=== PATIENT | female | born 1940 | race Hispanic/Latino ===

== ENCOUNTER 2018-09-11 09:14 | Emergency (ER) | payer OTHER ==
--- OUTSIDE RECORDS SUMMARY | 2018-09-11 09:23 | XMS REPORT ---
:1940 Author Organization eClinicalWorks Care Team Providers Name Role Phone Han Guerra Provider Role Unavailable Allergies, Adverse Reactions, Alerts Substance Reaction Event Type N.K.D.A. Info Not Available Non Drug Allergy Problems Problem Type Condition Code Onset Dates Condition Status Problem Other ovarian cyst, left side N83.292 Active Problem Atherosclerosis of coronary artery I25.10 Active of [place] heart Problem Benign essential HTN I10 Active Problem Gastritis K29.70 Active Problem Rheumatoid arthritis M06.9 Active Problem Anemia in chronic illness D63.8 Active Problem Hyperlipidemia, mixed E78.2 Active Problem Depression F32.9 Active Problem Gastro-esophageal reflux disease K21.9 Active without esophagitis Assessment Depression F32.9 Active Assessment Atherosclerosis of coronary artery I25.10 Active of [place] heart Assessment Gastro-esophageal reflux disease K21.9 Active without esophagitis Assessment Hyperlipidemia, mixed E78.2 Active Assessment Anemia in chronic illness D63.8 Active Assessment Rheumatoid arthritis M06.9 Active Assessment Gastritis K29.70 Active Assessment Benign essential HTN I10 Active Medications Medication Code Code Instructions Start End Status Dosage System Date Date Ferrous Sulfate [facility] 49177212771 325 (65 Fe) MG Active 1 tablet Orally Once a day Pantoprazole [facility] 84139025284 40 MG Orally Active 1 tablet Sodium Once a day Lisinopril [facility] 72991954262 20 MG Orally Active 1 tablet Twice a day Metoprolol [facility] 19857162815 25 MG Active 1 TAB(S) Tartrate ORALLY 2 TIMES A DAY FOR 30 DAYS Ultram ND 37288776847 50 MG Orally Active 1 tablet every 12 hrs PRN as needed Pain Metoprolol ND 36677707743 25 MG Orally Active 1 tablet Tartrate Twice a day with food Lasix ND 39700826781 40 MG Orally Nov 07, Active 1 tablet Once a day 2017 Lipitor ND 16525663293 10 MG Orally Active 1 tablet Once a day Lisinopril [facility] 48606353246 20 Active TAKE ONE TABLET TWICE A DAY Results No Known Results Summary Purpose eClinicalWorks Submission
--- OUTSIDE RECORDS SUMMARY | 2018-09-11 09:23 | XMS REPORT ---
:1940 Author Organization eClinicalWorks Care Team Providers Name Role Phone Han Guerra Provider Role Unavailable Allergies No Known Allergies Problems Problem Type Condition Code Onset Dates Condition Status Problem Other ovarian cyst, left side N83.292 Active Problem Atherosclerosis of coronary artery I25.10 Active of [place] heart Assessment Hyperlipidemia, mixed E78.2 Active Problem Benign essential HTN I10 Active Problem Gastritis K29.70 Active Problem Rheumatoid arthritis M06.9 Active Problem Anemia in chronic illness D63.8 Active Problem Hyperlipidemia, mixed E78.2 Active Problem Depression F32.9 Active Problem Gastro-esophageal reflux disease K21.9 Active without esophagitis Medications Medication Code System Code Instructions Start Date End Date Status Dosage Lipitor [facility] 03623744174 10 MG Orally Once Active 1 tablet a day Results No Known Results Summary Purpose eClinicalWorks Submission
[2018-09-11 10:01] LABS: Absolute Lymphocytes (CBC) 0.8 K/uL (0.7-4.9); Basophils % 0.7 % (0-1.3); Eosinophils % 1.6 % (0-4.4); Hematocrit 34.2 % (36.0-45.0); Lymphocytes % 11.4 % (15.3-44.8); MPV 9.3 fL (7.6-11.3); Monocytes % 10.3 % (3.3-12.3); RBC Red Blood Cell Count 3.61 M/uL (3.86-4.86)
[2018-09-11] MEDS ORDERED: MECLIZINE HCL 12.5 MG TAB ONE (10:09)
[2018-09-11 10:17] LABS: ALT/SGPT 22 U/L (12-78); AST/SGOT 19 U/L (15-37); Albumin 3.1 g/dL (3.4-5.0); Alkaline Phosphatase 149 U/L (45-117); BUN Blood Urea Nitrogen 26 mg/dL (7-18); Bicarbonate 27 mmol/L (21-32); Bilirubin Direct 0.1 mg/dL (0-0.2); Bilirubin Total 0.3 mg/dL (0.2-1.0); Glucose Level 108 mg/dL (74-106); Magnesium 2.6 mg/dL (1.8-2.4); NT PRO-BNP 539 pg/mL (<450); Potassium 5.2 mmol/L (3.5-5.1); Sodium Level 141 mmol/L (136-145); Troponin (Emerg Dept Use Only) < 0.02 ng/mL (0.0-0.045)
--- NOTE | 2018-09-11 10:18 | RAD REPORT ---
EXAM DESCRIPTION: CT - Head Brain Wo Cont - 09/11/2018 10:07 am CLINICAL HISTORY: DIZZINESS Headache, drowsiness COMPARISON: 3D DIAG UNI F/U dated 09/10/2018Head Brain Wo Cont dated 03/20/2017; Head Brain Wo Cont d ated 10/20/2015 TECHNIQUE: All CT scans are performed using dose optimization technique as appropriate and may inclu de automated exposure control or mA/KV adjustment according to patient size. FINDINGS: No intracranial hemorrhage, hydrocephalus or extra-axial fluid collection.Mild generalized brain atrophy is present with mild periventricular and deep white matter chronic microvascular ische rene changes.No areas of brain edema or evidence of midline shift. Chronic right maxillary sinusitis. The paranasal sinuses and mastoids are otherwise clear. The calvar ium is intact. IMPRESSION: No acute intracranial abnormality.
--- NOTE | 2018-09-11 10:39 | RAD REPORT ---
EXAM DESCRIPTION: RAD - Chest Single View - 09/11/2018 10:32 am CLINICAL HISTORY: CHEST PAIN Chest pain. COMPARISON: Chest Single View dated 03/22/2017; Chest Single View dated 03/20/2017; Chest Single Vie w dated 10/20/2015; CHEST SINGLE VIEW dated 03/16/2015 FINDINGS: Portable technique limits examination quality. Mild interstitial pulmonary edema is seen. The heart is moderately enlarged in size. No displaced fra ctures. IMPRESSION: Mild CHF.
--- NOTE | 2018-09-11 10:42 | EKG ---
Test Date: 2018-09-11 Test Time: 09:27:41 [employer]: BEN MEASUREMENT RESULTS: Intervals: Rate: 68 GA: 140 QRSD: 82 QT: 384 QTc: 408 [place]: P: 12 GA: 140 QRS: 12 T: 32 INTERPRETIVE STATEMENTS: Normal sinus rhythm Normal ECG Compared to ECG 03/22/2017 05:31:55 Ventricular premature complex(es) no longer present Electronically Signed On 09-11-18 10:41:23 CDT by Josesito Pulido
--- NOTE | 2018-09-11 12:13 | ER ---
Nurse's Notes [facility] Name: Mahnaz Osborne Age: 78 yrs Sex: Female : 1940 Arrival Date: 09/11/2018 Time: 09:16 Bed 7 Private MD: Diagnosis: Dizziness and giddiness;Abdominal and pelvic pain Presentation: 09/11 09:33 Presenting complaint: Patient states: EPIGASTRIC PAIN, HEADACHE AND DIZZINESS SINCE bp YESTERDAY. Transition of care: patient was not received from another setting of care. Onset of symptoms was September 10, 2018. Risk Assessment: Do you want to hurt yourself or someone else? Patient reports no desire to harm self or others. Initial Sepsis Screen: Does the patient meet any 2 criteria? No. Patient's initial sepsis screen is negative. Does the patient have a suspected source of infection? No. Patient's initial sepsis screen is negative. Care prior to arrival: None. Mechanism of Injury: No Mechanism of Injury. 09:33 Method Of Arrival: Ambulatory bp 09:33 Acuity: REENA 2 bp Triage Assessment: 09:33 General: Appears in no apparent distress. comfortable, Behavior is cooperative, bp appropriate for age, anxious. Pain: Complains of pain in head and epigastric area. Cardiovascular: Rhythm is sinus rhythm. 09:33 EENT: No signs and/or symptoms were reported regarding the EENT system. Neuro: No bp deficits noted. Respiratory: Airway is patent Respiratory effort is even, unlabored, Respiratory pattern is regular, symmetrical. GI: No signs and/or symptoms were reported involving the gastrointestinal system. : No signs and/or symptoms were reported regarding the genitourinary system. Derm: No deficits noted. Musculoskeletal: No signs and/or symptoms reported regarding the musculoskeletal system. Historical: - Allergies: 09:39 No Known Allergies; bp - Home Meds: 09:39 pantoprazole 40 mg Oral TbEC 1 tab once daily [Active]; metoprolol tartrate 25 mg Oral bp tab 1 tab 2 times per day [Active]; lisinopril 20 mg Oral tab 1 tab once daily [Active]; aspirin 81 mg Oral chew 1 tab once daily [Active]; amlodipine 5 mg tab 1 tab once daily [Active]; - PMHx: 09:39 Hypertension; High Cholesterol; bp - Immunization history:: Adult Immunizations up to date. - Social history:: Smoking status: Patient/guardian denies using tobacco. - Ebola Screening: : No symptoms or risks identified at this time. Screenin:48 Abuse screen: Denies threats or abuse. Denies injuries from another. Nutritional bp screening: No deficits noted. Tuberculosis screening: No symptoms or risk factors identified. Fall Risk None identified. Assessment: 09:35 General: SEE TRIAGE NOTE. bp 09:35 Pain: Pain does not radiate. Pain began 1 day ago. bp 11:32 Reassessment: ALL CURRENT ORDERS COMPLETED, NO ACUTE S/S AT THIS TIME. bp 12:22 Reassessment: PT D/C HOME AMBULATORY WITH FAMILY, DX WITH DIZZINESS. bp Vital Signs: 09:46 BP 147 / 60; Pulse 68; Resp 16; Temp 98.3; Pulse Ox 100% ; Weight 73.03 kg; bp 11:31 BP 117 / 53; Pulse 54; Resp 16; Pulse Ox 100% ; bp ED Course: 09:16 Patient arrived in ED. as 09:16 Giovanni Nicole MD is Attending Physician. kdr 09:33 Harvinder Treviño, LAN is Primary Nurse. bp 09:37 Triage completed. bp 09:46 Arm band placed on. bp 09:47 EKG done, by cath lab technologist. reviewed by Giovanni Nicole MD. sm3 09:48 Patient has correct armband on for positive identification. Bed in low position. Call bp light in reach. Side rails up X2. Adult w/ patient. manager monitoring on. Pulse ox on. NIBP on. 09:56 Initial lab(s) drawn, by hi, sent to lab. Inserted saline lock: 20 gauge in right em1 antecubital area, using aseptic technique. Blood collected. 10:07 CT Head Brain wo Cont In Process Unspecified. EDMS 10:27 X-ray completed. Portable x-ray completed in exam room. Patient tolerated procedure mh1 well. 10:33 XRAY Chest (1 view) In Process Unspecified. EDMS 12:23 No provider procedures requiring assistance completed. IV discontinued, intact, bp bleeding controlled, No redness/swelling at site. Pressure dressing applied. Patient maintains SpO2 saturation greater than 95% on room air. Administered Medications: 09:58 Drug: Meclizine 25 mg Route: PO; bp 11:34 Follow up: Response: Marked relief of symptoms bp Outcome: 12:13 Discharge ordered by . kdr 12:23 Discharged to home ambulatory, with family. bp 12:23 Condition: stable 12:23 Discharge instructions given to patient, family, Instructed on discharge instructions, follow up and referral plans. medication usage, Demonstrated understanding of instructions, follow-up care, medications, Prescriptions given X 2. 12:24 Patient left the ED. bp Signatures: Dispatcher [employer] EDMS Giovanni Nicole MD MD kdr Harvey, Martha 1 Chelsey Thorne Eric 1 Harvinder Treviño, RN RN bp Arnold, Meli sm3
--- NOTE | 2018-09-11 12:13 | EDPHYS ---
Physician Documentation [facility] Name: Mahnaz Osborne Age: 78 yrs Sex: Female : 1940 Arrival Date: 09/11/2018 Time: 09:16 Bed 7 Private MD: ED Physician Giovanni Nicole HPI: 09/11 09:46 This 78 yrs old Female presents to ER via Ambulatory with complaints of Chest kdr Pain, Headache. 09:49 The patient c/o dizziness and upper abdominal pain for two days. She has had this kdr previously about six months to a year ago. She had seen cardiology at that time. The outcome is unknown. Today, she does not appear to be in any acute distress. She is completely non-toxic in the ED.. Onset: The symptoms/episode began/occurred gradually, 2 day(s) ago. Severity of symptoms: At their worst the symptoms were mild moderate just prior to arrival, in the emergency department the symptoms. The patient has experienced similar episodes in the past, several times. The patient has not recently seen a physician. Historical: - Allergies: 09:39 No Known Allergies; bp - Home Meds: 09:39 pantoprazole 40 mg Oral TbEC 1 tab once daily [Active]; metoprolol tartrate 25 mg Oral bp tab 1 tab 2 times per day [Active]; lisinopril 20 mg Oral tab 1 tab once daily [Active]; aspirin 81 mg Oral chew 1 tab once daily [Active]; amlodipine 5 mg tab 1 tab once daily [Active]; - PMHx: 09:39 Hypertension; High Cholesterol; bp - Immunization history:: Adult Immunizations up to date. - Social history:: Smoking status: Patient/guardian denies using tobacco. - Ebola Screening: : No symptoms or risks identified at this time. ROS: 09:49 Constitutional: Negative for fever, chills, and weight loss, Eyes: Negative for injury, kdr pain, redness, and discharge, ENT: Negative for injury, pain, and discharge, Neck: Negative for injury, pain, and swelling, Cardiovascular: Negative for chest pain, palpitations, and edema, Respiratory: Negative for shortness of breath, cough, wheezing, and pleuritic chest pain, Back: Negative for injury and pain, : Negative for injury, bleeding, discharge, and swelling, MS/Extremity: Negative for injury and deformity, Skin: Negative for injury, rash, and discoloration, Psych: Negative for depression, anxiety, suicide ideation, homicidal ideation, and hallucinations, Allergy/Immunology: Negative for hives, rash, and allergies, Endocrine: Negative for neck swelling, polydipsia, polyuria, polyphagia, and marked weight changes, Hematologic/Lymphatic: Negative for swollen nodes, abnormal bleeding, and unusual bruising. 09:49 Abdomen/GI: Positive for abdominal pain, nausea, Negative for vomiting, diarrhea, constipation, abdominal cramps, abdominal distension, anorexia, dysphagia, black/tarry stool, rectal pain, rectal bleeding. Exam: 09:49 Constitutional: This is a well developed, well nourished patient who is awake, alert, kdr and in no acute distress. Head/Face: Normocephalic, atraumatic. Eyes: Pupils equal round and reactive to light, extra-ocular motions intact. Lids and lashes normal. Conjunctiva and sclera are non-icteric and not injected. Cornea within normal limits. Periorbital areas with no swelling, redness, or edema. Neck: Trachea midline, no thyromegaly or masses palpated, and no cervical lymphadenopathy. Supple, full range of motion without nuchal rigidity, or vertebral point tenderness. No Meningismus. Chest/axilla: Normal chest wall appearance and motion. Nontender with no deformity. No lesions are appreciated. Cardiovascular: Regular rate and rhythm with a normal S1 and S2. No gallops, murmurs, or rubs. Normal PMI, no JVD. No pulse deficits. Respiratory: Lungs have equal breath sounds bilaterally, clear to auscultation and percussion. No rales, rhonchi or wheezes noted. No increased work of breathing, no retractions or nasal flaring. Abdomen/GI: Soft, non-tender, with normal bowel sounds. No distension or tympany. No guarding or rebound. No evidence of tenderness throughout. Back: No spinal tenderness. No costovertebral tenderness. Full range of motion. Skin: Warm, dry with normal turgor. Normal color with no rashes, no lesions, and no evidence of cellulitis. MS/ Extremity: Pulses equal, no cyanosis. Neurovascular intact. Full, normal range of motion. Neuro: Awake and alert, GCS 15, oriented to person, place, time, and situation. Cranial nerves II-XII grossly intact. Motor strength 5/5 in all extremities. Sensory grossly intact. Cerebellar exam normal. Normal gait. Psych: Awake, alert, with orientation to person, place and time. Behavior, mood, and affect are within normal limits. Vital Signs: 09:46 BP 147 / 60; Pulse 68; Resp 16; Temp 98.3; Pulse Ox 100% ; Weight 73.03 kg; bp 11:31 BP 117 / 53; Pulse 54; Resp 16; Pulse Ox 100% ; bp MDM: 09:49 Data reviewed: vital signs, nurses notes, lab test result(s), radiologic studies. kdr Counseling: I had a detailed discussion with the patient and/or guardian regarding: the historical points, exam findings, and any diagnostic results supporting the discharge/admit diagnosis, lab results, radiology results, the need for outpatient follow up. 12:13 Patient medically screened. [facility] 09/11 09:16 Order name: Basic Metabolic Panel [facility] 09/11 09:16 Order name: CBC with Diff [facility] 09/11 09:16 Order name: LFT's [facility] 09/11 09:16 Order name: Magnesium [facility] 09/11 09:16 Order name: NT PRO-BNP; Complete Time: 11:16 [facility] 09/11 09:16 Order name: PT-INR; Complete Time: 11:16 [facility] 09/11 09:16 Order name: Troponin (emerg Dept Use Only); Complete Time: 11:16 [facility] 09/11 09:16 Order name: XRAY Chest (1 view); Complete Time: 11:16 [facility] 09/11 09:18 Order name: Basic Metabolic Panel; Complete Time: 11:16 EDMD 09/11 09:18 Order name: CBC with Automated Diff; Complete Time: 11:16 EDMD 09/11 09:18 Order name: Liver (Hepatic) Function; Complete Time: 11:16 EDMD 09/11 09:18 Order name: Magnesium; Complete Time: 11:16 EDMD 09/11 09:45 Order name: CT Head Brain wo Cont; Complete Time: 11:16 kdr 09/11 09:16 Order name: EKG; Complete Time: 09:18 kdr 09/11 09:17 Order name: Cardiac monitoring; Complete Time: 09:49 [facility] 09/11 09:17 Order name: EKG - Nurse/Tech; Complete Time: 09:50 [facility] 09/11 09:17 Order name: IV Saline Lock; Complete Time: 09:50 [facility] 09/11 09:17 Order name: Labs collected and sent; Complete Time: :50 [facility] 09/11 09:17 Order name: O2 Per Protocol; Complete Time: 09:50 [facility] 09/11 09:17 Order name: O2 Sat Monitoring; Complete Time: :50 [facility] Administered Medications: 09:58 Drug: Meclizine 25 mg Route: PO; bp 11:34 Follow up: Response: Marked relief of symptoms bp Disposition: 09/11/18 12:13 Discharged to Home. Impression: Dizziness and giddiness, Abdominal and pelvic pain. - Condition is Stable. - Discharge Instructions: Abdominal Pain, Adult, [id number]-Tekf, Dizziness, [id number]. - Prescriptions for Meclizine 25 mg Oral Tablet - take 1 tablet by ORAL route every 8 hours As needed; 30 tablet. Zofran 4 mg Oral Tablet - take 1 tablet by ORAL route every 12 hours As needed; 6 tablet. - Medication Reconciliation Form, Thank You Letter form. - Follow up: Private Physician; When: 2 - 3 days; Reason: If symptoms return, Further diagnostic work-up, Recheck today's complaints, Continuance of care, Re-evaluation by your physician. - Problem is new. - Symptoms have improved. Signatures: Dispatcher [employer] EDMS Giovanni Nicole MD MD kdr Harvinder Treviño, RN RN bp Corrections: (The following items were deleted from the chart) 12:24 12:13 09/11/2018 12:13 Discharged to Home. Impression: Dizziness and giddiness; bp Abdominal and pelvic pain. Condition is Stable. Forms are Medication Reconciliation Form, Thank You Letter, Antibiotic Education, Prescription Opioid Use. Follow up: Private Physician; When: 2 - 3 days; Reason: If symptoms return, Further diagnostic work-up, Recheck today's complaints, Continuance of care, Re-evaluation by your physician. Problem is new. Symptoms have improved. kdr
[2018-09-11 12:35] VITALS: TEMP 98.3; O2SAT 100
[2018-09-11 12:36] VITALS: BP 117/53
== END 2018-09-11 12:24 | disposition home or self-care (01) ==
LOC: ER 09:14
DX: R10.2 Pelvic and perineal pain (principal); I10 Essential (primary) hypertension; E78.00 Pure hypercholesterolemia, unspecified; Z79.82 Long term (current) use of aspirin
CPT/HCPCS: 36415; 70450; 71045; 80048; 80076; 83735; 83880; 84484; 85025; 85610; 93005; 99285

== ENCOUNTER 2019-12-23 10:00 | Emergency (ER) | payer OTHER ==
--- OUTSIDE RECORDS SUMMARY | 2019-12-23 10:29 | XMS REPORT | Continuity of Care Document ---
:1940 Author Organization [facility] t Address [address] [place] [address] Care Team Providers Name Role Phone Unavailable Unavailable Unavailable Problems This patient has no known problems. Allergies, Adverse Reactions, Alerts This patient has no known allergies or adverse reactions. Medications Ordered Filled Start Stop Current Ordering Indication Dosage Frequency Signature Comments Components Source Medication Medication Date Date Medication? Clinician (SIG) Name Name Zoloft [place] Yes Han 1/[address] [facility] once daily [facility] then 1 l tablet [facility] once daily ent Clinics Metoprolol Metoprolol Yes Han [address] [facility] Tartrate Tartrate [facility] with food [facility] Lisinopril Lisinopril Yes Han [address] [facility] Amlodipine Amlodipine Yes Han TK [address] [facility] Besylate Besylate [facility] QD [facility] Folic Acid Folic Acid Yes Han [address] [facility] Ferrous Ferrous Yes Han [address] [facility] Sulfate Sulfate [facility] Lasix Lasix Yes Han [address] [facility] Methotrexat Methotrexat Yes Han as [facility] directed [facility] Lipitor Lipitor Yes Han [address] [facility] Fosamax Fosamax Yes Han [address] [facility] Pantoprazol Pantoprazol Yes Han [address] [facility] Sodium e Sodium Gu[facility] Ultram Ultram Yes Han [facility] Procedures This patient has no known procedures. Encounters Start End Encounter Admission Attending Care Care Encounter Source Date/Time Date/Time Type Type Clinicians Facility Department ID 2019-12-21 2019-12-21 Out[facility] [id number] [facility] 2019-10-20 2019-10-20 [facility] [id number] [facility] 11:00:00 11:00:00 [employer] [facility] Medicine l Medicine Outpati ent Clinics 2019-10-20 2019-10-20 [facility] [id number] [facility] 11:00:00 11:00:00 [employer] [facility] Medicine Medicine Outpati ent Clinics 2019-10-12 2019-10-12 [facility] [id number] 15:00:00 15:00:00 [employer] [facility] Medicine l Medicine Outpati ent Clinics 2019-10-11 2019-10-11 [facility] [id number] 21:54:00 21:54:00 [facility] [employer] [facility] Medicine l Medicine Outpati ent Clinics 2019-10-05 2019-10-05 [facility] [id number] [facility] 08:30:00 08:30:00 [email or web address] [facility] Medicine l Medicine Outpati ent Clinics 2019-09-30 2019-09-30 [facility] [id number] 13:20:00 13:20:00 [employer] [facility] [employer] [facility] Medicine l Medicine Outpati ent Clinics 2019-09-28 2019-09-28 [facility] [id number] 16:39:00 16:39:00 [employer] [facility] Clinics 2019-09-21 2019-09-21 [facility] [id number] [facility] 16:12:00 16:12:[address] [facility] [address] - [address] [facility] Medicine l Medicine Outpati ent Clinics 2019-09-16 2019-09-16 [facility] [id number] 08:20:00 08:20:00 t [place] [employer] Luke s - Drive [facility] Medicine l Medicine Outpati ent Clinics 2019-09-15 2019-09-15 [facility] [id number] 13:09:00 13:09:00 t Stanley Stanley [employer] Luke s - Drive [facility] Medicine l Medicine Outpati ent Clinics 2019-06-23 2019-06-23 [facility] [id number] [address] 11:30:00 11:30:00 t Stanley Stanley [employer] s - Drive [facility] Medicine l Medicine Outpati ent Clinics 2019-04-02 2019-04-02 [facility] [id number] [address] 11:00:00 11:00:00 t Stanley Stanley [employer] s - Drive [facility] Medicine l Medicine Outpati ent Clinics 2019-03-26 2019-03-26 [facility] [id number] [address] 08:00:00 08:00:00 t Stanley [employer] s - Drive [facility] Medicine l Medicine Outpati ent Clinics 2018-12-18 2018-12-18 [facility] [id number] 10:45:00 10:45:00 t [place] Stanley [employer] s - Drive [facility] l Medicine Outpati ent Clinics 2018-09-18 2018-09-18 [facility] [id number] 10:30:00 10:30:00 t [place] [employer] s - Drive [facility] Medicine l Medicine Outpati ent Clinics 2018-07-09 2018-07-09 [facility] [id number] 13:59:00 13:59:00 t [place] [employer] s - Drive [facility] Medicine l Medicine Outpati ent Clinics 2017-11-07 2017-11-07 [facility] [id number] 10:30:00 10:30:00 t [facility] Medicine Outpati ent Clinics Results This patient has no known results.
--- OUTSIDE RECORDS SUMMARY | 2019-12-23 10:29 | XMS REPORT ---
:1940 Author Organization eClinicalWorks Care Team Providers Name Role Phone Charlie Han Provider Role Unavailable Allergies No Known Allergies Problems Problem Type Condition Code Onset Dates Condition Statu s Problem Gastro-esophageal reflux disease K21.9 Active without esophagitis Problem Gastritis K29.70 Active Problem Depression F32.9 Active Problem Hyperlipidemia, mixed E78.2 Active Problem Anemia in chronic illness D63.8 Ac tive Problem Body mass index (BMI) 31.0-31.9, Z68.31 Active adult Problem Age-related osteoporosis without M81.0 Active current pathological fracture Problem Other obesity due to excess E66.09 Active calories Problem Rheumatoid arthritis M06.9 Active Problem Benign essential HTN I10 Active Problem Other ovarian cyst, left side N83.292 Active Problem Atherosclerosis of coronary artery I25.10 Active of [place] heart Medications No Known Medications Results No Known Results Summary Purpose eClinicalWorks Submission
--- OUTSIDE RECORDS SUMMARY | 2019-12-23 10:30 | XMS REPORT ---
:1940 Author Organization [facility] Address [address] [place] [address] Care Team Providers Name Role Phone Charlie Han Unavailable [phone] PROBLEMS Type Condition ICD9-CM TSV88-NV Onset Condition SNOMED Code Notes Code Code Dates Status Problem Depression F32.9 Active 571781769 Problem Gastritis K29.70 Active 8122958 Problem Benign essential I10 Active 86898924 HTN Problem Hyperlipidemia, E78.2 Active 261934013 mixed Problem Body mass index Z68.31 Active 727368038 (BMI) 31.0-31.9, adult Problem Gastro-esophageal K21.9 Active 465093320 reflux disease without esophagitis Problem Other obesity due E66.09 Active 340571340 to excess calories Problem Anemia in chronic D63.8 Active 090330764 illness Problem Rheumatoid M06.9 Active 39960053 arthritis Problem Atherosclerosis I25.10 Active 944807593489030 of coronary artery of [place] heart Problem Other ovarian N83.292 Active 08449167454442513 cyst, left side Problem Age-related M81.0 Active 65738910 osteoporosis without current pathological fracture ALLERGIES No Known Allergies ENCOUNTERS from 1940 to 2019-12-21 Encounter Location Date Provider Diagnosis [facility] [address], [place] [address] IMMUNIZATIONS No Information SOCIAL HISTORY Sex Assigned At : Social History Observation Description Sex Assigned At Unknown PHQ9 Question Answer Notes Little interest or pleasure in doing things Not at all Feeling down, depressed, or hopeless Not at all Trouble falling or staying asleep or sleeping too much Not a t all Feeling tired or having little energy Not at all Poor appetite or overeating Not at all Feeling bad about yourself, or that you are a failure, or patterson ve let Not at all yourself or your family down Trouble concentrating on things, such as reading the newspap er or Not at all watching television Moving or speaking so slowly that other people could have no ticed; Not at all or the opposite, being so fidgety or restless that you have been moving around a lot more than usual Total Score 0 Thoughts that you would be better off or of hurting you rself in Not at all some way REASON FOR REFERRAL No Information VITAL SIGNS No information MEDICATIONS Medication SIG (Take, Route, Start Date End Date Status Frequency, Duration) Methotrexate 2.5 MG as directed Orally Ac tive Lasix 40 MG 1 tablet Orally Once a day A ctive for 90 days Pantoprazole Sodium 40 MG 1 tablet Orally Once a day Active for 90 days Folic Acid 1 MG 1 tablet Orally Once a day Active Ultram 50 MG 1 tablet as needed Orally Ac tive every 12 hrs PRN Pain for 30 Zoloft 50 MG 1/2 tab once daily x 1week, Aug, Active then 1 tablet once daily Orally Once a day for 30 day(s) Meclizine HCl 25 MG 1 tablet as needed Orally Nov, Active Once a day for 15 days Amlodipine Besylate 5 MG TK 1 T PO QD Oral for 90 Active days Metoprolol Tartrate 25 MG 1 tablet with food Orally Active Twice a day for 90 days Lipitor 20 MG 1 tablet Orally Once a day Active for 90 days Lisinopril 20 MG 1 tablet Orally Once a day Active for 90 days Ferrous Sulfate 325 (65 Fe) 1 tablet Orally Once a day Active MG for 90 Fosamax 70 MG 1 tablet Orally Active PROCEDURES No Information RESULTS No Results REASON FOR VISIT Dizzy MEDICAL (GENERAL) HISTORY Type Description Date Medical History Rheumatoid arthritis Medical History Benign essential HTN Medical History Anemia in chronic illness Medical History Hyperlipidemia, mixed Medical History Atherosclerosis of coronary artery of na tive heart Medical History Depression Medical History Gastro-esophageal reflux disease without esophagitis Medical History Gastritis Medical History Other ovarian cyst, left side Surgical History Knee Surgical History Hand & Elbow Surgical History Hip Surgical History Gallbladder Goals Section No Information Health Concerns No Information MEDICAL EQUIPMENT No Information MENTAL STATUS No Information FUNCTIONAL STATUS No Information ASSESSMENTS No Information PLAN OF TREATMENT Medication Medication Name Sig Start Date Stop Date Meclizine HCl 25 MG 1 tablet as needed Orally Once a day for Nov, 15 days Next Appt Details Provider Name:Han Guerra, 2020-01-13 0 8:30:00 AM, [address], [place], [address], Provider Name:Han Guajardodaniel 2020-01-20 1 1:30:00 AM, [address], [place], [address], Insurance Providers Payer Name Payer Address Payer Insured Patient Coverage Cover age Phone Name Relationship to Start Date End Date Insured MEDICARE Attn Part B [id number] Sekou Osborne self 2007 [employer] Claims [address] [facility] [address] [facility] [address]
--- OUTSIDE RECORDS SUMMARY | 2019-12-23 10:30 | XMS REPORT ---
:1940 Author Organization eClinicalWorks Care Team Providers Name Role Phone Mary Metzger Provider Role Unavailable Allergies No Known Allergies Problems Problem Type Condition Code Onset Dates Condition Statu s Problem Gastro-esophageal reflux disease K21.9 Active without esophagitis Problem Gastritis K29.70 Active Problem Depression F32.9 Active Assessment COVID-19 U07.1 Active Problem Hyperlipidemia, mixed E78.2 Active Problem [...] Atherosclerosis of coronary artery I25.10 Active of [place] heart Medications Medication Code Code Instructions Start End Status Dosage System Date Date Lisinopril [facility] 28948529346 20 MG Orally Active 1 ta blet Twice a day Ultram [facility] 18279239325 50 MG Orally Active 1 table t as every 12 hrs needed PRN Pain Zoloft ND 27708911945 50 MG Orally September 20, Active 1/2 ta b Once a day 2019 once daily x 1week, then 1 tablet once daily Fosamax [facility] 91507637984 70 MG Orally Active 1 table t Ferrous Sulfate [facility] 25984510449 325 (65 Fe) MG Activ e 1 tablet Orally Once a day Lasix ND 49503544083 40 MG Orally Active 1 table t Once a day Methotrexate ND 42259493527 2.5 MG Orally Active a s directed Amlodipine ND 46686866906 5 MG Oral Active TK 1 T PO Besylate QD Pantoprazole ND 80610804549 40 MG Orally Active 1 tablet Sodium Once a day Folic Acid ND 04769027541 1 MG Orally Active 1 tab let Once a day Metoprolol ND 80441127252 25 MG Orally Active 1 ta blet Tartrate Twice a day with food Lipitor [facility] 43902389808 20 MG Orally Active 1 table t Once a day Results No Known Results Summary Purpose eClinicalWorks Submission
--- OUTSIDE RECORDS SUMMARY | 2019-12-23 10:30 | XMS REPORT ---
:1940 Author Organization eClinicalWorks Care Team Providers Name Role Phone Charlie Han Provider Role Unavailable Allergies, Adverse Reactions, Alerts Substance Reaction Event Type N.K.D.A. Info Not Available Non Drug Allergy Problems Problem Type Condition Code Onset Dates Condition Statu s Problem Gastro-esophageal reflux disease K21.9 Active without esophagitis Problem Gastritis K29.70 Active Problem Depression F32.9 Active Problem Body mass index (BMI) 31.0-31.9, Z68.31 Active adult Assessment Atherosclerosis of coronary artery I25.10 Active of [place] heart Problem Age-related osteoporosis without M81.0 Active current pathological fracture Assessment Depression F32.9 Active Assessment Age-related osteoporosis without M81.0 Active current pathological fracture Problem Other obesity due to excess E66.09 Active calories Problem Rheumatoid arthritis M06.9 Active Problem Benign essential HTN I10 Active Problem Other ovarian cyst, left side N83.292 Active Problem Atherosclerosis of coronary artery I25.10 Active of [place] heart Assessment Gastro-esophageal reflux disease K21.9 Active without esophagitis Assessment Hyperlipidemia, mixed E78.2 Active Assessment Anemia in chronic illness D63.8 Ac tive Assessment Gastritis K29.70 Active Assessment Hypotensive episode I95.9 Active Assessment Hyperkalemia E87.5 Active Assessment Body mass index (BMI) 31.0-31.9, Z68.31 Active adult Assessment Rheumatoid arthritis M06.9 Active Problem Hyperlipidemia, mixed E78.2 Active Assessment Other obesity due to excess E66.09 Active calories Assessment Benign essential HTN I10 Active Problem Anemia in chronic illness D63.8 Ac tive Medications Medication Code Code Instructions Start End Status Dosage System Date Date Ferrous Sulfate [facility] 22739059338 325 (65 Fe) MG Activ e 1 tablet Orally Once a day Pantoprazole [facility] 98601204349 40 MG Orally Active 1 tablet Sodium Once a day Folic Acid [facility] 06937312235 1 MG Orally Active 1 tab let Once a day Fosamax [facility] 39593575104 70 MG Orally Active 1 table t Lisinopril [facility] 57117957666 20 MG Orally Active 1 ta blet Once a day Ultram ND 92135937103 50 MG Orally Active 1 table t as every 12 hrs needed PRN Pain Lipitor ND 79311662890 20 MG Orally Active 1 table t Once a day Methotrexate ND 93158957007 2.5 MG Orally Active a s directed Metoprolol ND 47217053541 25 MG Orally Active 1 ta blet Tartrate Twice a day with food Zoloft ND 29798392133 50 MG Orally September 20, Active 03/26 ta b Once a day 2019 once daily x 1week, then 1 tablet once daily Lasix [facility] 34860397789 40 MG Orally Active 1 table t Once a day Amlodipine [facility] 99459892702 5 MG Oral Active TK 1 T PO Besylate QD Results No Known Results Summary Purpose eClinicalWorks Submission
--- OUTSIDE RECORDS SUMMARY | 2019-12-23 10:30 | XMS REPORT ---
[...] Atherosclerosis of coronary artery I25.10 Active of [place] heart Medications No Known Medications Results No Known Results Summary Purpose eClinicalWorks Submission
--- OUTSIDE RECORDS SUMMARY | 2019-12-23 10:30 | XMS REPORT ---
:1940 Author Organization eClinicalWorks Care Team Providers Name Role Phone GuerraHan Provider Role Unavailable Allergies, Adverse Reactions, Alerts Substance Reaction Event Type N.K.D.A. Info Not Available Non Drug Allergy Problems Problem Type Condition Code Onset Dates Condition Statu s Problem Gastro-esophageal reflux disease K21.9 Active without esophagitis Problem Gastritis K29.70 Active Problem Depression F32.9 Active Assessment Medicare annual wellness visit, Z00.00 Active subsequent Problem Hyperlipidemia, mixed E78.2 Active Problem Anemia [...] Atherosclerosis of coronary artery I25.10 Active of [place] heart Medications Medication Code Code Instructions Start End Status Dosage System Date Date Fosamax [facility] 03003430930 70 MG Orally Active 1 table t Lipitor [facility] 26251928356 20 MG Orally Active 1 table t Once a day Lasix [facility] 46111128470 40 MG Orally Active 1 table t Once a day Metoprolol [facility] 13057954002 25 MG Orally Active 1 ta blet Tartrate Twice a day with food Ferrous Sulfate [facility] 12919332208 325 (65 Fe) MG Activ e 1 tablet Orally Once a day Folic Acid [facility] 25970253954 1 MG Orally Active 1 tab let Once a day Methotrexate [facility] 56747624865 2.5 MG Orally Active a s directed Lisinopril [facility] 98732448101 20 MG Orally Active 1 ta blet Once a day Pantoprazole [facility] 44126472905 40 MG Orally Active 1 tablet Sodium Once a day Amlodipine [facility] 67165896316 5 MG Oral Active TK 1 T PO Besylate QD Ultram [facility] 15448048748 50 MG Orally Active 1 table t as every 12 hrs needed PRN Pain Zoloft [facility] 63123962104 50 MG Orally September 20, Active 03/26 ta b Once a day 2019 once daily x 1week, then 1 tablet once daily Results No Known Results Summary Purpose eClinicalWorks Submission
--- OUTSIDE RECORDS SUMMARY | 2019-12-23 10:30 | XMS REPORT ---
[...] Atherosclerosis of coronary artery I25.10 Active of [place] heart Medications No Known Medications Results No Known Results Summary Purpose eClinicalWorks Submission
--- OUTSIDE RECORDS SUMMARY | 2019-12-23 10:30 | XMS REPORT ---
[...] Atherosclerosis of coronary artery I25.10 Active of [place] heart Medications No Known Medications Results No Known Results Summary Purpose eClinicalWorks Submission
--- OUTSIDE RECORDS SUMMARY | 2019-12-23 10:30 | XMS REPORT ---
:1940 Author Organization eClinicalWorks Care Team Providers Name Role Phone Han Guerra Provider Role Unavailable Allergies, Adverse Reactions, Alerts Substance Reaction Event Type N.K.D.A. Info Not Available Non Drug Allergy Problems Problem Type Condition Code Onset Dates Condition Statu s Assessment Decreased GFR R94.4 Active Assessment Hyperkalemia E87.5 Active Problem Hyperlipidemia, mixed E78.2 Active Assessment Body mass index (BMI) 31.0-31.9, Z68.31 Active adult Problem Anemia in chronic illness D63.8 Ac tive Assessment Other obesity due to excess E66.09 Active calories Problem Gastro-esophageal reflux disease K21.9 Active without esophagitis Problem Gastritis K29.70 Active Problem Depression F32.9 Active Problem Body mass index (BMI) 31.0-31.9, Z68.31 Active adult Problem Age-related osteoporosis without M81.0 Active current pathological fracture Assessment Atherosclerosis of coronary artery I25.10 Active of [place] heart Assessment Depression F32.9 Active Problem Other obesity due to excess E66.09 Active calories Assessment Age-related osteoporosis without M81.0 Active current pathological fracture Problem Rheumatoid arthritis M06.9 Active Problem Benign essential HTN I10 Active Problem Other ovarian cyst, left side N83.292 Active Problem Atherosclerosis of coronary artery I25.10 Active of [place] heart Assessment Gastro-esophageal reflux disease K21.9 Active without esophagitis Assessment Hypotensive episode I95.9 Active Assessment Anemia in chronic illness D63.8 Ac tive Assessment Gastritis K29.70 Active Assessment Benign essential HTN I10 Active Assessment Hyperlipidemia, mixed E78.2 Active Assessment Rheumatoid arthritis M06.9 Active Medications Medication Code Code Instructions Start End Status Dosage System Date Date Folic Acid ND 56010643568 1 MG Orally Active 1 tab let Once a day Methotrexate ND 28146630469 2.5 MG Orally Active a s directed Zoloft ND 73740657455 50 MG Orally September 20, Active 1/2 ta b Once a day 2019 once daily x 1week, then 1 tablet once daily Amlodipine [facility] 67678614653 5 MG Oral Active TK 1 T PO Besylate QD Pantoprazole [facility] 43410636567 40 MG Orally Active 1 tablet Sodium Once a day Metoprolol [facility] 78771568918 25 MG Orally Active 1 ta blet Tartrate Twice a day with food Fosamax [facility] 44089605419 70 MG Orally Active 1 table t Lisinopril [facility] 07690241044 20 MG Orally Active 1 ta blet Once a day Lasix [facility] 35520899282 40 MG Orally Active 1 table t Once a day Calcium [facility] [address] Active not defined Ultram [facility] 73633707567 50 MG Orally Active 1 table t as every 12 hrs needed PRN Pain Ferrous Sulfate [facility] 64022616705 325 (65 Fe) MG Activ e 1 tablet Orally Once a day Lipitor [facility] 98617267982 20 MG Orally Active 1 table t Once a day Results No Known Results Summary Purpose eClinicalWorks Submission
[2019-12-23 11:09] LABS: Absolute Lymphocytes (CBC) 0.9 K/uL (0.7-4.9); Basophils % 0.7 % (0-1.3); Hematocrit 32.3 % (36.0-45.0); Lymphocytes % 11.1 % (15.3-44.8); MPV 9.4 fL (7.6-11.3); RBC Red Blood Cell Count 3.52 M/uL (3.86-4.86)
[2019-12-23 11:10] LABS: Protime INR 0.99
--- NOTE | 2019-12-23 11:17 | RAD REPORT ---
EXAM DESCRIPTION: RAD - Chest Single View - 12/23/2019 11:10 am CLINICAL HISTORY: dizziness Chest pain. COMPARISON: Chest Single View dated 09/11/2018; Chest Single View dated 03/22/2017; Chest Single View dated 03/20/2017; Chest Single View dated 10/20/2015 FINDINGS: Portable technique limits examination quality. Mild interstitial pulmonary edema is seen. A small amount of right pleural fluid noted. The heart is moderately enlarged. No displaced fractures. IMPRESSION: Stable chest since 09/11/2018. Mild CHF is noted.
--- NOTE | 2019-12-23 11:34 | RAD REPORT ---
EXAM DESCRIPTION: CT - Head Brain Wo Cont - 12/23/2019 11:19 am CLINICAL HISTORY: DIZZINESS Headache, drowsiness COMPARISON: Head Brain Wo Cont dated 09/11/2018; Head Brain Wo Cont dated 03/20/2017 TECHNIQUE: All CT scans are performed using dose optimization technique as appropriate and may inclu de automated exposure control or mA/KV adjustment according to patient size. FINDINGS: No intracranial hemorrhage, hydrocephalus or extra-axial fluid collection.No areas of brai n edema or evidence of midline shift. Chronic right maxillary sinusitis is present. Paranasal sinuses and mastoids are otherwise clear. The calvarium is intact. IMPRESSION: No acute intracranial abnormality.
[2019-12-23 11:36] LABS: ALT/SGPT 12 U/L (12-78); AST/SGOT 10 U/L (15-37); Albumin 3.1 g/dL (3.4-5.0); Alkaline Phosphatase 123 U/L (45-117); BUN Blood Urea Nitrogen 16 mg/dL (7-18); Bicarbonate 26 mmol/L (21-32); Bilirubin Direct 0.1 mg/dL (0-0.2); Bilirubin Total 0.4 mg/dL (0.2-1.0); Glucose Level 97 mg/dL (74-106); Magnesium 2.4 mg/dL (1.8-2.4); NT PRO-BNP 983 pg/mL (<450); Potassium 4.6 mmol/L (3.5-5.1); Protein, Total 7.2 g/dL (6.4-8.2); Sodium Level 141 mmol/L (136-145); Troponin (Emerg Dept Use Only) < 0.02 ng/mL (0.0-0.045)
--- NOTE | 2019-12-23 12:33 | RAD REPORT ---
EXAM DESCRIPTION: MRI - Brain Wo Cont - 12/23/2019 12:23 pm CLINICAL HISTORY: DIZZINESS Headache, drowsiness, CVA symptomology COMPARISON: Head Brain Wo Cont dated 12/23/2019 TECHNIQUE: Multi-sequence, multiplanar MR imaging of the brain was performed without contrast. FINDINGS: No intracranial hemorrhage, hydrocephalus or extra-axial fluid collections.Mild brain atro phy with mild periventricular and deep white matter chronic microvascular ischemic changes. No edema or shift of midline structures. No findings to suspect brain mass. DWI is negative for acute CVA. Midline structures are normally formed. Moderate thickening of the mucosal surface of the right maxillary antrum is seen. IMPRESSION: Negative for acute CVA or other acute intracranial abnormality. Right maxillary sinusitis.
--- NOTE | 2019-12-23 13:45 | ER ---
Nurse's Notes [facility] Name: Mahnaz Osborne Age: 79 yrs Sex: Female : 1940 Arrival Date: 12/23/2019 Time: 10:04 Bed 4 Private MD: Han Guerra Diagnosis: Dizziness and giddiness;Headache;Acute sinusitis Presentation: 12/22 10:29 Chief complaint: Patient's son or daughter states: Intermittent dizziness that began ss last Saturday and at times leaning to the L with mild pain and weakness to L shoulder and L side of neck. Was seen by PCP, Dr. Guerra, Saturday and given Meclizine which seemed to help until this morning. Pt is concerned that she may fall because of the dizziness. Coronavirus screen: Client denies travel out of the [place] in the last 14 days. Ebola Screen: Patient denies exposure to infectious person. Patient denies travel to an Ebola-affected area in the 21 days before illness onset. Initial Sepsis Screen: Does the patient meet any 2 criteria? No. Patient's initial sepsis screen is negative. Does the patient have a suspected source of infection? No. Patient's initial sepsis screen is negative. Risk Assessment: Do you want to hurt yourself or someone else? Patient reports no desire to harm self or others. Onset of symptoms was December 15, 2019. 10:29 Method Of Arrival: Wheelchair ss 10:29 Acuity: REENA 3 ss Historical: - Allergies: 10:34 No Known Allergies; ss - Home Meds: 13:30 metoprolol tartrate 25 mg Oral tab 1 tab 2 times per day [Active]; atorvastatin 20 mg sv oral tab 1 tab once daily [Active]; lisinopril 20 mg Oral tab 1 tab once daily [Active]; amlodipine 5 mg tab 1 tab once daily [Active]; pantoprazole 40 mg Oral TbEC 1 tab once daily [Active]; tramadol 50 mg Oral tab BID prn [Active]; meclizine 25 mg Oral tab daily prn [Active]; - PMHx: 10:34 High Cholesterol; Hypertension; ss - PSHx: 10:34 Cholecystectomy; knee replacement; L wrist; ss - Immunization history:: Adult Immunizations up to date. - Social history:: Smoking status: Patient denies any tobacco usage or history of. Screenin:07 Abuse screen: Denies threats or abuse. Denies injuries from another. Nutritional sv screening: No deficits noted. Tuberculosis screening: No symptoms or risk factors identified. Fall Risk None identified. Assessment: 10:36 General: Appears in no apparent distress. comfortable, well groomed, well developed, sv Behavior is calm, cooperative, appropriate for age. Pain: Denies pain. Neuro: Level of Consciousness is awake, alert, obeys commands, Oriented to person, place, time, situation, Moves all extremities. Full function Speech is normal, Facial symmetry appears normal, Reports dizziness, headache frontal area. Cardiovascular: Patient's skin is warm and dry. Respiratory: Airway is patent Respiratory effort is even, unlabored, Respiratory pattern is regular, symmetrical. Derm: Skin is pink, warm \T\ dry. Musculoskeletal: Range of motion: intact in all extremities. 11:52 Reassessment: Waiting for MRI. sv 11:55 Reassessment: Pt assisted up to the BSC, no difficulties noted. sv 14:11 Reassessment: Patient appears in no apparent distress at this time. No changes from sv previously documented assessment. Patient and/or family updated on plan of care and expected duration. Pain level reassessed. Patient is alert, oriented x 3, equal unlabored respirations, skin warm/dry/pink. Vital Signs: 10:29 BP 147 / 63; Pulse 62; Resp 16; Temp 97.9(TE); Pulse Ox 100% on R/A; Weight 77.11 kg; ss Pain 3/10; 11:06 BP 126 / 68; Pulse 57 MON; Resp 15; Pulse Ox 100% on R/A; sv 11:30 BP 130 / 70; Pulse 57; Resp 18; Pulse Ox 100% ; sv 13:00 BP 144 / 59; Pulse 54 MON; Resp 12; Pulse Ox 100% on R/A; sv 14:10 BP 142 / 62; Pulse 58; Resp 15; Pulse Ox 100% ; sv 11:06 Sinus bradycardia sv 13:00 Sinus bradycardia sv ED Course: 10:04 Patient arrived in ED. mr 10:04 Han Guerra DO is Private Physician. mr 10:25 Giovanni Nicole MD is Attending Physician. kdr 10:26 Paulina Oneil RN is Primary Nurse. sv 10:33 Triage completed. ss 10:34 Arm band placed on right wrist. ss 10:36 ED physician to see patient. sv 10:50 Patient has correct armband on for positive identification. Placed in gown. Bed in low sv position. Call light in reach. Side rails up X2. Adult w/ patient. distribution supervisor on. Pulse ox on. NIBP on. Door closed. Warm blanket given. Head of bed elevated. 10:50 Inserted saline lock: 20 gauge in right antecubital area, using aseptic technique. vg1 Blood collected. 10:51 EKG done, by ED staff, reviewed by Giovanni Nicole MD. sv 11:07 Awaiting lab results, Awaiting CT Scan. sv 11:09 XRAY Chest (1 view) In Process Unspecified. EDMS 11:18 CT Head Brain wo Cont In Process Unspecified. EDMS 11:18 CT completed. Patient moved to CT via stretcher. Patient moved back from CT. sw 11:23 Awaiting radiology results. sv 12:02 Patient moved to MRI via wheelchair. sv 12:20 MRI - Brain Wo Cont In Process Unspecified. EDMS 13:43 Han Guerra DO is Referral Physician. kdr 13:43 Paulina Myers MD is Referral Physician. kdr 13:43 Vini Green MD is Referral Physician. kdr 14:11 No provider procedures requiring assistance completed. IV discontinued, intact, sv bleeding controlled, No redness/swelling at site. Pressure dressing applied. Administered Medications: No medications were administered Outcome: 13:44 Discharge ordered by MD. kdr 14:11 Discharged to home ambulatory, with family. sv 14:11 Condition: stable 14:11 Discharge instructions given to patient, family, Instructed on discharge instructions, follow up and referral plans. medication usage, Demonstrated understanding of instructions, follow-up care, medications, Prescriptions given X 1. 14:18 Patient left the ED. ss Signatures: Dispatcher [employer] Paulina Granados, Giovanni Baez RN, MD MD kdr Rivera, Mary mr Smirch, Shelby, Lyssa Duong RN, Victoria, RN RN vg1
--- NOTE | 2019-12-23 13:45 | EDPHYS ---
Physician Documentation [facility] Name: Mahnaz Osborne Age: 79 yrs Sex: Female : 1940 Arrival Date: 12/23/2019 Time: 10:04 Bed 4 Private MD: [facility] ED Physician Giovanni Nicole HPI: 12/22 11:06 This 79 yrs old Female presents to ER via Wheelchair with complaints of High kdr Blood Pressure, Dizziness. 11:11 The patient has been feeling dizzy intermittently for the past week or so. It seems to kdr be worse at night. Also worse when she has been still, laying down for awhile, and then either stands or changes position. At rest in the ED, she has no s/s other than left lateral, superior trapezius. Onset: The symptoms/episode began/occurred gradually, 1 week(s) ago. Severity of symptoms: At their worst the symptoms were mild in the emergency department the symptoms have resolved. The patient has not experienced similar symptoms in the past. The patient has been recently seen by a physician: Saw PCP last week and was given Meclizine which she is unable to associate with any persistent improvement. Historical: - Allergies: 10:34 No Known Allergies; ss - Home Meds: 13:30 metoprolol tartrate 25 mg Oral tab 1 tab 2 times per day [Active]; atorvastatin 20 mg sv oral tab 1 tab once daily [Active]; lisinopril 20 mg Oral tab 1 tab once daily [Active]; amlodipine 5 mg tab 1 tab once daily [Active]; pantoprazole 40 mg Oral TbEC 1 tab once daily [Active]; tramadol 50 mg Oral tab BID prn [Active]; meclizine 25 mg Oral tab daily prn [Active]; - PMHx: 10:34 High Cholesterol; Hypertension; ss - PSHx: 10:34 Cholecystectomy; knee replacement; L wrist; ss - Immunization history:: Adult Immunizations up to date. - Social history:: Smoking status: Patient denies any tobacco usage or history of. ROS: 11:11 Constitutional: Negative for fever, chills, and weight loss, Eyes: Negative for injury, kdr pain, redness, and discharge, ENT: Negative for injury, pain, and discharge, Neck: Negative for injury, pain, and swelling, Cardiovascular: Negative for chest pain, palpitations, and edema, Respiratory: Negative for shortness of breath, cough, wheezing, and pleuritic chest pain, Abdomen/GI: Negative for abdominal pain, nausea, vomiting, diarrhea, and constipation, Back: Negative for injury and pain, : Negative for injury, bleeding, discharge, and swelling, MS/Extremity: Negative for injury and deformity, Skin: Negative for injury, rash, and discoloration, Psych: Negative for depression, anxiety, suicide ideation, homicidal ideation, and hallucinations, Allergy/Immunology: Negative for hives, rash, and allergies, Endocrine: Negative for neck swelling, polydipsia, polyuria, polyphagia, and marked weight changes, Hematologic/Lymphatic: Negative for swollen nodes, abnormal bleeding, and unusual bruising. 11:11 Neuro: Positive for dizziness, weakness, Negative for altered mental status, gait disturbance, headache, hearing loss, numbness, seizure activity, speech changes, syncope, near syncope, tingling, tinnitus, tremor, visual changes. Exam: 11:04 Constitutional: This is a well developed, well nourished patient who is awake, alert, kdr and in no acute distress. Head/Face: Normocephalic, atraumatic. Eyes: Pupils equal round and reactive to light, extra-ocular motions intact. Lids and lashes normal. Conjunctiva and sclera are non-icteric and not injected. Cornea within normal limits. Periorbital areas with no swelling, redness, or edema. Neck: Trachea midline, no thyromegaly or masses palpated, and no cervical lymphadenopathy. Supple, full range of motion without nuchal rigidity, or vertebral point tenderness. No Meningismus. Chest/axilla: Normal chest wall appearance and motion. Nontender with no deformity. No lesions are appreciated. Cardiovascular: Regular rate and rhythm with a normal S1 and S2. No gallops, murmurs, or rubs. Normal PMI, no JVD. No pulse deficits. Respiratory: Lungs have equal breath sounds bilaterally, clear to auscultation and percussion. No rales, rhonchi or wheezes noted. No increased work of breathing, no retractions or nasal flaring. Abdomen/GI: Soft, non-tender, with normal bowel sounds. No distension or tympany. No guarding or rebound. No evidence of tenderness throughout. Back: No spinal tenderness. No costovertebral tenderness. Full range of motion. Skin: Warm, dry with normal turgor. Normal color with no rashes, no lesions, and no evidence of cellulitis. MS/ Extremity: Pulses equal, no cyanosis. Neurovascular intact. Full, normal range of motion. Neuro: Awake and alert, GCS 15, oriented to person, place, time, and situation. Cranial nerves II-XII grossly intact. Motor strength 5/5 in all extremities. Sensory grossly intact. Cerebellar exam normal. Normal gait. Psych: Awake, alert, with orientation to person, place and time. Behavior, mood, and affect are within normal limits. 11:04 ECG was reviewed by the Attending Physician. Vital Signs: 10:29 BP 147 / 63; Pulse 62; Resp 16; Temp 97.9(TE); Pulse Ox 100% on R/A; Weight 77.11 kg; ss Pain 3/10; 11:06 BP 126 / 68; Pulse 57 MON; Resp 15; Pulse Ox 100% on R/A; sv 11:30 BP 130 / 70; Pulse 57; Resp 18; Pulse Ox 100% ; sv 13:00 BP 144 / 59; Pulse 54 MON; Resp 12; Pulse Ox 100% on R/A; sv 14:10 BP 142 / 62; Pulse 58; Resp 15; Pulse Ox 100% ; sv 11:06 Sinus bradycardia sv 13:00 Sinus bradycardia sv MDM: 11:04 Data reviewed: vital signs, nurses notes, lab test result(s), EKG, radiologic studies. kdr Counseling: I had a detailed discussion with the patient and/or guardian regarding: the historical points, exam findings, and any diagnostic results supporting the discharge/admit diagnosis, lab results, radiology results. 13:44 Patient medically screened. kdr 12/22 10:52 Order name: Basic Metabolic Panel; Complete Time: : sv 12/22 10:52 Order name: CBC with Diff; Complete Time: : sv 12/22 10:52 Order name: LFT's; Complete Time: : sv 12/22 10:52 Order name: Magnesium; Complete Time: : sv 12/22 10:52 Order name: NT PRO-BNP; Complete Time: sv 12/22 10:52 Order name: PT-INR; Complete Time: 11: sv 12/22 10:52 Order name: Troponin (emerg Dept Use Only); Complete Time: 11: sv 12/22 10:52 Order name: XRAY Chest (1 view); Complete Time: : sv 12/22 10:52 Order name: EKG; Complete Time: 10:53 sv 12/22 10:52 Order name: Cardiac monitoring; Complete Time: : sv 12/22 10:52 Order name: EKG - Nurse/Tech; Complete Time: : sv 12/22 10:52 Order name: IV Saline Lock; Complete Time: : sv 12/22 10:53 Order name: CT Head Brain wo Cont; Complete Time: : sv 12/22 11:45 Order name: MRI - Brain Wo Cont; Complete Time: 13:37 kdr 12/22 10:52 Order name: Labs collected and sent; Complete Time: : sv 12/22 10:52 Order name: O2 Per Protocol; Complete Time: : sv 12/22 10:52 Order name: O2 Sat Monitoring; Complete Time: 10:52 sv EC:04 Rate is 58 beats/min. Rhythm is regular, Sinus bradycardia with No ectopy. QRS [place] is kdr Normal. CA interval is normal. QRS interval is normal. QT interval is normal. No Q waves. Clinical impression: NSR w/ Non-specific ST/T Changes. Administered Medications: No medications were administered Disposition: 12/23/19 13:44 Discharged to Home. Impression: Dizziness and giddiness, Headache, Acute sinusitis. - Condition is Stable. - Discharge Instructions: Sinus Headache, General Headache Without Cause, [id number], Dizziness, [id number]. - Prescriptions for Meclizine 25 mg Oral Tablet - take 1 tablet by ORAL route every 8 hours As needed; 30 tablet. - Medication Reconciliation Form, Thank You Letter form. - Follow up: Han Guerra DO; When: 2 - 3 days; Reason: If symptoms return, Further diagnostic work-up, Recheck today's complaints, Continuance of care, Re-evaluation by your physician. Follow up: Paulina Myers MD; When: 2 - 3 days; Reason: If symptoms return, Further diagnostic work-up, Recheck today's complaints, Continuance of care, Re-evaluation by your physician. Follow up: Vini Green MD; When: 2 - 3 days; Reason: If symptoms return, Further diagnostic work-up, Recheck today's complaints, Continuance of care, Re-evaluation by your physician. - Problem is an ongoing problem. - Symptoms have improved. Signatures: Dispatcher [employer] EDLA Paulina Oneil, LAN RN Giovanni Nicole MD MD [facility] Manjula Choudhury RN RN ss Corrections: (The following items were deleted from the chart) 14:18 13:44 12/23/2019 13:44 Discharged to Home. Impression: Dizziness and giddiness; ss Headache; Acute sinusitis. Condition is Stable. Forms are Medication Reconciliation Form, Thank You Letter, Antibiotic Education, Prescription Opioid Use. Follow up: Han Guerra; When: 2 - 3 days; Reason: If symptoms return, Further diagnostic work-up, Recheck today's complaints, Continuance of care, Re-evaluation by your physician. Follow up: Paulina Myers; When: 2 - 3 days; Reason: If symptoms return, Further diagnostic work-up, Recheck today's complaints, Continuance of care, Re-evaluation by your physician. Follow up: Vini Green; When: 2 - 3 days; Reason: If symptoms return, Further diagnostic work-up, Recheck today's complaints, Continuance of care, Re-evaluation by your physician. Problem is an ongoing problem. Symptoms have improved. kdr
[2019-12-23 14:45] VITALS: TEMP 97.9; O2SAT 100
[2019-12-23 14:50] VITALS: BP 142/62
== END 2019-12-23 14:18 | disposition home or self-care (01) ==
LOC: ER 10:00
DX: J01.90 Acute sinusitis, unspecified (principal); R51 Headache; I10 Essential (primary) hypertension; E78.00 Pure hypercholesterolemia, unspecified
CPT/HCPCS: 36415; 70450; 70551; 71045; 80048; 80076; 83735; 83880; 84484; 85025; 85610; 93005; 99285

== ENCOUNTER 2021-08-05 14:41 | Emergency (ER) | payer OTHER ==
--- OUTSIDE RECORDS SUMMARY | 2021-08-05 14:44 | XMS REPORT | Continuity of Care Document ---
:1940 Author Organization [facility] t Address [address] [place] [address] Care Team Providers Name Role Phone Danna Guerra Attending Clinician Unavailable Problems This patient has no known problems. Allergies, Adverse Reactions, Alerts This patient has no known allergies or adverse reactions. Medications Ordered Filled Start Stop Current Ordering Indication Dosage Frequency Signature Comments Components Source Medication Medication Date Date Medication? Clinician (SIG) Name Name Zoloft Zoloft Yes Han 1/2 tab Comm on 09-20 Guerra once daily [facility] 00:00: x 1week, - [facility] [address] [facility] once daily [facility] Metoprolol Metoprolol Yes Han 1 tablet Common [facility] Lisinopril Lisinopril Yes Han 1 tablet Common [facility] Amlodipine Amlodipine Yes Han TK 1 T PO Common Besylate Besylate Guerra QD [facility] Folic Acid Folic Acid Yes Han 1 tablet Common [facility] Ferrous Ferrous Yes Han 1 tablet Com mon Sulfate Sulfate Guerra [facility] Lasix Lasix Yes Han 1 tablet Common [facility] Methotrexat Methotrexat Yes Han as Common e e Guerra directed [facility] Lipitor Lipitor Yes Han 1 tablet Com mon Guerra [facility] Fosamax Fosamax Yes Han 1 tablet Com mon [facility] Pantoprazol Pantoprazol Yes Han 1 tablet Common e Sodium e Sodium Guerra [facility] Ultram Ultram Yes Han 1 tablet Commo n Guerra as needed [facility] Procedures This patient has no known procedures. Encounters Start End Encounter Admission Attending Care Care Encounter Source Date/Time Date/Time Type Type Clinicians Facility Department ID 2021-04-19 Outpatient Guerra, [facility] Common 14:37:58 Han [facility] 2021-04-19 Outpatient Guerra, [facility] [id number] Common 12:58:12 Han [facility] 2021-04-19 Outpatient Guerra, [facility] [id number] Common 12:25:52 Han [facility] 2021-04-19 Outpatient Guerra, [facility] Common 12:25:30 Han [facility] 2021-04-19 Outpatient Guerra, [facility] [id number] Common 11:59:48 Han [facility] 2021-04-19 Outpatient Guerra, [facility] [id number] Common 11:59:35 Han [facility] 2021-04-19 Outpatient Guerra, [facility] [id number] Common 11:49:05 Han [id number] [facility] 2021-04-19 Outpatient Guerra, [facility] [id number] Common 11:32:13 Han [id number] [facility] 2021-04-19 Outpatient Guerra, [facility] [id number] Common 11:31:48 Han [id number] [facility] 2021-04-19 Outpatient Guerra, [facility] [id number] Common 11:17:25 Han [id number] [facility] 2021-04-19 Outpatient Guerra, [facility] [id number] Common 10:59:19 Han [id number] [facility] 2021-07-12 2021-07-12 ambulatory [facility] [id number] Common 00:00:00 00:00:00 [facility] 2021-04-13 2021-04-13 ambulatory [facility] [id number] Common 00:00:00 00:00:00 [facility] 2021-03-06 2021-03-06 ambulatory [facility] [id number] Common 00:00:00 00:00:00 [facility] 2021-01-11 2021-01-11 Outpatient [facility] [id number] Common 00:00:00 00:00:00 [facility] 2020-10-11 2020-10-11 Outpatient [facility] [id number] Common 00:00:00 00:00:00 [facility] 2020-10-11 2020-10-11 Outpatient [facility] [id number] Common 00:00:00 00:00:00 [facility] 2020-10-05 2020-10-05 Outpatient [facility] [id number] Common 00:00:00 00:00:00 [facility] 2020-07-20 2020-07-20 Outpatient [facility] [id number] Common 00:00:00 00:00:00 [facility] 2020-04-21 2020-04-21 Outpatient [facility] [id number] Common 00:00:00 00:00:00 [facility] 2020-01-20 2020-01-20 Outpatient [facility] [id number] Common 00:00:00 00:00:00 [facility] 2019-12-21 2019-12-21 Outpatient [facility] [id number] Common 00:00:00 00:00:00 [facility] 2019-12-18 2019-12-18 Outpatient [facility] [id number] Common 00:00:00 00:00:00 [facility] 2019-10-20 2019-10-20 [id number] Common 11:00:00 11:00:[address] [facility] 2019-10-20 2019-10-20 [facility] [id number] Common 11:00:00 11:00:[address] [facility] 2019-10-12 2019-10-12 [facility] [id number] Common 15:00:00 15:00:[address] [facility] 2019-10-11 2019-10-11 [facility] [id number] Common 21:54:00 21:54:[address] [facility] 2019-10-05 2019-10-05 [facility] [id number] Common 08:30:00 08:30:[address] [facility] 2019-09-30 2019-09-30 [facility] [id number] Common 13:20:00 13:20:[address] [facility] 2019-09-28 2019-09-28 [facility] [id number] Common 16:39:00 16:39:[address] [facility] 2019-09-21 2019-09-21 [facility] [id number] Common 16:12:00 16:12:[address] [facility] 2019-09-16 2019-09-16 [facility] [id number] Common 08:20:00 08:20:[address] [facility] 2019-09-15 2019-09-15 [facility] [id number] Common 13:09:00 13:09:[address] [facility] 2019-06-23 2019-06-23 [facility] [id number] Common 11:30:00 11:30:[address] [facility] 2019-04-02 2019-04-02 [facility] [id number] Common 11:00:00 11:00:[address] [facility] 2019-03-26 2019-03-26 [facility] [id number] Common 08:00:00 08:00:[address] [facility] 2018-12-18 2018-12-18 [facility] [id number] Common 10:45:00 10:45:[address] [facility] 2018-09-18 2018-09-18 [facility] [id number] Common 10:30:00 10:30:[address] [facility] 2018-07-09 2018-07-09 [facility] [id number] Common 13:59:00 13:59:[address] [facility] 2017-11-07 2017-11-07 [facility] [id number] Common 10:30:00 10:30:[address] [facility] Results This patient has no known results.
[2021-08-05 16:43] LABS: Albumin 3.3 g/dL (3.4-5.0); Bilirubin Total 0.4 mg/dL (0.2-1.0); Potassium 4.5 mmol/L (3.5-5.1); Protein, Total 7.2 g/dL (6.4-8.2)
--- NOTE | 2021-08-05 18:18 | ER ---
Nurse's Notes [facility] Name: Mahnaz Osborne Age: 81 yrs Sex: Female : 1940 Arrival Date: 08/05/2021 Time: 14:48 Bed 10 Private MD: Han Guerra Diagnosis: Low back pain Presentation: 08/05 15:22 Chief complaint: Patient states: She has been having back pain since Saturday. [facility] Now the pain is worse on the left lower back going down the left leg. Coronavirus screen: At this time, the client does not indicate any symptoms associated with coronavirus-19. Ebola Screen: No symptoms or risks identified at this time. Initial Sepsis Screen: Does the patient meet any 2 criteria? No. Patient's initial sepsis screen is negative. Does the patient have a suspected source of infection? No. Patient's initial sepsis screen is negative. Risk Assessment: Do you want to hurt yourself or someone else? Patient reports no desire to harm self or others. Onset of symptoms was August 05, 2021. Transition of care: patient was not received from another setting of care. 15:22 Method Of Arrival: Wheelchair jb4 15:22 Acuity: REENA 4 jb4 16:01 Acuity: REENA 3 iw Historical: - Allergies: 15:24 No Known Allergies; jb4 - PMHx: 15:24 High Cholesterol; Hypertension; Arthritis; jb4 15:25 Osteoporosis; jb4 - PSHx: 15:24 Cholecystectomy; TIANA Knee replacement; left hip replacement; jb4 - Immunization history:: Adult Immunizations up to date. - Social history:: Smoking status: Patient denies any tobacco usage or history of. - Family history:: not pertinent. Screenin:08 Abuse screen: Denies threats or abuse. Nutritional screening: No deficits noted. jb4 Tuberculosis screening: No symptoms or risk factors identified. Fall Risk None identified. Assessment: 19:08 General: Appears in no apparent distress. comfortable, Behavior is calm, cooperative, jb4 appropriate for age. Pain: Complains of pain in left lower back Pain radiates to left leg. Neuro: Level of Consciousness is awake, alert, obeys commands, Oriented to person, place, time, situation. Cardiovascular: Patient's skin is warm and dry. Respiratory: Airway is patent Respiratory effort is even, unlabored, Respiratory pattern is regular, symmetrical. Musculoskeletal: Circulation, motion, and sensation intact. Range of motion: intact in all extremities. Vital Signs: 15:22 BP 155 / 58; Pulse 73; Resp 16; Temp 97.9(TE); Pulse Ox 100% on R/A; Weight 74.84 kg jb4 (R); Height 5 ft. 6 in. (167.64 cm) (R); Pain 9/10; 15:22 Body Mass Index 26.63 (74.84 kg, 167.64 cm) jb4 ED Course: 14:48 Patient arrived in ED. am2 14:48 Han Guerra DO is Private Physician. am2 15:24 Triage completed. jb4 15:25 Arm band placed on right wrist. jb4 15:32 Emili Hayden, RN is Primary Nurse. iw 15:34 Kevon Helms MD is Attending Physician. ma2 19:08 Patient has correct armband on for positive identification. Bed in low position. Call jb4 light in reach. Side rails up X 1. 19:08 No provider procedures requiring assistance completed. IV discontinued, intact, jb4 bleeding controlled, No redness/swelling at site. Pressure dressing applied. Administered Medications: 18:50 Drug: HYDROcodone-acetaminophen 5 mg-325 mg 1 tabs Route: PO; jb4 18:55 Follow up: Response: No adverse reaction iw Medication: 19:08 VIS not applicable for this client. jb4 Outcome: 18:17 Discharge ordered by . ma2 19:08 Discharged to home via wheelchair. jb4 19:08 Condition: stable 19:08 Discharge instructions given to patient, Instructed on discharge instructions, follow up and referral plans. medication usage, Demonstrated understanding of instructions, follow-up care, medications, Prescriptions given X 2. 19:11 Patient left the ED. jb4 Signatures: Emili Hayden RN RN iw Matt Pang RN RN jb4 Minoo Means am2 Kevon Helms MD MD [facility]
--- NOTE | 2021-08-05 18:18 | EDPHYS ---
Physician Documentation [facility] Name: Mahnaz Osborne Age: 81 yrs Sex: Female : 1940 Arrival Date: 08/05/2021 Time: 14:48 Bed 10 Private MD: Charlie [facility] ED Physician Kevon Helms HPI: 08/05 15:47 This 81 yrs old Female presents to ER via Wheelchair with complaints of Low ma2 Back Pain. 15:47 81-year-old female, presents with low back pain arthritis to left side with sciatica ma2 for 3 days is on and off, of note patient went to 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 States that she does not have any leg weakness change in sensation or paresthesias, denies urinary incontinence or retention, no back trauma. Also report from mild ptosis present with the patient and I have reviewed the As above. Historical: - Allergies: 15:24 No Known Allergies; jb4 - PMHx: 15:24 High Cholesterol; Hypertension; Arthritis; jb4 15:25 Osteoporosis; jb4 - PSHx: 15:24 Cholecystectomy; TIANA Knee replacement; left hip replacement; jb4 - Immunization history:: Adult Immunizations up to date. - Social history:: Smoking status: Patient denies any tobacco usage or history of. - Family history:: not pertinent. ROS: 15:47 Constitutional: Negative for fever, chills, and weight loss, Eyes: Negative for injury, ma2 pain, redness, and discharge, ENT: Negative for injury, pain, and discharge, Neck: Negative for injury, pain, and swelling. 15:47 All other systems are negative. Exam: 15:47 Constitutional: This is a well developed, well nourished patient who is awake, alert, ma2 and in no acute distress. Head/Face: Normocephalic, atraumatic. Eyes: Pupils equal round and reactive to light, extra-ocular motions intact. Lids and lashes normal. Conjunctiva and sclera are non-icteric and not injected. Cornea within normal limits. Periorbital areas with no swelling, redness, or edema. ENT: Nares patent. No nasal discharge, no septal abnormalities noted. Tympanic membranes are normal and external auditory canals are clear. Oropharynx with no redness, swelling, or masses, exudates, or evidence of obstruction, uvula midline. Mucous membranes moist. Neck: Trachea midline, no thyromegaly or masses palpated, and no cervical lymphadenopathy. Supple, full range of motion without nuchal rigidity, or vertebral point tenderness. No Meningismus. Chest/axilla: Normal chest wall appearance and motion. Nontender with no deformity. No lesions are appreciated. Cardiovascular: Regular rate and rhythm with a normal S1 and S2. No gallops, murmurs, or rubs. Normal PMI, no JVD. No pulse deficits. Respiratory: Lungs have equal breath sounds bilaterally, clear to auscultation and percussion. No rales, rhonchi or wheezes noted. No increased work of breathing, no retractions or nasal flaring. Abdomen/GI: Soft, non-tender, with normal bowel sounds. No distension or tympany. No guarding or rebound. No evidence of tenderness throughout. Back: As left paraspinal muscle tenderness over L4-L5, gluteal muscle tenderness,, however skin shows no erythema or rash or swelling. No spinal tenderness. No costovertebral tenderness. Full range of motion. Skin: Warm, dry with normal turgor. Normal color with no rashes, no lesions, and no evidence of cellulitis. MS/ Extremity: Pulses equal, no cyanosis. Neurovascular intact. Full, normal range of motion. Neuro: Awake and alert, GCS 15, oriented to person, place, time, and situation. Cranial nerves II-XII grossly intact. Motor strength 5/5 in all extremities. Sensory grossly intact. Cerebellar exam normal. Normal gait. Vital Signs: 15:22 BP 155 / 58; Pulse 73; Resp 16; Temp 97.9(TE); Pulse Ox 100% on R/A; Weight 74.84 kg jb4 (R); Height 5 ft. 6 in. (167.64 cm) (R); Pain 9/10; 15:22 Body Mass Index 26.63 (74.84 kg, 167.64 cm) jb4 MDM: 15:34 Patient medically screened. ma2 15:47 Differential diagnosis: arthritis, strain, sciatica, Herniated disc UTI. ma2 16:54 Data reviewed: vital signs, nurses notes. Counseling: I had a detailed discussion with ma2 the patient and/or guardian regarding: the historical points, exam findings, and any diagnostic results supporting the discharge/admit diagnosis, the presence of at least one elevated blood pressure reading (>120/80) during this emergency department visit, the need for outpatient follow up. Response to treatment: the patient's symptoms have markedly improved after treatment. 08/05 15:47 Order name: CMP; Complete Time: 17:00 ma2 Administered Medications: 18:50 Drug: HYDROcodone-acetaminophen 5 mg-325 mg 1 tabs Route: PO; jb4 18:55 Follow up: Response: No adverse reaction iw Disposition Summary: 08/05/21 18:17 Discharge Ordered Location: Home ma2 Condition: Stable ma2 Diagnosis - Low back pain ma2 Followup: ma2 - With: Private Physician - When: Tomorrow - Reason: Wound Recheck, If symptoms return Discharge Instructions: - Discharge Summary Sheet ma2 - Acute Back Pain, Adult ma2 Forms: - Medication Reconciliation Form ma2 - Thank You Letter ma2 - Antibiotic Education ma2 - Prescription Opioid Use ma2 Prescriptions: - Cyclobenzaprine 10 mg Oral Tablet - take 1 tablet by ORAL route every 8 hours As needed; 30 tablet; Refills: 0, ma2 Product Selection Permitted - Medrol (Tio) 4 mg Oral Tablets, Dose Pack - take 1 tablet by ORAL route as directed - follow package instructions; 1 ma2 packet; Refills: 0, Product Selection Permitted Signatures: Dispatcher [employer] Matt Chaparro, RN RN jb4 Kevon Helms MD MD ma2 Emili Hayden RN iw
[2021-08-05] MEDS ORDERED: HYDROCODONE/APAP 5/325 MG TAB ONE (18:53)
[2021-08-05 21:57] VITALS: BP 155/58; TEMP 97.9; O2SAT 100
== END 2021-08-05 19:11 | disposition home or self-care (01) ==
LOC: ER 14:41
DX: M54.50 Low back pain, unspecified (principal); I10 Essential (primary) hypertension
CPT/HCPCS: 36415; 80053; 99283

== ENCOUNTER 2021-08-07 09:18 | Observation (INO) | payer OTHER ==
--- OUTSIDE RECORDS SUMMARY | 2021-08-07 09:21 | XMS REPORT | Continuity of Care Document ---
:1940 Author Organization [facility] t Address [address] [place] [address] Care Team Providers Name Role Phone Danna [...] 1week, - [facility] [address] [facility] once daily [facility] Metoprolol Metoprolol Yes Han 1 tablet Common Tartrate Tartrate [facility] Lisinopril Lisinopril Yes Han 1 tablet Common [facility] Amlodipine Amlodipine Yes Han TK 1 T PO Common Besylate Besylate Guerra QD [facility] Folic Acid Folic Acid Yes Han 1 tablet Common [facility] Ferrous Ferrous Yes Han 1 tablet Com mon Sulfate Sulfate Guerra [facility] Lasix Lasix Yes Han 1 tablet Common [facility] Methotrexat Methotrexat Yes Han as Common e e Guerra directed [facility] Lipitor Lipitor Yes Han 1 tablet Com mon Guerra [facility] Fosamax Fosamax Yes Han 1 tablet Com mon [facility] Pantoprazol Pantoprazol Yes Han 1 tablet Common e Sodium e Sodium Guerra [facility] Ultram Ultram Yes Han 1 tablet Commo n Guerra as needed [facility] Procedures This patient has no known procedures. Encounters Start End Encounter Admission Attending Care Care Encounter Source Date/Time Date/Time Type Type Clinicians Facility Department ID 2021-04-19 Outpatient Guerra, [facility] Common 14:37:58 Han [facility] 2021-04-19 Outpatient Guerra, [facility] [id number] Common 12:58:12 Han [facility] 2021-04-19 [facility] [id number] Common 12:25:52 Han [facility] 2021-04-19 Outpatient Guerra, [facility] Common 12:25:30 Han [facility] 2021-04-19 [facility], [facility] [id number] Common 11:59:48 Han [facility] 2021-04-19 Outpatient Guerra, [facility] [id number] Common 11:59:35 Han [facility] 2021-04-19 Outpatient Guerra, [facility] [id number] Common 11:49:05 Han [id number] [facility] 2021-04-19 Out[facility] Gu[facility], [facility] [id number] Common 11:32:13 Han [id number] [facility] 2021-04-19 Outpatient Guerra, [facility] [id number] Common 11:31:48 Han [id number] [facility] 2021-04-19 Outpatient Guerra, [facility] [id number] Common 11:17:25 Han [id number] [facility] 2021-04-19 Outpatient Guerra, [facility] [id number] Common 10:59:19 Han [id number] [facility] 2021-07-12 2021-07-12 ambulatory [facility] [id number] Common 00:00:00 00:00:00 [facility] 2021-04-13 2021-04-13 ambulatory [facility] [id number] Common 00:00:00 00:00:00 [facility] 2021-03-06 2021-03-06 ambulatory [facility] [id number] Common 00:00:00 00:00:00 [facility] 2021-01-11 2021-01-11 Outpatient [facility] [id number] Common 00:00:00 00:00:00 [facility] 2020-10-11 2020-10-11 Outpatient [facility] [id number] Common 00:00:00 00:00:00 [facility] 2020-10-11 2020-10-11 Outpatient [facility] [id number] Common 00:00:00 00:00:00 [facility] 2020-10-05 2020-10-05 Outpatient [facility] [id number] Common 00:00:00 00:00:00 [facility] 2020-07-20 2020-07-20 Outpatient [facility] [id number] Common 00:00:00 00:00:00 [facility] 2020-04-21 2020-04-21 Outpatient [facility] [id number] Common 00:00:00 00:00:00 [facility] 2020-01-20 2020-01-20 Outpatient [facility] [id number] Common 00:00:00 00:00:00 [facility] 2019-12-21 2019-12-21 Outpatient [facility] [id number] Common 00:00:00 00:00:00 [facility] 2019-12-18 2019-12-18 Outpatient [facility] [id number] Common 00:00:00 00:00:00 [facility] 2019-10-20 2019-10-20 [id number] Common 11:00:00 11:00:00 [place] [address] [facility] 2019-10-20 2019-10-20 [facility] [id number] Common 11:00:00 11:00:00 [place] [address] [facility] 2019-10-12 2019-10-12 [facility] [id number] Common 15:00:00 15:00:00 [place] [address] [facility] 2019-10-11 2019-10-11 [facility] [id number] Common 21:54:00 21:54:[address] [facility] 2019-10-05 2019-10-05 [facility] [id number] Common 08:30:00 08:30:[address] [facility] 2019-09-30 2019-09-30 [facility] [id number] Common 13:20:00 13:20:[address] [facility] 2019-09-28 2019-09-28 [facility] [id number] Common 16:39:00 16:39:00 [place] [address] [facility] 2019-09-21 2019-09-21 [facility] [id number] Common 16:12:00 16:12:00 [place] [address] [facility] 2019-09-16 2019-09-16 [facility] [id number] Common 08:20:00 08:20:00 [place] [address] [facility] 2019-09-15 2019-09-15 [facility] [id number] Common 13:09:00 13:09:00 [place] [address] [facility] 2019-06-23 2019-06-23 [facility] [id number] Common 11:30:00 11:30:00 [place] [address] [facility] 2019-04-02 2019-04-02 [facility] [id number] Common 11:00:00 11:00:00 [place] [address] [facility] 2019-03-26 2019-03-26 [facility] [id number] Common 08:00:00 08:00:00 [place] [address] [facility] 2018-12-18 2018-12-18 [facility] [id number] Common 10:45:00 10:45:00 [place] [address] [facility] 2018-09-18 2018-09-18 [facility] [id number] Common 10:30:00 10:30:00 [place] [address] [facility] 2018-07-09 2018-07-09 [facility] [id number] Common 13:59:00 13:59:00 [place] [address] [facility] 2017-11-07 2017-11-07 [facility] [id number] Common 10:30:00 10:30:00 [place] [address] [facility] Results This patient has no known results.
[2021-08-07] MEDS ORDERED: ONDANSETRON 4 MG/2 ML VIAL ONE (10:58)
[2021-08-07] MEDS ORDERED: MORPHINE 4 MG/ML SYR ONE (10:58)
[2021-08-07 10:59] LABS: Absolute Lymphocytes (CBC) 0.4 K/uL (0.7-4.9); Hematocrit 31.3 % (36.0-45.0); MPV 8.7 fL (7.6-11.3); RBC Red Blood Cell Count 3.49 M/uL (3.86-4.86)
[2021-08-07 11:25] LABS: Albumin 3.3 g/dL (3.4-5.0); Bilirubin Total 0.4 mg/dL (0.2-1.0); Protein, Total 7.5 g/dL (6.4-8.2)
[2021-08-07 11:27] LABS: Potassium 5.7 mmol/L (3.5-5.1)
[2021-08-07] MEDS ORDERED: NA CHLORIDE 0.9% 500 ML ONE (11:36)
--- NOTE | 2021-08-07 12:04 | RAD REPORT ---
EXAM DESCRIPTION: CT - Abdomen Pelvis W Contrast - 08/07/2021 11:49 am CLINICAL HISTORY: Abdominal pain/left lower quadrant pain COMPARISON: 2016 TECHNIQUE: Computed axial tomography of the abdomen pelvis was obtained. 100 cc Isovue-300 was admin istered intravenously. Oral contrast was not requested which limits evaluation of bowel and appendix All CT scans are performed using dose optimization technique as appropriate and may include automated exposure control or mA/KV adjustment according to patient size. FINDINGS: Mild dilatation of the intrahepatic biliary tree. Prominence of the common bile duct. Chol ecystectomy. Small duodenal diverticulum. Spleen, pancreas, adrenal and kidneys appear unremarkable. There is no evidence of diverticulitis. 2.6 centimeter cystic mass left adnexal unchanged. Postsurgical changes left hip. Hemangioma L3 vertebral body unchanged IMPRESSION: Prominence of the biliary tree can be a normal finding in an elderly patient status post cholecystectomy. Pathology such as a stricture or nonvisualized stone can also result in this appear ance and should be correlated clinically with appropriate lab values
[2021-08-07 12:09] LABS: White Blood Cell Scan OK (OK)
[2021-08-07 12:10] LABS: Blood Morphology Comment NOT SEEN (NOT SEEN); Platelet Estimate ADEQ
[2021-08-07 15:17] LABS: Urine Blood Trace-intact (Negative); Urine Glucose Negative (Negative); Urine Protein Negative (Negative); Urine Specific Gravity <=1.005 (1.005-1.030)
[2021-08-07] MEDS ORDERED: CEFTRIAXONE 2000 MG/VIAL ONE (15:47)
[2021-08-07] MEDS ORDERED: NA CHLORIDE 0.9% 100 ML IV ONE (15:47)
[2021-08-07] MEDS ORDERED: INSULIN -REGULAR HUMAN 50 UNIT/0.5 ML ML ONE (16:56)
[2021-08-07] MEDS ORDERED: SOD POLYSTYREN SUL 15 GM/60 ML UCUP ONE (16:58)
[2021-08-07] MEDS ORDERED: ALBUTEROL 2.5 MG/3 ML NEB SOL ONE (16:58)
[2021-08-07] MEDS ORDERED: CALCIUM GLUCONATE 1 GM IVPB 1 GM/50 ML BAG IV ONE (16:59)
--- NOTE | 2021-08-07 16:59 | EDPHYS ---
Physician Documentation [facility] Name: Mahnaz Osborne Age: 81 yrs Sex: Female : 1940 Arrival Date: 08/07/2021 Time: 09:35 Bed 27 Private MD: ED Physician Blake Ngo HPI: 08/07 10:09 This 81 yrs old Female presents to ER via Wheelchair with complaints of Back jmm Pain. 10:09 The patient presents with pain that is acute. The symptoms are located in the low back. jmm Onset: The symptoms/episode began/occurred gradually, 2 week(s) ago. This is a 81-year-old female with history of hyperlipidemia, hypertension, arthritis that presents emerged department with complaints of low back pain which wraps around the left lower quadrant of the abdomen. Symptoms been worsening over the past 2 weeks. Patient has been seen in the ED previously for this. Denies vomiting, fever, chest pain.. Historical: - Allergies: 09:37 No Known Allergies; ll1 - PMHx: 09:37 High Cholesterol; Hypertension; Arthritis; Osteoporosis; ll1 - PSHx: 09:37 Jean Marie Knee replacement; Cholecystectomy; Left hip replacement; ll1 - Immunization history:: Client reports receiving the 2nd dose of the Covid vaccine. - Social history:: Smoking status: Patient denies any tobacco usage or history of. ROS: 10:09 Constitutional: Negative for fever, chills, and weight loss, Cardiovascular: Negative jmm for chest pain, palpitations, and edema, Respiratory: Negative for shortness of breath, cough, wheezing, and pleuritic chest pain. 10:09 Abdomen/GI: Positive for abdominal pain. 10:09 Back: Positive for pain with movement. 10:09 All other systems are negative. Exam: 10:09 Constitutional: This is a well developed, well nourished patient who is awake, alert, jmm and in no acute distress. Head/Face: atraumatic. Eyes: EOMI, no conjunctival erythema appreciated ENT: Moist Mucus Membranes Neck: Trachea midline, Supple Chest/axilla: Normal chest wall appearance and motion. Cardiovascular: Regular rate and rhythm. No edema appreciated Respiratory: Normal respirations, no respiratory distress appreciated 10:09 Abdomen/GI: Inspection: abdomen appears normal, Palpation: soft, moderate abdominal tenderness, in the left lower quadrant. 10:09 Back: pain, that is mild, of the lumbar area. 10:09 Musculoskeletal/extremity: Extremities: ROM: intact in all extremities. 10:09 Skin: Appearance: Color: normal in color. 10:09 Neuro: Orientation: is normal, Mentation: is normal, Memory: is normal. 10:09 Psych: Behavior/mood is pleasant, cooperative. Vital Signs: 09:36 BP 147 / 64; Pulse 66; Resp 16; Temp 98.1; Pulse Ox 98% ; Weight 78.02 kg; Height 5 ft. ll1 4 in. (162.56 cm); Pain 10/10; 10:42 BP 153 / 54; Pulse 67; Pulse Ox 100% on R/A; ap3 11:18 BP 126 / 61; Pulse 65; Pulse Ox 100% on R/A; ap3 12:07 BP 131 / 60; Pulse 64; Pulse Ox 100% ; ap3 13:15 BP 137 / 53; Pulse 96; Pulse Ox 98% on R/A; ap3 18:29 BP 130 / 52; Pulse 80; Pulse Ox 100% on R/A; ap3 09:36 Body Mass Index 29.52 (78.02 kg, 162.56 cm) ll1 MDM: 10:09 Patient medically screened. [facility] 16:56 Data reviewed: vital signs, nurses notes. Counseling: I had a detailed discussion with mayank the patient and/or guardian regarding: the historical points, exam findings, and any diagnostic results supporting the discharge/admit diagnosis, lab results, the need for further work-up and treatment in the hospital. ED course: Mildly peaked T waves appreciated on the EKG. After 500 mils of NS was administered, potassium was repeated. Increased from 5.7-5.8. I discussed the patient with Dr. Hendricks for admission due to hyperkalemia.. 08/07 10:14 Order name: CBC with Diff; Complete Time: 12: [facility] 08/07 10:14 Order name: CMP; Complete Time: 11: [facility] 08/07 10:14 Order name: Lipase; Complete Time: 11: [facility] 08/07 11:02 Order name: CBC Smear Scan; Complete Time: 12:22 [facility] 08/07 15:18 Order name: Urine Dipstick-Ancillary; Complete Time: 15:22 [facility] 08/07 15:18 Order name: Urine Culture 3 08/07 15:55 Order name: Potassium; Complete Time: 16:39 ap3 08/07 17:07 Order name: CBC with Automated Diff [facility] 08/07 17:07 Order name: CBC with Automated Diff; Complete Time: 12:02 [facility] 08/07 17:07 Order name: Comprehensive Metabolic Panel [facility] 08/07 17:07 Order name: Comprehensive Metabolic Panel; Complete Time: 12:02 [facility] 08/07 17:08 Order name: Magnesium [facility] 08/07 17:25 Order name: COVID-19 SARS RT PCR (Document "Date of Onset" if Symptomatic) bd 08/07 19:26 Order name: SARS-COV-2 RT PCR; Complete Time: 19:32 [facility] 08/07 10:14 Order name: CT Abd/Pelvis - IV Contrast Only; Complete Time: 12:07 [facility] 08/07 10:14 Order name: IV Saline Lock; Complete Time: 10:43 [facility] 08/07 10:14 Order name: Labs collected and sent; Complete Time: 10:43 [facility] 08/07 10:14 Order name: Urine Dipstick-Ancillary (obtain specimen); Complete Time: 15:17 [facility] 08/07 11:28 Order name: EKG - Nurse/Tech; Complete Time: 11:38 [facility] 08/07 17:07 Order name: Renal [facility] 08/08 04:00 Order name: Magnesium; Complete Time: 12:02 [facility] Administered Medications: 10:59 Drug: morphine 4 mg Route: IVP; Site: left antecubital; ap3 11:38 Follow up: Response: No adverse reaction; Pain is decreased ap3 10:59 Drug: Zofran (Ondansetron) 4 mg Route: IVP; Site: left antecubital; ap3 11:39 Follow up: Response: No adverse reaction ap3 11:39 Drug: NS 0.9% 500 ml Route: IV; Rate: bolus; Site: left antecubital; ap3 15:18 Follow up: IV Status: Completed infusion; IV Intake: 500ml ap3 15:49 Drug: Rocephin (cefTRIAXone) 2 grams Route: IV; Rate: calculated rate; Site: left jd3 antecubital; 17:04 Follow up: IV Status: Completed infusion ap3 18:12 Drug: D50W 50 ml Route: IVP; Site: left antecubital; ap3 18:19 Follow up: Response: No adverse reaction ap3 18:12 Drug: Kayexalate (polystyrene) 60 grams Route: PO; ap3 18:18 Drug: Insulin Regular Human 10 units {Co-Signature: sidra (Keith Low RN).} Route: ap3 IVP; Site: left antecubital; 18:19 Drug: Calcium Gluconate 1 grams Route: IVPB; Infused Over: 60 mins; Site: left ap3 antecubital; 19:08 Follow up: IV Status: Completed infusion ap3 18:23 Drug: Albuterol 2.5 mg Route: Inhalation; ap3 19:08 Drug: Albuterol 2.5 mg Route: Inhalation; ap3 19:09 Drug: Albuterol 2.5 mg Route: Inhalation; ap3 Disposition Summary: 08/07/21 16:58 Hospitalization Ordered Hospitalization Status: Observation [facility] Provider: Kevon Hendricks Condition: Stable [facility] Problem: new [facility] Symptoms: are unchanged [facility] Bed/Room Type: Standard [facility] Location: Telemetry/MedSurg (observation)(08/08/21 13:59) ja1 Room Assignment: [facility](08/08/21 13:59) [facility] Diagnosis - Hyperkalemia [facility] - UTI/ Urinary tract infection, site not specified [facility] Forms: - Medication Reconciliation Form [facility] - SBAR form [facility] Signatures: Dispatcher [employer] EDHorace Betancourt PA PA [facility] Aleisha Osborne RN RN cg Davies, Jonathon RN RN jd3 Von De Anda RN RN ja1 Minoo Kumari RN RN apple3 Axel Ozuna RN RN ll1 Keith Low RN [email or web address] Corrections: (The following items were deleted from the chart) 20:13 16:58 Telemetry/MedSurg (observation) [facility] 20:13 16:58 [facility] 08/08 13:59 08/07 20:13 [facility] ER HOLD cg ja 08/08 13:59 08/07 20:13 ERHOLD- ja
--- NOTE | 2021-08-07 16:59 | ER ---
Nurse's Notes [facility] Name: Mahnaz Osborne Age: 81 yrs Sex: Female : 1940 Arrival Date: 08/07/2021 Time: 09:35 Bed 27 Private MD: Diagnosis: Hyperkalemia;UTI/ Urinary tract infection, site not specified Presentation: 08/07 09:36 Chief complaint: Patient states: L back pain/ L hip pain has been worsening for 9 days. ll1 No falls or trauma. Coronavirus screen: Vaccine status: Patient reports being unvaccinated. Client denies travel out of the [place] in the last 14 days. At this time, the client does not indicate any symptoms associated with coronavirus-19. Ebola Screen: Patient denies travel to an Ebola-affected area in the 21 days before illness onset. Initial Sepsis Screen: Does the patient meet any 2 criteria? No. Patient's initial sepsis screen is negative. Does the patient have a suspected source of infection? Yes: Bone or joint infection. Risk Assessment: Do you want to hurt yourself or someone else? Patient reports no desire to harm self or others. Onset of symptoms was July 28, 2021. 09:36 Method Of Arrival: Wheelchair ll1 09:36 Acuity: REENA 4 ll1 Triage Assessment: 10:30 General: Appears uncomfortable, Behavior is calm, cooperative. Pain: Complains of pain ap3 in low back area Pain began gradually, over the last 9 days. Neuro: Level of Consciousness is awake, alert, obeys commands, Oriented to person, place, time, situation. Cardiovascular: Patient's skin is warm and dry. Respiratory: Airway is patent Respiratory effort is even, unlabored, Respiratory pattern is regular, symmetrical. Musculoskeletal: Range of motion: intact in all extremities, Reports pain in left femoral area, left inguinal area, left iliac crest and left hip \T\ left lower back. Historical: - Allergies: 09:37 No Known Allergies; ll1 - PMHx: 09:37 High Cholesterol; Hypertension; Arthritis; Osteoporosis; ll1 - PSHx: 09:37 Jean Marie Knee replacement; Cholecystectomy; Left hip replacement; ll1 - Immunization history:: Client reports receiving the 2nd dose of the Covid vaccine. - Social history:: Smoking status: Patient denies any tobacco usage or history of. Screenin:30 Abuse screen: Denies threats or abuse. Nutritional screening: No deficits noted. ap3 Tuberculosis screening: No symptoms or risk factors identified. Fall Risk Fall in past 12 months (25 points). Secondary diagnosis (15 points) impaired mobility, IV access (20 points). Ambulatory Aid- Crutches/Cane/Walker (15 pts). Gait- Weak (10 pts.). Mental Status- Oriented to own ability (0 pts). Total Hbeert Fall Scale indicates High Risk Score (45 or more points). Fall prevention measures have been instituted. Side Rails Up X 2 Placed Close to Nursing Station Frequent Obs/Assessments Occuring Family Present and informed to notify staff if the need to leave the bedside. Assessment: 10:38 General: Appears uncomfortable, Behavior is calm, cooperative. Pain: Complains of pain ap3 in pelvis and left hip and left iliac crest and left inguinal area and left femoral area and back and low back area. Neuro: Level of Consciousness is awake, alert, obeys commands, Oriented to person, place, time, situation, Appropriate for age Weakness Gait is unsteady. 12:09 Reassessment: Patient and/or family updated on plan of care and expected duration. Pain ap3 level reassessed. Patient is alert, oriented x 3, equal unlabored respirations, skin warm/dry/pink. Patient states symptoms have improved. 13:45 Reassessment: Patient and/or family updated on plan of care and expected duration. Pain ap3 level reassessed. Patient is alert, oriented x 3, equal unlabored respirations, skin warm/dry/pink. 15:08 Reassessment: patient assisted to restroom via wheelchair. urine specimen collected via ap3 commode hat. 16:16 Reassessment: Patient and/or family updated on plan of care and expected duration. Pain ap3 level reassessed. Patient is alert, oriented x 3, equal unlabored respirations, skin warm/dry/pink. 17:03 Reassessment: Patient and/or family updated on plan of care and expected duration. Pain ap3 level reassessed. Patient is alert, oriented x 3, equal unlabored respirations, skin warm/dry/pink. 18:31 Reassessment: Patient and/or family updated on plan of care and expected duration. Pain ap3 level reassessed. Patient is alert, oriented x 3, equal unlabored respirations, skin warm/dry/pink. Vital Signs: 09:36 BP 147 / 64; Pulse 66; Resp 16; Temp 98.1; Pulse Ox 98% ; Weight 78.02 kg; Height 5 ft. ll1 4 in. (162.56 cm); Pain 10/10; 10:42 BP 153 / 54; Pulse 67; Pulse Ox 100% on R/A; ap3 11:18 BP 126 / 61; Pulse 65; Pulse Ox 100% on R/A; ap3 12:07 BP 131 / 60; Pulse 64; Pulse Ox 100% ; ap3 13:15 BP 137 / 53; Pulse 96; Pulse Ox 98% on R/A; ap3 18:29 BP 130 / 52; Pulse 80; Pulse Ox 100% on R/A; ap3 09:36 Body Mass Index 29.52 (78.02 kg, 162.56 cm) ll1 ED Course: 09:35 Patient arrived in ED. ll1 09:37 Triage completed. ll1 09:37 Arm band placed on. ll1 09:44 Horace Ann PA is PHCP. [facility] 09:44 Blake Ngo MD is Attending Physician. [facility] 10:27 Minoo Kumari, RN is Primary Nurse. ap3 10:37 Patient has correct armband on for positive identification. Bed in low position. Call ap3 light in reach. Side rails up X2. Adult w/ patient. Pulse ox on. NIBP on. Door closed. Noise minimized. Warm blanket given. 10:42 Pt visited by daughter. ap3 11:27 Notified Nurse Practitioner and/or Physician Oncology Physician of a critical lab result(s), K+ ll1 5.7. 11:50 CT Abd/Pelvis - IV Contrast Only In Process Unspecified. [facility] 16:06 Repeat lab(s) drawn. by ED staff, sent to lab. ap3 16:16 Nurse Practitioner and/or Physician Oncology Physician to see patient. ap3 16:57 Kevon Hendricks MD is Hospitalizing Provider. m 18:19 COVID swab sent to lab. ap3 18:55 No provider procedures requiring assistance completed. Patient admitted, IV remains in ap3 place. 19:26 Primary Nurse role handed off by Minoo Kumari RN mw2 Administered Medications: 10:59 Drug: morphine 4 mg Route: IVP; Site: left antecubital; ap3 11:38 Follow up: Response: No adverse reaction; Pain is decreased ap3 10:59 Drug: Zofran (Ondansetron) 4 mg Route: IVP; Site: left antecubital; ap3 11:39 Follow up: Response: No adverse reaction ap3 11:39 Drug: NS 0.9% 500 ml Route: IV; Rate: bolus; Site: left antecubital; ap3 15:18 Follow up: IV Status: Completed infusion; IV Intake: 500ml ap3 15:49 Drug: Rocephin (cefTRIAXone) 2 grams Route: IV; Rate: calculated rate; Site: left jd3 antecubital; 17:04 Follow up: IV Status: Completed infusion ap3 18:12 Drug: D50W 50 ml Route: IVP; Site: left antecubital; ap3 18:19 Follow up: Response: No adverse reaction ap3 18:12 Drug: Kayexalate (polystyrene) 60 grams Route: PO; ap3 18:18 Drug: Insulin Regular Human 10 units {Co-Signature: jd3 (Keith Low RN).} Route: ap3 IVP; Site: left antecubital; 18:19 Drug: Calcium Gluconate 1 grams Route: IVPB; Infused Over: 60 mins; Site: left ap3 antecubital; 19:08 Follow up: IV Status: Completed infusion ap3 18:23 Drug: Albuterol 2.5 mg Route: Inhalation; ap3 19:08 Drug: Albuterol 2.5 mg Route: Inhalation; ap3 19:09 Drug: Albuterol 2.5 mg Route: Inhalation; ap3 Medication: 10:38 VIS not applicable for this client. ap3 Intake: 15:18 IV: 500ml; Total: 500ml. ap3 Outcome: 16:58 Decision to Hospitalize by Provider. mayank 18:55 Admitted to ER Hold. Please see [facility] for further documentation. ap3 18:55 Condition: good 18:55 Discharge instructions given to patient, family, Instructed on the need for admit. 08/08 16:29 Patient left the ED. jl7 Signatures: Dispatcher [employer] EDMS Horace Ann PA PA jmm Leal Jahala, RN RN jl7 Keith Low RN RN jd3 Minoo Kumari RN RN ap3 Que Jimenez2 Axel Ozuna RN RN ll1 Keith Low RN jd3
[2021-08-07] MEDS ORDERED: ACETAMINOPHEN 500 MG TAB PO PRN (17:01)
[2021-08-07] MEDS ORDERED: ONDANSETRON 4 MG/2 ML VIAL IV PRN (17:01)
[2021-08-07] MEDS ORDERED: SOD POLYSTYREN SUL 15 GM/60 ML UCUP PO ONE (17:06)
[2021-08-07] MEDS ORDERED: D10W 250 ML IV ONE (17:57)
[2021-08-07 19:12] VITALS: BMI 29.5
[2021-08-07] MEDS: D5 0.45 NS 1,000 ML IV SCH (21:21)
[2021-08-07] MEDS ORDERED: D5 0.45 NS 1,000 ML IV ONE (21:25)
[2021-08-07] MEDS: MORPHINE 2 MG/ML SYR IV PRN (23:41)
[2021-08-07] MEDS ORDERED: MORPHINE 2 MG/ML SYR ONE (23:45)
[2021-08-08 02:09] VITALS: O2SAT 100
[2021-08-08] MEDS: MORPHINE 2 MG/ML SYR IV PRN (03:28)
[2021-08-08] MEDS ORDERED: MORPHINE 2 MG/ML SYR ONE (03:32)
[2021-08-08 03:56] LABS: Absolute Lymphocytes (CBC) 1.2 K/uL (0.7-4.9); Hematocrit 29.8 % (36.0-45.0); Lymphocytes % 13.4 % (15.3-44.8); MPV 8.9 fL (7.6-11.3); RBC Red Blood Cell Count 3.31 M/uL (3.86-4.86)
[2021-08-08 04:00] LABS: Albumin 3.1 g/dL (3.4-5.0); Bilirubin Total 0.3 mg/dL (0.2-1.0); Magnesium 2.4 mg/dL (1.8-2.4); Protein, Total 6.9 g/dL (6.4-8.2)
[2021-08-08] MEDS: D5 0.45 NS 1,000 ML IV SCH ×3 (04:00→13:15)
[2021-08-08] MEDS ORDERED: D5 0.45 NS 1,000 ML IV ONE (08:31)
--- NOTE | 2021-08-08 09:36 | EKG ---
Test Date: 2021-08-07 Test Time: 11:37:21 Employment Appeals Examiner: ALP MEASUREMENT RESULTS: Intervals: Rate: 65 NH: 150 QRSD: 74 QT: 398 QTc: 413 [place]: P: 60 NH: 150 QRS: 16 T: 49 INTERPRETIVE STATEMENTS: Normal sinus rhythm Normal ECG Compared to ECG 12/23/2019 10:51:59 Sinus bradycardia no longer present Electronically Signed On 08-08-21 09:32:36 CDT by Josesito Pulido
[2021-08-08] MEDS ORDERED: ACETAMINOPHEN 500 MG TAB ONE (10:45)
[2021-08-08] MEDS ORDERED: CYCLOBENZAPRINE 10 MG TAB PO PRN (13:35)
[2021-08-08] MEDS ORDERED: TRAMADOL HCL 50 MG TAB PO PRN (13:35)
--- NOTE | 2021-08-08 13:41 | P.PN ---
Subjective Date of Service: 08/08/21 Still having severe back pain. We will need to arrange for outpatient physical therapy. Potassium level improved. Renal insufficiency improved. Review of Systems 10-point ROS is otherwise unremarkable Physical Examination - Vital Signs Temperature: 97.3 F Blood Pressure: 111/50 Pulse: 88 Respirations: 18 Pulse Ox (%): 100 - Physical Exam General: Alert, In no apparent distress HEENT: Atraumatic, PERRLA, EOMI Neck: Supple, JVD not distended Respiratory: Clear to auscultation bilaterally, Normal air movement Cardiovascular: Regular rate/rhythm, Normal S1 S2 Gastrointestinal: Normal bowel sounds, No tenderness Musculoskeletal: No tenderness Integumentary: No rashes Neurological: Normal speech, Normal tone, Normal affect Lymphatics: No axilla or inguinal lymphadenopathy - Studies Laboratory Data (last 24 hrs) 08/08/21 06:00: Magnesium Cancelled 08/08/21 03:28: Sodium 137, Potassium 5.0, BUN 27 H, Creatinine 1.42 H, Glucose 118 H, Magnesium 2.4, Total Bilirubin 0.3, AST 23, ALT 37, Alkaline Phosphatase 109 08/08/21 03:28: WBC 9.2 D, Hgb 10.0 L, Hct 29.8 L, Plt Count 277 08/07/21 16:04: Potassium 5.8 H* Medications List Reviewed: Yes Assessment & Plan - Problems (Diagnosis) (1) Chronic low back pain Current Visit: Yes Status: Acute (2) Urinary tract infection Current Visit: Yes Status: Acute (3) Rheumatoid arthritis Current Visit: Yes Status: Acute (4) Hyperkalemia Current Visit: Yes Status: Acute (5) Acute kidney injury Current Visit: Yes Status: Acute (6) Coronary artery disease Onset Date: 10/21/15 Current Visit: No Status: Chronic Qualifiers: (7) Hyperlipidemia Onset Date: 10/21/15 Current Visit: No Status: Chronic Qualifiers: (8) Hypertension Onset Date: 10/21/15 Current Visit: No Status: Chronic - Plan Plan: 1. Continue with IV antibiotic therapy 2. IV fluids 3. Kayexalate 4. Repeat potassium level 5. Renal ultrasound 6. IV steroids x1 7. Physical therapy evaluation 8. GI DVT prophylaxis - Advance Directives Does patient have a Living Will: No Does patient have a Durable POA for Healthcare: No - Code Status/Comfort Care Code Status: Full Code
--- NOTE | 2021-08-08 13:41 | P.HP ---
Certification for Inpatient Patient admitted to: Inpatient With expected LOS: >2 Midnights Patient will require the following post-hospital care: None Practitioner: I am a practitioner with admitting privileges, knowledge of patient current condition, hospital course, and medical plan of care. Services: Services provided to patient in accordance with Admission requirements found in Title 42 Section 412.3 of the Code of Federal Regulations Patient History Date of Service: 08/07/21 Reason for admission: Hyperkalemia; UTI; rheumatoid arthritis with intractable back pain History of Present Illness: Patient is a 81-year-old female who has a history of rheumatoid arthritis and she is on methotrexate and presents to the emergency room with severe back pain. She has been treated for rheumatoid arthritis for quite a while but her pain has been becoming more severe. She was seen in the emergency room and she has severe hyperkalemia along with a urinary tract infection and acute on chronic renal insufficiency. There is concern on physical exam for pyelonephritis. She has been having fevers shakes and chills. She is been having significant pain mainly on the left side. Pain is reproducible on exam. She does not have any peritoneal signs. She will be admitted for inpatient hospitalization. Allergies No Known Allergies Allergy (Verified 04/19/17 11:28) Home Medications: Ferrous Sulfate [Iron] 325 mg PO DAILY #30 tablet 03/21/17 Metoprolol Tartrate [Lopressor*] 25 mg PO BID 6AM 6PM #60 tab 03/21/17 Pantoprazole [Protonix Tab*] 40 mg PO DAILY #30 tab 03/21/17 Furosemide [Lasix*] 40 mg PO DAILY 04/19/17 Alendronate Sodium 70 mg PO EVERY 7TH DAY 08/08/21 Amlodipine [Norvasc] 5 mg PO DAILY 08/08/21 Cyclobenzaprine [Flexeril] 10 mg PO Q8H PRN 08/08/21 Folic Acid 1 mg PO DAILY 08/08/21 Methotrexate [Methotrexate*] 20 mg PO EVERY 7TH DAY 08/08/21 Tramadol HCl [Ultram] 50 mg PO BID PRN 08/08/21 lisinopriL [Lisinopril] 20 mg PO DAILY 08/08/21 - Past Medical/Surgical History Has patient received pneumonia vaccine in the past: No Diabetic: No -: Hypertension -: Coronary artery disease, Cardiology-Dr. Kirby -: Iron deficiency anemia -: Edema -: Osteoarthritis -: jorge knee replacement -: c- section -: left hip replacement -: Cholecystectomy -: Right elbow surgery Psychosocial/ Personal History: She is to 47 years, has 3 children, she does not work. - Family History Father Family History: Reviewed- Non-Contributory - Social History Smoking Status: Never smoker Alcohol use: No CD- Drugs: No Caffeine use: Yes Place of Residence: Home Review of Systems 10-point ROS is otherwise unremarkable Physical Examination - Vital Signs Temperature: 97.3 F Blood Pressure: 111/50 Pulse: 88 Respirations: 18 Pulse Ox (%): 100 - Physical Exam General: Alert, In no apparent distress, Oriented x3 HEENT: Atraumatic, PERRLA, Mucous membr. moist/pink, EOMI, Sclerae nonicteric Neck: Supple, 2+ carotid pulse no bruit, No LAD, Without JVD or thyroid abnormality Respiratory: Clear to auscultation bilaterally, Normal air movement Cardiovascular: Regular rate/rhythm, Normal S1 S2, No murmurs Gastrointestinal: Normal bowel sounds, Soft and benign, Non-distended, Other, Tenderness Musculoskeletal: No clubbing, No swelling, Tenderness (Pain around the lumbar spine) Integumentary: No rashes Neurological: Normal gait, Normal speech, Normal strength at 5/5 x4 extr, Normal tone, Sensation intact, Cranial nerves 3-12 intact, Normal affect Lymphatics: No axilla or inguinal lymphadenopathy - Studies Laboratory Data (last 24 hrs) 08/08/21 06:00: Magnesium Cancelled 08/08/21 03:28: Sodium 137, Potassium 5.0, BUN 27 H, Creatinine 1.42 H, Glucose 118 H, Magnesium 2.4, Total Bilirubin 0.3, AST 23, ALT 37, Alkaline Phosphatase 109 08/08/21 03:28: WBC 9.2 D, Hgb 10.0 L, Hct 29.8 L, Plt Count 277 08/07/21 16:04: Potassium 5.8 H* Assessment & Plan - Problems (Diagnosis) (1) Chronic low back pain Current Visit: Yes Status: Acute (2) Urinary tract infection Current Visit: Yes Status: Acute (3) Rheumatoid arthritis Current Visit: Yes Status: Acute (4) Hyperkalemia Current Visit: Yes Status: Acute (5) Acute kidney injury Current Visit: Yes Status: Acute (6) Coronary artery disease Onset Date: 10/21/15 Current Visit: No Status: Chronic Qualifiers: (7) Hyperlipidemia Onset Date: 10/21/15 Current Visit: No Status: Chronic Qualifiers: (8) Hypertension Onset Date: 10/21/15 Current Visit: No Status: Chronic - Plan Plan: 1. Continue with IV antibiotic therapy 2. IV fluids 3. Kayexalate 4. Repeat potassium level 5. Renal ultrasound 6. IV steroids x1 7. Physical therapy evaluation 8. GI DVT prophylaxis Discharge Plan: Home Plan to discharge in: Greater than 2 days - Advance Directives Does patient have a Living Will: No Does patient have a Durable POA for Healthcare: No - Code Status/Comfort Care Code Status Assessed: Yes Code Status: Full Code Critical Care: No Time Spent Managing PTS Care (In Minutes): 45
[2021-08-08] MEDS ORDERED: dexAMETHasone 4 MG/ML VIAL IV ONE (14:00)
[2021-08-08] MEDS ORDERED: TRAMADOL HCL 50 MG TAB ONE (14:02)
[2021-08-08] MEDS ORDERED: dexAMETHasone 4 MG/ML VIAL ONE (14:02)
[2021-08-08] MEDS ORDERED: BISACODYL 10 MG RECTAL SUPP ONE (15:13)
[2021-08-08 15:14] VITALS: BP 136/59; TEMP 97.1
[2021-08-08] MEDS ORDERED: BISACODYL 10 MG RECTAL SUPP PR ONE (16:00)
[2021-08-08] MEDS ORDERED: METOPROLOL TAR 25 MG TAB PO SCH (18:00)
[2021-08-09] MEDS ORDERED: PANTOPRAZOLE 40MG TABLET PO SCH (06:30)
[2021-08-09] MEDS ORDERED: FUROSEMIDE 40 MG TABLET PO SCH (09:00)
[2021-08-09] MEDS ORDERED: FERROUS SULFATE 325 MG TAB PO SCH (09:00)
[2021-08-09] MEDS ORDERED: AMLODIPINE 5 MG TAB PO SCH (09:00)
[2021-08-09] MEDS ORDERED: FOLIC ACID 1 MG TABLET PO SCH (09:00)
[2021-08-15] MEDS ORDERED: METHOTREXATE 2.5 MG TAB PO SCH (09:00)
--- NOTE | 2021-08-30 23:18 | P.DS ---
Discharge Date: 08/08/21 Disposition: ROUTINE DISCHARGE Discharge Condition: GOOD Reason for Admission: Hyperkalemia; UTI; rheumatoid arthritis with intractable back pain - Problems (1) Chronic low back pain Status: Acute (2) Urinary tract infection Status: Acute (3) Rheumatoid arthritis Status: Acute (4) Hyperkalemia Status: Acute (5) Acute kidney injury Status: Acute (6) Coronary artery disease Onset Date: 10/21/15 Status: Chronic Qualifiers: (7) Hyperlipidemia Onset Date: 10/21/15 Status: Chronic Qualifiers: (8) Hypertension Onset Date: 10/21/15 Status: Chronic Brief History of Present Illness: Patient is a 81-year-old female who has a history of rheumatoid arthritis and she is on methotrexate and presents to the emergency room with severe back pain. She has been treated for rheumatoid arthritis for quite a while but her pain has been becoming more severe. She was seen in the emergency room and she has severe hyperkalemia along with a urinary tract infection and acute on chronic renal insufficiency. There is concern on physical exam for pyelonephritis. She has been having fevers shakes and chills. She is been having significant pain mainly on the left side. Pain is reproducible on exam. She does not have any peritoneal signs. She will be admitted for inpatient hospitalization. Hospital Course: Patient has done well during hospital stay. Continue on antibiotic therapy. Rheumatoid arthritis is stable. Clinically, patient is much better. At this time, patient is stable for discharge home. Patient will follow-up with consultants and PCP as an outpatient. Vital Signs/Physical Exam: Temp Pulse Resp BP Pulse Ox 97.1 F 80 16 136/59 L 100 08/08/21 15:12 08/08/21 15:12 08/08/21 15:12 08/08/21 15:12 08/08/21 15:12 General: Alert, In no apparent distress, Oriented x3 Laboratory Data at Discharge: WBC 9.2 K/uL (4.3-10.9) D 08/08/21 03:28 Hgb 10.0 g/dL (12.0-15.0) L 08/08/21 03:28 Hct 29.8 % (36.0-45.0) L 08/08/21 03:28 Plt Count 277 K/uL (152-406) 08/08/21 03:28 Sodium 137 mmol/L (136-145) 08/08/21 03:28 Potassium 5.0 mmol/L (3.5-5.1) 08/08/21 03:28 BUN 27 mg/dL (7-18) H 08/08/21 03:28 Creatinine 1.42 mg/dL (0.55-1.3) H 08/08/21 03:28 Glucose 118 mg/dL (74-106) H 08/08/21 03:28 Magnesium Cancelled 08/08/21 06:00 Total Bilirubin 0.3 mg/dL (0.2-1.0) 08/08/21 03:28 AST 23 U/L (15-37) 08/08/21 03:28 ALT 37 U/L (12-78) 08/08/21 03:28 Alkaline Phosphatase 109 U/L (45-117) 08/08/21 03:28 Lipase 129 U/L (73-393) 08/07/21 10:44 Home Medications: Ferrous Sulfate [Iron] 325 mg PO DAILY #30 tablet 03/21/17 Metoprolol Tartrate [Lopressor*] 25 mg PO BID 6AM 6PM #60 tab 03/21/17 Pantoprazole [Protonix Tab*] 40 mg PO DAILY #30 tab 03/21/17 Furosemide [Lasix*] 40 mg PO DAILY 04/19/17 Alendronate Sodium 70 mg PO EVERY 7TH DAY 08/08/21 Amlodipine [Norvasc*] 5 mg PO DAILY 08/08/21 Cefdinir [Omnicef] 300 mg PO BID #14 capsule 08/08/21 Cyclobenzaprine [Flexeril*] 10 mg PO Q8H PRN 08/08/21 Docusate [Colace Cap] 100 mg PO BID #60 cap 08/08/21 Folic Acid 1 mg PO DAILY 08/08/21 Hydrocodone 7.5/APAP 325 [Witten 7.5/325 mg] 1 tab PO Q6H PRN #20 tab 08/08/21 Methotrexate [Methotrexate*] 20 mg PO EVERY 7TH DAY 08/08/21 Tramadol HCl [Ultram] 50 mg PO BID PRN 08/08/21 predniSONE [Prednisone] 20 mg PO DAILY #5 tablet 08/08/21 New Medications: Docusate [Colace Cap] 100 mg PO BID #60 cap Hydrocodone 7.5/APAP 325 [[place]itten 7.5/325 mg] 1 tab PO Q6H PRN #20 tab PRN Reason: Pain Cefdinir [Omnicef] 300 mg PO BID #14 capsule predniSONE [Prednisone] 20 mg PO DAILY #5 tablet Physician Discharge Instructions: OK TO DC IV AND DC HOME FOLLOW-UP WITH PCP IN 1-2 WEEKS CALL ME AT [phone] IF ANY QUESTIONS REGARDING HOSPITAL STAY RETURN TO THE ER IF SYMPTOMS WORSENS Diet: AHA Activity: Fall precautions Followup: Han Guerra DO [Primary Care Provider] - Time spent managing pt's care (in minutes): 35
== END 2021-08-08 16:27 | disposition home or self-care (01) ==
LOC: ER 09:18 → ERHOLD 17:02 → OBSVTOIN 08-08 13:28 → INTOOBSV 08-08 13:28
PROVIDERS: ADMIT Hospitalist; ATTEND Hospitalist
DX: N39.0 Urinary tract infection, site not specified (principal); N17.9 Acute kidney failure, unspecified; I12.9 Hypertensive chronic kidney disease with stage 1 through stage 4 chronic kidney disease, or unspecified chronic kidney disease; N18.9 Chronic kidney disease, unspecified; E87.5 Hyperkalemia; M06.9 Rheumatoid arthritis, unspecified; M54.50 Low back pain, unspecified; G89.29 Other chronic pain; I25.10 Atherosclerotic heart disease of native coronary artery without angina pectoris; E78.5 Hyperlipidemia, unspecified; D50.9 Iron deficiency anemia, unspecified; R60.9 Edema, unspecified; M81.0 Age-related osteoporosis without current pathological fracture; E78.00 Pure hypercholesterolemia, unspecified; Z20.822 Contact with and (suspected) exposure to COVID-19; Z79.899 Other long term (current) drug therapy; Z90.49 Acquired absence of other specified parts of digestive tract; Z96.653 Presence of artificial knee joint, bilateral; Z96.642 Presence of left artificial hip joint
CPT/HCPCS: 96365; 96367; 96361; 93005; 87088; 85025 ×2; 87086; 36415 ×2; 83735; 84132; 87077; 87186; 81003; 83690; 80053 ×3; 74177; 96375; 99283; 99285; U0003; Q9967; J1100; J1815; J2270 ×2; J0610; J7799 ×2; J7040; J2405; J0696; G0378 ×2

== ENCOUNTER 2023-08-07 09:41 | Emergency (ER) | payer OTHER ==
--- OUTSIDE RECORDS SUMMARY | 2023-08-07 09:46 | XMS REPORT | Continuity of Care Document ---
Author Name Unknown Address [address] [facility] [address] [place] [address] [facility] thconnect Address [address] [facility] [address] [place] [address] Care Team Providers Care Retail Services Professional Name Role Phone HAN GUERRA Primary Care Physician Unavailab le Han Guerra Attending Clinician Unavailable HAN GUERRA Attending Clinician Unavailable RADIOLOGY Attending Clinician Unavailable Radiology Attending Clinician Unavailable HAN GUERRA Admitting Clinician Unavailable Payers Payer Name Policy Type Policy Number Effective Date Expirati on Date Source MEDICARE PART A \T\ B [id number] 2007 00:00:00 MEDICARE [facility] [id number] 2007 00:00:00 [facility] Problems Condition Name Condition Details Condition Category Status Onset Date Resolution Date Last Treatment Date Treating Clinician Comments Source [id number] Chronic pain syndrome Problem Common [facility] Depression Depression Problem Co mmon [facility] Gastritis Gastritis Problem Comm on [facility] Essential hypertensi on Benign essential HTN Problem Common [facility] Mixed hyperlipid emia Hyperlipid emia, mixed Problem [facility] [id number] Body mass index (BMI) 31.0-31.9, adult Problem [facility] Gastro-eso phageal reflux disease without esophagiti s Gastro-eso phageal reflux disease without esophagiti s Problem Common [facility] [id number] Other obesity due to excess calories Problem [facility] Anemia of chronic disorder Anemia in chronic illness Problem [facility] Rheumatoid arthritis Rheumatoid arthritis Problem [facility] 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 Problem [facility] Cyst of left ovary Other ovarian cyst, left side Problem [facility] [id number] 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 Problem [facility] [id number] Opiate dependence , continuous Problem [facility] [id number] Moderate major depression , single episode Problem [facility] [id number] Coronary artery disease involving [place] coronary artery of [place] heart with angina pectoris Problem [facility] Allergies, Adverse Reactions, Alerts Allergy Name Allergy Type Status Severity Reaction(s) Onset Date Inactive Date Treating Clinician Comments Source NO KNOWN ALLERGIE S Drug Class Active [facility] Social History Social Habit Start Date Stop Date Quantity Comments Source History of Tobacco Use [facility] Exposure to SARS-CoV-2 (event) 2022-01-19 00:00:00 2022-01-29 16:29:00 Not sure [facility] Sex Assigned At 1940 00:00:00 1940 00:00:00 [facility] Smoking Status Start Date Stop Date Source Tobacco smoking consumption unknown [facility] Never Smoker [facility] Medications Ordered Medication Name Filled Medication Name Start Date Stop Date Current Medication? Ordering Clinician Indication Dosage Frequency Signature (SIG) Comments Components Source Alendronate Sodium 70 MG Alendronate Sodium 70 MG 10-15 00:00: 00 No Alendronat e Sodium 70 MG Alendronate Sodium 70 MG Alendronate Sodium 70 MG 10-15 00:00: 00 No Alendronat e Sodium 70 MG Alendronate Sodium 70 MG Alendronate Sodium 70 MG 10-15 00:00: 00 No Alendronat e Sodium 70 MG Alendronate Sodium 70 MG Alendronate Sodium 70 MG 3-0 7-24 00:00: 00 No Alendronat e Sodium 70 MG Alendronate Sodium 70 MG Alendronate Sodium 70 MG 3-0 7-24 00:00: 00 No Alendronat e Sodium 70 MG Alendronate Sodium 70 MG Alendronate Sodium 70 MG 3-0 7-24 00:00: 00 No Alendronat e Sodium 70 MG Alendronate Sodium 70 MG Alendronate Sodium 70 MG 3-0 7-24 00:00: 00 No Alendronat e Sodium 70 MG Alendronate Sodium 70 MG Alendronate Sodium 70 MG 3-0 7-24 00:00: 00 No Alendronat e Sodium 70 MG Alendronate Sodium 70 MG Alendronate Sodium 70 MG 3-0 7-24 00:00: 00 No Alendronat e Sodium 70 MG Alendronate Sodium 70 MG Alendronate Sodium 70 MG 3-0 7-24 00:00: 00 No Alendronat e Sodium 70 MG Alendronate Sodium 70 MG Alendronate Sodium 70 MG 3-0 7-24 00:00: 00 No Alendronat e Sodium 70 MG Prolia 60 MG/ML Prolia 60 MG/ML 2022-0 8-18 00:00: 00 No Prolia 60 MG/ML Meclizine HCl 25 MG Meclizine HCl 25 MG 2020-0 9-25 00:00: 00 No 1{table t_as_ne eded} QD Meclizine HCl 25 MG Meclizine HCl 25 MG Meclizine HCl 25 MG 2020-0 9-25 00:00: 00 No 1{table t_as_ne eded} QD Meclizine HCl 25 MG Meclizine HCl 25 MG Meclizine HCl 25 MG 2020-0 9-25 00:00: 00 No 1{table t_as_ne eded} QD Meclizine HCl 25 MG Meclizine HCl 25 MG Meclizine HCl 25 MG 2020-0 9-25 00:00: 00 No 1{table t_as_ne eded} QD Meclizine HCl 25 MG Meclizine HCl 25 MG Meclizine HCl 25 MG 2020-0 9-25 00:00: 00 No 1{table t_as_ne eded} QD Meclizine HCl 25 MG Meclizine HCl 25 MG Meclizine HCl 25 MG 2020-0 925 00:00: 00 No 1{table t_as_ne eded} QD Meclizine HCl 25 MG Meclizine HCl 25 MG Meclizine HCl 25 MG 2020-0 9-25 00:00: 00 No 1{table t_as_ne eded} QD Meclizine HCl 25 MG Meclizine HCl 25 MG Meclizine HCl 25 MG 2020-0 925 00:00: 00 No 1{table t_as_ne eded} QD Meclizine HCl 25 MG Zoloft Zoloft 2019-0 09-20 00:00: 00 Yes Han Guerra 1/2 tab once daily x 1week, then 1 tablet once daily [facility] Zoloft 50 MG Zoloft 50 MG 2019-0 09-20 00:00: 00 No QD Zoloft 50 MG Zoloft 50 MG Zoloft 50 MG 2019-0 09-20 00:00: 00 No QD Zoloft 50 MG Zoloft 50 MG Zoloft 50 MG 2019-0 09-20 00:00: 00 No QD Zoloft 50 MG Zoloft 50 MG Zoloft 50 MG 2019-0 09-20 00:00: 00 No QD Zoloft 50 MG Zoloft 50 MG Zoloft 50 MG 2019-0 09-20 00:00: 00 No QD Zoloft 50 MG Zoloft 50 MG Zoloft 50 MG 2019-0 09-20 00:00: 00 No QD Zoloft 50 MG Zoloft 50 MG Zoloft 50 MG 2019-0 09-20 00:00: 00 No QD Zoloft 50 MG Zoloft 50 MG Zoloft 50 MG 2019-0 09-20 00:00: 00 No QD Zoloft 50 MG Metoprolol Tartrate Metoprolol Tartrate Yes Han Guerra 1 tablet with food [facility] Lisinopril Lisinopril Yes Han Guerra 1 tablet [facility] Amlodipine Besylate Amlodipine Besylate Yes Han Guerra TK 1 T PO QD [facility] Folic Acid Folic Acid Yes Han Guerra 1 tablet [facility] Ferrous Sulfate Ferrous Sulfate Yes Han Guerra 1 tablet [facility] Lasix Lasix Yes Han Guerra 1 tablet [facility] Methotrexat e Methotrexat e Yes Han Guerra as directed [facility] Lipitor Lipitor Yes Han Guerra 1 tablet [facility] Fosamax Fosamax Yes Han Guerra 1 tablet [facility] Pantoprazol e Sodium Pantoprazol e Sodium Yes Han Guerra 1 tablet [facility] Ultram Ultram Yes Han Guerra 1 tablet as needed [facility] Pantoprazol e Sodium 40 MG Pantoprazol e Sodium 40 MG No 1{table t} QD Pantoprazo le Sodium 40 MG Methotrexat e 2.5 MG Methotrexat e 2.5 MG No Methotrexa te 2.5 MG Lipitor 20 MG Lipitor 20 MG No 1{table t} QD Lipitor 20 MG Ultram 50 MG Ultram 50 MG No 1{table t_as_ne eded} Ultram 50 MG Metoprolol Tartrate 25 MG Metoprolol Tartrate 25 MG No Metoprolol Tartrate 25 MG Lisinopril 20 MG Lisinopril 20 MG No Lisinopril 20 MG Fosamax 70 MG Fosamax 70 MG No 1{table t} Fosamax 70 MG Ferrous Sulfate 325 (65 Fe) MG Ferrous Sulfate 325 (65 Fe) MG No 1{table t} QD Ferrous Sulfate 325 (65 Fe) MG Folic Acid 1 MG Folic Acid 1 MG No 1{table t} QD Folic Acid 1 MG amLODIPine Besylate 5 MG amLODIPine Besylate 5 MG No amLODIPine Besylate 5 MG Furosemide 40 MG Furosemide 40 MG No Furosemide 40 MG Lasix 40 MG Lasix 40 MG No 1{table t} QD Lasix 40 MG Atorvastati n Calcium 20 MG Atorvastati n Calcium 20 MG No Atorvastat in Calcium 20 MG Methotrexat e 2.5 MG Methotrexat e 2.5 MG No Methotrexa te 2.5 MG Lisinopril 20 MG Lisinopril 20 MG No Lisinopril 20 MG Furosemide 40 MG Furosemide 40 MG No Furosemide 40 MG Ferrous Sulfate 325 (65 Fe) MG Ferrous Sulfate 325 (65 Fe) MG No 1{table t} QD Ferrous Sulfate 325 (65 Fe) MG Pantoprazol e Sodium 40 MG Pantoprazol e Sodium 40 MG No Pantoprazo le Sodium 40 MG amLODIPine Besylate 5 MG amLODIPine Besylate 5 MG No amLODIPine Besylate 5 MG Metoprolol Tartrate 25 MG Metoprolol Tartrate 25 MG No 1{table t_with_ food} BID Metoprolol Tartrate 25 MG Folic Acid 1 MG Folic Acid 1 MG No 1{table t} QD Folic Acid 1 MG Lipitor 20 MG Lipitor 20 MG No 1{table t} QD Lipitor 20 MG Ultram 50 MG Ultram 50 MG No 1{table t_as_ne eded} Ultram 50 MG Fosamax 70 MG Fosamax 70 MG No 1{table t} Fosamax 70 MG Lasix 40 MG Lasix 40 MG No 1{table t} QD Lasix 40 MG Atorvastati n Calcium 20 MG Atorvastati n Calcium 20 MG No Atorvastat in Calcium 20 MG Cefdinir 300 MG Cefdinir 300 MG No Cefdinir 300 MG Sulfamethox azole-Trime thoprim 800-160 MG Sulfamethox azole-Trime thoprim 800-160 MG No 1{table t} BID Sulfametho xazole-Tri methoprim 800-160 MG predniSONE 20 MG predniSONE 20 MG No 1{table t} QD predniSONE 20 MG HYDROcodone -Acetaminop hen 7.5-325 MG HYDROcodone -Acetaminop hen 7.5-325 MG No 1{table t_as_ne eded} QID HYDROcodon e-Acetamin ophen 7.5-325 MG Leflunomide 10 MG Leflunomide 10 MG No 1{table t} QD Leflunomid e 10 MG traMADol HCl 50 MG traMADol HCl 50 MG No 1{table t_as_ne eded} QD traMADol HCl 50 MG Furosemide 40 MG Furosemide 40 MG No Furosemide 40 MG traMADol HCl 50 MG traMADol HCl 50 MG No 1{table t_as_ne eded} QD traMADol HCl 50 MG Atorvastati n Calcium 20 MG Atorvastati n Calcium 20 MG No Atorvastat in Calcium 20 MG Pantoprazol e Sodium 40 MG Pantoprazol e Sodium 40 MG No 1{table t} QD Pantoprazo le Sodium 40 MG Leflunomide 10 MG Leflunomide 10 MG No 1{table t} QD Leflunomid e 10 MG Metoprolol Tartrate 25 MG Metoprolol Tartrate 25 MG No Metoprolol Tartrate 25 MG amLODIPine Besylate 5 MG amLODIPine Besylate 5 MG No amLODIPine Besylate 5 MG Lipitor 20 MG Lipitor 20 MG No 1{table t} QD Lipitor 20 MG Ultram 50 MG Ultram 50 MG No 1{table t_as_ne eded} Ultram 50 MG Lasix 40 MG Lasix 40 MG No 1{table t} QD Lasix 40 MG Ferrous Sulfate 325 (65 Fe) MG Ferrous Sulfate 325 (65 Fe) MG No 1{table t} QD Ferrous Sulfate 325 (65 Fe) MG Methotrexat e 2.5 MG Methotrexat e 2.5 MG No Methotrexa te 2.5 MG predniSONE 20 MG predniSONE 20 MG No 1{table t} QD predniSONE 20 MG Sulfamethox azole-Trime thoprim 800-160 MG Sulfamethox azole-Trime thoprim 800-160 MG No 1{table t} BID Sulfametho xazole-Tri methoprim 800-160 MG HYDROcodone -Acetaminop hen 7.5-325 MG HYDROcodone -Acetaminop hen 7.5-325 MG No 1{table t_as_ne eded} QID HYDROcodon e-Acetamin ophen 7.5-325 MG Folic Acid 1 MG Folic Acid 1 MG No 1{table t} QD Folic Acid 1 MG Cefdinir 300 MG Cefdinir 300 MG No Cefdinir 300 MG Lipitor 20 MG Lipitor 20 MG No 1{table t} QD Lipitor 20 MG Ultram 50 MG Ultram 50 MG No 1{table t_as_ne eded} Ultram 50 MG Prolia 60 MG/ML Prolia 60 MG/ML No Prolia 60 MG/ML Furosemide 40 MG Furosemide 40 MG No Furosemide 40 MG amLODIPine Besylate 5 MG amLODIPine Besylate 5 MG No amLODIPine Besylate 5 MG Sulfamethox azole-Trime thoprim 800-160 MG Sulfamethox azole-Trime thoprim 800-160 MG No 1{table t} BID Sulfametho xazole-Tri methoprim 800-160 MG Metoprolol Tartrate 25 MG Metoprolol Tartrate 25 MG No 1{table t_with_ food} BID Metoprolol Tartrate 25 MG predniSONE 20 MG predniSONE 20 MG No 1{table t} QD predniSONE 20 MG Methotrexat e 2.5 MG Methotrexat e 2.5 MG No Methotrexa te 2.5 MG traMADol HCl 50 MG traMADol HCl 50 MG No 1{table t_as_ne eded} QD traMADol HCl 50 MG Cefdinir 300 MG Cefdinir 300 MG No Cefdinir 300 MG Folic Acid 1 MG Folic Acid 1 MG No 1{table t} QD Folic Acid 1 MG Ferrous Sulfate 325 (65 Fe) MG Ferrous Sulfate 325 (65 Fe) MG No 1{table t} QD Ferrous Sulfate 325 (65 Fe) MG Leflunomide 10 MG Leflunomide 10 MG No 1{table t} QD Leflunomid e 10 MG Lasix 40 MG Lasix 40 MG No 1{table t} QD Lasix 40 MG Pantoprazol e Sodium 40 MG Pantoprazol e Sodium 40 MG No 1{table t} QD Pantoprazo le Sodium 40 MG HYDROcodone -Acetaminop hen 7.5-325 MG HYDROcodone -Acetaminop hen 7.5-325 MG No 1{table t_as_ne eded} QID HYDROcodon e-Acetamin ophen 7.5-325 MG Atorvastati n Calcium 20 MG Atorvastati n Calcium 20 MG No Atorvastat in Calcium 20 MG Lipitor 20 MG Lipitor 20 MG No 1{table t} QD Lipitor 20 MG Ultram 50 MG Ultram 50 MG No 1{table t_as_ne eded} Ultram 50 MG Prolia 60 MG/ML Prolia 60 MG/ML No Prolia 60 MG/ML Furosemide 40 MG Furosemide 40 MG No Furosemide 40 MG amLODIPine Besylate 5 MG amLODIPine Besylate 5 MG No amLODIPine Besylate 5 MG Sulfamethox azole-Trime thoprim 800-160 MG Sulfamethox azole-Trime thoprim 800-160 MG No 1{table t} BID Sulfametho xazole-Tri methoprim 800-160 MG Metoprolol Tartrate 25 MG Metoprolol Tartrate 25 MG No 1{table t_with_ food} BID Metoprolol Tartrate 25 MG predniSONE 20 MG predniSONE 20 MG No 1{table t} QD predniSONE 20 MG Methotrexat e 2.5 MG Methotrexat e 2.5 MG No Methotrexa te 2.5 MG traMADol HCl 50 MG traMADol HCl 50 MG No 1{table t_as_ne eded} QD traMADol HCl 50 MG Cefdinir 300 MG Cefdinir 300 MG No Cefdinir 300 MG Folic Acid 1 MG Folic Acid 1 MG No 1{table t} QD Folic Acid 1 MG Ferrous Sulfate 325 (65 Fe) MG Ferrous Sulfate 325 (65 Fe) MG No 1{table t} QD Ferrous Sulfate 325 (65 Fe) MG Leflunomide 10 MG Leflunomide 10 MG No 1{table t} QD Leflunomid e 10 MG Lasix 40 MG Lasix 40 MG No 1{table t} QD Lasix 40 MG Pantoprazol e Sodium 40 MG Pantoprazol e Sodium 40 MG No 1{table t} QD Pantoprazo le Sodium 40 MG HYDROcodone -Acetaminop hen 7.5-325 MG HYDROcodone -Acetaminop hen 7.5-325 MG No 1{table t_as_ne eded} QID HYDROcodon e-Acetamin ophen 7.5-325 MG Atorvastati n Calcium 20 MG Atorvastati n Calcium 20 MG No Atorvastat in Calcium 20 MG Lipitor 20 MG Lipitor 20 MG No 1{table t} QD Lipitor 20 MG Ultram 50 MG Ultram 50 MG No 1{table t_as_ne eded} Ultram 50 MG Prolia 60 MG/ML Prolia 60 MG/ML No Prolia 60 MG/ML Furosemide 40 MG Furosemide 40 MG No Furosemide 40 MG amLODIPine Besylate 5 MG amLODIPine Besylate 5 MG No amLODIPine Besylate 5 MG Sulfamethox azole-Trime thoprim 800-160 MG Sulfamethox azole-Trime thoprim 800-160 MG No 1{table t} BID Sulfametho xazole-Tri methoprim 800-160 MG Metoprolol Tartrate 25 MG Metoprolol Tartrate 25 MG No 1{table t_with_ food} BID Metoprolol Tartrate 25 MG predniSONE 20 MG predniSONE 20 MG No 1{table t} QD predniSONE 20 MG Methotrexat e 2.5 MG Methotrexat e 2.5 MG No Methotrexa te 2.5 MG traMADol HCl 50 MG traMADol HCl 50 MG No 1{table t_as_ne eded} QD traMADol HCl 50 MG Cefdinir 300 MG Cefdinir 300 MG No Cefdinir 300 MG Folic Acid 1 MG Folic Acid 1 MG No 1{table t} QD Folic Acid 1 MG Ferrous Sulfate 325 (65 Fe) MG Ferrous Sulfate 325 (65 Fe) MG No 1{table t} QD Ferrous Sulfate 325 (65 Fe) MG Leflunomide 10 MG Leflunomide 10 MG No 1{table t} QD Leflunomid e 10 MG Lasix 40 MG Lasix 40 MG No 1{table t} QD Lasix 40 MG Pantoprazol e Sodium 40 MG Pantoprazol e Sodium 40 MG No 1{table t} QD Pantoprazo le Sodium 40 MG HYDROcodone -Acetaminop hen 7.5-325 MG HYDROcodone -Acetaminop hen 7.5-325 MG No 1{table t_as_ne eded} QID HYDROcodon e-Acetamin ophen 7.5-325 MG Atorvastati n Calcium 20 MG Atorvastati n Calcium 20 MG No Atorvastat in Calcium 20 MG Ultram 50 MG Ultram 50 MG No 1{table t_as_ne eded} Ultram 50 MG Atorvastati n Calcium 20 MG Atorvastati n Calcium 20 MG No Atorvastat in Calcium 20 MG Pantoprazol e Sodium 40 MG Pantoprazol e Sodium 40 MG No 1{table t} QD Pantoprazo le Sodium 40 MG amLODIPine Besylate 5 MG amLODIPine Besylate 5 MG No amLODIPine Besylate 5 MG Leflunomide 10 MG Leflunomide 10 MG No 1{table t} QD Leflunomid e 10 MG Lipitor 20 MG Lipitor 20 MG No 1{table t} QD Lipitor 20 MG predniSONE 20 MG predniSONE 20 MG No 1{table t} QD predniSONE 20 MG Prolia 60 MG/ML Prolia 60 MG/ML No Prolia 60 MG/ML Metoprolol Tartrate 25 MG Metoprolol Tartrate 25 MG No Metoprolol Tartrate 25 MG traMADol HCl 50 MG traMADol HCl 50 MG No 1{table t_as_ne eded} QD traMADol HCl 50 MG Furosemide 40 MG Furosemide 40 MG No Furosemide 40 MG Sulfamethox azole-Trime thoprim 800-160 MG Sulfamethox azole-Trime thoprim 800-160 MG No 1{table t} BID Sulfametho xazole-Tri methoprim 800-160 MG Lasix 40 MG Lasix 40 MG No 1{table t} QD Lasix 40 MG HYDROcodone -Acetaminop hen 7.5-325 MG HYDROcodone -Acetaminop hen 7.5-325 MG No 1{table t_as_ne eded} QID HYDROcodon e-Acetamin ophen 7.5-325 MG Methotrexat e 2.5 MG Methotrexat e 2.5 MG No Methotrexa te 2.5 MG Ferrous Sulfate 325 (65 Fe) MG Ferrous Sulfate 325 (65 Fe) MG No 1{table t} QD Ferrous Sulfate 325 (65 Fe) MG Lisinopril 20 MG Lisinopril 20 MG No Lisinopril 20 MG Cefdinir 300 MG Cefdinir 300 MG No Cefdinir 300 MG Folic Acid 1 MG Folic Acid 1 MG No 1{table t} QD Folic Acid 1 MG Lipitor 20 MG Lipitor 20 MG No 1{table t} QD Lipitor 20 MG Ultram 50 MG Ultram 50 MG No 1{table t_as_ne eded} Ultram 50 MG Prolia 60 MG/ML Prolia 60 MG/ML No Prolia 60 MG/ML Furosemide 40 MG Furosemide 40 MG No Furosemide 40 MG amLODIPine Besylate 5 MG amLODIPine Besylate 5 MG No amLODIPine Besylate 5 MG Sulfamethox azole-Trime thoprim 800-160 MG Sulfamethox azole-Trime thoprim 800-160 MG No 1{table t} BID Sulfametho xazole-Tri methoprim 800-160 MG Lasix 40 MG Lasix 40 MG No 1{table t} QD Lasix 40 MG predniSONE 20 MG predniSONE 20 MG No 1{table t} QD predniSONE 20 MG Methotrexat e 2.5 MG Methotrexat e 2.5 MG No Methotrexa te 2.5 MG traMADol HCl 50 MG traMADol HCl 50 MG No 1{table t_as_ne eded} QD traMADol HCl 50 MG Cefdinir 300 MG Cefdinir 300 MG No Cefdinir 300 MG Folic Acid 1 MG Folic Acid 1 MG No 1{table t} QD Folic Acid 1 MG Pantoprazol e Sodium 40 MG Pantoprazol e Sodium 40 MG No 1{table t} QD Pantoprazo le Sodium 40 MG Leflunomide 10 MG Leflunomide 10 MG No 1{table t} QD Leflunomid e 10 MG Ferrous Sulfate 325 (65 Fe) MG Ferrous Sulfate 325 (65 Fe) MG No 1{table t} QD Ferrous Sulfate 325 (65 Fe) MG Metoprolol Tartrate 25 MG Metoprolol Tartrate 25 MG No Metoprolol Tartrate 25 MG Lisinopril 20 MG Lisinopril 20 MG No Lisinopril 20 MG HYDROcodone -Acetaminop hen 7.5-325 MG HYDROcodone -Acetaminop hen 7.5-325 MG No 1{table t_as_ne eded} QID HYDROcodon e-Acetamin ophen 7.5-325 MG Atorvastati n Calcium 20 MG Atorvastati n Calcium 20 MG No Atorvastat in Calcium 20 MG amLODIPine Besylate 5 MG amLODIPine Besylate 5 MG No amLODIPine Besylate 5 MG Lipitor 20 MG Lipitor 20 MG No 1{table t} QD Lipitor 20 MG Folic Acid 1 MG Folic Acid 1 MG No 1{table t} QD Folic Acid 1 MG Methotrexat e 2.5 MG Methotrexat e 2.5 MG No Methotrexa te 2.5 MG Lasix 40 MG Lasix 40 MG No 1{table t} QD Lasix 40 MG Lisinopril 20 MG Lisinopril 20 MG No Lisinopril 20 MG Ultram 50 MG Ultram 50 MG No 1{table t_as_ne eded} Ultram 50 MG Pantoprazol e Sodium 40 MG Pantoprazol e Sodium 40 MG No Pantoprazo le Sodium 40 MG Prolia 60 MG/ML Prolia 60 MG/ML No Prolia 60 MG/ML Ferrous Sulfate 325 (65 Fe) MG Ferrous Sulfate 325 (65 Fe) MG No Ferrous Sulfate 325 (65 Fe) MG Atorvastati n Calcium 20 MG Atorvastati n Calcium 20 MG No Atorvastat in Calcium 20 MG Metoprolol Tartrate 25 MG Metoprolol Tartrate 25 MG No Metoprolol Tartrate 25 MG amLODIPine Besylate 5 MG amLODIPine Besylate 5 MG No amLODIPine Besylate 5 MG Lipitor 20 MG Lipitor 20 MG No 1{table t} QD Lipitor 20 MG Folic Acid 1 MG Folic Acid 1 MG No 1{table t} QD Folic Acid 1 MG Methotrexat e 2.5 MG Methotrexat e 2.5 MG No Methotrexa te 2.5 MG Lasix 40 MG Lasix 40 MG No 1{table t} QD Lasix 40 MG Lisinopril 20 MG Lisinopril 20 MG No Lisinopril 20 MG Ultram 50 MG Ultram 50 MG No 1{table t_as_ne eded} Ultram 50 MG Pantoprazol e Sodium 40 MG Pantoprazol e Sodium 40 MG No Pantoprazo le Sodium 40 MG Prolia 60 MG/ML Prolia 60 MG/ML No Prolia 60 MG/ML Ferrous Sulfate 325 (65 Fe) MG Ferrous Sulfate 325 (65 Fe) MG No Ferrous Sulfate 325 (65 Fe) MG Atorvastati n Calcium 20 MG Atorvastati n Calcium 20 MG No Atorvastat in Calcium 20 MG Metoprolol Tartrate 25 MG Metoprolol Tartrate 25 MG No Metoprolol Tartrate 25 MG Lasix 40 MG Lasix 40 MG No 1{table t} QD Lasix 40 MG amLODIPine Besylate 5 MG amLODIPine Besylate 5 MG No amLODIPine Besylate 5 MG Ferrous Sulfate 325 (65 Fe) MG Ferrous Sulfate 325 (65 Fe) MG No 1{table t} QD Ferrous Sulfate 325 (65 Fe) MG Metoprolol Tartrate 25 MG Metoprolol Tartrate 25 MG No Metoprolol Tartrate 25 MG Pantoprazol e Sodium 40 MG Pantoprazol e Sodium 40 MG No Pantoprazo le Sodium 40 MG Atorvastati n Calcium 20 MG Atorvastati n Calcium 20 MG No Atorvastat in Calcium 20 MG Folic Acid 1 MG Folic Acid 1 MG No 1{table t} QD Folic Acid 1 MG Lipitor 20 MG Lipitor 20 MG No 1{table t} QD Lipitor 20 MG Ultram 50 MG Ultram 50 MG No 1{table t_as_ne eded} Ultram 50 MG Methotrexat e 2.5 MG Methotrexat e 2.5 MG No Methotrexa te 2.5 MG Lisinopril 20 MG Lisinopril 20 MG No 1{table t} BID Lisinopril 20 MG Prolia 60 MG/ML Prolia 60 MG/ML No Prolia 60 MG/ML Lasix 40 MG Lasix 40 MG No 1{table t} QD Lasix 40 MG Folic Acid 1 MG Folic Acid 1 MG No 1{table t} QD Folic Acid 1 MG Lisinopril 20 MG Lisinopril 20 MG No 1{table t} BID Lisinopril 20 MG Pantoprazol e Sodium 40 MG Pantoprazol e Sodium 40 MG No Pantoprazo le Sodium 40 MG Ferrous Sulfate 325 (65 Fe) MG Ferrous Sulfate 325 (65 Fe) MG No Ferrous Sulfate 325 (65 Fe) MG Lipitor 20 MG Lipitor 20 MG No 1{table t} QD Lipitor 20 MG Methotrexat e 2.5 MG Methotrexat e 2.5 MG No Methotrexa te 2.5 MG Ultram 50 MG Ultram 50 MG No 1{table t_as_ne eded} Ultram 50 MG Prolia 60 MG/ML Prolia 60 MG/ML No Prolia 60 MG/ML Metoprolol Tartrate 25 MG Metoprolol Tartrate 25 MG No Metoprolol Tartrate 25 MG Atorvastati n Calcium 20 MG Atorvastati n Calcium 20 MG No 1{table t} QD Atorvastat in Calcium 20 MG amLODIPine Besylate 5 MG amLODIPine Besylate 5 MG No amLODIPine Besylate 5 MG Lasix 40 MG Lasix 40 MG No 1{table t} QD Lasix 40 MG Folic Acid 1 MG Folic Acid 1 MG No 1{table t} QD Folic Acid 1 MG Lisinopril 20 MG Lisinopril 20 MG No 1{table t} BID Lisinopril 20 MG Pantoprazol e Sodium 40 MG Pantoprazol e Sodium 40 MG No Pantoprazo le Sodium 40 MG Ferrous Sulfate 325 (65 Fe) MG Ferrous Sulfate 325 (65 Fe) MG No Ferrous Sulfate 325 (65 Fe) MG Lipitor 20 MG Lipitor 20 MG No 1{table t} QD Lipitor 20 MG Methotrexat e 2.5 MG Methotrexat e 2.5 MG No Methotrexa te 2.5 MG Ultram 50 MG Ultram 50 MG No 1{table t_as_ne eded} Ultram 50 MG Prolia 60 MG/ML Prolia 60 MG/ML No Prolia 60 MG/ML Metoprolol Tartrate 25 MG Metoprolol Tartrate 25 MG No Metoprolol Tartrate 25 MG Atorvastati n Calcium 20 MG Atorvastati n Calcium 20 MG No 1{table t} QD Atorvastat in Calcium 20 MG amLODIPine Besylate 5 MG amLODIPine Besylate 5 MG No amLODIPine Besylate 5 MG Lasix 40 MG Lasix 40 MG No 1{table t} QD Lasix 40 MG Folic Acid 1 MG Folic Acid 1 MG No 1{table t} QD Folic Acid 1 MG Lisinopril 20 MG Lisinopril 20 MG No 1{table t} BID Lisinopril 20 MG Pantoprazol e Sodium 40 MG Pantoprazol e Sodium 40 MG No Pantoprazo le Sodium 40 MG Ferrous Sulfate 325 (65 Fe) MG Ferrous Sulfate 325 (65 Fe) MG No Ferrous Sulfate 325 (65 Fe) MG Lipitor 20 MG Lipitor 20 MG No 1{table t} QD Lipitor 20 MG Methotrexat e 2.5 MG Methotrexat e 2.5 MG No Methotrexa te 2.5 MG Ultram 50 MG Ultram 50 MG No 1{table t_as_ne eded} Ultram 50 MG Prolia 60 MG/ML Prolia 60 MG/ML No Prolia 60 MG/ML Metoprolol Tartrate 25 MG Metoprolol Tartrate 25 MG No Metoprolol Tartrate 25 MG Atorvastati n Calcium 20 MG Atorvastati n Calcium 20 MG No 1{table t} QD Atorvastat in Calcium 20 MG amLODIPine Besylate 5 MG amLODIPine Besylate 5 MG No amLODIPine Besylate 5 MG Lasix 40 MG Lasix 40 MG No 1{table t} QD Lasix 40 MG Folic Acid 1 MG Folic Acid 1 MG No 1{table t} QD Folic Acid 1 MG Lisinopril 20 MG Lisinopril 20 MG No 1{table t} BID Lisinopril 20 MG Pantoprazol e Sodium 40 MG Pantoprazol e Sodium 40 MG No Pantoprazo le Sodium 40 MG Ferrous Sulfate 325 (65 Fe) MG Ferrous Sulfate 325 (65 Fe) MG No Ferrous Sulfate 325 (65 Fe) MG Lipitor 20 MG Lipitor 20 MG No 1{table t} QD Lipitor 20 MG Methotrexat e 2.5 MG Methotrexat e 2.5 MG No Methotrexa te 2.5 MG Ultram 50 MG Ultram 50 MG No 1{table t_as_ne eded} Ultram 50 MG Prolia 60 MG/ML Prolia 60 MG/ML No Prolia 60 MG/ML Metoprolol Tartrate 25 MG Metoprolol Tartrate 25 MG No Metoprolol Tartrate 25 MG Atorvastati n Calcium 20 MG Atorvastati n Calcium 20 MG No 1{table t} QD Atorvastat in Calcium 20 MG amLODIPine Besylate 5 MG amLODIPine Besylate 5 MG No amLODIPine Besylate 5 MG Lasix 40 MG Lasix 40 MG No 1{table t} QD Lasix 40 MG Folic Acid 1 MG Folic Acid 1 MG No 1{table t} QD Folic Acid 1 MG Lisinopril 20 MG Lisinopril 20 MG No 1{table t} BID Lisinopril 20 MG Pantoprazol e Sodium 40 MG Pantoprazol e Sodium 40 MG No Pantoprazo le Sodium 40 MG Ferrous Sulfate 325 (65 Fe) MG Ferrous Sulfate 325 (65 Fe) MG No Ferrous Sulfate 325 (65 Fe) MG Lipitor 20 MG Lipitor 20 MG No 1{table t} QD Lipitor 20 MG Methotrexat e 2.5 MG Methotrexat e 2.5 MG No Methotrexa te 2.5 MG Ultram 50 MG Ultram 50 MG No 1{table t_as_ne eded} Ultram 50 MG Prolia 60 MG/ML Prolia 60 MG/ML No Prolia 60 MG/ML Metoprolol Tartrate 25 MG Metoprolol Tartrate 25 MG No Metoprolol Tartrate 25 MG Atorvastati n Calcium 20 MG Atorvastati n Calcium 20 MG No 1{table t} QD Atorvastat in Calcium 20 MG amLODIPine Besylate 5 MG amLODIPine Besylate 5 MG No amLODIPine Besylate 5 MG Lasix 40 MG Lasix 40 MG No 1{table t} QD Lasix 40 MG Folic Acid 1 MG Folic Acid 1 MG No 1{table t} QD Folic Acid 1 MG Lisinopril 20 MG Lisinopril 20 MG No 1{table t} BID Lisinopril 20 MG Pantoprazol e Sodium 40 MG Pantoprazol e Sodium 40 MG No Pantoprazo le Sodium 40 MG Ferrous Sulfate 325 (65 Fe) MG Ferrous Sulfate 325 (65 Fe) MG No Ferrous Sulfate 325 (65 Fe) MG Lipitor 20 MG Lipitor 20 MG No 1{table t} QD Lipitor 20 MG Methotrexat e 2.5 MG Methotrexat e 2.5 MG No Methotrexa te 2.5 MG Ultram 50 MG Ultram 50 MG No 1{table t_as_ne eded} Ultram 50 MG Prolia 60 MG/ML Prolia 60 MG/ML No Prolia 60 MG/ML Metoprolol Tartrate 25 MG Metoprolol Tartrate 25 MG No Metoprolol Tartrate 25 MG Atorvastati n Calcium 20 MG Atorvastati n Calcium 20 MG No 1{table t} QD Atorvastat in Calcium 20 MG amLODIPine Besylate 5 MG amLODIPine Besylate 5 MG No amLODIPine Besylate 5 MG Lasix 40 MG Lasix 40 MG No 1{table t} QD Lasix 40 MG Folic Acid 1 MG Folic Acid 1 MG No 1{table t} QD Folic Acid 1 MG Lisinopril 20 MG Lisinopril 20 MG No 1{table t} BID Lisinopril 20 MG Pantoprazol e Sodium 40 MG Pantoprazol e Sodium 40 MG No Pantoprazo le Sodium 40 MG Ferrous Sulfate 325 (65 Fe) MG Ferrous Sulfate 325 (65 Fe) MG No Ferrous Sulfate 325 (65 Fe) MG Lipitor 20 MG Lipitor 20 MG No 1{table t} QD Lipitor 20 MG Methotrexat e 2.5 MG Methotrexat e 2.5 MG No Methotrexa te 2.5 MG Ultram 50 MG Ultram 50 MG No 1{table t_as_ne eded} Ultram 50 MG Prolia 60 MG/ML Prolia 60 MG/ML No Prolia 60 MG/ML Metoprolol Tartrate 25 MG Metoprolol Tartrate 25 MG No Metoprolol Tartrate 25 MG Atorvastati n Calcium 20 MG Atorvastati n Calcium 20 MG No 1{table t} QD Atorvastat in Calcium 20 MG amLODIPine Besylate 5 MG amLODIPine Besylate 5 MG No amLODIPine Besylate 5 MG Prolia 60 MG/ML Prolia 60 MG/ML No Prolia 60 MG/ML Ferrous Sulfate 325 (65 Fe) MG Ferrous Sulfate 325 (65 Fe) MG No 1{table t} QD Ferrous Sulfate 325 (65 Fe) MG Lisinopril 20 MG Lisinopril 20 MG No 1{table t} BID Lisinopril 20 MG Lipitor 20 MG Lipitor 20 MG No 1{table t} QD Lipitor 20 MG Pantoprazol e Sodium 40 MG Pantoprazol e Sodium 40 MG No Pantoprazo le Sodium 40 MG Folic Acid 1 MG Folic Acid 1 MG No 1{table t} QD Folic Acid 1 MG Ultram 50 MG Ultram 50 MG No 1{table t_as_ne eded} Ultram 50 MG Lasix 40 MG Lasix 40 MG No 1{table t} QD Lasix 40 MG Metoprolol Tartrate 25 MG Metoprolol Tartrate 25 MG No Metoprolol Tartrate 25 MG Methotrexat e 2.5 MG Methotrexat e 2.5 MG No Methotrexa te 2.5 MG amLODIPine Besylate 5 MG amLODIPine Besylate 5 MG No amLODIPine Besylate 5 MG Vital Signs Vital Name Observation Time Observation Value Comments S estherce height 2023-05-30 08:10:00 62 [in_i] Commo n [facility] weight 2023-05-30 08:10:00 173.0 [lb_av] Co mmon [facility] temperature 2023-05-30 08:10:00 98.3 [degF] Com mon [facility] bmi 2023-05-30 08:10:00 31.64 kg/m2 Comm on [facility] oximetry 2023-05-30 08:10:00 99 % Commo n [facility] respiratory rate 2023-05-30 08:10:00 18 /min [facility] blood pressure systolic 2023-05-30 08:10:00 137 mm[Hg] [facility] blood pressure diastolic 2023-05-30 08:10:00 68 mm[Hg] [facility] height 2023-01-14 10:00:00 62 [in_i] Commo n [facility] weight 2023-01-14 10:00:00 163 [lb_av] Comm on [facility] temperature 2023-01-14 10:00:00 98 [degF] Comm on [facility] bmi 2023-01-14 10:00:00 29.81 kg/m2 Comm on [facility] blood pressure systolic 2023-01-14 10:00:00 149 mm[Hg] Common [facility] blood pressure diastolic 2023-01-14 10:00:00 72 mm[Hg] Common [facility] height 2022-10-03 11:00:00 62 [in_i] Commo n [facility] weight 2022-10-03 11:00:00 173.0 [lb_av] Co [facility] temperature 2022-10-03 11:00:00 97.1 [degF] Com [facility] bmi 2022-10-03 11:00:00 31.64 kg/m2 Comm on [facility] oximetry 2022-10-03 11:00:00 99 % Commo n [facility] respiratory rate 2022-10-03 11:00:00 18 /min Common [facility] blood pressure systolic 2022-10-03 11:00:00 126 mm[Hg] Common [facility] blood pressure diastolic 2022-10-03 11:00:00 77 mm[Hg] Common [facility] height 2022-10-03 11:00:00 62 [in_i] Commo n [facility] weight 2022-10-03 11:00:00 173.0 [lb_av] Co [facility] temperature 2022-10-03 11:00:00 97.1 [degF] Com [facility] bmi 2022-10-03 11:00:00 31.64 kg/m2 Comm on [facility] oximetry 2022-10-03 11:00:00 99 % Commo n [facility] respiratory rate 2022-10-03 11:00:00 18 /min Common [facility] blood pressure systolic 2022-10-03 11:00:00 126 mm[Hg] [facility] blood pressure diastolic 2022-10-03 11:00:00 77 mm[Hg] Common [facility] height 2022-07-30 11:20:00 62 [in_i] Commo n [facility] weight 2022-07-30 11:20:00 178 [lb_av] Comm on [facility] temperature 2022-07-30 11:20:00 96 [degF] Comm on [facility] bmi 2022-07-30 11:20:00 32.55 kg/m2 Comm on [facility] blood pressure systolic 2022-07-30 11:20:00 123 mm[Hg] [facility] blood pressure diastolic 2022-07-30 11:20:00 76 mm[Hg] [facility] height 2022-05-07 09:40:00 62 [in_i] Commo n [facility] weight 2022-05-07 09:40:00 170 [lb_av] Comm on [facility] temperature 2022-05-07 09:40:00 98.1 [degF] Com mon [facility] bmi 2022-05-07 09:40:00 31.09 kg/m2 Comm on [facility] blood pressure systolic 2022-05-07 09:40:00 128 mm[Hg] [facility] blood pressure diastolic 2022-05-07 09:40:00 75 mm[Hg] [facility] height 2022-01-02 11:30:00 62 [in_i] Commo n [facility] weight 2022-01-02 11:30:00 174 [lb_av] Comm on [facility] temperature 2022-01-02 11:30:00 97 [degF] Comm on [facility] bmi 2022-01-02 11:30:00 31.82 kg/m2 Comm on [facility] blood pressure systolic 2022-01-02 11:30:00 119 mm[Hg] [facility] blood pressure diastolic 2022-01-02 11:30:00 64 mm[Hg] [facility] height 2021-11-09 14:10:00 62 [in_i] Commo n [facility] weight 2021-11-09 14:10:00 173.4 [lb_av] Co mmon [facility] temperature 2021-11-09 14:10:00 97.5 [degF] Com mon [facility] bmi 2021-11-09 14:10:00 31.71 kg/m2 Comm on [facility] oximetry 2021-11-09 14:10:00 100 % Commo n [facility] respiratory rate 2021-11-09 14:10:00 17 /min Common [facility] blood pressure systolic 2021-11-09 14:10:00 131 mm[Hg] Common [facility] blood pressure diastolic 2021-11-09 14:10:00 76 mm[Hg] [facility] height 2021-10-04 10:50:00 62 [in_i] Commo n [facility] weight 2021-10-04 10:50:00 170 [lb_av] Comm on [facility] temperature 2021-10-04 10:50:00 97 [degF] Comm on [facility] bmi 2021-10-04 10:50:00 31.09 kg/m2 Comm on [facility] blood pressure systolic 2021-10-04 10:50:00 109 mm[Hg] Common [facility] blood pressure diastolic 2021-10-04 10:50:00 65 mm[Hg] Common [facility] height 2021-10-04 11:20:00 62 [in_i] Commo n [facility] weight 2021-10-04 11:20:00 170 [lb_av] Comm on [facility] temperature 2021-10-04 11:20:00 97 [degF] Comm on [facility] bmi 2021-10-04 11:20:00 31.09 kg/m2 Comm on [facility] height 2021-08-14 13:00:00 62 [in_i] Commo n [facility] weight 2021-08-14 13:00:00 173.0 [lb_av] Co mmon [facility] temperature 2021-08-14 13:00:00 97.7 [degF] Com [facility] bmi 2021-08-14 13:00:00 31.64 kg/m2 Comm on [facility] oximetry 2021-08-14 13:00:00 100 % Commo n [facility] respiratory rate 2021-08-14 13:00:00 18 /min Common [facility] blood pressure systolic 2021-08-14 13:00:00 124 mm[Hg] [facility] blood pressure diastolic 2021-08-14 13:00:00 58 mm[Hg] Common [facility] height 2021-07-12 11:40:00 62 [in_i] Commo n [facility] weight 2021-07-12 11:40:00 173 [lb_av] Comm on [facility] temperature 2021-07-12 11:40:00 97.3 [degF] Com [facility] bmi 2021-07-12 11:40:00 31.64 kg/m2 Comm on [facility] blood pressure systolic 2021-07-12 11:40:00 116 mm[Hg] Common [facility] blood pressure diastolic 2021-07-12 11:40:00 70 mm[Hg] Common [facility] height 2021-04-13 11:30:00 62 [in_i] Commo n [facility] weight 2021-04-13 11:30:00 170 [lb_av] Comm on [facility] temperature 2021-04-13 11:30:00 96.1 [degF] Com [facility] bmi 2021-04-13 11:30:00 31.09 kg/m2 Comm on [facility] blood pressure systolic 2021-04-13 11:30:00 116 mm[Hg] [facility] blood pressure diastolic 2021-04-13 11:30:00 65 mm[Hg] [facility] height 2021-01-11 10:40:00 62 [in_i] Commo n [facility] weight 2021-01-11 10:40:00 174.1 [lb_av] Co mmon [facility] temperature 2021-01-11 10:40:00 98.0 [degF] Com mon [facility] bmi 2021-01-11 10:40:00 31.84 kg/m2 Comm on [facility] oximetry 2021-01-11 10:40:00 97 % Commo n [facility] respiratory rate 2021-01-11 10:40:00 17 /min [facility] blood pressure systolic 2021-01-11 10:40:00 132 mm[Hg] [facility] blood pressure diastolic 2021-01-11 10:40:00 72 mm[Hg] [facility] Procedures Procedure Date / Time Performed Performing Clinicia n Source DEXA AXIAL (HIP AND SPINE) 2022-02-28 17:18:41 Han Guerra [facility] Encounters Start Date/Time End Date/Time Encounter Type Admission Type Attending Clinicians Care Facility Care Department Encounter ID Source 2022-07-30 09:37:00 [facility] [id number] [facility] 2022-05-18 11:00:00 Inpatient [facility] [id number] [facility] 2022-05-07 09:27:00 [facility] [id number] [facility] 2021-04-19 14:37:58 [facility] [id number] [facility] 2021-04-19 12:58:12 Outpatient Guerra, Han [facility] [id number] [facility] 2021-04-19 12:25:52 Outpatient Guerra, Han [facility] [id number] [facility] 2021-04-19 12:25:30 Outpatient Guerra, Han [facility] [id number] [facility] 2021-04-19 11:59:48 Outpatient Guerra, Han [facility] [id number] [facility] 2021-04-19 11:59:35 Outpatient Guerra, Han [facility] [id number] [facility] 2021-04-19 11:49:05 Outpatient Guerra, Han [facility] [id number] [facility] 2021-04-19 11:32:13 Outpatient Guerra, Han [facility] [id number] [facility] 2021-04-19 11:31:48 Outpatient Guerra, Han [facility] [id number] [facility] 2021-04-19 11:17:25 Outpatient Guerra, Han [facility] [id number] [facility] 2021-04-19 10:59:19 Outpatient Guerra, Han [facility] [id number] [facility] 2023-05-30 00:00:00 2023-05-30 00:00:00 OFFICE VISIT ESTAB PT LEVEL 4 [facility] [id number] [facility] 2023-01-28 00:00:00 2023-01-28 00:00:00 (TEL) [facility] [id number] [facility] 2023-01-14 00:00:00 2023-01-14 00:00:00 OFFICE VISIT ESTAB PT LEVEL 4 [facility] [id number] [facility] 2022-12-18 00:00:00 2022-12-18 00:00:00 (TEL) [facility]C [facility] [id number] [facility] 2022-10-05 00:00:00 2022-10-05 00:00:00 (TEL) [facility]C [facility] [id number] [facility] 2022-10-03 00:00:00 2022-10-03 00:00:00 OFFICE VISIT ESTAB PT LEVEL 4 [facility] [id number] [facility] 2022-10-03 00:00:00 2022-10-03 00:00:00 (TEL) STLMLC [facility] [id number] [facility] 2022-10-03 00:00:00 2022-10-03 00:00:00 SUB ANNUAL [facility] VISIT [facility] [id number] [facility] 2022-07-30 00:00:00 2022-07-30 00:00:00 OFFICE VISIT ESTAB PT LEVEL 4 [facility] [id number] [facility] 2022-05-22 08:51:00 2022-05-22 00:01:00 [facility] [id number] [facility] 2022-05-07 00:00:00 2022-05-07 00:00:00 OFFICE VISIT ESTAB PT LEVEL 4 [facility] [id number] [facility] 2022-05-07 00:00:00 2022-05-07 00:00:00 (TEL) STLMLC [facility] [id number] [facility] 2022-02-28 10:31:27 2022-02-28 23:59:00 Outpatient R [facility]IOLOGY [facility] [id number] [facility] 2022-02-28 10:31:27 2022-02-28 23:59:00 Hospital Encounter Radiology [facility] [id number] [facility] 2022-02-20 00:00:00 2022-02-20 00:00:00 (TEL) STLMLC [facility] [id number] [facility] 2022-01-16 00:00:00 2022-01-16 00:00:00 (TEL) STLMLC [facility] [id number] [facility] 2022-01-02 00:00:00 2022-01-02 00:00:00 OFFICE VISIT ESTAB PT LEVEL 4 [facility] [id number] [facility] 2022-01-02 00:00:00 2022-01-02 00:00:00 (TEL) STLMLC [facility] [id number] [facility] 2021-11-09 00:00:00 2021-11-09 00:00:00 OFFICE VISIT ESTAB PT LEVEL 4 [facility] [id number] [facility] 2021-11-09 00:00:00 2021-11-09 00:00:00 (TEL) STLMLC [facility] [id number] [facility] 2021-10-25 00:00:00 2021-10-25 00:00:00 (TEL) STLMLC [facility] [id number] [facility] 2021-10-04 00:00:00 2021-10-04 00:00:00 OFFICE VISIT ESTAB PT LEVEL 4 [facility] [id number] [facility] 2021-10-04 00:00:00 2021-10-04 00:00:00 SUB ANNUAL [facility] VISIT [facility] [id number] [facility] 2021-08-14 00:00:00 2021-08-14 00:00:00 (HOSP F/U) Hospital Follow Up [facility]C STL[facility] [id number] [facility] 2021-08-10 00:00:00 2021-08-10 00:00:00 (TEL) STLMLC STL[facility] [id number] [facility] 2021-08-09 00:00:00 2021-08-09 00:00:00 (TEL) STLMLC [facility] [id number] [facility] 2021-07-12 00:00:00 2021-07-12 00:00:00 OFFICE VISIT ESTAB PT LEVEL 4 [facility]C [facility] [id number] [facility] 2021-04-13 00:00:00 2021-04-13 00:00:00 OFFICE VISIT ESTAB PT LEVEL 4 [facility] [id number] [facility] 2021-03-06 00:00:00 2021-03-06 00:00:00 (TEL) STLMLC [facility] [id number] [facility] 2021-01-11 00:00:00 2021-01-11 00:00:00 OFFICE VISIT ESTAB PT LEVEL 4 [facility] [id number] [facility] 2020-10-11 00:00:00 2020-10-11 00:00:00 Outpatient [facility] [id number] [facility] 2020-10-11 00:00:00 2020-10-11 00:00:00 Outpatient [facility] [id number] [facility] 2020-10-05 00:00:00 2020-10-05 00:00:00 Outpatient [facility] [id number] [facility] 2020-07-20 00:00:00 2020-07-20 00:00:00 Outpatient [facility] [id number] [facility] 2020-04-21 00:00:00 2020-04-21 00:00:00 Outpatient [facility] [id number] [facility] 2020-01-20 00:00:00 2020-01-20 00:00:00 Outpatient [facility] [id number] [facility] 2019-12-21 00:00:00 2019-12-21 00:00:00 Outpatient [facility] [id number] [facility] 2019-12-18 00:00:00 2019-12-18 00:00:00 Outpatient [facility] [id number] [facility] 2019-10-20 11:00:00 2019-10-20 11:00:[address] [facility] [id number] [facility] 2019-10-20 11:00:00 2019-10-20 11:00:[address] [facility] [id number] [facility] 2019-10-12 15:00:00 2019-10-12 15:00:[address] [facility] [id number] [facility] 2019-10-11 21:54:00 2019-10-11 21:54:[address] [facility] [id number] [facility] 2019-10-05 08:30:00 2019-10-05 08:30:[address] [facility] [id number] [facility] 2019-09-30 13:20:00 2019-09-30 13:20:[address] [facility] [id number] [facility] 2019-09-28 16:39:00 2019-09-28 16:39:[address] [facility] [id number] [facility] 2019-09-21 16:12:00 2019-09-21 16:12:[address] [facility] [id number] [facility] 2019-09-16 08:20:00 2019-09-16 08:20:[address] [facility] [id number] [facility] 2019-09-15 13:09:00 2019-09-15 13:09:[address] [facility] [id number] [facility] 2019-06-23 11:30:00 2019-06-23 11:30:[address] [facility] [id number] [facility] 2019-04-02 11:00:00 2019-04-02 11:00:[address] [facility] [facility] [id number] [facility] 2019-03-26 08:00:00 2019-03-26 08:00:[address] [facility] [facility] Medicine [id number] [facility] 2018-12-18 10:45:00 2018-12-18 10:45:[address] [facility] [id number] [facility] 2018-09-18 10:30:00 2018-09-18 10:30:[address] [facility] [id number] [facility] 2018-07-09 13:59:00 2018-07-09 13:59:[address] [facility] Medicine [id number] [facility] 2017-11-07 10:30:00 2017-11-07 10:30:[address] [facility] [id number] [facility] Results Test Description Test Time Test Comments Results Result Co mments Source LIPID PANEL WITH REFLEX DIRECT [id number] 00:00:00* Test Item Value Reference Range Interpretation Comme nts CALC LDL CHOL (test code = 48556-9) 135 MG/DL See_Comment H [Automated messa ge] The system which generated this result transmitted reference range: <100 MG/DL. The reference range was not used to interpret this result as normal/abnormal. CHOLESTEROL (test code = 2093-3) 234 MG/DL See_Comment H [Automated messa ge] The system which generated this result transmitted reference range: <200 MG/DL. The reference range was not used to interpret this result as normal/abnormal. HDL CHOLESTEROL (test code = 2085-9) 78 MG/DL See_Comment [Automated [employer]] The system which generated this result transmitted reference range: >39 MG/DL. The reference range was not used to interpret this result as normal/abnormal. RISK RATIO LDL/HDL (test code = 59831-6) 1.73 RATIO See_Comment [Automated message] The system which generated this result transmitted reference range: <3.22 RATIO. The reference range was not used to interpret this result as normal/abnormal. TRIGLYCERIDES (test code = 2571-8) 99 MG/DL See_Comment [Automated [employer]] The system which generated this result transmitted reference range: <150 MG/DL. The reference range was not used to interpret this result as normal/abnormal. PATHOLOGIST SMEAR [id number] 00:00:00* Test Item Value Reference Range Interpretation Comme nts BASOPHILS (test code = 30338-2) 0.7 % COMMENTS (test code = 48590-8) (NOTE) DIAGNOSIS: (test code = 51091-4) (NOTE) EOSINOPHILS (test code = 38825-3) 2.5 % HEMATOCRIT (test code = 36411-5) 37.1 % See_Comment [Automated [employer]] The system which generated this result transmitted reference range: 34.0-45.0 %. The reference range was not used to interpret this result as normal/abnormal. HEMOGLOBIN (test code = 718-7) 11.6 G/DL See_Comment [Automated [employer]] The system which generated this result transmitted reference range: 11.5-15.5 G/DL. The reference range was not used to interpret this result as normal/abnormal. LYMPHOCYTES (test code = 20972-6) 21.4 % MCH (test code = 72762-4) 28.9 PG See_Comment [Automated [employer]] The system which generated this result transmitted reference range: 25.0-33.0 PG. The reference range was not used to interpret this result as normal/abnormal. MCHC (test code = 59098-9) 31.3 G/DL See_Comment [Automated messa ge] The system which generated this result transmitted reference range: 31.0-36.0 G/DL. The reference range was not used to interpret this result as normal/abnormal. MCV (test code = 12504-6) 92.3 fL See_Comment [Automated messa ge] The system which generated this result transmitted reference range: 80.0-99.0 fL. The reference range was not used to interpret this result as normal/abnormal. MICROSCOPIC DESCRIPTION: (test code = 77057-3) (NOTE) MONOCYTES (test code = 82104-9) 8.1 % NEUTROPHILS (test code = 55412-6) 66.9 % NUCLEATED RBCS (test code = 46780-4) 0.0 /100 WBC'S See_Comment [Automated messa ge] The system which generated this result transmitted reference range: 0.0 /100 WBC'S. The reference range was not used to interpret this result as normal/abnormal. PATHOLOGIST: (test code = 44784-2) (NOTE) PLATELET COUNT (test code = 09326-7) 363 K/UL See_Comment [Automated messa ge] The system which generated this result transmitted reference range: 130-400 K/UL. The reference range was not used to interpret this result as normal/abnormal. RBC (test code = 51355-3) 4.02 M/UL See_Comment [Automated messa ge] The system which generated this result transmitted reference range: 3.80-5.40 M/UL. The reference range was not used to interpret this result as normal/abnormal. RDW (test code = 83287-0) 13.4 % See_Comment [Automated messa ge] The system which generated this result transmitted reference range: 11.5-15.0 %. The reference range was not used to interpret this result as normal/abnormal. WBC (test code = 47357-8) 8.2 K/UL See_Comment [Automated messa ge] The system which generated this result transmitted reference range: 3.5-11.0 K/UL. The reference range was not used to interpret this result as normal/abnormal. COMPREHENSIVE METABOLIC [id number] 00:00:00* Test Item Value Reference Range Interpretation Comme nts ALBUMIN (test code = 1751-7) 4.2 G/DL See_Comment [Automated messa ge] The system which generated this result transmitted reference range: 3.5-5.2 G/DL. The reference range was not used to interpret this result as normal/abnormal. ALKALINE PHOSPHATASE (test code = 6768-6) 154 U/L See_Comment H [Automated message] The system which generated this result transmitted reference range: 40-142 U/L. The reference range was not used to interpret this result as normal/abnormal. BILIRUBIN, TOTAL (test code = 1975-2) 0.4 MG/DL See_Comment [Automated message] The system which generated this result transmitted reference range: <=1.2 MG/DL. The reference range was not used to interpret this result as normal/abnormal. BUN (test code = 3094-0) 20 MG/DL See_Comment [Automated messa ge] The system which generated this result transmitted reference range: 8-23 MG/DL. The reference range was not used to interpret this result as normal/abnormal. CALCIUM (test code = 17040-1) 9.7 MG/DL See_Comment [Automated messa ge] The system which generated this result transmitted reference range: 8.5-10.5 MG/DL. The reference range was not used to interpret this result as normal/abnormal. CALC A/G RATIO (test code = 1759-0) 1.5 RATIO See_Comment [Automated messa ge] The system which generated this result transmitted reference range: 1.0-2.6 RATIO. The reference range was not used to interpret this result as normal/abnormal. CALC BUN/CREAT (test code = 3097-3) 26 RATIO See_Comment [Automated messa ge] The system which generated this result transmitted reference range: 6-28 RATIO. The reference range was not used to interpret this result as normal/abnormal. CALC GLOBULIN (test code = 70973-1) 2.8 G/DL See_Comment [Automated messa ge] The system which generated this result transmitted reference range: 1.9-3.7 G/DL. The reference range was not used to interpret this result as normal/abnormal. CARBON DIOXIDE (test code = 1963-8) 20 MEQ/L See_Comment [Automated messa ge] The system which generated this result transmitted reference range: 19-31 MEQ/L. The reference range was not used to interpret this result as normal/abnormal. CHLORIDE (test code = 2075-0) 103 MEQ/L See_Comment [Automated messa ge] The system which generated this result transmitted reference range: 95-107 MEQ/L. The reference range was not used to interpret this result as normal/abnormal. CREATININE (test code = 2160-0) 0.78 MG/DL See_Comment [Automated messa ge] The system which generated this result transmitted reference range: 0.60-1.30 MG/DL. The reference range was not used to interpret this result as normal/abnormal. eGFR (2020 CKD-EPI) (test code = 23982-8) 77 ML/MIN/1.73 See_Comment [Automated messa ge] The system which generated this result transmitted reference range: >60 ML/MIN/1.73. The reference range was not used to interpret this result as normal/abnormal. GLUCOSE (test code = 1558-6) 106 MG/DL See_Comment H [Automated messa ge] The system which generated this result transmitted reference range: 70-99 MG/DL. The reference range was not used to interpret this result as normal/abnormal. POTASSIUM (test code = 2823-3) 4.2 MEQ/L See_Comment [Automated messa ge] The system which generated this result transmitted reference range: 3.5-5.4 MEQ/L. The reference range was not used to interpret this result as normal/abnormal. PROTEIN, TOTAL (test code = 2885-2) 7.0 G/DL See_Comment [Automated messa ge] The system which generated this result transmitted reference range: 6.1-8.3 G/DL. The reference range was not used to interpret this result as normal/abnormal. AST (test code = 1920-8) 17 U/L See_Comment [Automated messa ge] The system which generated this result transmitted reference range: 9-40 U/L. The reference range was not used to interpret this result as normal/abnormal. ALT (test code = 1742-6) 12 U/L See_Comment [Automated messa ge] The system which generated this result transmitted reference range: 5-40 U/L. The reference range was not used to interpret this result as normal/abnormal. SODIUM (test code = 2951-2) 142 MEQ/L See_Comment [Automated messa ge] The system which generated this result transmitted reference range: 133-146 MEQ/L. The reference range was not used to interpret this result as normal/abnormal.
[2023-08-07 10:27] LABS: Absolute Basophils 0.1 K/uL (0-0.5); Absolute Eosinophils 0.2 K/uL (0-0.5); Absolute Lymphocytes (CBC) 0.9 K/uL (0.7-4.9); Absolute Monocytes 0.5 K/uL (0.1-1.3); Absolute Neutrophil 4.6 K/uL (1.8-8.0); Basophils % 0.9 % (0-1.3); Eosinophils % 2.7 % (0-4.4); Hematocrit 30.9 % (36.0-45.0); Hemoglobin 9.9 g/dL (12.0-15.0); Lymphocytes % 14.7 % (15.3-44.8); MCH 26.9 pg (27.0-35.0); MCHC 32.2 g/dL (32.0-36.0); MCV 83.5 fL (80-100); MPV 8.1 fL (7.6-11.3); Monocytes % 7.7 % (3.3-12.3); Nucleated Red Blood Cells % 0.5 % (0-0); Platelets 434 thou/uL (152-406); Red Cell Distribution Width 16.3 % (12.1-15.2)
--- NOTE | 2023-08-07 10:34 | RAD REPORT ---
EXAM DESCRIPTION: RAD - Chest Single View - 08/07/2023 10:22 am CLINICAL HISTORY: HTN, dizzy Chest pain. COMPARISON: Chest Single View dated 12/23/2019; Chest Single View dated 09/11/2018; Chest Single View dated 03/22/2017; Chest Single View dated 03/20/2017 FINDINGS: Portable technique limits examination quality. Mild interstitial pulmonary edema. The heart is mildly enlarged in size. No displaced fractures. IMPRESSION: Mild CHF
--- NOTE | 2023-08-07 10:35 | RAD REPORT ---
EXAM DESCRIPTION: CT - Head Brain Wo Cont - 08/07/2023 10:13 am CLINICAL HISTORY: dizziness, HTN Headache, drowsiness, dizziness COMPARISON: Head Brain Wo Cont dated 12/23/2019; Head Brain Wo Cont dated 09/11/2018 TECHNIQUE: All CT scans are performed using dose optimization technique as appropriate and may inclu de automated exposure control or mA/KV adjustment according to patient size. FINDINGS: No intracranial hemorrhage, hydrocephalus or extra-axial fluid collection.No areas of brai n edema or evidence of midline shift. Chronic right maxillary sinusitis. The paranasal sinuses mastoids otherwise clear. The calvarium is i ntact. IMPRESSION: No acute intracranial abnormality. Chronic right maxillary sinusitis.
[2023-08-07 10:43] LABS: Anion Gap 7.6 mEq/L (5.0-15.0); Potassium 4.6 mEq/L (3.5-5.1); Troponin High Sensitivity 25.6 pg/mL (<58.9)
--- NOTE | 2023-08-07 10:59 | EDPHYS ---
Physician Documentation [facility] Name: Mahnaz Osborne Age: 83 yrs Sex: Female : 1940 Arrival Date: 08/07/2023 Time: 09:41 Bed 8 Private MD: ED Physician Robbi Rangel HPI: 08/06 10:04 This 83 yrs old Female presents to ER via Wheelchair with complaints of High rn Blood Pressure, Dizziness. 10:04 The patient has elevated blood pressure and discovered this at home. Onset: The rn symptoms/episode began/occurred at an unknown time. Modifying factors:. Severity of symptoms: At its worst the blood pressure was moderate, in the emergency department the blood pressure is unchanged. The patient has experienced similar episodes in the past. The patient has not recently seen a physician. Daughter reports high blood pressure for the last 2 to 3 days. Associated with headache and intermittent dizziness. No focal weakness or numbness. No speech problem. No vision changes. No chest pain or shortness of breath. No abdominal pain. Patient does report nausea with the dizzy episodes. Has had dizzy episodes in the past and attributed to vertigo. No recent head injury. Called incident engineer today and nurse told her to come to the ER for evaluation. No recent medication changes. Patient also not taking her furosemide as prescribed but denies any swelling at this time.. Historical: - Allergies: 09:50 No Known Allergies; as6 - PMHx: 09:50 Arthritis; High Cholesterol; Hypertension; Osteoporosis; as6 - PSHx: 09:50 Jean Marie Knee replacement; Cholecystectomy; Left hip replacement; as6 - Immunization history:: Adult Immunizations up to date. - Infectious Disease History:: Denies. - Social history:: Smoking status: Patient denies any tobacco usage or history of. - Family history:: not pertinent. - Hospitalizations: : No recent hospitalization is reported. ROS: 10:04 Constitutional: Negative for fever, chills, and weight loss, Eyes: Negative for injury, rn pain, redness, and discharge, Neck: Negative for injury, pain, and swelling, Cardiovascular: Negative for chest pain, palpitations, and edema, Respiratory: Negative for shortness of breath, cough, wheezing, and pleuritic chest pain, Abdomen/GI: Negative for abdominal pain, vomiting, diarrhea, and constipation, Back: Negative for injury and pain, MS/Extremity: Negative for injury and deformity, Skin: Negative for injury, rash, and discoloration, Neuro: Positive for headache Exam: 10:04 Constitutional: This is a well developed, well nourished patient who is awake, alert, rn and in no acute distress. Head/Face: Normocephalic, atraumatic. Eyes: Pupils equal round and reactive to light, extra-ocular motions intact. ENT: Dry mucous membranes Neck: Trachea midline, no masses palpated, and no cervical lymphadenopathy. Supple, full range of motion without nuchal rigidity, or vertebral point tenderness. No Meningismus. Cardiovascular: Regular rate and rhythm. No pulse deficits. Respiratory: No increased work of breathing, no retractions or nasal flaring. Abdomen/GI: Soft, non-tender Skin: Warm, dry MS/ Extremity: Pulses equal, no cyanosis. Equal circumference Neuro: Awake and alert, GCS 15, oriented to person, place, time, and situation. Cranial nerves II-XII grossly intact. Motor strength 5/5 in all extremities. Sensory grossly intact. Cerebellar exam normal. 11:02 ECG was reviewed by the Attending Physician. rn Vital Signs: 09:50 BP 186 / 73; Pulse 68; Resp 16 S; Temp 97.7; Pulse Ox 98% on R/A; Weight 77.11 kg (R); as6 Height 5 ft. 5 in. (R); 10:35 BP 174 / 75; Pulse 73; Resp 18; Pulse Ox 98% on R/A; rs5 11:25 BP 170 / 74; Pulse 71; Resp 18; Pulse Ox 99% ; rs5 09:50 Body Mass Index 28.29 (77.11 kg, 165.1 cm) as6 MDM: 09:44 Patient medically screened. rn 10:56 Differential diagnosis: hypertensive crisis, Malignant HTN, intracerebral hemorrhage, rn Vertigo, CHF, medication noncompliance. Data reviewed: vital signs, nurses notes, lab test result(s), EKG, radiologic studies, CT scan, plain films, and as a result, I will discharge patient. Care significantly affected by the following chronic conditions: Hypertension, Congestive Heart Failure. Counseling: I had a detailed discussion with the patient and/or guardian regarding the historical points, exam findings, and any diagnostic results supporting the discharge/admit diagnosis, lab results, radiology results, the need for outpatient follow up, to return to the emergency department if symptoms worsen or persist or if there are any questions or concerns that arise at home. Response to treatment: the patient's symptoms have mildly improved after treatment, and as a result, I will discharge patient. ED course: Blood pressure improved after administration of home medication. Family states not entirely compliant with medication regimen. No indication of end organ damage at this time. No gross changes compared to last visits. Mild CHF on chest x-ray but patient states not taking furosemide as she is supposed to be either. Will discharge home with PCP and cardiology follow-up for blood pressure management.. 08/06 09:55 Order name: Basic Metabolic Panel; Complete Time: 10:55 08/06 09:55 Order name: CBC with Diff; Complete Time: 10:55 08/06 09:55 Order name: NT PRO-BNP; Complete Time: 10:55 08/06 09:55 Order name: PT-INR; Complete Time: 10:55 08/06 09:55 Order name: Troponin HS; Complete Time: 10:55 08/06 09:55 Order name: XRAY Chest (1 view); Complete Time: 10:55 08/06 09:55 Order name: CT Head Brain wo Cont; Complete Time: 10:55 08/06 09:55 Order name: EKG; Complete Time: 09:55 08/06 09:55 Order name: Cardiac monitoring; Complete Time: 10:59 08/06 09:55 Order name: EKG - Nurse/Tech; Complete Time: 10:59 08/06 09:55 Order name: IV Saline Lock; Complete Time: 10:08/06 09:55 Order name: Labs collected and sent; Complete Time: 10:08/06 09:55 Order name: O2 Per Protocol; Complete Time: 10:08/06 09:55 Order name: O2 Sat Monitoring; Complete Time: 10:08/06 10:04 Order name: Misc. Order: have patient take her amlodipine and lisinopril; Complete rn Time: 10:08 EC:02 Rate is 62 beats/min. Rhythm is regular. QRS Mcleod is Normal. NV interval is normal. QRS rn interval is normal. QT interval is normal. No Q waves. T waves are Normal. No ST changes noted. Clinical impression: Normal ECG. Interpreted by me. Reviewed by me. Administered Medications: No medications were administered Disposition Summary: 08/07/23 10:58 Discharge Ordered Notes: Location: Home rn Problem: an ongoing problem rn Symptoms: have improved rn Condition: Stable rn Diagnosis - Essential (primary) hypertension rn Followup: rn - With: Private Physician - When: As needed - Reason: Recheck today's complaints, Re-evaluation by your physician Discharge Instructions: - Discharge Summary Sheet rn - Hypertension, Adult rn - Heart Disease pharmacist intern - Managing Your Hypertension rn Forms: - Medication Reconciliation Form rn - Antibiotic renal dialysis rn - Prescription Opioid Use rn - Patient Portal Instructions rn - Leadership Thank You Letter rn Signatures: Dispatcher [employer] Robbi Patricio MD MD rn Slawson, Ashby RN RN as6
--- NOTE | 2023-08-07 10:59 | ER ---
Nurse's Notes [facility] Name: Mahnaz Osborne Age: 83 yrs Sex: Female : 1940 Arrival Date: 08/07/2023 Time: 09:41 Bed 8 Private MD: Diagnosis: Essential (primary) hypertension Presentation: 08/06 09:49 Chief complaint: Patient's son or daughter states: high blood pressure the last 4 days as6 at home and her knowledge architect want pt to be checked out. Coronavirus screen: At this time, the client does not indicate any symptoms associated with coronavirus-19. Ebola Screen: No symptoms or risks identified at this time. Initial Sepsis Screen: Does the patient meet any 2 criteria? No. Patient's initial sepsis screen is negative. Does the patient have a suspected source of infection? No. Patient's initial sepsis screen is negative. Risk Assessment: Do you want to hurt yourself or someone else? Patient reports no desire to harm self or others. Onset of symptoms was August 03, 2023. 09:49 Method Of Arrival: Wheelchair as6 09:49 Acuity: REENA 3 as6 Triage Assessment: 10:00 General: Appears in no apparent distress. uncomfortable, Behavior is calm, cooperative. rs5 Historical: - Allergies: 09:50 No Known Allergies; as6 - PMHx: 09:50 Arthritis; High Cholesterol; Hypertension; Osteoporosis; as6 - PSHx: 09:50 Jean Marie Knee replacement; Cholecystectomy; Left hip replacement; as6 - Immunization history:: Adult Immunizations up to date. - Infectious Disease History:: Denies. - Social history:: Smoking status: Patient denies any tobacco usage or history of. - Family history:: not pertinent. - Hospitalizations: : No recent hospitalization is reported. Screenin:56 [facility] ED Fall Risk Assessment (Adult) History of falling in the last 3 months, rs5 including since admission No falls in past 3 months (0 pts) Confusion or Disorientation No (0 pts) Intoxicated or Sedated No (0 pts) Impaired Gait Yes (1 pt) Mobility Assist Device Used Yes (1 pt) Altered Elimination No (0 pt) Score/Fall Risk Level 0 - 2 = Low Risk Oriented to surroundings, Maintained a safe environment. Abuse screen: Denies threats or abuse. Nutritional screening: No deficits noted. Tuberculosis screening: No symptoms or risk factors identified. Assessment: 09:56 General: Appears in no apparent distress. uncomfortable, Behavior is calm, cooperative. rs5 Pain: Denies pain. Neuro: Level of Consciousness is awake, alert, obeys commands, Oriented to person, place, time, situation, Reports dizziness. Cardiovascular: Patient's skin is warm and dry. Rhythm is regular. Respiratory: Airway is patent Respiratory effort is even, unlabored, Respiratory pattern is regular, symmetrical. GI: Abdomen is round non-distended, Abd is soft and non tender X 4 quads. : No signs and/or symptoms were reported regarding the genitourinary system. EENT: No signs and/or symptoms were reported regarding the EENT system. Derm: Skin is intact, Skin is pink, warm \T\ dry. Musculoskeletal: Range of motion: intact in all extremities. 11:02 Reassessment: Patient and/or family updated on plan of care and expected duration. Pain rs5 level reassessed. Patient is alert, oriented x 3, equal unlabored respirations, skin warm/dry/pink. Patient states feeling better. Patient states symptoms have improved. Neuro: Denies dizziness. 11:20 Reassessment: No changes from previously documented assessment. rs5 Vital Signs: 09:50 BP 186 / 73; Pulse 68; Resp 16 S; Temp 97.7; Pulse Ox 98% on R/A; Weight 77.11 kg (R); as6 Height 5 ft. 5 in. (R); 10:35 BP 174 / 75; Pulse 73; Resp 18; Pulse Ox 98% on R/A; rs5 11:25 BP 170 / 74; Pulse 71; Resp 18; Pulse Ox 99% ; rs5 09:50 Body Mass Index 28.29 (77.11 kg, 165.1 cm) as6 ED Course: 09:44 Patient arrived in ED. mg5 09:44 Robbi Rangel MD is Attending Physician. rn 09:50 Triage completed. as6 09:50 Arm band placed on. as6 09:55 Vitaliy Osullivan, LAN is Primary Nurse. rs5 09:56 Patient has correct armband on for positive identification. Placed in gown. Bed in low rs5 position. Call light in reach. Side rails up X2. 09:56 No provider procedures requiring assistance completed. rs5 10:07 Inserted saline lock: 22 gauge in left antecubital area, using aseptic technique. Blood ap3 collected. 10:08 cement or concrete finishing supervisor on. Pulse ox on. NIBP on. ap3 10:13 CT Head Brain wo Cont In Process Unspecified. EDMS 10:23 XRAY Chest (1 view) In Process Unspecified. EDMS 11:28 IV discontinued, intact, bleeding controlled, No redness/swelling at site. Pressure rs5 dressing applied. Administered Medications: No medications were administered Medication: 11:01 VIS not applicable for this client. rs5 Outcome: 10:58 Discharge ordered by . rn 11:28 Discharged to home ambulatory, rs5 11:28 Condition: stable 11:28 Discharge instructions given to patient, family, Instructed on discharge instructions, follow up and referral plans. Demonstrated understanding of instructions, follow-up care, wound care, 11:30 Patient left the ED. rs5 Signatures: Dispatcher [employer] EDMS Robbi Rangel MD MD rn Prokisch, Amanda RN RN ap3 Mika Rodriguez RN RN as6 Vitaliy Osullivan RN RN rs5 Izabel Stafford mg5 Corrections: (The following items were deleted from the chart) 12:40 12:39 BP 170 / 74; Pulse 71bpm; Resp 18bpm; Pulse Ox 99%; rs5 rs5
[2023-08-07 11:51] VITALS: BP 186/73; TEMP 97.7; O2SAT 98
== END 2023-08-07 11:30 | disposition home or self-care (01) ==
LOC: ER 09:41
DX: I10 Essential (primary) hypertension (principal)
CPT/HCPCS: 36415; 70450; 71045; 80048; 83880; 84484; 85025; 85610; 93005

== ENCOUNTER → 2024-02-03 | Day surgery (SDC) | payer OTHER ==
[~2024-02-03] MED LIST: EPOETIN ALFA-EPBX 10,000 UNIT/ML VIAL ONE
[2024-02-03 10:00] LABS: Hemoglobin 7.6 g/dL (12.0-15.0)
[2024-02-03 10:03] VITALS: BP 149/53; TEMP 97.8; O2SAT 96; BMI 29.4
== END ==
LOC: DS 08:54
PROVIDERS: ATTEND Internal Medicine
DX: N18.9 Chronic kidney disease, unspecified (principal); D63.1 Anemia in chronic kidney disease
CPT/HCPCS: 36415; 85018; 85014; 82728; 83540; 84466; 96372; Q5106

== ENCOUNTER 2024-04-09 14:17 | Inpatient (IN) | payer OTHER ==
--- OUTSIDE RECORDS SUMMARY | 2024-04-09 14:22 | XMS REPORT | Continuity of Care Document ---
Author Name Unknown Address [address] [facility] [address] [place] [address] [facility] thconnect Address [address] [facility] [address] [place] [address] Care Team Providers Care [employer] Driver Name Role Phone RAJAN GUERRA Primary Care Physician Unavailab Rajan Foreman Attending Clinician Unavailable RAJAN GUERRA Attending Clinician Unavailable SUSAN BETHEA Attending Clinician Unavailable Susan Bethea MD Attending Clinician [phone] [facility] Attending Clinician Unavailable Alyssa Matt RN Attending Clinician Unavail able Jose Rivero MD Attending Clinician [phone] Luis Albrecht MD Attending Clinician [phone] Juan Martin MD Attending Clinician [phone] Little Galarza RN Attending Clinician Unavailable Montse Myers Attending Clinician Unavailable JUAN MARTIN Attending Clinician Unavailable JOSE RIVERO Attending Clinician Unavailable JOSE RIVERO Attending Clinician Unavailable AISHA MORALES Attending Clinician Unavailable AISHA MORALES Attending Clinician Unavailable RADIOLOGY Attending Clinician Unavailable Radiology Attending Clinician Unavailable Luis Albrecht MD Admitting Clinician [phone] LUIS ALBRECHT Admitting Clinician Unavailable AISHA MORALES Admitting Clinician Unavailable RAJAN GUERRA Admitting Clinician Unavailable Payers Payer Name Policy Type Policy Number Effective Date Expirati on Date Source MEDICARE PART A \\T\\ B [id number] 2007 00:00:00 MEDICARE LAUREANO LENZ [id number] 2007 00:00:00 [facility] Problems Condition Name Condition Details Condition Category Status Onset Date Resolution Date Last Treatment Date Treating Clinician Comments Source 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 Disease Active 2023-03 0 00:00: 00 [facility] [id number] Chronic pain syndrome Problem [facility] Depression Depression Problem [facility] Gastritis Gastritis Problem [facility] Essential hypertensi on Benign essential HTN Problem [facility] Mixed hyperlipid emia Hyperlipid emia, mixed Problem [facility] [id number] Body mass index (BMI) 31.0-31.9, adult Problem [facility] Gastro-eso phageal reflux disease without esophagiti s Gastro-eso phageal reflux disease without esophagiti s Problem [facility] [id number] Other obesity due to excess calories Problem [facility] Anemia of chronic disorder Anemia in chronic illness Problem [facility] Rheumatoid arthritis Rheumatoid arthritis Problem [facility] 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 Problem [facility] Cyst of left ovary Other ovarian cyst, left side Problem [facility] [id number] 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 Problem [facility] [id number] Opiate dependence , continuous Problem [facility] [id number] Moderate major depression , single episode Problem [facility] [id number] Coronary artery disease involving [place] coronary artery of [place] heart with angina pectoris Problem [facility] [id number] Stage 3a chronic kidney disease Problem [facility] 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 Tobacco Use [facility] History of Social function 2024-01-14 00:00:00 2024-01-14 00:00:00 [facility] Tobacco use and exposure 2024-01-13 00:00:00 2024-01-13 00:00:00 Smokeless tobacco non-user [facility] Exposure to SARS-CoV-2 (event) 2022-01-19 00:00:00 2022-01-29 16:29:00 Not sure [facility] Sex assigned at 1940 00:00:00 1940 00:00:00 [facility] Smoking Status Start Date Stop Date Source Tobacco smoking consumption unknown [facility] Never smoked tobacco [facility] acute hospital Medications Ordered Medication Name Filled Medication Name Start Date Stop Date Current Medication? Ordering Clinician Indication Dosage Frequency Signature (SIG) Comments Components Source calcium gluconate 2 g in NaCl 100 mL (ISO-OSM) RTU IV infusion 2 g 2023-03 14:30: 00 01-17 14:48 :00 No 2g 2 g, IV Infusion, at 200 mL/hr Administer over 30 Minutes, ONCE, 1 dose, On 01/18/24 at 0930, Routine [facility] hospital calcium carbonate 500 mg calcium (1,250 mg) tablet 2023-03 00:00: 00 Yes [id number] 500mg Take 1 tablet by mouth 2 (two) times daily with meals. [facility] acute hospital avacopan 10 mg capsule 2023-03 00:00: 00 02-17 05:59 :00 Yes [id number] 30mg Take 3 capsules by mouth 2 (two) times daily with meals for 30 days. [facility] acute hospital avacopan (TAVNEOS) capsule 30 mg 2023-03 17:00: 00 Yes 30mg 30 mg, Oral, BID MEALS, First dose on Sat01/17/24 at 1200, Until Discontinu ed, Routine [facility] calcium gluconate 2 g in NaCl 100 mL (ISO-OSM) RTU IV infusion 2 g 2023-03 14:15: 00 01-16 16:14 :00 No 2g 2 g, IV Infusion, at 200 mL/hr Administer over 30 Minutes, ONCE, 1 dose, On Sat01/17/24 at 0915, Routine [facility] calcium carbonate (OSCAL-500) tablet 500 mg 2023-03 15:15: 00 Yes 500mg 500 mg, Oral, DAILY, First dose on Sat01/16/24 at 1015, Until Discontinu ed, Routine [facility] methylpredn isolone sod succ (SOLU-MEDRO L) injection 250 mg 2023-03 21:45: 00 01-16 21:52 :00 No 250mg 250 mg, Intravenou s, Q24H, 3 doses, First dose on Sat01/15/24 at 1645, Last dose on Sat01/17/24 at 1645, 4 mL [facility] sodium citrate-cit ralph acid (BICITRA) 500-334 mg/5 mL solution 30 mL 2023-03 14:00: 00 01-17 18:32 :56 No 30mL 30 mL, Oral, PC+HS, First dose (after last modificati on) on Sat01/15/24 at 0900, Until Discontinu ed, Routine [facility] sodium citrate-cit ralph acid (BICITRA) 500-334 mg/5 mL solution 15 mL 2023-03 15:15: 00 01-14 12:12 :37 No 15mL 15 mL, Oral, PC+HS, First dose on Sat01/14/24 at 1015, Until Discontinu ed, Routine [facility] pantoprazol e (PROTONIX) EC tablet 40 mg 2023-03 14:00: 00 01-17 18:32 :56 No 40mg 40 mg, Oral, DAILY, First dose on Sat01/14/24 at 0900, Until Discontinu ed, Routine [facility] hydrALAZINE (APRESOLINE ) tablet 25 mg 2023-03 14:00: 00 01-17 18:32 :56 No 25mg 25 mg, Oral, DAILY, First dose on Sat01/14/24 at 0900, Until Discontinu ed, Routine [facility] atorvastati n (LIPITOR) tablet 20 mg 2023-03 14:00: 00 01-17 18:32 :56 No 20mg 20 mg, Oral, QAM, First dose on Sat01/14/24 at 0900, Until Discontinu ed, Routine [facility] ferrous sulfate tablet 325 mg 2023-03 14:00: 00 01-17 18:32 :56 No 325mg 325 mg, Oral, DAILY, First dose on Sat01/14/24 at 0900, Until Discontinu ed, Routine [facility] docusate (COLACE) capsule 100 mg 2023-03 14:00: 00 01-17 18:32 :56 No 100mg 100 mg, Oral, DAILY, First dose on Sat01/14/24 at 0900, Until Discontinu ed, Routine [facility] sodium zirconium cyclosilica te (LOKELMA) 10 gram packet 10 g 2023-03 13:30: 00 01-16 11:59 :00 No 10g 10 g, Oral, QAM-0700, 3 doses, First dose on Sat01/14/24 at 0830, Last dose on Sat01/16/24 at 0700, Routine [facility] metoprolol tartrate (LOPRESSOR) tablet 100 mg 2023-03 13:00: 00 01-17 18:32 :56 No 100mg 100 mg, Oral, BID, First dose on Sat01/14/24 at 0800, Until Discontinu ed [facility] traMADoL (ULTRAM) tablet 50 mg 2023-03 05:00: 00 01-17 18:32 :56 No 50mg 50 mg, Oral, Q6H, First dose on Sat01/14/24 at 0000, Until Discontinu ed, Routine [facility] traMADoL (ULTRAM) tablet 50 mg 2023-03 01:30: 45 01-15 01:29 :45 No 50mg 50 mg, Oral, Q8HPRN, Starting on Sat01/13/24 at 2030, Until Sat01/15/24 at 2028, Routine, Pain (scale 4-6) [facility] ondansetron (ZOFRAN (PF)) injection 4 mg 2023-03 01:28: 42 01-17 18:32 :56 No 4mg 4 mg, Slow IV Push, Q6HPRN, Starting on Sat01/13/24 at 2028, Until 01/18/24 at 1332, Routine, Nausea and Vomiting (N/V) [facility] acetaminoph en (TYLENOL) tablet 650 mg 2023-03 01:28: 15 01-17 18:32 :56 No 650mg [facility] atorvastati n 20 mg tablet 2023-03 21:29: 23 Yes 20mg Take 1 tablet by mouth every morning. [facility] hospital ferrous sulfate 325 mg (65 mg iron) tablet 2023-03 21:29: 23 Yes 325mg Take 1 tablet by mouth daily. [facility] pantoprazol e 40 mg EC tablet 2023-03 21:29: 23 Yes 40mg Take 1 tablet by mouth daily. [facility] nebivoloL 10 mg tablet 2023-03 21:29: 23 Yes 10mg Take 1 tablet by mouth daily. [facility] traMADoL 50 mg tablet 2023-03 21:29: 23 Yes 50mg Take 1 tablet by mouth every 6 (six) hours. [facility] furosemide 40 mg tablet 2023-03 21:23: 09 Yes 40mg Take 1 tablet by mouth daily. [facility] lisinopriL 20 mg tablet 2023-03 21:23: 09 Yes 20mg Take 1 tablet by mouth 2 (two) times daily. [facility] iopamidol (ISOVUE 300-100 mL) injection 150 mL 2023-03 19:40: 00 01-12 19:40 :00 No [id number] 150mL 150 mL, Intravenou s, ONCE, 1 dose, On Sat01/13/24 at 1500, Routine [facility] Nitroglycer in (TRIDIL) injection 2023-03 19:34: 00 01-12 19:34 :00 No PRN, Starting on Sat01/13/24 at 1434, Until Sat01/13/24 at 1434, Routine, Intra-op [facility] fentanyl PF (SUBLIMAZE (PF)) injection 2023-03 18:55: 00 01-12 19:29 :03 No Slow IV Push, PRN, Starting on Sat01/13/24 at 1355, Until Sat01/13/24 at 1429, Routine, [facility] ([facility] (SUBLIMAZE) injection 2023-03 17:50: 50 01-12 18:50 :38 No Slow IV Push, PRN, Starting on Sat01/13/24 at 1250, Until Sat01/13/24 at 1350, Routine, Intra-op [facility] verapamiL (ISOPTIN) injection 2023-03 17:36: 00 01-12 19:34 :39 No PRN, Starting on Sat01/13/24 at 1236, Until Sat01/13/24 at 1434, Routine, Intra-op [facility] heparin 1,000 unit/mL injection 2023-03 17:36: 00 01-12 17:36 :00 No PRN, Starting on Sat01/13/24 at 1236, Until Sat01/13/24 at 1236, Routine, Intra-op [facility] nitroglycer in 50 mg in D5W 250 mL infusion RTU 2023-03 17:36: 00 01-12 17:36 :00 No CONTINUOUS PRN, Starting on Sat01/13/24 at 1236, [facility] lidocaine-e pinephrine (XYLOCAINE W/EPINEPHRI NE) 1 %-1:200,000 injection 2023-03 17:34: 00 01-12 17:34 :00 No PRN, Starting on Sat01/13/24 at 1234, Until Sat01/13/24 at 1234, Routine, Intra-op [facility] ceFAZolin (ANCEF) 1,000 mg in NaCl 0.9% (NS) 10 mL IV push 2023-03 17:31: 00 01-12 17:31 :00 No PRN, Starting on Sat01/13/24 at 1231, Until Sat01/13/24 at 1231, 10 mL, Intra-op [facility] ceFAZolin (ANCEF) 1,000 mg in NaCl 0.9% (NS) 10 mL IV push 2023-03 17:30: 00 01-12 17:30 :00 No PRN, Starting on Sat01/13/24 at 1230, Until Sat01/13/24 at 1230, 10 mL, Intra-op [facility] iopamidol (ISOVUE 370-500 mL) injection 80 mL 2023-03 16:45: 00 01-12 15:56 :00 No [id number] 80mL 80 mL, Intravenou s, ONCE, 1 dose, On Sat01/13/24 at 1145, Routine [facility] lidocaine 1% (XYLOCAINE) 10 mg/mL (1 %) injection 2023-03 14:54: 40 01-12 14:54 :40 No PRN, Starting on Sat01/13/24 at 0954, Until Sat01/13/24 at 0954, Routine, Intra-op [facility] FENTanyl (PF) (SUBLIMAZE) injection 2023-03 14:30: 58 01-12 15:04 :49 No Slow IV Push, PRN, Starting on Sat01/13/24 at 0930, Until Sat01/13/24 at 1004, Routine, Intra-op [facility] acute hospital midazolam (VERSED) injection 2023-03 14:30: 08 01-12 14:30 :08 No IV Push, PRN, Starting on Sat01/13/24 at 0930, Until Sat01/13/24 at 0930, Routine, Intra-op [facility] acute [facility] hydrALAZINE 25 mg tablet 2023-03 00:00: 00 Yes 25mg Take 1 tablet by mouth daily. [facility] acute [facility] amLODIPine 10 mg tablet 10-17 00:00: 00 Yes 10mg Take 1 tablet by mouth daily. [facility] acute hospital iopamidol (ISOVUE 370-500 mL) injection 80 mL 09-12 03:30: 00 09-12 03:30 :00 No [id number] 80mL 80 mL, Intravenou s, ONCE, 1 dose, On Sat09/12/23 at 2230, Routine [facility] acute hospital amoxicillin -clavulanat e 875-125 mg per tablet 09-11 00:00: 00 01-17 00:00 :00 No [id number] 1{tbl} Take 1 tablet by mouth every 12 (twelve) hours. [facility] acute hospital azithromyci n (ZITHROMAX Z-YUN) 250 mg tablet 09-11 00:00: 00 01-17 00:00 :00 No [id number] 250mg Take 1 tablet by mouth SEE-INSTRU CTIONS. Take 500 mg day 1, then 250 mg days 2 to 5. [facility] acute hospital leflunomide 10 mg tablet 09-02 00:00: 00 Yes 10mg Take 1 tablet by mouth daily. [facility] acute [facility] Pantoprazol e Sodium 40 MG Pantoprazol e Sodium 40 MG No 1{table t} QD Pantoprazo le Sodium 40 MG hydrALAZINE HCl 50 MG hydrALAZINE HCl 50 MG No 1{table t_with_ food} BID hydrALAZIN E HCl 50 MG Bumetanide 1 MG Bumetanide 1 MG No 1{table t} BID Bumetanide 1 MG Ondansetron 4 MG Ondansetron 4 MG No 1{table t__ e_tongu e_and_a llow_to _dissol ve} Ondansetro n 4 MG predniSONE 20 MG predniSONE 20 MG No 1{table t} QD predniSONE 20 MG amLODIPine Besylate 5 MG amLODIPine Besylate 5 MG No 1{table t} QD amLODIPine Besylate 5 MG Ultram 50 MG Ultram 50 MG No 1{table t_as_ne eded} Ultram 50 MG Lisinopril 20 MG Lisinopril 20 MG No 1{table t} QD Lisinopril 20 MG Ferrous Sulfate 325 (65 Fe) MG Ferrous Sulfate 325 (65 Fe) MG No 1{table t} QD Ferrous Sulfate 325 (65 Fe) MG Folic Acid 1 MG Folic Acid 1 MG No 1{table t} QD Folic Acid 1 MG Lasix 40 MG Lasix 40 MG No 1{table t} QD Lasix 40 MG Avacopan 10 MG Avacopan 10 MG No 3{capsu les_wit h_food} QD Avacopan 10 MG Lipitor 20 MG Lipitor 20 MG No 1{table t} QD Lipitor 20 MG Vital Signs Vital Name Observation Time Observation Value Comments S ource height 2024-01-31 14:00:00 62 [in_i] [facility] weight 2024-01-31 14:00:00 166 [lb_av] [facility] temperature 2024-01-31 14:00:00 97.9 [degF] [facility] bmi 2024-01-31 14:00:00 30.36 kg/m2 [facility] oximetry 2024-01-31 14:00:00 98 % [facility] respiratory rate 2024-01-31 14:00:00 18 /min [facility] blood pressure systolic 2024-01-31 14:00:00 136 mm[Hg] [facility] blood pressure diastolic 2024-01-31 14:00:00 61 mm[Hg] [facility] Systolic blood pressure 2024-01-22 13:30:00 157 mm[Hg] [facility] Diastolic blood pressure 2024-01-22 13:30:00 69 mm[Hg] [facility] Heart rate 2024-01-22 13:30:00 67 /min [facility] Body height 2024-01-22 13:30:00 157.5 cm [facility] Body weight 2024-01-22 13:30:00 76.204 kg [facility] BMI 2024-01-22 13:30:00 30.73 kg/m2 [facility] Oxygen saturation in Arterial blood by Pulse oximetry 2024-01-22 13:30:00 95 /min [facility] Systolic blood pressure 2024-01-18 16:47:00 155 mm[Hg] [facility] Diastolic blood pressure 2024-01-18 16:47:00 65 mm[Hg] [facility] Heart rate 2024-01-18 16:47:00 63 /min [facility] Body temperature 2024-01-18 16:47:00 36.39 [place] [facility] Respiratory rate 2024-01-18 16:47:00 20 /min [facility] Oxygen saturation in Arterial blood by Pulse oximetry 2024-01-18 16:47:00 91 /min [facility] Body weight 2024-01-18 09:00:00 79.833 kg [facility] BMI 2024-01-18 09:00:00 31.18 kg/m2 [facility] Systolic blood pressure 2024-01-15 12:52:00 149 mm[Hg] [facility] Diastolic blood pressure 2024-01-15 12:52:00 64 mm[Hg] [facility] Heart rate 2024-01-15 12:52:00 68 /min [facility] Body temperature 2024-01-15 12:52:00 36.44 [place] [facility] Respiratory rate 2024-01-15 12:52:00 16 /min [facility] Oxygen saturation in Arterial blood by Pulse oximetry 2024-01-15 12:52:00 91 /min [facility] Body height 2024-01-13 23:23:00 160 cm [facility] Body weight 2024-01-13 23:23:00 76.204 kg [facility] BMI 2024-01-13 23:23:00 29.76 kg/m2 [facility] Systolic blood pressure 2024-01-13 22:00:00 173 mm[Hg] [facility] Diastolic blood pressure 2024-01-13 22:00:00 83 mm[Hg] [facility] Heart rate 2024-01-13 22:00:00 61 /min [facility] Respiratory rate 2024-01-13 22:00:00 16 /min [facility] Oxygen saturation in Arterial blood by Pulse oximetry 2024-01-13 22:00:00 98 /min [facility] height 2023-12-04 09:30:00 62 [in_i] [facility] weight 2023-12-04 09:30:00 158.6 [lb_av] [facility] temperature 2023-12-04 09:30:00 97.6 [degF] Com [facility] bmi 2023-12-04 09:30:00 29.01 kg/m2 [facility] oximetry 2023-12-04 09:30:00 99 % [facility] blood pressure systolic 2023-12-04 09:30:00 132 mm[Hg] [facility] blood pressure diastolic 2023-12-04 09:30:00 60 mm[Hg] Common [facility] height 2023-12-04 09:40:00 62 [in_i] [facility] weight 2023-12-04 09:40:00 158.6 [lb_av] [facility] temperature 2023-12-04 09:40:00 97.6 [degF] Com [facility] bmi 2023-12-04 09:40:00 29.01 kg/m2 [facility] oximetry 2023-12-04 09:40:00 99 % [facility] blood pressure systolic 2023-12-04 09:40:00 132 mm[Hg] Common [facility] blood pressure diastolic 2023-12-04 09:40:00 60 mm[Hg] [facility] Systolic blood pressure 2023-09-13 03:31:00 124 mm[Hg] [facility] Diastolic blood pressure 2023-09-13 03:31:00 104 mm[Hg] [facility] Heart rate 2023-09-13 03:31:00 62 /min [facility] Body temperature 2023-09-13 03:31:00 36.72 [place] [facility] Respiratory rate 2023-09-13 03:31:00 16 /min [facility] Oxygen saturation in Arterial blood by Pulse oximetry 2023-09-13 03:31:00 99 /min [facility] Body height 2023-09-12 21:49:00 160 cm [facility] Body weight 2023-09-12 21:49:00 76.204 kg [facility] BMI 2023-09-12 21:49:00 29.76 kg/m2 [facility] height 2023-09-04 08:10:00 62 [in_i] [facility] weight 2023-09-04 08:10:00 164.6 [lb_av] [facility] temperature 2023-09-04 08:10:00 98.1 [degF] Com [facility] bmi 2023-09-04 08:10:00 30.1 kg/m2 [facility] oximetry 2023-09-04 08:10:00 99 % [facility] blood pressure systolic 2023-09-04 08:10:00 138 mm[Hg] Common Sp[facility] blood pressure diastolic 2023-09-04 08:10:00 70 mm[Hg] [facility] height 2023-05-30 08:10:00 62 [in_i] [facility] weight 2023-05-30 08:10:00 173.0 [lb_av] [facility] temperature 2023-05-30 08:10:00 98.3 [degF] Com [facility] bmi 2023-05-30 08:10:00 31.64 kg/m2 [facility] oximetry 2023-05-30 08:10:00 99 % [facility] respiratory rate 2023-05-30 08:10:00 18 /min [facility] blood pressure systolic 2023-05-30 08:10:00 137 mm[Hg] [facility] blood pressure diastolic 2023-05-30 08:10:00 68 mm[Hg] [facility] height 2023-01-14 10:00:00 62 [in_i] [facility] weight 2023-01-14 10:00:00 163 [lb_av] [facility] temperature 2023-01-14 10:00:00 98 [degF] [facility] bmi 2023-01-14 10:00:00 29.81 kg/m2 [facility] blood pressure systolic 2023-01-14 10:00:00 149 mm[Hg] [facility] blood pressure diastolic 2023-01-14 10:00:00 72 mm[Hg] [facility] height 2022-10-03 11:00:00 62 [in_i] [facility] weight 2022-10-03 11:00:00 173.0 [lb_av] [facility] temperature 2022-10-03 11:00:00 97.1 [degF] Com [facility] bmi 2022-10-03 11:00:00 31.64 kg/m2 [facility] oximetry 2022-10-03 11:00:00 99 % [facility] respiratory rate 2022-10-03 11:00:00 18 /min [facility] blood pressure systolic 2022-10-03 11:00:00 126 mm[Hg] [facility] blood pressure diastolic 2022-10-03 11:00:00 77 mm[Hg] [facility] height 2022-10-03 11:00:00 62 [in_i] [facility] weight 2022-10-03 11:00:00 173.0 [lb_av] [facility] temperature 2022-10-03 11:00:00 97.1 [degF] Com [facility] bmi 2022-10-03 11:00:00 31.64 kg/m2 [facility] oximetry 2022-10-03 11:00:00 99 % [facility] respiratory rate 2022-10-03 11:00:00 18 /min Common [facility] blood pressure systolic 2022-10-03 11:00:00 126 mm[Hg] Common [facility] blood pressure diastolic 2022-10-03 11:00:00 77 mm[Hg] [facility] height 2022-07-30 11:20:00 62 [in_i] [facility] weight 2022-07-30 11:20:00 178 [lb_av] [facility] temperature 2022-07-30 11:20:00 96 [degF] [facility] bmi 2022-07-30 11:20:00 32.55 kg/m2 [facility] blood pressure systolic 2022-07-30 11:20:00 123 mm[Hg] [facility] blood pressure diastolic 2022-07-30 11:20:00 76 mm[Hg] [facility] height 2022-05-07 09:40:00 62 [in_i] Commo [facility] weight 2022-05-07 09:40:00 170 [lb_av] [facility] temperature 2022-05-07 09:40:00 98.1 [degF] Com mon [facility] bmi 2022-05-07 09:40:00 31.09 kg/m2 [facility] blood pressure systolic 2022-05-07 09:40:00 128 mm[Hg] [facility] blood pressure diastolic 2022-05-07 09:40:00 75 mm[Hg] Common [facility] height 2022-01-02 11:30:00 62 [in_i] Commo n [facility] weight 2022-01-02 11:30:00 174 [lb_av] [facility] on [facility] temperature 2022-01-02 11:30:00 97 [degF] [facility] bmi 2022-01-02 11:30:00 31.82 kg/m2 [facility] blood pressure systolic 2022-01-02 11:30:00 119 mm[Hg] [facility] blood pressure diastolic 2022-01-02 11:30:00 64 mm[Hg] [facility] height 2021-11-09 14:10:00 62 [in_i] [facility] weight 2021-11-09 14:10:00 173.4 [lb_av] Co mmon [facility] temperature 2021-11-09 14:10:00 97.5 [degF] Com mon [facility] bmi 2021-11-09 14:10:00 31.71 kg/m2 Comm on [facility] oximetry 2021-11-09 14:10:00 100 % Commo n [facility] respiratory rate 2021-11-09 14:10:00 17 /min Common [facility] blood pressure systolic 2021-11-09 14:10:00 131 mm[Hg] [facility] blood pressure diastolic 2021-11-09 14:10:00 76 mm[Hg] [facility] height 2021-10-04 10:50:00 62 [in_i] Commo n [facility] weight 2021-10-04 10:50:00 170 [lb_av] Comm on [facility] temperature 2021-10-04 10:50:00 97 [degF] Comm on [facility] bmi 2021-10-04 10:50:00 31.09 kg/m2 Comm on [facility] blood pressure systolic 2021-10-04 10:50:00 109 mm[Hg] [facility] blood pressure diastolic 2021-10-04 10:50:00 65 mm[Hg] [facility] height 2021-10-04 11:20:00 62 [in_i] Commo n [facility] weight 2021-10-04 11:20:00 170 [lb_av] Comm on [facility] temperature 2021-10-04 11:20:00 97 [degF] Comm on [facility] bmi 2021-10-04 11:20:00 31.09 kg/m2 Comm on [facility] height 2021-08-14 13:00:00 62 [in_i] Commo n [facility] weight 2021-08-14 13:00:00 173.0 [lb_av] Co m[facility] temperature 2021-08-14 13:00:00 97.7 [degF] Com mon [facility] bmi 2021-08-14 13:00:00 31.64 kg/m2 Comm on [facility] oximetry 2021-08-14 13:00:00 100 % Commo [facility] respiratory rate 2021-08-14 13:00:00 18 /min Common [facility] blood pressure systolic 2021-08-14 13:00:00 124 mm[Hg] [facility] blood pressure diastolic 2021-08-14 13:00:00 58 mm[Hg] Common [facility] height 2021-07-12 11:40:00 62 [in_i] Commo n [facility] weight 2021-07-12 11:40:00 173 [lb_av] Comm on [facility] temperature 2021-07-12 11:40:00 97.3 [degF] Com [facility] bmi 2021-07-12 11:40:00 31.64 kg/m2 Comm on [facility] blood pressure systolic 2021-07-12 11:40:00 116 mm[Hg] [facility] blood pressure diastolic 2021-07-12 11:40:00 70 mm[Hg] [facility] height 2021-04-13 11:30:00 62 [in_i] Commo n [facility] weight 2021-04-13 11:30:00 170 [lb_av] Comm on [facility] temperature 2021-04-13 11:30:00 96.1 [degF] Com [facility] bmi 2021-04-13 11:30:00 31.09 kg/m2 Comm on [facility] blood pressure systolic 2021-04-13 11:30:00 116 mm[Hg] [facility] blood pressure diastolic 2021-04-13 11:30:00 65 mm[Hg] Common [facility] height 2021-01-11 10:40:00 62 [in_i] Commo n [facility] weight 2021-01-11 10:40:00 174.1 [lb_av] Co mmon [facility] temperature 2021-01-11 10:40:00 98.0 [degF] Com mon [facility] bmi 2021-01-11 10:40:00 31.84 kg/m2 Comm on [facility] oximetry 2021-01-11 10:40:00 97 % Commo n [facility] respiratory rate 2021-01-11 10:40:00 17 /min [facility] blood pressure systolic 2021-01-11 10:40:00 132 mm[Hg] [facility] blood pressure diastolic 2021-01-11 10:40:00 72 mm[Hg] [facility] Procedures Procedure Date / Time Performed Performing Clinician Source CBC WITHOUT DIFF 2024-01-22 14:34:00 Susan Bethea [facility] BASIC METABOLIC PANEL (NA, K, CL, CO2, GLUCOSE, BUN, CREATININE, CA) 2024-01-18 10:06:00 Twin Ghosh [facility] CBC WITHOUT DIFF 2024-01-18 10:06:00 Richmond Gonsalves [facility] BASIC METABOLIC PANEL (NA, K, CL, CO2, GLUCOSE, BUN, CREATININE, CA) 2024-01-17 08:44:00 Louisa Torres [facility] CBC WITHOUT DIFF 2024-01-17 08:44:00 Richmond Gonsalves [facility] BASIC METABOLIC PANEL (NA, K, CL, CO2, GLUCOSE, BUN, CREATININE, CA) 2024-01-16 17:56:00 Richmond Gonsalves [facility] BASIC METABOLIC PANEL (NA, K, CL, CO2, GLUCOSE, BUN, CREATININE, CA) 2024-01-16 09:30:00 Richmond Gonsalves [facility] CBC WITHOUT DIFF 2024-01-16 09:30:00 Richmond Gonsalves [facility] SODIUM, URINE RANDOM 2024-01-15 15:21:00 Melissa [facility] PROTEIN CREAT RATIO URINE RANDOM 2024-01-15 15:20:00 Song [facility] BASIC METABOLIC PANEL (NA, K, CL, CO2, GLUCOSE, BUN, CREATININE, CA) 2024-01-15 09:34:00 Augie [facility] CBC WITHOUT DIFF 2024-01-15 09:34:00 Richmond Gonsalves [facility] C4 COMPLEMENT 2024-01-14 19:07:00 Augie [facility] CBC WITH DIFF 2024-01-14 19:07:00 Cheriegavin [facility] COMPLEMENT CH50, TOTAL 2024-01-14 19:07:00 Cheriegavin [facility] ANTI-NUCLEAR ANTIBODY SCREEN 2024-01-14 19:07:00 [facility] ANTI-NUCLEAR ANTIBODY TITER 2024-01-14 19:07:00 [facility] PROTEINASE 3 ANTIBODY PR3 2024-01-14 [facility]:07[facility] BASIC METABOLIC PANEL (NA, K, CL, CO2, GLUCOSE, BUN, CREATININE, CA) 2024-01-14 17:38:00 Richmond Gonsalves [facility] CBC WITHOUT DIFF 2024-01-14 17:38:00 Charly Jacob [facility] BASIC METABOLIC PANEL (NA, K, CL, CO2, GLUCOSE, BUN, CREATININE, CA) 2024-01-14 10:09:00 Charly Jacob [facility] CBC WITH DIFF 2024-01-14 10:09:00 Charly Jacob [facility] CBC WITH DIFF 2024-01-14 03:59:00 Coretta Marsh [facility] CBC WITHOUT DIFF 2024-01-13 18:16:00 [facility] PREPARE PACKED RBC 2024-01-13 17:57:46 Reema Bethea [facility] TYPE AND SCREEN 2024-01-13 16:50:00 Jose Rivero [facility] TYPE AND SCREEN 2024-01-13 16:50:00 Susan Bethea [facility] CT ANGIOGRAM ABDOMEN/PELVIS 2024-01-13 15:54:00 [facility] COMP. METABOLIC PANEL (03511) 2024-01-13 13:19:00 [facility] CBC WITH DIFF 2024-01-13 13:19:00 Susan Bethea [facility] PROTHROMBIN TIME / INR 2024-01-13 13:19[facility] PELVIS WO CONTRAST 2023-09-13 02:35:22 Aisha Morales [facility] TROPONIN I 2023-09-12 23:39:00 Aisha Morales [facility] COMP. METABOLIC PANEL (19097) 2023-09-12 23:39:00 Aisha Morales [facility] CBC WITH DIFF 2023-09-12 23:39:00 Aisha Morales [facility] URINALYSIS 2023-09-12 23:39:00 Aisha Morales [facility] INFLUENZA A/B RSV COVID NAAT 2023-09-12 23:39:00 Aisha Morales [facility] N-TERMINAL PRO-BNP 2023-09-12 23:39:00 Aisha Morales [facility] LACTIC ACID WHOLE BLOOD 2023-09-12 23:39:00 Do peter Morales [facility] XR CHEST 1 VW 2023-09-12 23:31:42 Aisha Morales [facility] DEXA AXIAL (HIP AND SPINE) 2022-02-28 17:18:41 Rajan Guerra [facility] Encounters Start Date/Time End Date/Time Encounter Type Admission Type Attending [facility] Care Facility Care Department Encounter ID Source 2024-04-07 11:32:00 Outpatient Guerra, Rajan [facility] [id number] [facility] 2023-10-03 16:19:00 Outpatient Guerra, Rajan [facility] [id number] [facility] 2023-09-05 11:15:00 [facility] [id number] [facility] 2022-07-30 09:37:00 [facility] [id number] [facility] 2022-05-18 11:00:00 [id number] [facility] 2022-05-07 09:27:00 Outpatient Guerra, Rajan [facility] ST[facility] [id number] [facility] 2021-04-19 14:37:58 Outpatient Guerra, Rajan [facility] ST[facility] [id number] [facility] 2021-04-19 12:58:12 Outpatient Guerra, Rajan [facility] ST[facility] [id number] [facility] 2021-04-19 12:25:52 Outpatient Guerra, Rajan [facility] ST[facility] [id number] [facility] 2021-04-19 12:25:30 Outpatient Guerra, Rajan [facility] ST[facility] [id number] [facility] 2021-04-19 11:59:48 Outpatient Guerra, Rajan [facility] ST[facility] [id number] [facility] 2021-04-19 11:59:35 Outpatient Guerra, Rajan [facility] ST[facility] [id number] [facility] 2021-04-19 11:49:05 Outpatient Guerra, Rajan [facility] ST[facility] [id number] [facility] 2021-04-19 11:32:13 Outpatient Guerra, Rajan [facility] STLC [id number] [facility] 2021-04-19 11:31:48 [facility] [id number] [facility] 2021-04-19 11:17:25 [facility] [id number] [facility] 2021-04-19 10:59:19 [facility] [id number] [facility] 2024-04-02 00:00:00 2024-04-02 00:00:00 (TEL) STLMLC STLC [id number] [facility] 2024-01-31 00:00:00 2024-01-31 00:00:00 (HOSP F/U) Hospital Follow Up STLC STLC [id number] [facility] 2024-01-29 00:00:00 2024-01-29 00:00:00 (TEL) STLMLC STLMLC [id number] [facility] 2024-01-22 08:00:00 2024-01-22 10:34:02 [id number] acute hospital 2024-01-22 08:00:00 2024-01-22 10:34:02 [facility] 1.2.840.114 350.1.13.10 4.2.7.2.686 [id number] General acute hospital 2024-01-22 09:30:00 2024-01-22 10:01:22 Sap Architect Visit 2, Adc Lab Reema Bethea 2, Adc Lab [facility] 1.2.840.114 350.1.13.10 4.2.7.2.686 [id number] General acute hospital 2024-01-21 00:00:00 2024-01-21 00:00:00 [facility] [id number] 2024-01-20 00:00:00 2024-01-20 12:13:05 Transition of Care Alyssa Matt Miatha [facility] [address] 1.2.840.114 350.1.13.10 4.2.7.2.686 [id number] General acute hospital 2024-01-20 00:00:00 2024-01-20 00:00:00 (TEL) [facility] [id number] [facility] 2024-01-13 17:36:00 2024-01-18 13:32:00 Hospital Encounter Jose Rivero Rachel Armstrong, Robin Ezzeldin, Obadah Magnus, Leah Herrera, Sierra [facility] 1.2.840.114 350.1.13.10 4.2.7.2.686 [id number] General acute hospital 2024-01-13 07:40:53 2024-01-18 13:32:00 Inpatient R JUAN MARTIN [facility] [id number] General acute hospital 2024-01-14 00:00:00 2024-01-14 11:21:55 Case Management Susan Bethea [facility] 1.2.840.114 350.1.13.10 4.2.7.2.686 [id number] General acute hospital 2024-01-13 11:38:50 2024-01-13 17:35:00 Hospital Encounter Susan Bethea Leah Laird, Rachel [facility] 1.2.840.114 350.1.13.10 4.2.7.2.686 [id number] General acute hospital 2024-01-13 10:30:00 2024-01-13 11:37:00 Hospital Encounter Susan Bethea Luis [facility] 1.2.840.114 350.1.13.10 4.2.7.2.686 [id number] General acute hospital 2023-12-04 00:00:00 2023-12-04 00:00:00 OFFICE VISIT ESTAB PT LEVEL 4 STLMLC STLMLC [id number] [facility] 2023-12-04 00:00:00 2023-12-04 00:00:00 SUB ANNUAL [facility]LL[facility] VISIT STLC STLMLC [id number] [facility] 2023-09-12 16:52:00 2023-09-12 22:44:00 Emergency X AISHA MORALES DONNELL [facility] ERT [id number] General acute hospital 2023-09-12 16:52:00 2023-09-12 22:44:00 Emergency Aisha Morales [facility] 1.2.840.114 350.1.13.10 4.2.7.2.686 [id number] General acute hospital 2023-09-05 00:00:00 2023-09-05 00:00:00 (TEL) STLMLC STLMLC [id number] [facility] 2023-09-04 00:00:00 2023-09-04 00:00:00 OFFICE VISIT ESTAB PT LEVEL 4 STLMLC STLMLC [id number] [facility] 2023-08-21 00:00:00 2023-08-21 00:00:00 (TEL) STLMLC STLMLC [id number] [facility] 2023-08-14 00:00:00 2023-08-14 00:00:00 (TEL) STLMLC STLMLC [id number] [facility] 2023-08-09 00:00:00 2023-08-09 00:00:00 (TEL) STLMLC STLMLC [id number] [facility] 2023-05-30 00:00:00 2023-05-30 00:00:00 OFFICE VISIT ESTAB PT LEVEL 4 STLMLC STLMLC [id number] [facility] 2023-01-28 00:00:00 2023-01-28 00:00:00 (TEL) STLMLC STLMLC [id number] [facility] 2023-01-14 00:00:00 2023-01-14 00:00:00 OFFICE VISIT ESTAB PT LEVEL 4 STLMLC STLMLC [id number] [facility] 2022-12-18 00:00:00 2022-12-18 00:00:00 (TEL) STLMLC STLMLC [id number] [facility] 2022-10-05 00:00:00 2022-10-05 00:00:00 (TEL) STLMLC STLMLC [id number] [facility] 2022-10-03 00:00:00 2022-10-03 00:00:00 OFFICE VISIT ESTAB PT LEVEL 4 STLMLC STLMLC [id number] [facility] 2022-10-03 00:00:00 2022-10-03 00:00:00 (TEL) STLMLC STLMLC [id number] [facility] 2022-10-03 00:00:00 2022-10-03 00:00:00 SUB ANNUAL [facility]NESS VISIT STLMLC STLMLC [id number] [facility] 2022-07-30 00:00:00 2022-07-30 00:00:00 OFFICE VISIT ESTAB PT LEVEL 4 STLMLC STLMLC [id number] [facility] 2022-05-22 08:51:00 2022-05-22 00:01:00 Outpatient INNA GUERRA [facility] [id number] [facility] 2022-05-07 00:00:00 2022-05-07 00:00:00 OFFICE VISIT ESTAB PT LEVEL 4 STLMLC STLMLC [id number] [facility] 2022-05-07 00:00:00 2022-05-07 00:00:00 (TEL) STLMLC STLMLC [id number] [facility] 2022-02-28 10:31:27 2022-02-28 23:59:00 Outpatient R RADIOLOGY [facility] [id number] General acute hospital 2022-02-28 10:31:27 2022-02-28 23:59:00 Hospital Encounter Radiology [facility] 1.2.840.114 350.1.13.10 4.2.7.2.686 [id number] General acute hospital 2022-02-20 00:00:00 2022-02-20 00:00:00 (TEL) STLMLC STLMLC [id number] [facility] 2022-01-16 00:00:00 2022-01-16 00:00:00 (TEL) STLMLC STLMLC [id number] [facility] 2022-01-02 00:00:00 2022-01-02 00:00:00 OFFICE VISIT ESTAB PT LEVEL 4 STLMLC STLMLC [id number] [facility] 2022-01-02 00:00:00 2022-01-02 00:00:00 (TEL) STLMLC STLMLC [id number] [facility] 2021-11-09 00:00:00 2021-11-09 00:00:00 OFFICE VISIT ESTAB PT LEVEL 4 STLMLC STLMLC [id number] [facility] 2021-11-09 00:00:00 2021-11-09 00:00:00 (TEL) STLMLC STLMLC [id number] [facility] 2021-10-25 00:00:00 2021-10-25 00:00:00 (TEL) STLMLC STLMLC [id number] [facility] 2021-10-04 00:00:00 2021-10-04 00:00:00 OFFICE VISIT ESTAB PT LEVEL 4 STLMLC STLMLC [id number] [facility] 2021-10-04 00:00:00 2021-10-04 00:00:00 SUB ANNUAL [facility] WELLNESS VISIT STLMLC STLMLC [id number] [facility] 2021-08-14 00:00:00 2021-08-14 00:00:00 (HOSP F/U) Hospital Follow Up STLMLC STLMLC [id number] [facility] 2021-08-10 00:00:00 2021-08-10 00:00:00 (TEL) STLMLC STLMLC [id number] [facility] 2021-08-09 00:00:00 2021-08-09 00:00:00 (TEL) STLMLC STLMLC [id number] [facility] 2021-07-12 00:00:00 2021-07-12 00:00:00 OFFICE VISIT ESTAB PT LEVEL 4 STLMLC STLMLC [id number] [facility] 2021-04-13 00:00:00 2021-04-13 00:00:00 OFFICE VISIT ESTAB PT LEVEL 4 STLMLC STLMLC [id number] [facility] 2021-03-06 00:00:00 2021-03-06 00:00:00 (TEL) STLMLC STLMLC [id number] [facility] 2021-01-11 00:00:00 2021-01-11 00:00:00 OFFICE VISIT ESTAB PT LEVEL 4 STLMLC STLMLC [id number] [facility] 2020-10-11 00:00:00 2020-10-11 00:00:00 Outpatient STLMLC STLMLC [id number] [facility] 2020-10-11 00:00:00 2020-10-11 00:00:00 Outpatient STLMLC STLMLC [id number] [facility] 2020-10-05 00:00:2020-10-05 00:00:00 Outpatient STLMLC STLMLC [id number] [facility] 2020-07-20 00:00:00 2020-07-20 00:00:00 Outpatient STLMLC STLMLC [id number] [facility] 2020-04-21 00:00:00 2020-04-21 00:00:00 Outpatient STLMLC STLMLC [id number] [facility] 2020-01-20 00:00:00 2020-01-20 00:00:00 Outpatient STLMLC STLMLC [id number] [facility] 2019-12-21 00:00:00 2019-12-21 00:00:00 Outpatient STLMLC STLMLC [id number] [facility] 2019-12-18 00:00:00 2019-12-18 00:00:00 Outpatient STLMLC STLMLC [id number] [facility] 2019-10-20 11:00:00 2019-10-20 11:00:00 [facility] [id number] [facility] 2019-10-20 11:00:00 2019-10-20 11:00:00 [facility] [id number] [facility] 2019-10-12 15:00:00 2019-10-12 15:00:00 [facility] [id number] [facility] 2019-10-11 21:54:00 2019-10-11 21:54:00 [facility] [id number] [facility] 2019-10-05 08:30:00 2019-10-05 08:30:00 [facility] [id number] [facility] 2019-09-30 13:20:00 2019-09-30 13:20:00 [facility] [id number] [facility] 2019-09-28 16:39:00 2019-09-28 16:39:[address] [facility] [id number] [facility] 2019-09-21 16:12:00 2019-09-21 16:12:[address] [facility] [id number] [facility] 2019-09-16 08:20:00 2019-09-16 08:20:[address] [facility] [id number] [facility] 2019-09-15 13:09:00 2019-09-15 13:09:00 [facility] [id number] [facility] 2019-06-23 11:30:00 2019-06-23 11:30:00 [facility] [id number] [facility] 2019-04-02 11:00:00 2019-04-02 11:00:00 [facility] [id number] [facility] 2019-03-26 08:00:00 2019-03-26 08:00:00 [facility] [id number] [facility] 2018-12-18 10:45:00 2018-12-18 10:45:00 [address] [facility] [id number] [facility] 2018-09-18 10:30:00 2018-09-18 10:30:00 [facility] [id number] [facility] 2018-07-09 13:59:00 2018-07-09 13:59:00 [facility] [id number] [facility] 2017-11-07 10:30:00 2017-11-07 10:30:00 [facility] [address] [facility] [id number] [facility] Results Test Description Test Time Test Comments Results Result Co mments Source [facility] without [id number] 18:59:31* Test Item Value Reference Range Interpretation Comme nts WBC (test code = 6690-2) 14.23 4.30-11.10 H RBC (test code = 789-8) 2.80 3.93-5.25 L HGB (test code = 718-7) 7.6 g/dL 11.6-15.0 L HCT (test code = 4544-3) 24.9 % 35.7-45.2 L MCH (test code = 785-6) 27.1 pg 25.9-32.8 MCV (test code = 787-2) 88.9 fL 80.6-95.5 MCHC (test code = 786-4) 30.5 g/dL 31.6-35.1 L PLT (test code = 777-3) 353 166-358 MPV (test code = 15224-3) 11.0 fL 9.5-12.9 RDW-CV (test code = 788-0) 14.9 % 12.0-15.5 RDW-SD (test code = 72299-1) 48.8 fL 39.0-49.9 NRBC x10^3 (test code = 0459854210) See_Comment [Automated messa ge] The system which generated this result transmitted reference range: 10*3/?L. The reference range was not used to interpret this result as normal/abnormal. NRBC/100 WBC (test code = 4194277264) 0.0 0.0-10.0 IPF % (test code = 9358661451) Lab Interpretation (test code = 62040-9) Abnormal [facility] Screen - STAT [id number] 18:09:14* Test Item Value Reference Range Interpretation Comme nts ABO & RH (test code = 20) A POSITIVE IAT (test code = 1185) Negative [facility] Screen - [id number] 17:56:42* Test Item Value Reference Range Interpretation Comme nts IAT (test code = 1185) Negative Performed at [facility] [address] [place], [place] [address]Ssqo Free: [phone] No. [id number] ABO & RH (test code = 20) A POSITIVE Performed at [facility] [address] [place], [place] [address]Iuru Free: [phone] No. [id number] [facility] Metabolic Panel (79374)2024-01-13 13:53:13* Test Item Value Reference Range Interpretation Comme nts NA (test code = 6203711244) 137 mmol/L 135-145 K (test code = 9168698081) 5.0 mmol/L 3.5-5.0 CL (test code = 6998923470) 108 mmol/L 98-108 CO2 TOTAL (test code = 0075805996) 20 mmol/L 23-31 L AGAP (test code = 9383514666) 9 2-16 BUN (test code = 5904864928) 35 mg/dL 7-23 H GLUCOSE (test code = 6233243348) 100 mg/dL 70-110 CREATININE (test code = 2160-0) 1.90 mg/dL 0.50-1.04 H TOTAL BILI (test code = 2113381594) 0.5 mg/dL 0.1-1.1 CALCIUM (test code = 1075306594) 8.4 mg/dL 8.6-10.6 L T PROTEIN (test code = 4710075078) 7.1 g/dL 6.3-8.2 ALBUMIN (test code = 9102896576) 3.9 g/dL 3.5-5.0 ALK PHOS (test code = 9073550550) 132 U/L 34-122 H ALTv (test code = 1742-6) 8 U/L 5-35 AST(SGOT) (test code = 2432321719) 19 U/L 13-40 eGFR (test code = 60397-7) 26.3 mL/min/1.73m2 CKD-EPI eGFR (2020). Assuming creatinine has been stable day-to-day for at least three months, the eGFR indicates Category G4 (15 - 29 mL/min/1.73 m2) Lab Interpretation (test code = 35181-7) [facility] [id number] 13:41:27* Test Item Value Reference Range Interpretation Comme nts PROTIME PATIENT (test code = 5964-2) 11.2 10.1-12.6 INR (test code = 6301-6) 1.0 Normal INR <1.1; Warfarin Therapeutic range 2.0 to 3.0 or 2.5 to 3.5, depending upon the indications. Lab Interpretation (test code = 05143-8) Normal [facility] [facility] with [id number] 13:34:51* Test Item Value Reference Range Interpretation Comme nts WBC (test code = 6690-2) 6.46 4.30-11.10 RBC (test code = 789-8) 3.15 3.93-5.25 L HGB (test code = 718-7) 8.4 g/dL 11.6-15.0 L HCT (test code = 4544-3) 27.8 % 35.7-45.2 L MCV (test code = 787-2) 88.3 fL 80.6-95.5 MCH (test code = 785-6) 26.7 pg 25.9-32.8 MCHC (test code = 786-4) 30.2 g/dL 31.6-35.1 L RDW-SD (test code = 67242-2) 47.8 fL 39.0-49.9 RDW-CV (test code = 788-0) 14.9 % 12.0-15.5 PLT (test code = 777-3) 363 166-358 H MPV (test code = 80974-4) 10.6 fL 9.5-12.9 NRBC/100 WBC (test code = 4085783542) 0.0 0.0-10.0 NRBC x10^3 (test code = 7025316988) See_Comment [Automated messa ge] The system which generated this result transmitted reference range: 10*3/?L. The reference range was not used to interpret this result as normal/abnormal. GRAN MAT (NEUT) % (test code = 770-8) 74.3 % IMM GRAN % (test code = 8883960079) 0.30 % LYMPH % (test code = 736-9) 14.1 % MONO % (test code = 5905-5) 8.2 % EOS % (test code = 713-8) 2.2 % BASO % (test code = 706-2) 0.9 % GRAN MAT x10^3(ANC) (test code = 7605124211) 4.80 10*3/uL 1.88-7.09 IMM GRAN x10^3 (test code = 7825971393) 0.00-0.06 LYMPH x10^3 (test code = 731-0) 0.91 10*3/uL 1.32-3.29 L MONO x10^3 (test code = 742-7) 0.53 10*3/uL 0.33-0.92 EOS x10^3 (test code = 711-2) 0.14 10*3/uL 0.03-0.39 BASO x10^3 (test code = 704-7) 0.06 10*3/uL 0.01-0.07 Lab Interpretation (test code = 04480-1) [facility]normal [facility] [id number] 00:00:00* Test Item Value Reference Range Interpretation Comme nts TSH REFLEX TO FREE T4 (test code = 39855-7) 2.400 UIU/ML See_Comment [Automated message] The system which generated this result transmitted reference range: 0.400-4.100 UIU/ML. The reference range was not used to interpret this result as normal/abnormal. CALC LDL CHOL (test code = 38583-3) 129 MG/DL See_Comment H [Automated [employer]] The system which generated this result transmitted reference range: <100 MG/DL. The reference range was not used to interpret this result as normal/abnormal. CHOLESTEROL (test code = 2093-3) 211 MG/DL See_Comment H [Automated [employer]] The system which generated this result transmitted reference range: <200 MG/DL. The reference range was not used to interpret this result as normal/abnormal. HDL CHOLESTEROL (test code = 2085-9) 58 MG/DL See_Comment [Automated GetYourGuide] The system which generated this result transmitted reference range: >39 MG/DL. The reference range was not used to interpret this result as normal/abnormal. RISK RATIO LDL/HDL (test code = 90256-9) 2.22 RATIO See_Comment [Automated message] The system which generated this result transmitted reference range: <3.22 RATIO. The reference range was not used to interpret this result as normal/abnormal. TRIGLYCERIDES (test code = 2571-8) 126 MG/DL See_Comment [Automated messa ge] The system which generated this result transmitted reference range: <150 MG/DL. The reference range was not used to interpret this result as normal/abnormal. BASOPHILS (test code = 59075-7) 1.7 % DIAGNOSIS: (test code = 65725-1) (NOTE) COMMENTS (test code = 15993-3) (NOTE) EOSINOPHILS (test code = 98192-1) 1.7 % HEMATOCRIT (test code = 18148-8) 28.1 % See_Comment L [Automated messa ge] The system which generated this result transmitted reference range: 34.0-45.0 %. The reference range was not used to interpret this result as normal/abnormal. HEMOGLOBIN (test code = 718-7) 8.7 G/DL See_Comment L [Automated messa ge] The system which generated this result transmitted reference range: 11.5-15.5 G/DL. The reference range was not used to interpret this result as normal/abnormal. LYMPHOCYTES (test code = 65577-8) 20.5 % MCH (test code = 38874-3) 27.0 PG See_Comment [Automated messa ge] The system which generated this result transmitted reference range: 25.0-33.0 PG. The reference range was not used to interpret this result as normal/abnormal. MCHC (test code = 02942-6) 31.0 G/DL See_Comment [Automated messa ge] The system which generated this result transmitted reference range: 31.0-36.0 G/DL. The reference range was not used to interpret this result as normal/abnormal. MCV (test code = 65120-9) 87.3 fL See_Comment [Automated messa ge] The system which generated this result transmitted reference range: 80.0-99.0 fL. The reference range was not used to interpret this result as normal/abnormal. MICROSCOPIC DESCRIPTION: (test code = 61810-0) (NOTE) MONOCYTES (test code = 97337-3) 7.7 % NEUTROPHILS (test code = 51414-6) 68.4 % PATHOLOGIST: (test code = 25505-8) (NOTE) PLATELET COUNT (test code = 07962-3) 407 K/UL See_Comment H [Automated messa ge] The system which generated this result transmitted reference range: 130-400 K/UL. The reference range was not used to interpret this result as normal/abnormal. RBC (test code = 38195-1) 3.22 M/UL See_Comment L [Automated messa ge] The system which generated this result transmitted reference range: 3.80-5.40 M/UL. The reference range was not used to interpret this result as normal/abnormal. RDW (test code = 40610-4) 13.9 % See_Comment [Automated messa ge] The system which generated this result transmitted reference range: 11.5-15.0 %. The reference range was not used to interpret this result as normal/abnormal. WBC (test code = 91649-1) 6.0 K/UL See_Comment [Automated messa ge] The system which generated this result transmitted reference range: 3.5-11.0 K/UL. The reference range was not used to interpret this result as normal/abnormal. ALBUMIN (test code = 1751-7) 3.7 G/DL See_Comment [Automated messa ge] The system which generated this result transmitted reference range: 3.5-5.2 G/DL. The reference range was not used to interpret this result as normal/abnormal. ALKALINE PHOSPHATASE (test code = 6768-6) 110 U/L See_Comment [Automated message] The system which generated this result transmitted reference range: 40-142 U/L. The reference range was not used to interpret this result as normal/abnormal. BILIRUBIN, TOTAL (test code = 1975-2) 0.2 MG/DL See_Comment [Automated messa ge] The system which generated this result transmitted reference range: <=1.2 MG/DL. The reference range was not used to interpret this result as normal/abnormal. BUN (test code = 3094-0) 35 MG/DL See_Comment H [Automated messa ge] The system which generated this result transmitted reference range: 8-23 MG/DL. The reference range was not used to interpret this result as normal/abnormal. CALCIUM (test code = 63409-0) 8.7 MG/DL See_Comment [Automated messa ge] The system [...] normal/abnormal. CALC BUN/CREAT (test code = 3097-3) 20 RATIO See_Comment [Automated messa ge] The system which generated this result transmitted reference range: 6-28 RATIO. The reference range was not used to interpret this result as normal/abnormal. CALC GLOBULIN (test code = 08515-3) 2.5 G/DL See_Comment [Automated messa ge] The system which generated this result transmitted reference range: 1.9-3.7 G/DL. The reference range was not used to interpret this result as normal/abnormal. CARBON DIOXIDE (test code = 1963-8) 21 MEQ/L See_Comment [Automated messa ge] The system which generated this result transmitted reference range: 19-31 MEQ/L. The reference range was not used to interpret this result as normal/abnormal. CHLORIDE (test code = 2075-0) 106 MEQ/L See_Comment [Automated messa ge] The system which generated this result transmitted reference range: 95-107 MEQ/L. The reference range was not used to interpret this result as normal/abnormal. CREATININE (test code = 2160-0) 1.74 MG/DL See_Comment H [Automated messa ge] The system which generated this result transmitted reference range: 0.60-1.30 MG/DL. The reference range was not used to interpret this result as normal/abnormal. eGFR (2020 CKD-EPI) (test code = 31760-4) 29 ML/MIN/1.73 See_Comment L [Automated message] The system which generated this result transmitted reference range: >60 ML/MIN/1.73. The reference range was not used to interpret this result as normal/abnormal. GLUCOSE (test code = 1558-6) 96 MG/DL See_Comment [Automated messa ge] The system which generated this result transmitted reference range: 70-99 MG/DL. The reference range was not used to interpret this result as normal/abnormal. POTASSIUM (test code = 2823-3) 4.7 MEQ/L See_Comment [Automated messa ge] The system which generated this result transmitted reference range: 3.5-5.4 MEQ/L. The reference range was not used to interpret this result as normal/abnormal. PROTEIN, TOTAL (test code = 2885-2) 6.2 G/DL See_Comment [Automated messa ge] The system which generated this result transmitted reference range: 6.1-8.3 G/DL. The reference range was not used to interpret this result as normal/abnormal. AST (test code = 1920-8) 11 U/L See_Comment [Automated messa ge] The system which generated this result transmitted reference range: 9-40 U/L. The reference range was not used to interpret this result as normal/abnormal. ALT (test code = 1742-6) 5 U/L See_Comment [Automated messa ge] The system which generated this result transmitted reference range: 5-40 U/L. The reference range was not used to interpret this result as normal/abnormal. SODIUM (test code = 2951-2) 140 MEQ/L See_Comment [Automated messa ge] The system which generated this result transmitted reference range: 133-146 MEQ/L. The reference range was not used to interpret this result as normal/abnormal. CT ABDOMEN PELVIS WO [id number] 03:11:51Ordering Physician: AISHA MORALES Clinical indication: Nausea and vomiting Comparison: None. Technique: CT abdomen and pelvis without intravenous contrast. Thisexamination was performed according toALARA principles. Technical quality: Adequate Findings: The patient is status post cholecystectomy.The liver, spleen, pancreas,adrenal glands, and kidneys are unremarkable. There is a small hiatalhernia. No acute gastric abnormalities are evident. Duodenal diverticulaare present. There is atheroscl erotic calcification of the abdominal aortaand its branches, with no evidence of aneurysm. The urinary bladder isdecompressed and not well evaluated. There is increased density of fat within the mesenteric root, compatiblewith sclerosing mesenteritis. There is no evidence of colitis ordiverticulitis. A normal appendix is identified. There is no boweldistention. There is no free intraperitoneal fluid or free intraperitonealair. The heart is enlarged and atherosclerotic coronary artery disease ispresent. Mild subsegmental atelectasis is seen within the dependent areasof the included lung bases.There are chronic appearing fractures of the right 11th and 12th ribs. Thepatient is status post ORIF of the left proximal femur and there are healedfractures of the right superior and inferior pubicrami. 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 There are degenerative changes of thespine and there are compression deformities at T12, L1, and L3. No discretefracture lines are evident and noassociated soft tissue changes areapparent, suggesting these fractures are likely chronic. [facility] 1 [id number] 00:27:48Ordering physician: AISHA MORALES Clinical indication: Pneumonia Comparison: None available Technique: Chest, single view Technical quality: Adequate Findings: There is asymmetric right basilar opacity. This could reflect pleuraleffusion, airspace disease (atelectasis or pneumonia) or both. This couldalso reflect scarring. The left lung and pleural spaces are clear. Theheart is enlarged. Tortuosity of the thoracic aorta may reflectatherosclerosis, hypertension, or both. There are degenerative changes ofthe shoulders and spine. No acute bony abnormalities are evident.[facility]FF 2023-09-13 00:21:11* Test Item Value Reference Range Interpretation Comme nts WBC (test code = 6690-2) 7.49 4.30-11.10 RBC (test code = 789-8) 3.44 3.93-5.25 L HGB (test code = 718-7) 9.1 g/dL 11.6-15.0 L HCT (test code = 4544-3) 30.0 % 35.7-45.2 L MCV (test code = 787-2) 87.2 fL 80.6-95.5 MCH (test code = 785-6) 26.5 pg 25.9-32.8 MCHC (test code = 786-4) 30.3 g/dL 31.6-35.1 L RDW-SD (test code = 36675-4) 54.0 fL 39.0-49.9 H RDW-CV (test code = 788-0) 17.0 % 12.0-15.5 H PLT (test code = 777-3) 393 166-358 H MPV (test code = 77849-1) 10.8 fL 9.5-12.9 NRBC/100 WBC (test code = 0275931468) 0.0 0.0-10.0 NRBC x10^3 (test code = 6316131268) See_Comment [Automated messa ge] The system which generated this result transmitted reference range: 10*3/?L. The reference range was not used to interpret this result as normal/abnormal. GRAN MAT (NEUT) % (test code = 770-8) 72.5 % IMM GRAN % (test code = 5774169503) 0.70 % LYMPH % (test code = 736-9) 14.8 % MONO % (test code = 5905-5) 9.6 % EOS % (test code = 713-8) 1.9 % BASO % (test code = 706-2) 0.5 % GRAN MAT x10^3(ANC) (test code = 4126653443) 5.43 10*3/uL 1.88-7.09 IMM GRAN x10^3 (test code = 9153642907) 0.05 10*3/uL 0.00-0.06 LYMPH x10^3 (test code = 731-0) 1.11 10*3/uL 1.32-3.29 L MONO x10^3 (test code = 742-7) 0.72 10*3/uL 0.33-0.92 EOS x10^3 (test code = 711-2) 0.14 10*3/uL 0.03-0.39 BASO x10^3 (test code = 704-7) 0.04 10*3/uL 0.01-0.07 Lab Interpretation (test code = 61726-7) Abnormal [facility] TempleKALYAN [id number] 00:21:11* Test Item Value Reference Range Interpretation Comme nts TROPONIN I (test code = 8836267693) 0.018 ng/mL <=0.034 THOMAS (test code = THOMAS) Reference (Normal) Range (defined by the 99th percentile reference limit): <= 0.034 ng/mL Note: Cardiac troponin begins to rise 3-4 hours after the onset of ischemia. Repeat in 4-6 hours if the sample was drawn within 3-4 hours of the onset of the symptom and found normal. Diagnosis of myocardial injury is made with acute changes in cTn concentrations with at least one serial sample above the 99th percentile upper reference limit (URL), taken together with the patient's clinical presentation. Biotin has been reported to cause a negative bias, interpret results relative to patient's use of biotin. Lab Interpretation (test code = 48629-9) Normal [facility] TempleN-TERMINAL [id number] 00:18:29* Test Item Value Reference Range Interpretation Comme nts NT-proBNP (test code = 02870-1) 6030 pg/mL <=125 H THOMAS (test code = THOMAS) Positive: Heart Failure Likely Lab Interpretation (test code = 83386-4) Abnormal [facility]. METABOLIC PANEL (62511)2023-09-13 00:09:47* Test Item Value Reference Range Interpretation Comme nts NA (test code = 4267205603) 137 mmol/L 135-145 K (test code = 4954137039) 4.1 mmol/L 3.5-5.0 CL (test code = 4167814270) 105 mmol/L 98-108 CO2 TOTAL (test code = 6721360670) 19 mmol/L 23-31 L AGAP (test code = 3956740280) 13 2-16 BUN (test code = 4989331986) 36 mg/dL 7-23 H GLUCOSE (test code = 3567433028) 124 mg/dL 70-110 H CREATININE (test code = 2160-0) 1.54 mg/dL 0.50-1.04 H TOTAL BILI (test code = 6097309713) 0.6 mg/dL 0.1-1.1 CALCIUM (test code = 7335210739) 8.6 mg/dL 8.6-10.6 T PROTEIN (test code = 8214160732) 7.7 g/dL 6.3-8.2 ALBUMIN (test code = 6019119498) 4.0 g/dL 3.5-5.0 ALK PHOS (test code = 4389495673) 117 U/L 34-122 ALTv (test code = 1742-6) 11 U/L 5-35 AST(SGOT) (test code = 8246636695) 20 U/L 13-40 eGFR (test code = 99709-7) 33.8 mL/min/1.73m2 CKD-EPI eGFR (2020). Assuming creatinine has been stable day-to-day for at least three months, the eGFR indicates Category G3b (30 - 44 mL/min/1.73 m2) Lab Interpretation (test code = 87677-2) Abnormal [facility] TempleLactic Acid Whole [id number] 23:49:13* Test Item Value Reference Range Interpretation Comme nts LACTIC ACID (test code = 5901532720) 1.62 mmol/L 0.50-2.20 Lab Interpretation (test cod e = 78602-6) Normal [facility] REFLEX TO FREE [id number] 00:00:00* Test Item Value Reference Range Interpretation Comme nts TSH REFLEX TO FREE T4 (test code = 22077-2) 2.010 UIU/ML See_Comment [Automated sellpointsa ge] The system which generated this result transmitted reference range: 0.400-4.100 UIU/ML. The reference range was not used to interpret this result as normal/abnormal. Consult Notes Date/Time Note Provider Source 2024-01-14 09:46:38 Associated Order(s): CONSULT NEPHROLOGY [facility] Nephrology Consult Note 01/14/2024 9:46 AM Subjective Admission Date: 01/13/2024 Consult Date: 01/14/24 Reason for Consult JEB on CKD Requesting Provider Juan Martin MD Chief Complaint Right renal hematoma after renal biopsy History of Present Illness Mahnaz Osborne is a 83 year old female with PMH of HTN, Hypercholesteremia , arthritis who present to [facility] with JEB for kidney workup and renal biopsy and developed a right renal hematoma after procedure. POD 1 s/p Right renal angiogram and right upper renal pole subsegmental branches embolization. Pt seen and evaluated for JEB on CKD No past medical history on file. No past surgical history on file. Medications Prior to Admission Medication Sig Dispense Refill Last Dose amLODIPine 10 mg tablet Take 1 tablet by mouth daily. hydrALAZINE 25 mg tablet Take 1 tablet by mouth daily. leflunomide 10 mg tablet Take 1 tablet by mouth daily. atorvastatin 20 mg tablet Take 1 tablet by mouth every morning. ferrous sulfate 325 mg (65 mg iron) tablet Take 1 tablet by mouth daily. furosemide 40 mg tablet Take 1 tablet by mouth daily. lisinopriL 20 mg tablet Take 1 tablet by mouth 2 (two) times daily. nebivoloL 10 mg tablet Take 1 tablet by mouth daily. pantoprazole 40 mg EC tablet Take 1 tablet by mouth daily. traMADoL 50 mg tablet Take 1 tablet by mouth every 6 (six) hours. amoxicillin-clavulanate 875-125 mg per tablet Take 1 tablet by mouth every 12 (twelve) hours. 20 tablet 0 azithromycin (ZITHROMAX Z-YUN) 250 mg tablet Take 1 tablet by mouth SEE-INSTRUCTIONS. Take 500 mg day 1, then 250 mg days 2 to 5. 6 tablet 0 Current Facility-Administered Medications Medication Dose Route Frequency Last Rate Last Admin sodium zirconium cyclosilicate (LOKELMA) 10 gram packet 10 g 10 g Oral QAM-0700 10 g at 01/14/24 0837 acetaminophen (TYLENOL) tablet 650 mg 650 mg Oral Q6HPRN atorvastatin (LIPITOR) tablet 20 mg 20 mg Oral QAM 20 mg at 01/14/24 0837 docusate (COLACE) capsule 100 mg 100 mg Oral DAILY 100 mg at 01/14/24 0837 ferrous sulfate tablet 325 mg 325 mg Oral DAILY 325 mg at 01/14/24 0837 hydrALAZINE (APRESOLINE) tablet 25 mg 25 mg Oral DAILY 25 mg at 01/14/24 0844 metoprolol tartrate (LOPRESSOR) tablet 100 mg 100 mg Oral BID 100 mg at 01/14/24 0837 ondansetron (ZOFRAN (PF)) injection 4 mg 4 mg Slow IV Push Q6HPRN 4 mg at 01/14/24 0511 pantoprazole (PROTONIX) EC tablet 40 mg 40 mg Oral DAILY 40 mg at 01/14/24 0837 traMADoL (ULTRAM) tablet 50 mg 50 mg Oral Q8HPRN 50 mg at 01/13/242156 traMADoL (ULTRAM) tablet 50 mg 50 mg Oral Q6H No Known Allergies No family history on file. Social History Socioeconomic History Marital status: Spouse name: Not on file Number of children: Not on file Years of education: Not on file Highest education level: Not on file Occupational History Not on file Tobacco Use Smoking status: Never Smokeless tobacco: Never Substance and Sexual Activity Alcohol use: Not on file Drug use: Not on file Sexual activity: Not on file Other Topics Concern Not on file Social History Narrative Not on file Social Determinants of Health Financial Resource Strain: Not on file Food Insecurity: Not on file Transportation Needs: Not on file Physical Activity: Not on file Stress: Not on file Social Connections: Not on file Housing Stability: Not on file Review of Systems A 12 point ROS was performed and pertinent positives as per HPI. Objective Physical Exam General: Appropriate for age, no acute distress, well-developed and well-nourished. HENT: Head: Normocephalic and atraumatic. Eyes: Conjunctivae and EOM are normal. Pupils are equal, round, and reactive to light. Neck: Neck supple. No jugular venous distention Cardiovascular: Normal rate, rhythm and heart sounds. No gallop, rub or murmur. Chest: CTA. No wheezes or rales. Abdominal: Soft. BS are normal. Extremities: Normal range of motion, no edema, tenderness or deformity. Neurological: Alert and oriented. Cranial nerves intact Labs/Radiology/Diagnostics .curr CMP NA (mmol/L) Date Value 01/14/2024 132 (L) 01/13/2024 137 09/12/2023 137 K (mmol/L) Date Value 01/14/2024 5.8 (H) 01/13/2024 5.0 09/12/2023 4.1 CALCIUM (mg/dL) Date Value 01/14/2024 8.2 (L) 01/13/2024 8.4 (L) 09/12/2023 8.6 CL (mmol/L) Date Value 01/14/2024 107 01/13/2024 108 09/12/2023 105 BUN (mg/dL) Date Value 01/14/2024 41 (H) 01/13/2024 35 (H) 09/12/2023 36 (H) CREATININE (mg/dL) Date Value 01/14/2024 2.13 (H) 01/13/2024 1.90 (H) 09/12/2023 1.54 (H) GLUCOSE (mg/dL) Date Value 01/14/2024 112 (H) 01/13/2024 100 09/12/2023 124 (H) CO2 TOTAL (mmol/L) Date Value 01/14/2024 16 (L) 01/13/2024 20 (L) 09/12/2023 19 (L) ALBUMIN (g/dL) Date Value 01/13/2024 3.9 09/12/2023 4.0 T PROTEIN (g/dL) Date Value 01/13/2024 7.1 09/12/2023 7.7 TOTAL BILI (mg/dL) Date Value 01/13/2024 0.5 09/12/2023 0.6 ALTv (U/L) Date Value 01/13/2024 8 09/12/2023 11 AST(SGOT) (U/L) Date Value 01/13/2024 19 09/12/2023 20 ALK PHOS (U/L) Date Value 01/13/2024 132 (H) 09/12/2023 117 No results found for: "PHOS" CBC withoutdiff WBC (10*3/?L) Date Value 01/14/2024 10.44 01/13/2024 7.25 01/13/2024 14.23 (H) 01/13/2024 6.46 09/12/2023 7.49 HGB (g/dL) Date Value 01/14/2024 7.9 (L) 01/13/2024 7.5 (L) 01/13/2024 7.6 (L) 01/13/2024 8.4 (L) 09/12/2023 9.1 (L) HCT (%) Date Value 01/14/2024 25.5 (L) 01/13/2024 24.7 (L) 01/13/2024 24.9 (L) 01/13/2024 27.8 (L) 09/12/2023 30.0 (L) MCV (fL) Date Value 01/14/2024 86.4 01/13/2024 87.9 01/13/2024 88.9 01/13/2024 88.3 09/12/2023 87.2 PLT (10*3/?L) Date Value 01/14/2024 357 01/13/2024 336 01/13/2024 353 01/13/2024 363 (H) 09/12/2023 393 (H) PROTEIN (no units) Date Value 09/12/2023 500 mg/dL (A) PH (no units) Date Value 09/12/2023 5.0 GLU U QUAL (no units) Date Value 09/12/2023 Normal KETONES (no units) Date Value 09/12/2023 Negative BILIRUBIN (no units) Date Value 09/12/2023 Negative No results found for: "UBLOOD" No results found for: "UUROBILIN" LEUK LANA (no units) Date Value 09/12/2023 Negative NITRITE (no units) Date Value 09/12/2023 Negative SP GRAVITY (no units) Date Value 09/12/2023 1.012 No components found for: "NAURINE" No components found for: "OSMURINE" eGFR (mL/min/1.73m2) Date Value 01/14/2024 22.9 No final results containing an impression from the past 48 hours were found. Problem List No problems updated. Impression and Plan JEB on CKD -daily BMP -monitor I and O -avoid nephrotoxic meds (ACEI, IV contrast, NSAIDs) -renal dose meds -monitor Elytes and replete PRN Hyperkalemia - lokelma added -repeat K level @1pm -monitor K Metabolic acidosis -Bicitra added R Renal hematoma -renal biopsy and workup -S/p angiogram and embolization -vascular f/u with recs. HTN/ hypercholesteremia -c/w BP meds and statin Arthritis -c/w pain management Finally thank you very much Juan Hurtado MD for this consult, I will be happy to follow this patient with you. Twin Ghosh MD FACP [facility] Adjunct field control inspector [facility] Associated attestation - Twin Ghosh MD - 01/14/2024 1:13 PM CDT I have personally discussed the history, physical and plan with my nurse practitioner IAN Briggs and reviewed the note with her. I concur with her note and agree with her plan of care except when documented otherwise in my attestation. 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 Has had renal biopsy that was not without complications. Had right renal hematoma needing embolization. PLEASE don not discharge the patient until I have the biopsy report. She may need aggressive immunosuppression if it turns out to be crescentic glomerulonephritis. I will order JEFE, ANCA, complement levels, anti proteinase 3 and anti myeloperoxidase antibodies. BAG FILLER MACHINE OPERATOR-NURSE PRACTITIONER MIDLEVEL PROVIDER [facility] - Health History and Physical Notes Date/Time Note Provider Source 2024-01-13 21:06:55 AMG History & Physical DATE: 01/13/2024 SERVICE: Internal Medicine CHIEF COMPLAINT: No chief complaint on file. Acute Kidney Injury and renal hematoma HISTORY OF PRESENT ILLNESS Mahnaz Osborne is a 83 year old female with PMH significant for HTN, high cholesterol, and arthritis, who presents to [facility] with acute kidney injury for possible kidney workup and renal biopsy. Patient developed right renal hematoma after the biopsy. Vascular and interventional radiology performed a successful gelfoam and coil embolization of the right kidney. Patient denies pain. Surgical wound site has clean and dry initial pressure dressing. No signs and symptoms of bleeding on the surgical site. WBC 14.23, RBC 2.80, HGB 7.6, was 8.4 before biopsy. HCT 24.9, MCHC 30.5, BUN 35, Creatinine 1.90 ALK Phos 132 ALLERGIES Mahnaz has No Known Allergies. MEDICATIONS Current Facility-Administered Medications: acetaminophen (TYLENOL) tablet 650 mg, 650 mg, Oral, Q6HPRN, Charly Jacob, AGALUPISP [START ON 01/14/2024] docusate (COLACE) capsule 100 mg, 100 mg, Oral, DAILY, Charly Jacob, AGACNP ondansetron (ZOFRAN (PF)) injection 4 mg, 4 mg, Slow IV Push, Q6HPRN, Charly Jacob, AGACNP traMADoL (ULTRAM) tablet 50 mg, 50 mg, Oral, Q8HPRN, Charly Jacob AGACNP Current Discharge Medication List STOP taking these medications amoxicillin-clavulanate 875-125 mg per tablet Comments: Reason for Stopping: azithromycin (ZITHROMAX Z-YUN) 250 mg tablet Comments: Reason for Stopping: PAST MEDICAL HISTORY No past medical history on file. PAST SURGICAL HISTORY No past surgical history on file. PAST SOCIAL HISTORY Social History Socioeconomic History Marital status: Tobacco Use Smoking status: Never Smokeless tobacco: Never PAST FAMILY HISTORY No family history on file. REVIEW OF SYSTEMS 12 point systems Reviewed, pertinent positive per HPI PHYSICAL EXAMINATION Vitals: 01/13/24 1115 01/13/24 1821 01/13/24 1823 01/13/24 1931 BP: 136/60 135/65 (!) 142/62 Pulse: 61 60 56 Resp: 15 18 16 Temp: 36.6 ?C (97.8 ?F) 36.3 ?C (97.4 ?F) TempSrc: Axillary SpO2: 99% 98% 96% Weight: 76.2 kg (168 lb) Height: 1.6 m (5' 3") General: Awake, alert and oriented; no acute distress HEENT: Normocephalic atraumatic, PERRLA with EOMI; oropharynx clear; moist mucous membranes Neck: supple, midline trachea, no bruit Cardio: regular rate and rhythm, no murmurs, no gallops Lungs: clear to auscultation bilaterally, no crackles, no wheezes Abdomen: soft; non-tender; non-distended; normoactive bowel sounds Skin: no rashes, or lesions Muscle: Normal RUE, LUE, RLE, LLE, normal ROM Extremities: no cyanosis, clubbing or edema, pedal pulses palpable Neuro: CN 2-12 intact, no motor or sensory deficits Lymphatics: no lymphadenopathy Psychiatry: normal affect and mood LABS AND IMAGING Recent Results (from the past 24 hour(s)) Cbc with Diff Collection Time: 01/13/24 8:19 AM Result Value Ref Range WBC 6.46 4.30 - 11.10 10*3/?L RBC 3.15 (L) 3.93 - 5.25 10*6/?L HGB 8.4 (L) 11.6 - 15.0 g/dL HCT 27.8 (L) 35.7 - 45.2 % MCV 88.3 80.6 - 95.5 fL MCH 26.7 25.9 - 32.8 pg MCHC 30.2 (L) 31.6 - 35.1 g/dL RDW-SD 47.8 39.0 - 49.9 fL RDW-CV 14.9 12.0 - 15.5 % PLT 363 (H) 166 - 358 10*3/?L MPV 10.6 9.5 - 12.9 fL NRBC/100 WBC 0.0 0.0 - 10.0 /100 WBCs NRBC x10 3 <0.01 10*3/?L GRAN MAT (NEUT) % 74.3 % IMM GRAN % 0.30 % LYMPH % 14.1 % MONO % 8.2 % EOS % 2.2 % BASO % 0.9 % GRAN MAT x10 3 (ANC) 4.80 1.88 - 7.09 10*3/uL IMM GRAN x10 3 <0.03 0.00 - 0.06 10*3/uL LYMPH x10 3 0.91 (L) 1.32 - 3.29 10*3/uL MONO x10 3 0.53 0.33 - 0.92 10*3/uL EOS x10 3 0.14 0.03 - 0.39 10*3/uL BASO x10 3 0.06 0.01 - 0.07 10*3/uL Comp. Metabolic Panel (24198) Collection Time: 01/13/24 8:19 AM Result Value Ref Range NA 137 135 - 145 mmol/L K 5.0 3.5 - 5.0 mmol/L CL 108 98 - 108 mmol/L CO2 TOTAL 20 (L) 23 - 31 mmol/L AGAP 9 2 - 16 BUN 35 (H) 7 - 23 mg/dL GLUCOSE 100 70 - 110 mg/dL CREATININE 1.90 (H) 0.50 - 1.04 mg/dL TOTAL BILI 0.5 0.1 - 1.1 mg/dL CALCIUM 8.4 (L) 8.6 - 10.6 mg/dL T PROTEIN 7.1 6.3 - 8.2 g/dL ALBUMIN 3.9 3.5 - 5.0 g/dL ALK PHOS 132 (H) 34 - 122 U/L ALTv 8 5 - 35 U/L AST(SGOT) 19 13 - 40 U/L eGFR 26.3 mL/min/1.73m2 Prothrombin Time / INR Collection Time: 01/13/24 8:19 AM Result Value Ref Range PROTIME PATIENT 11.2 10.1 - 12.6 Seconds INR 1.0 Type and Screen - STAT Routine Collection Time: 01/13/24 11:50 AM Result Value Ref Range ABO & RH A POSITIVE IAT Negative Type and Screen - Routine Collection Time: 01/13/24 11:50 AM Result Value Ref Range IAT Negative ABO & RH A POSITIVE Prepare Packed RBC (in units), 1 Units Collection Time: 01/13/24 12:57 PM Result Value Ref Range Cross Match Result Compatible ISBT Blood Type Code 6200 Unit Blood Type A Pos Unit Number [id number] Blood Expiration Date & Time [id number] Status Information Ready Product Identification Red Blood Cells Product Code [id number] Cbc without Diff Collection Time: 01/13/24 1:16 PM Result Value Ref Range WBC 14.23 (H) 4.30 - 11.10 10*3/?L RBC 2.80 (L) 3.93 - 5.25 10*6/?L HGB 7.6 (L) 11.6 - 15.0 g/dL HCT 24.9 (L) 35.7 - 45.2 % MCH 27.1 25.9 - 32.8 pg MCV 88.9 80.6 - 95.5 fL MCHC 30.5 (L) 31.6 - 35.1 g/dL PLT 353 166 - 358 10*3/?L MPV 11.0 9.5 - 12.9 fL RDW-CV 14.9 12.0 - 15.5 % RDW-SD 48.8 39.0 - 49.9 fL NRBC x10 3 <0.01 10*3/?L NRBC/100 WBC 0.0 0.0 - 10.0 /100 WBCs IPF % Radiology No final results containing an impression from the past 48 hours were found. ASSESSMENT AND PLAN Mahnaz Osborne is a 83 year old female who presents with: Acute Kidney Injury and renal hematoma Acute Kidney Injury Renal Hematoma - BUN/Cr 35/1.90 -Renal biopsy causing renal hematoma prompting renal embolization -HGB 8.4 before biopsy, 7.6 after embolization, and no 7.5 - Continue to trend H&H, CBC in the morning -Transfuse if Hgb <7. -Hold nephrotoxic agents -Vascular/IR onboard HTN -Hold amlodipine, lisinopril, and lasix due to nephrotoxic properties. -Continue hydralazine -Start metoprolol tartrate -Monitor BP per unit protocol and PRN Rheumatoid Arthritis -Tylenol or tramadol for pain. -Hold Leflunomide due to nephrotoxic properties. DVT Prophylaxis -Apply SCDs - Pharmacologic interventions contraindicated due to hematoma ADORE Ramos 01/13/2024 9:07 PM Associated attestation - Lukas Guerra MD - 01/14/2024 12:48 AM CDT I agree with documentation as stated. I was available in consultation for patient's care but did not see or examine patient. BAG FILLER MACHINE OPERATOR-GERONTOLOGY MIDLEVEL PROVIDER [facility] 2024-01-13 08:00:00 VASCULAR AND INTERVENTIONAL RADIOLOGY H&P & SEDATION NOTE Date of Service: 01/13/2024 Admission Status/Team: Outpatient HPI: 83 year old female with history of elevated serum creatinine level with suspected autoimmune etiology presents for image guided renal biopsy . Past Medical History: No past medical history on file. Surgical History: No past surgical history on file. Medications: Reviewed Allergies: No Known Allergies Focused Physical Exam: Vitals: 01/13/24 0804 BP: 102/84 Pulse: 70 Resp: 17 Temp: 36.4 ?C (97.6 ?F) TempSrc: Oral SpO2: 98% Weight: 168 lb (76.2 kg) Height: 5' 3" (1.6 m) Gen - AOx3, NAD Cardio - RRR Pulm - Non-labored breathing on RA Abd - soft, ND, NT Labs: Reviewed Imaging: Reviewed Pre-Procedure Sedation Evaluation See H&P for medical history and current medications. Allergies were reviewed. NPO Status Solids: >6 hours Clear liquids: >2 hours History History of anesthesia/sedation complications: No History of difficult airway: No History of neck problems, craniofacial abnormalities, head/neck surgery: No Increased risk for airway obstruction, sleep apnea, morbid obesity: No Airway Mallampati: II (full visibility of soft palate and part of uvula) Mouth opening: Normal Range of motion neck: Normal Dentition: Dentures Assessment: ASA 2 Plan: Moderate sedation The risks, benefits, and treatment options of sedation were discussed with the patient/guardian and they desire to proceed. The consent form was completed and signed. ASSESSMENT & PLAN: Diagnosis: elevated serum creatinine Plan: Will proceed with image guided renal biopsy Informed consent discussed with the patient, including: condition, proposed care, treatments and services, alternative forms of treatment, and risks of no treatment. Details discussed around the procedures to be used, and the risks and hazards involved, potential benefits, and side effects of the patient s proposed care, treatment, and services; and any potential problems that might occur during recuperation. Reasonable alternative also discussed with the patient s proposed care, treatment, and services. Susan Bethea MD Staff Interventional Radiology [facility] Procedure Notes Date/Time Note Provider Source 2024-01-13 11:45:00 VASCULAR AND INTERVENTIONAL RADIOLOGY PROCEDURE NOTE Pre-procedure diagnosis: Right renal hematoma s/p renal biopsy Post-procedure diagnosis: Same. Procedure: US guided left radial artery access sheath placement. Catheter selection and angiography of the following arteries: Right renal artery Right renal artery anterior segmental branch Right renal artery posterior segmental branch Right renal artery superior pole subsegmental branches ( x 3 ) Coil and gelfoam embolization of the right renal upper pole subsegmental branches. Anesthesia: Local 2% lidocaine, IV fentanyl Findings: Right renal artery angiogram showed abnormal blush in the upper and mid right kidney. Successful gelfoam and coil embolization of the right upper renal pole subsegmental branches No definite blush on repeat angiogram over the mid right kidney. Pt could not tolerate staying still for additional angiograms and additional interrogation of the mid pole. TR band used to achieve hemostasis ( 12 mL of air at 2:40 PM ) Complications: None Condition: Stable EBL: Minimal Plan: Trend H & H Q 8 hrs, Transfuse pRBC if Hb drop below 7. Admit for observation If patient becomes hemodynamically unstable please inform IR and obtain CTA ( GI bleed protocol ) Pre-procedural clears Full dictated note to follow in PACS. RAD-VASCULAR & INTERVENTIONAL RADIOLOGY STAFF [facility] 2024-01-13 08:00:00 VASCULAR AND INTERVENTIONAL RADIOLOGY PROCEDURE NOTE Pre-procedure diagnosis: Elevated creatinine Post-procedure diagnosis: Same. Procedure: US guided [place] renal biopsy. Anesthesia: Local 1% lidocaine, IV versed and IV fentanyl Findings: Successful non focal right renal biopsy ( 18 G x 3, 1.3 cm long ) Complications: Subcapsular hematoma Condition: Stable EBL: Minimal Plan: CTA of the abdomen and pelvis Post-Procedure Sedation Addendum Immediately prior to start of sedation, the patient was evaluated and there was no change from the pre-procedure evaluation. I was present and directed medical care. The patient underwent moderate sedation for the procedure. The medications administered were recorded in the MAR; oxygenation, ventilation and circulation were monitored continuously and were recorded in the EMR. I evaluated the patient after the procedure. The patient was evaluated immediately as recovering from sedation. Complications: Nonne. Full dictated note to follow in PACS. [facility]
--- NOTE | 2024-04-09 15:21 | RAD REPORT ---
EXAMINATION: CT HEAD WITHOUT CONTRAST CT CERVICAL SPINE WITHOUT CONTRAST CLINICAL INDICATION: Female, 83 years old. fall TECHNIQUE: Axial CT images from the skull base to the vertex without intravenous contrast. Axial CT i mages through the cervical spine were obtained without intravenous contrast. Sagittal and coronal reformatted images were created from the data set. Coronal and sagittal reformatted images were creat ed from the data set. One or more of the following dose reduction techniques were used: Automated exposure control, adjustment of the mA and/or kV according to patient size, and/or iterative reconstr uction. Unless otherwise specified, incidental findings do not require dedicated imaging follow-up. [id number]. COMPARISON: 08/07/2023 FINDINGS: Head: INTRACRANIAL: No acute intracranial hemorrhage. No hydrocephalus. No mass effect or midline shift. Mi ld chronic small vessel ischemic changes.Mild cerebral atrophy. Partially empty sella, typically normal variant. VASCULATURE: No visualized abnormalities in the arteries or dural venous sinuses. SCALP/SKULL: No significant soft tissue or osseous abnormalities. Mild right mastoid fluid. SINUSES: The right maxillary sinus is opacified with inspissated secretions. The wall of the right ma xillary sinus is thickened consistent with chronic sinusitis. Cervical spine: ALIGNMENT: The cervical spine has normal alignment without scoliosis or spondylolisthesis. BONE: Vertebral body heights are maintained. No aggressive osseous lesions. Probable bone island in t he left medial clavicle. Partially imaged right clavicle fracture. DEGENERATIVE CHANGES: Multilevel cervical spondylosis with some disc height loss and endplate spurrin g. SOFT TISSUE: No significant abnormalities in the soft tissue of the neck. The visualized lung apices are clear. IMPRESSION: No acute intracranial abnormality. No acute fracture or traumatic malalignment of the cervical spine.
--- NOTE | 2024-04-09 15:33 | RAD REPORT ---
EXAM: CT CHEST, ABDOMEN AND PELVIS WITHOUT CONTRAST CLINICAL INDICATION: Female, 83 years old fall TECHNIQUE: CT chest, abdomen and pelvis was performed, without IV contrast, as per department protoco l. Axial, sagittal and coronal reconstructions were obtained. One or more of the following dose reduction techniques were used: Automated exposure control, adjustment of the mA and/or kV according to the patient size, and/or iterative reconstruction. Unless otherwise specified, incidental findings do not require dedicated imaging follow-up. [id number]. COMPARISON: 08/07/2021 FINDINGS: The lack of intravenous contrast limits the sensitivity of this exam for evaluation of solid visceral organs, vascular structures, and retroperitoneum. Chest: LOWER NECK: 2.2 cm left thyroid nodule. Further evaluation with nonemergent thyroid ultrasound is rec ommended. LUNGS AND AIRWAYS: Airways are clear. No evidence of airspace or interstitial process.Motion artifact limits evaluation for pulmonary nodule detection. PLEURA: No pleural effusion. No pneumothorax. Hemidiaphragms are normally positioned. MEDIASTINUM AND LYMPH NODES: No mediastinal mass or fluid collection. Normal size mediastinal, hilar, and axillary lymph nodes. Moderate distal esophageal thickening which could reflect esophagitis. THORACIC AORTA: No thoracic aortic aneurysm. PULMONARY ARTERIES: Enlarged main pulmonary arteries could indicate pulmonary artery hypertension. HEART: Mild cardiomegaly. Multivessel coronary artery diseaseTrace pericardial effusion. Abdomen/Pelvis UPPER GI: No significant abnormality. LIVER: No significant focal abnormality. GALLBLADDER/BILE DUCTS: Cholecystectomy. No significant biliary ductal dilatation.? PANCREAS: No mass, ductal dilation, or laci-pancreatic fluid. SPLEEN: Unremarkable. ADRENALS: No adrenal masses. KIDNEYS AND URETERS: No hydronephrosis.Right subcapsular fluid collection measuring 9 mm which is low attenuation. Questionable embolization coils in the upper pole.Both kidneys are atrophic. ABDOMINAL AORTA AND OTHER VESSELS: Normal caliber aorta and IVC. PERITONEUM: No abnormal free fluid. No free air. LYMPH NODES: No pathologic lymphadenopathy. ABDOMINAL WALL: Stranding at the right lower abdominal wall. SMALL BOWEL/COLON: Small bowel has normal course and caliber. No colonic wall thickening or pericolon ic inflammatory changes. Mild diverticulosis without diverticulitis. URINARY BLADDER: Underdistended but grossly unremarkable. REPRODUCTIVE ORGANS: No pathologic process. MUSCULOSKELETAL: Comminuted right intertrochanteric hip fracture. Remote right obturator ring fractur e. Right medial clavicle fracture appears acute and has a proximally one half shaft width of maximal displacement. Deformity at the right proximal humerus with possible nondisplaced greater tube rosity fracture. Remote appearing compression fractures in the thoracic and lumbar spine. This includes at T12, L1, and L3. Limited by osteopenia. Intramedullary pablo and cephalomedullary screw in the left hip. Remote appearing bilateral rib fractures. ADDITIONAL FINDINGS: None. IMPRESSION: 1. Comminuted right intertrochanteric hip fracture. Mildly comminuted right medial clavicle fracture. Question acute nondisplaced fracture at the greater tuberosity the right shoulder. 2. Evaluation for spinal fractures limited due to osteopenia. There are several compression fractures identified that are favored chronic. If there is strong clinical concern for an acute thoracic or lumbar fracture, MRI could better establish acuity. 3. Chronic appearing right subcapsular fluid collection measuring approximately 9 mm in maximal thick ness.
[2024-04-09] MEDS ORDERED: ONDANSETRON 4 MG/2 ML VIAL ONE (15:35)
[2024-04-09] MEDS ORDERED: HYDROMORPHONE HCL 1 MG/ML INJ ONE (15:36)
--- NOTE | 2024-04-09 15:47 | RAD REPORT ---
EXAM: Knee Right 3 View INDICATION: fall COMPARISON: None FINDINGS: No acute fracture. Right knee arthroplasty which is intact. No significant knee effusion. No significant focal degenerative changes. Other: n/a IMPRESSION: No evidence of acute osseous abnormality involving the imaged knee.
--- NOTE | 2024-04-09 15:49 | RAD REPORT ---
EXAMINATION: Hip Right 2 View CLINICAL INDICATION: Female, 83 years old. fall COMPARISON: No prior exam. FINDINGS: Displaced right intertrochanteric hip fracture which is mildly comminuted. Remote right pubic rami fr actures. No dislocation. Moderate right acetabular degenerative changes. Other: Peripheral vascular calcifications. IMPRESSION: Displaced right intertrochanteric hip fracture.
--- NOTE | 2024-04-09 16:05 | ER ---
Nurse's Notes [facility] Name: Mahnaz Osborne Age: 83 yrs Sex: Female : 1940 Arrival Date: 04/09/2024 Time: 14:17 Bed 8 Private MD: Diagnosis: Mechanical fall, right hip fracture, right humerus tuberosity fracture, right clavicular fracture Presentation: 04/09 14:27 Chief complaint: EMS states: R knee pain and R shoulder pain after tripping and falling ss through door frame just prior to arrival. Coronavirus screen: Client denies travel out of the [place] in the last 14 days. Ebola Screen: Patient denies exposure to infectious person. Patient denies travel to an Ebola-affected area in the 21 days before illness onset. Initial Sepsis Screen: Does the patient meet any 2 criteria? No. Patient's initial sepsis screen is negative. Does the patient have a suspected source of infection? No. Patient's initial sepsis screen is negative. Risk Assessment: Do you want to hurt yourself or someone else? Patient reports no desire to harm self or others. Onset of symptoms was April 09, 2024. 14:27 Method Of Arrival: EMS: [facility] ss 14:27 Acuity: REENA 3 ss Historical: - Allergies: 14:29 No Known Allergies; ss - PMHx: 14:29 Arthritis; High Cholesterol; Hypertension; Osteoporosis; ss 14:29 CVA; ss - PSHx: 14:29 Jean Marie Knee replacement; Cholecystectomy; Left hip replacement; ss - Immunization history:: Adult Immunizations unknown. - Infectious Disease History:: Denies. - Social history:: Smoking status: Patient denies any tobacco usage or history of. Screenin:47 [facility] ED Fall Risk Assessment (Adult) History of falling in the last 3 months, cm10 including since admission Confusion or Disorientation No (0 pts) Intoxicated or Sedated No (0 pts) Impaired Gait Yes (1 pt) Mobility Assist Device Used Yes (1 pt) Altered Elimination No (0 pt) Score/Fall Risk Level 3 or more points = High Risk Oriented to surroundings, Maintained a safe environment, Hourly rounding (assess needs \T\ fall precautionary measures) done. Abuse screen: Denies threats or abuse. Denies injuries from another. Nutritional screening: No deficits noted. Tuberculosis screening: No symptoms or risk factors identified. Assessment: 15:45 General: Appears in no apparent distress. uncomfortable, Behavior is calm, cooperative, cm10 appropriate for age. Pain: Complains of pain in right arm and right leg Pain does not radiate. Pain currently is 8 out of 10 on a pain scale. Neuro: No deficits noted. Level of Consciousness is awake, alert, obeys commands, Oriented to person, place, time, situation, Appropriate for age. Respiratory: No deficits noted. Airway is patent Respiratory effort is even, unlabored, Respiratory pattern is regular, symmetrical. Musculoskeletal: No deficits noted. Reports pain in right arm and right leg. 17:48 Reassessment: Patient appears in no apparent distress at this time. Patient and/or cm10 family updated on plan of care and expected duration. Pain level reassessed. Patient is alert, oriented x 3, equal unlabored respirations, skin warm/dry/pink. 19:38 Reassessment: Patient appears in no apparent distress at this time. Patient and/or jb4 family updated on plan of care and expected duration. Pain level reassessed. Patient is alert, oriented x 3, equal unlabored respirations, skin warm/dry/pink. Pt changed and cleaned, transferred to upstairs. Vital Signs: 14:27 BP 167 / 56; Pulse 76; Resp 16; Temp 97.6(TE); Pulse Ox 99% on R/A; Weight 79.38 kg; ss Height 5 ft. 2 in. ; Pain 5/10; 15:00 BP 178 / 64; Pulse 70; Resp 18; Pulse Ox 100% on R/A; cm10 15:30 BP 166 / 50; Pulse 6; Resp 17; Pulse Ox 100% on R/A; cm10 16:00 BP 155 / 52; Pulse 72; Resp 18; Pulse Ox 97% on R/A; cm10 16:30 BP 162 / 58; Pulse 74; Resp 15; Pulse Ox 98% on R/A; cm10 17:00 BP 163 / 59; Pulse 74; Resp 18; Pulse Ox 100% on R/A; cm10 17:30 BP 165 / 60; Pulse 75; Resp 17; Pulse Ox 99% on R/A; cm10 19:00 BP 160 / 69; Pulse 74; Resp 16; Pulse Ox 98% on R/A; jb4 14:27 Body Mass Index 32.01 (79.38 kg, 157.48 cm) ss 14:27 Pain Scale: Adult ss ED Course: 14:24 Patient arrived in ED. al6 14:29 Triage completed. ss 14:29 Loraine Gurera MD is Attending Physician. sp3 14:29 Arm band placed on right wrist. ss 15:09 Chest Abd Pelvis Wo Con In Process Unspecified. EDMS 15:09 Head C Spine Mpr Wo Con In Process Unspecified. EDMS 15:32 Hip Right 2 View In Process Unspecified. EDMS 15:32 Knee Right 3 View In Process Unspecified. EDMS 15:44 Patient has correct armband on for positive identification. Bed in low position. Call cm10 light in reach. Side rails up X2. Provided Education on: ER process and procedures.. Client placed on continuous cardiac and pulse oximetry monitoring. NIBP monitoring applied. panel monitor on. 15:45 Missed attempt(s): 18 gauge in left antecubital area. Bleeding controlled, band aid cm10 applied, catheter tip intact. 15:50 Initial lab(s) drawn, by me, sent to lab. EKG done, by ED staff, reviewed by Loraine Guerra MD. Inserted saline lock: 22 gauge in right forearm, using aseptic technique. Blood collected. Flushed with 10 mL NS. 16:04 Ren Rangel MD is Hospitalizing Provider. sp3 16:07 Cindy Thorne, LAN is Primary Nurse. cm10 16:30 Inserted saline lock: 22 gauge in left forearm, using aseptic technique. Flushed with cm10 10 mL NS. 17:59 Report faxed at 1750. Cheikh confirmed received at 1753. cm10 18:00 No provider procedures requiring assistance completed. Patient admitted, IV remains in cm10 place. Administered Medications: 15:45 Drug: HYDROmorphone IVP 1 mg IVP once Route: IVP; Site: right forearm; cm10 16:30 Follow up: Response: No adverse reaction cm10 15:45 Drug: Ondansetron IVP 4 mg IVP once; over 2 minutes Route: IVP; Site: right forearm; cm10 16:30 Follow up: Response: No adverse reaction cm10 Medication: 17:47 VIS not applicable for this client. cm10 Outcome: 16:05 Decision to Hospitalize by Provider. sp3 18:00 Admitted to Med/surg via stretcher, room 231, cm10 18:00 Condition: good 18:00 Instructed on the need for admit, 19:40 Patient left the ED. jb4 Signatures: Dispatcher [employer] EDMS Manjula Monzon, RN RN Matt Pang RN RN jb4 Loraine Guerra MD MD sp3 Cindy Thorne RN RN cm10 Marika Vila mt6
--- NOTE | 2024-04-09 16:05 | EDPHYS ---
Physician Documentation [facility] Name: Mahnaz Osborne Age: 83 yrs Sex: Female : 1940 Arrival Date: 04/09/2024 Time: 14:17 Bed 8 Private MD: ED Physician Loraine Guerra HPI: 04/09 15:17 This 83 yrs old Female presents to ER via EMS with complaints of Back Pain, sp3 Abdominal Pain. 15:17 83-year-old female with history of hypertension, prior CVA, hyperlipidemia, arthritis sp3 who walks with a walker presents with mechanical ground-level fall that occurred just prior to arrival and family found patient down. Patient has pain to the right hip and right knee as well as the right shoulder. Unknown head injury though patient denies. No chest pain shortness of breath, abdominal pain or headache reported. ROS otherwise negative.. Historical: - Allergies: 14:29 No Known Allergies; ss - PMHx: 14:29 Arthritis; High Cholesterol; Hypertension; Osteoporosis; ss 14:29 CVA; ss - PSHx: 14:29 Jean Marie Knee replacement; Cholecystectomy; Left hip replacement; ss - Immunization history:: Adult Immunizations unknown. - Infectious Disease History:: Denies. - Social history:: Smoking status: Patient denies any tobacco usage or history of. ROS: 15:18 Constitutional: Negative for fever, chills, and weight loss, Eyes: Negative for injury, sp3 pain, redness, and discharge, ENT: Negative for injury, pain, and discharge, Neck: Negative for injury, pain, and swelling, Cardiovascular: Negative for chest pain, palpitations, and edema, Respiratory: Negative for shortness of breath, cough, wheezing, and pleuritic chest pain, Abdomen/GI: Negative for abdominal pain, nausea, vomiting, diarrhea, and constipation, Skin: Negative for injury, rash, and discoloration, Neuro: Negative for headache, weakness, numbness, tingling, and seizure, Psych: Negative for depression, anxiety, suicide ideation, homicidal ideation, and hallucinations, Allergy/Immunology: Negative for hives, rash, and allergies, Endocrine: Negative for neck swelling, polydipsia, polyuria, polyphagia, and marked weight changes, 15:18 All other systems are negative, Exam: 15:19 Constitutional: This is a well developed, well nourished patient who is awake, alert, sp3 and in no acute distress. Head/Face: Normocephalic, atraumatic. Eyes: Pupils equal round and reactive to light, extra-ocular motions intact. Lids and lashes normal. Conjunctiva and sclera are non-icteric and not injected. Cornea within normal limits. Periorbital areas with no swelling, redness, or edema. Neck: Trachea midline, no thyromegaly or masses palpated, and no cervical lymphadenopathy. Supple, full range of motion without nuchal rigidity, or vertebral point tenderness. No Meningismus. Chest/axilla: Normal chest wall appearance and motion. Nontender with no deformity. No lesions are appreciated. Cardiovascular: Regular rate and rhythm with a normal S1 and S2. No gallops, murmurs, or rubs. Normal PMI, no JVD. No pulse deficits. Respiratory: Lungs have equal breath sounds bilaterally, clear to auscultation and percussion. No rales, rhonchi or wheezes noted. No increased work of breathing, no retractions or nasal flaring. Abdomen/GI: Soft, non-tender, with normal bowel sounds. No distension or tympany. No guarding or rebound. No evidence of tenderness throughout. Back: No spinal tenderness. No costovertebral tenderness. Full range of motion. Skin: Warm, dry with normal turgor. Normal color with no rashes, no lesions, and no evidence of cellulitis. Neuro: Awake and alert, GCS 15, oriented to person, place, time, and situation. Cranial nerves II-XII grossly intact. Motor strength 5/5 in all extremities. Sensory grossly intact. Cerebellar exam normal. Normal gait. Psych: Awake, alert, with orientation to person, place and time. Behavior, mood, and affect are within normal limits. 15:19 Musculoskeletal/extremity: Pain to right hip on palpation. Mildly shortened leg. Also pain to palpation in the right knee. Musculature of the right deltoid also tender.. Vital Signs: 14:27 BP 167 / 56; Pulse 76; Resp 16; Temp 97.6(TE); Pulse Ox 99% on R/A; Weight 79.38 kg; ss Height 5 ft. 2 in. ; Pain 5/10; 15:00 BP 178 / 64; Pulse 70; Resp 18; Pulse Ox 100% on R/A; cm10 15:30 BP 166 / 50; Pulse 6; Resp 17; Pulse Ox 100% on R/A; cm10 16:00 BP 155 / 52; Pulse 72; Resp 18; Pulse Ox 97% on R/A; cm10 16:30 BP 162 / 58; Pulse 74; Resp 15; Pulse Ox 98% on R/A; cm10 17:00 BP 163 / 59; Pulse 74; Resp 18; Pulse Ox 100% on R/A; cm10 17:30 BP 165 / 60; Pulse 75; Resp 17; Pulse Ox 99% on R/A; cm10 19:00 BP 160 / 69; Pulse 74; Resp 16; Pulse Ox 98% on R/A; jb4 14:27 Body Mass Index 32.01 (79.38 kg, 157.48 cm) ss 14:27 Pain Scale: Adult ss MDM: 14:29 Medical Screening Exam initiated sp3 15:19 Data reviewed: vital signs, nurses notes, lab test result(s), EKG, radiologic studies. sp3 ED course: . 15:32 ED course: 83-year-old female with mechanical fall with complaints as above. Will sp3 obtain full trauma workup including trauma gram and right knee x-ray. Initial waist presser film demonstrates right hip fracture. Will ensure no other injuries and admit patient with orthopedic consult.. 16:03 ED course: CT demonstrates right intertrochanteric comminuted fracture, right shoulder sp3 fracture of the tuberosity of the humerus, and comminuted clavicular fracture. I discussed all of these with Dr. Degroot will be seeing patient after clinic. Patient will be admitted to the hospital service for further management.. 04/09 15:02 Order name: CBC with Diff; Complete Time: 16:51 sp3 04/09 15:02 Order name: LFT's sp3 04/09 15:02 Order name: Magnesium sp3 04/09 15:02 Order name: NT PRO-BNP sp3 04/09 15:02 Order name: PT-INR; Complete Time: 16:51 sp3 04/09 15:02 Order name: Troponin HS sp3 04/09 16:53 Order name: Basic Metabolic Panel EDMS 04/09 17:46 Order name: CBC with Automated Diff EDMS 04/09 17:46 Order name: CBC with Automated Diff EDMS 04/09 17:47 Order name: Basic Metabolic Panel EDMS 04/09 17:47 Order name: Basic Metabolic Panel EDMS 04/09 17:47 Order name: Basic Metabolic Panel EDMS 04/09 17:47 Order name: Basic Metabolic Panel EDMS 04/09 17:47 Order name: Basic Metabolic Panel EDMS 04/09 17:47 Order name: Basic Metabolic Panel EDMS 04/09 17:47 Order name: Basic Metabolic Panel EDMS 04/09 17:47 Order name: Basic Metabolic Panel EDMS 04/09 14:53 Order name: CT Traumagram (Head C Spine CAP wo con) sp3 04/09 14:55 Order name: Chest Abd Pelvis Wo Con; Complete Time: 15:53 EDMS 04/09 14:55 Order name: Head C Spine Mpr Wo Con; Complete Time: 15:33 EDMS 04/09 15:03 Order name: Hip Right 2 View; Complete Time: 15:53 EDMS 04/09 15:03 Order name: Knee Right 3 View; Complete Time: 15:53 EDMS 04/09 14:41 Order name: EKG; Complete Time: 14:42 sp3 04/09 17:44 Order name: CONS Physician Consult EDMS 04/09 15:02 Order name: Cardiac monitoring; Complete Time: 16:07 sp3 04/09 15:02 Order name: EKG - Nurse/Tech; Complete Time: 16:08 sp3 04/09 15:02 Order name: IV Saline Lock; Complete Time: 16:08 sp3 04/09 15:02 Order name: Labs collected and sent; Complete Time: 16:08 sp3 04/09 15:02 Order name: O2 Per Protocol; Complete Time: 16:08 sp3 04/09 15:02 Order name: O2 Sat Monitoring; Complete Time: 16:08 sp3 Administered Medications: 15:45 Drug: HYDROmorphone IVP 1 mg IVP once Route: IVP; Site: right forearm; cm10 16:30 Follow up: Response: No adverse reaction cm10 15:45 Drug: Ondansetron IVP 4 mg IVP once; over 2 minutes Route: IVP; Site: right forearm; cm10 16:30 Follow up: Response: No adverse reaction cm10 Disposition Summary: 04/09/24 16:05 Hospitalization Ordered Notes: Hospitalization Status: Inpatient Admission sp3 Provider: Ren Rangel sp3 Location: Telemetry/MedSurg (Inpatient) sp3 Condition: Stable sp3 Problem: an acute exacerbation sp3 Symptoms: have worsened sp3 Bed/Room Type: Standard sp3 Room Assignment: 231(04/09/24 17:51) ja1 Diagnosis - Mechanical fall, right hip fracture, right humerus tuberosity fracture, right sp3 clavicular fracture Forms: - Medication Reconciliation Form sp3 - SBAR form sp3 - Leadership Thank You Letter sp3 Signatures: Dispatcher [employer] EDMS Manjula Monzon RN RN ss Von De Anda RN RN ja1 Loraine Guerra MD MD sp3 Cindy Thorne RN RN cm10 Corrections: (The following items were deleted from the chart) 14:51 14:41 Cardiac monitoring ordered. sp3 cm10 14:51 14:41 EKG - Nurse/Tech ordered. sp3 cm10 14:51 14:41 IV Saline Lock ordered. sp3 cm10 14:51 14:41 Labs collected and sent ordered. sp3 cm10 14:51 14:41 Oxygen Per Protocol ordered. sp3 cm10 14:51 14:41 O2 Sat Monitoring ordered. sp3 cm10 14:53 14:42 CBC+H.LAB.BRZ ordered. EDMS EDMS 14:53 14:42 PROTIME (+INR)+COAG.LAB.BRZ ordered. EDMS EDMS 14:53 14:42 LACTATE+C.LAB.BRZ ordered. EDMS EDMS 15:02 15:02 CBC+H.LAB.BRZ ordered. EDMS EDMS 15:02 15:02 HEPATIC FUNCTION+C.LAB.BRZ ordered. EDMS EDMS 15:02 15:02 MAGNESIUM+C.LAB.BRZ ordered. EDMS EDMS 15:02 15:02 PROBNP+C.LAB.BRZ ordered. EDMS EDMS 15:02 15:02 PROTIME (+INR)+COAG.LAB.BRZ ordered. EDMS EDMS 15:02 15:02 Troponin High Sensitivity+C.LAB.BRZ ordered. EDMS EDMS 15:03 14:42 BASIC METABOLIC PANEL+C.LAB.BRZ ordered. EDMS EDMS 15:03 14:42 HEPATIC FUNCTION+C.LAB.BRZ ordered. EDMS EDMS 15:03 14:42 MAGNESIUM+C.LAB.BRZ ordered. EDMS EDMS 15:03 14:42 PROBNP+C.LAB.BRZ ordered. EDMS EDMS 15:03 14:42 Troponin High Sensitivity+C.LAB.BRZ ordered. EDMS EDMS 15:03 14:42 LIPASE+C.LAB.BRZ ordered. EDMS EDMS 15:09 14:42 Abdomen Pelvis W Con+CT.RAD.BRZ ordered. EDMS EDMS 17:51 16:05 sp3 ja1
[2024-04-09 16:11] LABS: Absolute Lymphocytes (CBC) 0.2 K/uL (0.7-4.9); Absolute Monocytes 0.4 K/uL (0.1-1.3); Absolute Neutrophil 9.9 K/uL (1.8-8.0); Basophils % 0.1 % (0-1.3); Hematocrit 29.9 % (36.0-45.0); Hemoglobin 9.8 g/dL (12.0-15.0); Lymphocytes % 1.8 % (15.3-44.8); MCH 29.4 pg (27.0-35.0); MCHC 32.8 g/dL (32.0-36.0); MCV 89.6 fL (80-100); MPV 9.6 fL (7.6-11.3); Monocytes % 3.6 % (3.3-12.3); Neutrophils % 94.5 % (41.7-73.7); Platelets 251 thou/uL (152-406); RBC Red Blood Cell Count 3.33 M/uL (3.86-4.86); Red Cell Distribution Width 17.9 % (12.1-15.2)
[2024-04-09 16:23] LABS: PT Prothrombin Time 10.4 SECONDS (9.4-12.5); Protime INR 0.99
[2024-04-09 16:29] LABS: ALT/SGPT 15 U/L (13-56); AST/SGOT 11 U/L (15-37); Albumin/Globulin Ratio 0.9 (1.1-1.8); Alkaline Phosphatase 63 U/L (45-117); Bilirubin Total 0.3 mg/dL (0.2-1.0); Globulin 3.4 g/dL (2.3-3.5); Magnesium 1.8 mg/dL (1.6-2.4); NT PRO-BNP 6200 pg/mL (<450); Protein, Total 6.4 g/dL (6.4-8.2)
[2024-04-09 16:50] LABS: Bilirubin Direct < 0.2 mg/dL (0-0.2); Bilirubin Indirect, Calculated 0.1 mg/dL (0.2-0.8)
[2024-04-09] MEDS ORDERED: ACETAMINOPHEN 500 MG TAB PO PRN (17:42)
[2024-04-09] MEDS ORDERED: TRAMADOL HCL 50 MG TAB PO PRN (17:45)
[2024-04-09] MEDS ORDERED: HOME MED 1 EA UNK (Hydralazine Hcl [Hydralazine Hcl] 50 MG Tablet) PO SCH (21:00)
[2024-04-09] MEDS: MORPHINE 2 MG/ML SYR IV PRN (21:10)
[2024-04-09] MEDS: HYDRALAZINE HCL 25 MG TABLET PO SCH (21:11)
[2024-04-09] MEDS: BUMETANIDE 1 MG TABLET PO SCH (21:11)
[2024-04-09] MEDS: DOCUSATE NA 100 MG CAP PO SCH (21:11)
[2024-04-09] MEDS: ATORVASTATIN 20 MG TAB PO SCH (21:11)
[2024-04-09 22:49] LABS: Anion Gap 16.2 mEq/L (5.0-15.0); BUN Blood Urea Nitrogen 68 mg/dL (7-18); Bicarbonate 18 mEq/L (21-32); Glomerular Filtration Rate 22 ml/min (=/>90); Glucose Level 212 mg/dL (74-106); Potassium 5.2 mEq/L (3.5-5.1); Sodium Level 136 mEq/L (136-145)
[2024-04-10] MEDS: HEPARIN 5000 UNIT/ML 1 ML VIAL SQ SCH (00:13)
[2024-04-10 03:13] VITALS: BMI 32.0
[2024-04-10] MEDS: PANTOPRAZOLE 40MG TABLET PO SCH (07:30)
--- NOTE | 2024-04-10 07:39 | P.HP ---
Date of Service: 04/09/24 Certification for Inpatient Patient admitted to: Inpatient With expected LOS: >2 Midnights Patient will require the following post-hospital care: [facility] Practitioner: I am a practitioner with admitting privileges, knowledge of patient current condition, hospital course, and medical plan of care. Services: Services provided to patient in accordance with Admission requirements found in Title 42 Section 412.3 of the Code of Federal Regulations Patient History Date of Service: 04/09/24 Reason for admission: Fall History of Present Illness: 83-year-old female with history of CKD III, on monthly cyclophosphamide FOR ANCA vasculitis, rheumatoid arthritis, immune glomerulonephritis, hypertension, CVA, admitted for fall which occurred this am . Patient typically uses a walker and was walking to the front porch, when she fell. Could not get up so called son who then notified his , who eventually called EMS. EMS then came and brought patient to the emergency room. CT of chest/abdomen/pelvis showed evidence of right intertrochanteric hip fracture, right medial clavicle fracture, and right shoulder fracture. Patient received pain meds in the ER so currently minimal pain. Denies right hip pain but has minimal right shoulder pain. Son at bedside and he provided most of the history since patient is Croatian-speaking only Allergies No Known Allergies Allergy (Verified 02/24/24 09:09) Home Medications: Ferrous Sulfate [Iron] 325 mg PO DAILY #30 tablet 03/21/17 Metoprolol Tartrate [Lopressor*] 25 mg PO BID 6AM 6PM #60 tab 03/21/17 Pantoprazole [Protonix Tab*] 40 mg PO DAILY #30 tab 03/21/17 Furosemide [Lasix*] 40 mg PO DAILY 04/19/17 Alendronate Sodium 70 mg PO EVERY 7TH DAY 08/08/21 Amlodipine [Norvasc*] 5 mg PO DAILY 08/08/21 Cefdinir [Omnicef] 300 mg PO BID #14 capsule 08/08/21 Cyclobenzaprine [Flexeril*] 10 mg PO Q8H PRN 08/08/21 Docusate [Colace Cap] 100 mg PO BID #60 cap 08/08/21 Folic Acid 1 mg PO DAILY 08/08/21 Hydrocodone 7.5/APAP 325 [[place] 7.5/325 mg] 1 tab PO Q6H PRN #20 tab 08/08/21 Methotrexate [Methotrexate*] 20 mg PO EVERY 7TH DAY 08/08/21 Tramadol HCl [Ultram] 50 mg PO BID PRN 08/08/21 predniSONE [Prednisone] 20 mg PO DAILY #5 tablet 08/08/21 Atorvastatin Calcium 20 mg PO DAILY 02/03/24 Hydralazine HCl 50 mg PO DAILY 02/03/24 Leflunomide 10 mg PO DAILY 02/03/24 Lisinopril [Zestril] 20 mg PO DAILY 02/03/24 Nebivolol HCl 10 mg PO DAILY 02/03/24 - Past Medical/Surgical History Diabetic: No -: Hypertension -: Coronary artery disease, Cardiology-Dr. Kirby -: Iron deficiency anemia -: Edema -: Osteoarthritis -: jorge knee replacement -: c- section -: left hip replacement -: Cholecystectomy -: Right elbow surgery Psychosocial/ Personal History: She is to 47 years, has 3 children, she does not work. - Social History Alcohol use: No CD- Drugs: No Caffeine use: Yes Review of Systems General: Unremarkable Eyes: Unremarkable Respiratory: Unremarkable Cardiovascular: Unremarkable Genitourinary: Unremarkable Musculoskeletal: Unremarkable Neurological: Weakness Physical Examination - Vital Signs Temperature: 97.6 F Blood Pressure: 167/56 Pulse: 76 Respirations: 16 Pulse Ox (%): 99 ( room air) - Physical Exam General: Alert, Oriented x3 HEENT: Atraumatic Neck: Supple Respiratory: Clear to auscultation bilaterally Cardiovascular: No edema Gastrointestinal: Normal bowel sounds Musculoskeletal: No erythema, No tenderness, Other (1 plus edema bilateral lower extremities. Right lower extremity slightly shortened. Right hip tender to palpation with flexion and extension) Neurological: Normal speech, Cranial nerves 3-12 intact Assessment and Plan - Plan 1. Right intertrochanteric femur fracture, right clavicular fracture, right shoulder fracture secondary to fall -Had a mechanical fall while walking to the front porch. Typically uses a walker for ambulation -CT of chest/abdomen/pelvis showed the above findings -Orthopedic surgeon, Dr. Degroot consulted 2. History of CKD III -BMP currently pending, however creatinine from 2 days ago was at 1.9 -Consulted his outpatient advance seal delivery system maintainer, Dr. Wesley 3. History of ANCA positive immune complete glomerulonephritis -On IV cyclophosphamide q. monthly 4. History of severe rheumatoid arthritis -Stable 5. History of essential hypertension, CVA and hyperlipidemia -Resume home meds Patient is full code - Advance Directives Does patient have a Living Will: No Does patient have a Durable POA for Healthcare: No
[2024-04-10 07:50] LABS: Anion Gap 11.3 mEq/L (5.0-15.0); Potassium 5.3 mEq/L (3.5-5.1)
[2024-04-10] MEDS: predniSONE 20 MG TAB PO SCH (09:00)
[2024-04-10] MEDS ORDERED: NEBIVOLOL HCL 10 MG PO SCH (09:00)
[2024-04-10] MEDS: Ringers Lactate 1,000 ML IV ONE (11:15)
[2024-04-10] MEDS ORDERED: LIDOCAINE 2% MPF 5 ML VIAL ONE (11:21)
[2024-04-10] MEDS ORDERED: propofoL 200 MG/20 ML VIAL IV ONE (11:21)
[2024-04-10] MEDS ORDERED: FENTANYL CITR 100 MCG/2 ML ONE ×3 (11:21→12:34)
[2024-04-10] MEDS ORDERED: ONDANSETRON 4 MG/2 ML VIAL ONE (11:26)
[2024-04-10] MEDS: TRANEXAMIC ACID 1,000 MG/10 ML VIAL IV ONE (12:19)
[2024-04-10] MEDS ORDERED: Mastisol Adhesive Liq ONE (12:19)
[2024-04-10] MEDS ORDERED: EPHEDRINE SULF 50 MG/ML VIAL ONE (12:29)
[2024-04-10] MEDS: CEFAZOLIN SODIUM 2 GM/VIAL ONE (12:29)
[2024-04-10] MEDS ORDERED: ONDANSETRON 4 MG/2 ML VIAL IV PRN (13:47)
[2024-04-10] MEDS ORDERED: NACHLORIDE 0.45% 1,000 ML IV SCH (14:00)
--- NOTE | 2024-04-10 14:28 | RAD REPORT ---
EXAMINATION: Pelvis CLINICAL INDICATION: Female, 83 years old. S/P R HIP IM FEM CHRISTINA/NAIL COMPARISON: Yesterday FINDINGS: Status post right hip ORIF with intramedullary christina and subtle medullary screw. No evidence of immedia te hardware complications. Partially imaged left hip hardware. Remote right obturator ring fracture. IMPRESSION: Status post right hip ORIF with intact hardware. No new acute fractures.
--- NOTE | 2024-04-10 14:52 | P.PN ---
Subjective Date of Service: 04/10/24 Chief Complaint: Fall with right hip and shoulder pain Subjective: No new changes Review of Systems 10-point ROS is otherwise unremarkable Physical Examination - Vital Signs Temperature: 98.2 F Blood Pressure: 160/66 Pulse: 67 Respirations: 16 Pulse Ox (%): 96 - Physical Exam General: Alert, Oriented x3 HEENT: Atraumatic Respiratory: Clear to auscultation bilaterally Cardiovascular: No edema, Regular rate/rhythm Gastrointestinal: Normal bowel sounds Musculoskeletal: No clubbing, No swelling, No erythema Neurological: Sensation intact - Studies Laboratory Data (last 24 hrs) 04/09/24 04/09/24 04/09/24 16:51 15:50 15:50 WBC Hgb Hct Plt Count PT 10.4 INR 0.99 Sodium Cancelled 136 Potassium Cancelled 5.2 H BUN Cancelled 68 H Creatinine Cancelled 2.21 H Glucose Cancelled 212 H Magnesium 1.8 Total Bilirubin 0.3 AST 11 L ALT 15 Alkaline Phosphatase 63 Lipase 04/09/24 04/09/24 04/09/24 15:50 14:41 14:41 WBC 10.40 Cancelled Hgb 9.8 L Cancelled Hct 29.9 L Cancelled Plt Count 251 Cancelled PT Cancelled INR Cancelled Sodium Potassium BUN Creatinine Glucose Magnesium Total Bilirubin AST ALT Alkaline Phosphatase Lipase 04/09/24 04/09/24 14:41 07:00 WBC Hgb Hct Plt Count PT INR Sodium Cancelled Cancelled Potassium Cancelled Cancelled BUN Cancelled Cancelled Creatinine Cancelled Cancelled Glucose Cancelled Cancelled Magnesium Cancelled Total Bilirubin Cancelled AST Cancelled ALT Cancelled Alkaline Phosphatase Cancelled Lipase Cancelled Assessment And Plan - Plan 1. Right intertrochanteric femur fracture, right clavicular fracture, right shoulder fracture secondary to fall -Had a mechanical fall while walking to the front [facility]. Typically uses a walker for ambulation -CT of chest/abdomen/pelvis showed the above findings -Orthopedic surgeon, Dr. Degroot consulted : Right hip surgery scheduled on 04/10/2024 2. History of CKD III -Baseline creatinine of 1.9 -Creatinine currently at 2.07 -Consulted his outpatient campus police officer, Dr. Wesley 3. History of ANCA positive immune complete glomerulonephritis -On IV cyclophosphamide q. monthly 4. History of severe rheumatoid arthritis -Stable 5. History of essential hypertension, CVA and hyperlipidemia -Resume home meds 6. Disposition: Pending PT/OT eval postsurgery to determine disposition
[2024-04-10] MEDS: NEBIVOLOL HCL 5 MG TAB PO SCH (15:33)
[2024-04-10] MEDS: AMLODIPINE 5 MG TAB PO SCH (15:33)
[2024-04-10] MEDS: DOCUSATE NA 100 MG CAP PO SCH (15:34)
[2024-04-10] MEDS: lisinopriL 20 MG TAB PO SCH (15:34)
[2024-04-10] MEDS: FERROUS SULFATE 325 MG TAB PO SCH (15:34)
--- NOTE | 2024-04-10 15:44 | RAD REPORT ---
EXAM: Fluoroscopy use, Hip in OR Right 2 View HISTORY: IM RODDING OF RT HIP RIGHT COMPARISON: None FINDINGS: Multiple images were sent to PACS, during a fluoroscopically guided procedure. No radiologi st was involved in protocoling or performance of the study, and no radiologist was present for the duration of the procedure. No interpretation of the saved images will be provided. Total fluoroscopy time: 2.2 minuets. IMPRESSION: Documentation of fluoroscopy use as above. Transcribed Date/Time: 04/10/2024 3:44 PM
[2024-04-10 16:13] LABS: Absolute Lymphocytes (CBC) 0.4 K/uL (0.7-4.9); Absolute Monocytes 1.4 K/uL (0.1-1.3); Absolute Neutrophil 15.7 K/uL (1.8-8.0); Basophils % 0.2 % (0-1.3); Eosinophils % 0.1 % (0-4.4); Hematocrit 25.8 % (36.0-45.0); Hemoglobin 8.3 g/dL (12.0-15.0); Lymphocytes % 2.3 % (15.3-44.8); MCH 28.5 pg (27.0-35.0); MCHC 32.1 g/dL (32.0-36.0); MCV 88.7 fL (80-100); MPV 9.3 fL (7.6-11.3); Monocytes % 7.8 % (3.3-12.3); Neutrophils % 89.6 % (41.7-73.7); Platelets 216 thou/uL (152-406); RBC Red Blood Cell Count 2.91 M/uL (3.86-4.86); Red Cell Distribution Width 18.2 % (12.1-15.2)
[2024-04-10 16:23] LABS: Anion Gap 12.3 mEq/L (5.0-15.0); Potassium 5.3 mEq/L (3.5-5.1)
[2024-04-10] MEDS: CEFAZOLIN 1 GM in NA CHLORIDE 0.9% 50 ML IVPB SCH (17:54)
[2024-04-10] MEDS: HYDROCODONE/APAP 5/325 MG TAB PO PRN (17:54)
[2024-04-10] MEDS: SODIUM ZIRCONIUM CYCLOSILICATE 10 GM/PKT PO ONE (18:48)
--- NOTE | 2024-04-10 18:53 | CON ---
Reason For Consultation: Right IT hip fracture. History Of Present Illness: Ms. Osborne is an infirm 85-year-old [place] lady, who sustained m ultiple previous fractures in both upper extremities, left hip, and elbow. She sustained a 4-part ri ght IT hip fracture. We were consulted for management of this. After medical clearance, she will be taken to the operative suite for intramedullary rodding. Followup will be in the operative suite. RACHEL Voice ID: [id number] Report ID: [id number]
--- NOTE | 2024-04-10 22:49 | P.CNS ---
Date of Consult: 04/10/24 Reason for Consult: JEB/ CKD Requesting Physician: Darrius Green Chief Complaint: Fall with right hip and shoulder pain History of Present Illness: 83-year-old female with history of CKD III, on monthly cyclophosphamide FOR ANCA vasculitis, rheumatoid arthritis, immune glomerulonephritis, hypertension, CVA, admitted for fall which occurred this am . Patient typically uses a walker and was walking to the front porch, when she fell. Could not get up so called son who then notified his , who eventually called EMS. EMS then came and brought patient to the emergency room. CT of chest/abdomen/pelvis showed evidence of right intertrochanteric hip fracture, right medial clavicle fracture, and right shoulder fracture. Patient received pain meds in the ER so currently minimal pain. Denies right hip pain but has minimal right shoulder pain. Son at bedside and he provided most of the history since patient is Serbian-speaking only [id number] 15:17 This 83 yrs old Female presents to ER via EMS with complaints of Back Pain, sp3 Abdominal Pain. 15:17 83-year-old female with history of hypertension, prior CVA, hyperlipidemia, arthritis sp3 who walks with a walker presents with mechanical ground-level fall that occurred just prior to arrival and family found patient down. Patient has pain to the right hip and right knee as well as the right shoulder. Unknown head injury though patient denies. No chest pain shortness of breath, abdominal pain or headache reported. ROS otherwise negative.. Allergies No Known Allergies Allergy (Verified 02/24/24 09:09) Home medications list reviewed: Yes Home Medications: Ferrous Sulfate [Iron] 325 mg PO DAILY #30 tablet 03/21/17 Metoprolol Tartrate [Lopressor*] 25 mg PO BID 6AM 6PM #60 tab 03/21/17 Pantoprazole [Protonix Tab*] 40 mg PO DAILY #30 tab 03/21/17 Furosemide [Lasix*] 40 mg PO BID 04/19/17 Alendronate Sodium 70 mg PO EVERY 7TH DAY 08/08/21 Amlodipine [Norvasc*] 5 mg PO DAILY 08/08/21 Cefdinir [Omnicef] 300 mg PO BID #14 capsule 08/08/21 Cyclobenzaprine [Flexeril*] 10 mg PO Q8H PRN 08/08/21 Docusate [Colace Cap*] 100 mg PO BID #60 cap 08/08/21 Folic Acid 1 mg PO DAILY 08/08/21 Hydrocodone 7.5/APAP 325 [[place] 7.5/325 mg*] 1 tab PO Q6H PRN #20 tab 08/08/21 Methotrexate [Methotrexate*] 20 mg PO EVERY 7TH DAY 08/08/21 Tramadol HCl [Ultram] 50 mg PO BID PRN 08/08/21 predniSONE [Prednisone] 20 mg PO DAILY #5 tablet 08/08/21 Atorvastatin Calcium 20 mg PO DAILY 02/03/24 Hydralazine HCl 100 mg PO BID 02/03/24 Leflunomide 10 mg PO DAILY 02/03/24 Nebivolol HCl 10 mg PO DAILY 02/03/24 Avacopan [Tavneos] 30 mg PO BID 04/09/24 Bumetanide 1 mg PO DAILY 04/09/24 Calcium Carbonate/Vitamin D3 [Oscal 500 + Vit D 200 Iu Tab*] 1 tab PO BID tab 04/13/24 Docusate [Colace Cap*] 100 mg PO BID #30 cap 04/13/24 Hydrocodone 5/APAP 325 [[place] 5/325*] 1 tab PO Q6HP PRN #30 tab 04/13/24 Melatonin [Melatonin*] 3 mg PO BEDTIME PRN PRN #0 04/13/24 - Past Medical/Surgical History Diabetic: No -: Hypertension -: Coronary artery disease, Cardiology-Dr. Kirby -: Iron deficiency anemia -: Edema -: Osteoarthritis -: jorge knee replacement -: c- section -: left hip replacement -: Cholecystectomy -: Right elbow surgery Psychosocial/ Personal History: She is to 47 years, has 3 children, she does not work. - Social History Alcohol use: No CD- Drugs: No Caffeine use: Yes Review of Systems 10-point ROS is otherwise unremarkable General: Weakness Musculoskeletal: Leg Pain Physical Examination Temp Pulse Resp BP Pulse Ox 97.4 F 95 H 16 117/55 L 95 04/10/24 20:00 04/10/24 21:06 04/10/24 20:00 04/10/24 21:06 04/10/24 20:00 General: In no apparent distress, Oriented x3, Cooperative HEENT: Atraumatic Neck: Supple Respiratory: Clear to auscultation bilaterally Cardiovascular: No edema, Regular rate/rhythm Gastrointestinal: Soft and benign, Non-distended Musculoskeletal: No clubbing, No contractures Integumentary: No rashes, No cyanosis Neurological: Normal speech Laboratory Data (last 24 hrs) 04/09/24 04/09/24 16:51 15:50 Sodium Cancelled 136 Potassium Cancelled 5.2 H BUN Cancelled 68 H Creatinine Cancelled 2.21 H Glucose Cancelled 212 H Imagings Data: [id number] EXAM: CT CHEST, ABDOMEN AND PELVIS WITHOUT CONTRAST CLINICAL INDICATION: Female, 83 years old fall TECHNIQUE: CT chest, abdomen and pelvis was performed, without IV contrast, as per department protocol. Axial, sagittal and coronal reconstructions were obtained. One or more of the following dose reduction techniques were used: Automated exposure control, adjustment of the mA and/or kV according to the patient size, and/or iterative reconstruction. Unless otherwise specified, incidental findings do not require dedicated imaging follow-up. [id number]. COMPARISON: 08/07/2021 FINDINGS: The lack of intravenous contrast limits the sensitivity of this exam for evaluation of solid visceral organs, vascular structures, and retroperitoneum. Chest: LOWER NECK: 2.2 cm left thyroid nodule. Further evaluation with nonemergent thyroid ultrasound is recommended. LUNGS AND AIRWAYS: Airways are clear. No evidence of airspace or interstitial process.Motion artifact limits evaluation for pulmonary nodule detection. PLEURA: No pleural effusion. No pneumothorax. Hemidiaphragms are normally positioned. MEDIASTINUM AND LYMPH NODES: No mediastinal mass or fluid collection. Normal size mediastinal, hilar, and axillary lymph nodes. Moderate distal esophageal thickening which could reflect esophagitis. THORACIC AORTA: No thoracic aortic aneurysm. PULMONARY ARTERIES: Enlarged main pulmonary arteries could indicate pulmonary artery hypertension. HEART: Mild cardiomegaly. Multivessel coronary artery diseaseTrace pericardial effusion. Abdomen/Pelvis UPPER GI: No significant abnormality. LIVER: No significant focal abnormality. GALLBLADDER/BILE DUCTS: Cholecystectomy. No significant biliary ductal dilatation.? PANCREAS: No mass, ductal dilation, or laci-pancreatic fluid. SPLEEN: Unremarkable. ADRENALS: No adrenal masses. KIDNEYS AND URETERS: No hydronephrosis.Right subcapsular fluid collection measuring 9 mm which is low attenuation. Questionable embolization coils in the upper pole.Both kidneys are atrophic. ABDOMINAL AORTA AND OTHER VESSELS: Normal caliber aorta and IVC. PERITONEUM: No abnormal free fluid. No free air. LYMPH NODES: No pathologic lymphadenopathy. ABDOMINAL WALL: Stranding at the right lower abdominal wall. SMALL BOWEL/COLON: Small bowel has normal course and caliber. No colonic wall thickening or pericolonic inflammatory changes. Mild diverticulosis without diverticulitis. URINARY BLADDER: Underdistended but grossly unremarkable. REPRODUCTIVE ORGANS: No pathologic process. MUSCULOSKELETAL: Comminuted right intertrochanteric hip fracture. Remote right obturator ring fracture. Right medial clavicle fracture appears acute and has a proximally one half shaft width of maximal displacement. Deformity at the right proximal humerus with possible nondisplaced greater tuberosity fracture. Remote appearing compression fractures in the thoracic and lumbar spine. This includes at T12, L1, and L3. Limited by osteopenia. Intramedullary pablo and cephalomedullary screw in the left hip. Remote appearing bilateral rib fractures. ADDITIONAL FINDINGS: None. IMPRESSION: 1. Comminuted right intertrochanteric hip fracture. Mildly comminuted right medial clavicle fracture. Question acute nondisplaced fracture at the greater tuberosity the right shoulder. 2. Evaluation for spinal fractures limited due to osteopenia. There are several compression fractures identified that are favored chronic. If there is strong clinical concern for an acute thoracic or lumbar fracture, MRI could better establish acuity. 3. Chronic appearing right subcapsular fluid collection measuring approximately 9 mm in maximal thickness. [id number] EXAMINATION: CT HEAD WITHOUT CONTRAST CT CERVICAL SPINE WITHOUT CONTRAST CLINICAL INDICATION: Female, 83 years old. fall TECHNIQUE: Axial CT images from the skull base to the vertex without intravenous contrast. Axial CT images through the cervical spine were obtained without intravenous contrast. Sagittal and coronal reformatted images were created from the data set. Coronal and sagittal reformatted images were created from the data set. One or more of the following dose reduction techniques were used: Automated exposure control, adjustment of the mA and/or kV according to patient size, and/or iterative reconstruction. Unless otherwise specified, incidental findings do not require dedicated imaging follow-up. [id number]. COMPARISON: 08/07/2023 FINDINGS: Head: INTRACRANIAL: No acute intracranial hemorrhage. No hydrocephalus. No mass effect or midline shift. Mild chronic small vessel ischemic changes.Mild cerebral atrophy. Partially empty sella, typically normal variant. VASCULATURE: No visualized abnormalities in the arteries or dural venous sinuses. SCALP/SKULL: No significant soft tissue or osseous abnormalities. Mild right mastoid fluid. SINUSES: The right maxillary sinus is opacified with inspissated secretions. The wall of the right maxillary sinus is thickened consistent with chronic sinusitis. Cervical spine: ALIGNMENT: The cervical spine has normal alignment without scoliosis or spondylolisthesis. BONE: Vertebral body heights are maintained. No aggressive osseous lesions. Probable bone island in the left medial clavicle. Partially imaged right clavicle fracture. DEGENERATIVE CHANGES: Multilevel cervical spondylosis with some disc height loss and endplate spurring. SOFT TISSUE: No significant abnormalities in the soft tissue of the neck. The visualized lung apices are clear. IMPRESSION: No acute intracranial abnormality. No acute fracture or traumatic malalignment of the cervical spine. 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
[2024-04-11 08:18] LABS: Anion Gap 12.7 mEq/L (5.0-15.0); Potassium 4.7 mEq/L (3.5-5.1)
[2024-04-11] MEDS ORDERED: SODIUM ZIRCONIUM CYCLOSILICATE 10 GM/PKT PO SCH (09:00)
[2024-04-11] MEDS: EPOETIN ALFA-EPBX 10,000 UNIT/ML VIAL SQ ONE (09:47)
[2024-04-11] MEDS: ENOXAPARIN 30 MG/0.3 ML SQ SCH (09:48)
[2024-04-11] MEDS: DRISDOL (VITAMIN D=ERGOCALCIFEROL) 50000 UNIT CAP PO SCH (09:48)
--- NOTE | 2024-04-11 12:05 | PN ---
Subjective: The patient is alert, awake, able to answer some questions, but does not seem to have go od memory. Her son is in the room and helping with the history as well. Patient was seen yesterday by Dr. Gotti on initial consultation. She has a history of chronic kidney disease with ANCA vascul itis and has been treated for that. Follows with director of dance, Dr. Horta outpatient. The patient wi ll keep appointment going forward once discharged from here. The patient had a fall and broke her ri ght hip, has been operated on, and this has been corrected. She has also got an injury to her right shoulder. The patient is currently getting evaluated for physical therapy. Medial clavicle fracture and right shoulder fracture is being conservatively treated currently. Physical Therapy was in the room when I examined the patient and I was at the bedside. The patient looks comfortable currently. Does seem to have some appropriate level of pain. Objective: Vital Signs: Blood pressure is reasonable, but was stable 136/68 last blood pressure, pu lse is about 70 and regular, respirations around 14 and comfortable, O2 sats about 97% on room air. Lungs: Clear to auscultation. Abdomen: Soft. Extremities: Revealed trace edema bilaterally. Laboratory Data: Lab data show WBC count with a slight increase to 17.5, hemoglobin at 8.3, hematocr it at 25.8, platelet count of 216. Chemistry shows sodium 135, potassium has improved to 4.7, chlori de is 104, bicarb is 23, BUN is 58, creatinine is 2.12. Assessment/plan: 1.The patient with chronic kidney disease, currently stabilizing, had an elevated potassium, got dos e of Lokelma. Potassium is currently stabilized. Continue to monitor. Dose of 10 g of Lokelma if p otassium goes above 5, but at this point, her potassium is on 4. Agree with holding off on Lokelma. 2.Right intertrochanteric femur fracture, has been addressed by Dr. Degroot, surgery done. The pat ient is being evaluated by Physical Therapy. 3.History of ANCA positive vasculitis with chronic kidney disease. The patient has been on cyclopho sphamide. Will need to follow up with director of dance as soon as she gets discharge for evaluation of r esidual renal function post this episode of acute kidney injury and surgeries. 4.Anemia. Currently hemoglobin seems reasonable in 8 range. No evidence of bleeding. Continue to monitor. ADORE support as needed. If hemoglobin drops below 7, may need transfusion. 5.Hypertension, currently stable. Continue to monitor. Continue physical therapy, fall precautions . Has supportive family. Son is in the room with her right now. I advised the patient and son to jorge gray sure to follow up with the director of dance after discharge. /DANN Voice ID: [id number] Report ID: [id number]
[2024-04-11 16:36] LABS: Absolute Lymphocytes (CBC) 0.3 K/uL (0.7-4.9); Absolute Monocytes 0.4 K/uL (0.1-1.3); Absolute Neutrophil 10.4 K/uL (1.8-8.0); Basophils % 0.1 % (0-1.3); Hematocrit 23.3 % (36.0-45.0); Hemoglobin 7.5 g/dL (12.0-15.0); Lymphocytes % 2.5 % (15.3-44.8); MCH 28.5 pg (27.0-35.0); MCHC 32.1 g/dL (32.0-36.0); MCV 88.8 fL (80-100); MPV 8.9 fL (7.6-11.3); Monocytes % 3.2 % (3.3-12.3); Neutrophils % 94.2 % (41.7-73.7); Platelets 207 thou/uL (152-406); RBC Red Blood Cell Count 2.63 M/uL (3.86-4.86)
[2024-04-11 16:49] LABS: Anion Gap 14.1 mEq/L (5.0-15.0); Magnesium 1.9 mg/dL (1.6-2.4); Potassium 5.1 mEq/L (3.5-5.1)
--- NOTE | 2024-04-11 17:58 | P.PN ---
Subjective Date of Service: 04/11/24 Chief Complaint: Fall with right hip and shoulder pain No complaints. Son at bedside Review of Systems 10-point ROS is otherwise unremarkable Physical Examination - Vital Signs Temperature: 98.1 F Blood Pressure: 143/70 Pulse: 75 Respirations: 16 Pulse Ox (%): 95 Assessment And Plan - Plan 1. Right intertrochanteric femur fracture, right clavicular fracture, right shoulder fracture secondary to fall -Had a mechanical fall while walking to the front porch. Typically uses a walker for ambulation -Status post right hip intramedullary pablo fixation on 04/10/2024 -PT/OT eval postsurgery 2. History of CKD III -Baseline creatinine of 1.9 -Creatinine currently at 2.1 -Consulted his outpatient benefit director, Dr. Wesley 3. History of ANCA positive immune complete glomerulonephritis -On IV cyclophosphamide q. monthly 4. Acute hyperkalemia -On bid Lokelma dosing x 3 days 5. History of severe rheumatoid arthritis -Stable 6. History of essential hypertension, CVA and hyperlipidemia -Resume home meds 7. DVT prophylaxis -Subcu Lovenox 8. Disposition: Pending PT/OT eval to determine disposition
[2024-04-12 05:00] LABS: Absolute Eosinophils 0.1 K/uL (0-0.5); Absolute Lymphocytes (CBC) 0.5 K/uL (0.7-4.9); Absolute Monocytes 1.4 K/uL (0.1-1.3); Absolute Neutrophil 8.7 K/uL (1.8-8.0); Basophils % 0.2 % (0-1.3); Eosinophils % 0.7 % (0-4.4); Hematocrit 23.1 % (36.0-45.0); Hemoglobin 7.5 g/dL (12.0-15.0); Lymphocytes % 5.1 % (15.3-44.8); MCHC 32.6 g/dL (32.0-36.0); MCV 88.8 fL (80-100); Monocytes % 12.7 % (3.3-12.3); Neutrophils % 81.3 % (41.7-73.7); Platelets 222 thou/uL (152-406); Red Cell Distribution Width 17.9 % (12.1-15.2)
[2024-04-12 05:05] LABS: Anion Gap 12.6 mEq/L (5.0-15.0); Magnesium 1.9 mg/dL (1.6-2.4); Potassium 4.6 mEq/L (3.5-5.1)
[2024-04-12 06:11] LABS: Blood Morphology Comment NOT SEEN (NOT SEEN); Platelet Estimate ADEQ; White Blood Cell Scan OK (OK)
--- NOTE | 2024-04-12 10:30 | P.PN ---
Subjective Date of Service: 04/12/24 Chief Complaint: Fall with right hip and shoulder pain No complaints. Son at bedside Physical Examination - Vital Signs Temperature: 98.0 F Blood Pressure: 146/63 Pulse: 69 Respirations: 20 Pulse Ox (%): 97 Assessment And Plan - Plan 1. Right intertrochanteric femur fracture, right clavicular fracture, right shoulder fracture secondary to fall -Had a mechanical fall while walking to the front porch. Typically uses a walker for ambulation -Status post right hip intramedullary pablo fixation on 04/10/2024 -PT/OT eval postsurgery 2. History of CKD III -Baseline creatinine of 1.9 -Creatinine currently at 2.1 -Consulted his outpatient administrative supervisor, Dr. Wesley 3. History of ANCA positive immune complete glomerulonephritis -On IV cyclophosphamide q. monthly 4. Acute hyperkalemia -resolved with Lokelma 5. History of severe rheumatoid arthritis -Stable 6. History of essential hypertension, CVA and hyperlipidemia -Resume home meds 7. DVT prophylaxis -Subcu Lovenox 8. Disposition: Pending PT/OT eval to determine disposition
[2024-04-12] MEDS: MELATONIN 3 MG TABLET PO PRN (21:37)
[2024-04-13 05:19] LABS: Absolute Eosinophils 0.1 K/uL (0-0.5); Absolute Lymphocytes (CBC) 0.6 K/uL (0.7-4.9); Absolute Monocytes 1.2 K/uL (0.1-1.3); Absolute Neutrophil 9.3 K/uL (1.8-8.0); Basophils % 0.1 % (0-1.3); Eosinophils % 1.1 % (0-4.4); Hematocrit 22.9 % (36.0-45.0); Hemoglobin 7.5 g/dL (12.0-15.0); Lymphocytes % 5.3 % (15.3-44.8); MCH 29.2 pg (27.0-35.0); MCHC 32.8 g/dL (32.0-36.0); MCV 88.8 fL (80-100); MPV 8.8 fL (7.6-11.3); Monocytes % 10.7 % (3.3-12.3); Nucleated Red Blood Cells % 0.1 % (0-0); Platelets 253 thou/uL (152-406); RBC Red Blood Cell Count 2.57 M/uL (3.86-4.86); Red Cell Distribution Width 17.4 % (12.1-15.2)
[2024-04-13 05:24] LABS: Neutrophils % 82.8 % (41.7-73.7)
[2024-04-13 05:36] LABS: Anion Gap 10.7 mEq/L (5.0-15.0); Magnesium 2.1 mg/dL (1.6-2.4); Potassium 4.7 mEq/L (3.5-5.1)
[2024-04-13] MEDS ORDERED: HEPA 1000U/500MLS 0 UNIT/0 ML BAG IV ONE (06:47)
--- NOTE | 2024-04-13 06:56 | OP ---
Surgeon: Pradip Degroot MD Preoperative Diagnosis: Right 4-part intertrochanteric hip fracture. Postoperative Diagnosis: Right 4-part intertrochanteric hip fracture. Procedure Performed: Right intertrochanteric hip fracture repair. Tooling Specialist: None. Anesthesia: General. Disposition: Recovery room stable. Estimated Blood Loss: Minimal. Procedure In Detail: The patient was taken to operative suite, placed in supine position, induced wi th anesthesia. Patient is morbidly obese. Fat tapped out of the way. Initial portal created at the tip of the greater trochanter. Hemostasis verified. Single stage reaming after passage of a guidew stephen was performed. An 11 x 130 nail was then placed. A 95 lag screw placed in the subchondral bone of the femoral head, verified on biplane radiography. A 32 distal interlocking screw was then placed . The patient tolerated procedure well, was reversed from anesthesia, and taken to recovery room in stable condition after layered closure. MOOK/DANN Voice ID: [id number] Report ID: [id number]
[2024-04-13] MEDS: PNEUMOCOCCAL VACCINE 0.5 ML IMVAC ONE (08:00)
[2024-04-13 11:06] VITALS: O2SAT 91
--- NOTE | 2024-04-13 16:39 | P.PN ---
Nephrology note (S) Delayed entry note, pt seen earlier this AM in stable condition, no acute Rt hip pain, no CP or dyspnea, no abd pain or N/V (O) vitals reviewed in the EMR PE: Pt seen in NAD, non tachypnec, not needing o2, b/l air entry without rhonchi, RRR mostly, no cardiac gallop heart sounds appreciated. Abd soft, ND, NT Chronic LE edema improved, shins non tender. LE ROM not tested. No rashes noted. Pt awake, alert, conversive. 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 Will look to potentially resume OP Cytoxan doses post discharge barring no other complications, such although dosing may be delayed during period in rehab, etc HTN with CKD -Currently BP not as accelerated, will suspend CCB, will lower Hydralazine dose, avoid relative hypotension Chronic diastolic CHF -LE edema improved, compensated, lower maintenance diuretic dose, monitor for pre renal signs
--- NOTE | 2024-04-13 16:50 | P.DS ---
Admission Date: 04/09/24 Discharge Date: 04/13/24 Disposition: TRANSFER TO [facility] Discharge Condition: GOOD Reason for Admission: Fall with right hip and shoulder pain Brief History of Present Illness: 83-year-old female with history of CKD III, on monthly cyclophosphamide FOR ANCA vasculitis, rheumatoid arthritis, immune glomerulonephritis, hypertension, CVA, admitted for fall which occurred this am . Patient typically uses a walker and was walking to the front porch, when she fell. Could not get up so called son who then notified his , who eventually called EMS. EMS then came and brought patient to the emergency room. CT of chest/abdomen/pelvis showed evidence of right intertrochanteric hip fracture, right medial clavicle fracture, and right shoulder fracture. She was admitted with right hip fracture. For Ortho to consult - Physical Exam General: Alert, Oriented x3 HEENT: Atraumatic Neck: Supple Respiratory: Clear to auscultation bilaterally Cardiovascular: No edema Gastrointestinal: Normal bowel sounds Musculoskeletal: Pain with range of motion, right clavicle fracture, bruising right shoulder fracture, other (RLE weakness) Neurological: Normal speech, Cranial nerves 3-12 intact Hospital Course: 83-year-old female with history of CKD III, on monthly cyclophosphamide FOR ANCA vasculitis, rheumatoid arthritis, immune glomerulonephritis, hypertension, CVA, admitted for fall which occurred this am . Patient typically uses a walker and was walking to the front porch, when she fell. Could not get up so called son who then notified his , who eventually called EMS. EMS then came and brought patient to the emergency room. CT of chest/abdomen/pelvis showed evidence of right intertrochanteric hip fracture, right medial clavicle fracture, and right shoulder fracture. She was treated with physical therapy while inpatient, plan to discharge to senior care facility continued PT OT, follow-up with orthopedic after discharge, call office for appoint Discharge medications hydrocodone, Colace for constipation Assessment right intertrochanteric femur fracture, status post :04/09 Right intertrochanteric ORIF hip fracture repair. right clavicular fracture, follow-up with orthopedic after discharge right shoulder fracture secondary to fall- -Had a mechanical fall while walking to the front porch. Typically uses a walker for ambulation -CT of chest/abdomen/pelvis showed the above findings -Orthopedic surgeon, Dr. Degroot History of CKD II follow-up with nephrology after discharge -Consulted his outpatient monkey keeper, Dr. Wesley History of ANCA positive immune complete glomerulonephritis -On IV cyclophosphamide q. monthly History of severe rheumatoid arthritis -Stable History of essential hypertension, CVA and hyperlipidemia-Resume home meds Continue home medicines as previously prescribed GOAL: Clear understanding of disease process INSTRUCTIONS: Physician Discharge Instructions: -Follow-up with Dr. Degroot after discharge -Follow-up with nephrology after -Follow-up with PCP in 1 to 2 weeks -Please call Dr. Hendricks at [phone] if any questions regarding hospital stay -Please call nursing station at [phone] if any nursing or medication questions -Return to the emergency room if symptoms worsen Diet: ADA, low sodium Activity: Fall precautions Vital Signs/Physical Exam: Temp Pulse Resp BP Pulse Ox 97.5 F 78 16 139/73 98 04/13/24 12:00 04/13/24 12:00 04/13/24 12:59 04/13/24 12:00 04/13/24 12:59 Laboratory Data at Discharge: WBC 11.20 thou/uL (4.3-10.9) H 04/13/24 04:44 Hgb 7.5 g/dL (12.0-15.0) L 04/13/24 04:44 Hct 22.9 % (36.0-45.0) L 04/13/24 04:44 Plt Count 253 thou/uL (152-406) 04/13/24 04:44 PT 10.4 SECONDS (9.4-12.5) 04/09/24 15:50 INR 0.99 04/09/24 15:50 Sodium Cancelled 04/13/24 07:00 Potassium Cancelled 04/13/24 07:00 BUN Cancelled 04/13/24 07:00 Creatinine Cancelled 04/13/24 07:00 Glucose Cancelled 04/13/24 07:00 Magnesium 2.1 mg/dL (1.6-2.4) 04/13/24 04:44 Total Bilirubin 0.3 mg/dL (0.2-1.0) 04/09/24 15:50 AST 11 U/L (15-37) L 04/09/24 15:50 ALT 15 U/L (13-56) 04/09/24 15:50 Alkaline Phosphatase 63 U/L (45-117) 04/09/24 15:50 Lipase Cancelled 04/09/24 14:41 Home Medications: Ferrous Sulfate [Iron] 325 mg PO DAILY #30 tablet 03/21/17 Metoprolol Tartrate [Lopressor*] 25 mg PO BID 6AM 6PM #60 tab 03/21/17 Pantoprazole [Protonix Tab*] 40 mg PO DAILY #30 tab 03/21/17 Furosemide [Lasix*] 40 mg PO BID 04/19/17 Alendronate Sodium 70 mg PO EVERY 7TH DAY 08/08/21 Amlodipine [Norvasc*] 5 mg PO DAILY 08/08/21 Cefdinir [Omnicef] 300 mg PO BID #14 capsule 08/08/21 Cyclobenzaprine [Flexeril*] 10 mg PO Q8H PRN 08/08/21 Docusate [Colace Cap*] 100 mg PO BID #60 cap 08/08/21 Folic Acid 1 mg PO DAILY 08/08/21 Hydrocodone 7.5/APAP 325 [[place] 7.5/325 mg*] 1 tab PO Q6H PRN #20 tab 08/08/21 Methotrexate [Methotrexate*] 20 mg PO EVERY 7TH DAY 08/08/21 Tramadol HCl [Ultram] 50 mg PO BID PRN 08/08/21 predniSONE [Prednisone] 20 mg PO DAILY #5 tablet 08/08/21 Atorvastatin Calcium 20 mg PO DAILY 02/03/24 Hydralazine HCl 100 mg PO BID 02/03/24 Leflunomide 10 mg PO DAILY 02/03/24 Nebivolol HCl 10 mg PO DAILY 02/03/24 Avacopan [Tavneos] 30 mg PO BID 04/09/24 Bumetanide 1 mg PO DAILY 04/09/24 Calcium Carbonate/Vitamin D3 [Oscal 500 + Vit D 200 Iu Tab*] 1 tab PO BID tab 04/13/24 Docusate [Colace Cap*] 100 mg PO BID #30 cap 04/13/24 Hydrocodone 5/APAP 325 [[place] 5/325*] 1 tab PO Q6HP PRN #30 tab 04/13/24 Melatonin [Melatonin*] 3 mg PO BEDTIME PRN PRN #0 04/13/24 New Medications: Docusate [Colace Cap*] 100 mg PO BID #30 cap Hydrocodone 5/APAP 325 [[place] 5/325*] 1 tab PO Q6HP PRN #30 tab PRN Reason: Pain Scale 5-7 (Moderate) Physician Discharge Instructions: -DC IV and DC to nursing facility/[facility] -Follow-up with PCP in 1 to 2 weeks -Follow-up with orthopedics in 2 to 4 weeks -Follow-up with Cardiology in 1 to 2 weeks -Please call Dr. Hendricks at [phone] if any questions regarding hospital stay -Please call nursing station at [phone] if any nursing or medication questions -Return to the emergency room if symptoms worsen -Recommend physical therapy for evaluation 83-year-old female with history of CKD III, on monthly cyclophosphamide FOR ANCA vasculitis, rheumatoid arthritis, immune glomerulonephritis, hypertension, CVA, admitted for fall which occurred this am . Patient typically uses a walker and was walking to the front porch, when she fell. Could not get up so called son who then notified his , who eventually called EMS. EMS then came and brought patient to the emergency room. CT of chest/abdomen/pelvis showed evidence of right intertrochanteric hip fracture, right medial clavicle fr acture, and right shoulder fracture. Patient received pain meds in the ER so currently minimal pain. Denies right hip pain but has minimal right shoulder pain. Son at bedside and he provided most of the history since patient is [place] Citizen-speaking only Assessment right intertrochanteric femur fracture, status post :04/09 Right intertrochanteric hip fracture repair. right clavicular fracture, right shoulder fracture secondary to fall- -Had a mechanical fall while walking to the front porch. Typically uses a walker for ambulation -CT of chest/abdomen/pelvis showed the above findings -Orthopedic surgeon, Dr. Degroot History of CKD II follow-up with nephrology after discharge -Consulted his outpatient monkey keeper, Dr. Wesley History of ANCA positive immune complete glomerulonephritis -On IV cyclophosphamide q. monthly History of severe rheumatoid arthritis -Stable History of essential hypertension, CVA and hyperlipidemia -Resume home meds Continue home medicines as previously prescribed GOAL: Clear understanding of disease process Diet: AHA Activity: Fall precautions Followup: Pradip Degroot MD [ACTIVE - CAN ADMIT] - Han Guerra DO [Primary Care Provider] - Time spent managing pt's care (in minutes): 45
[2024-04-13 16:51] VITALS: BP 113/56; TEMP 97.7
[2024-04-13] MEDS ORDERED: HYDRALAZINE HCL 25 MG TABLET PO SCH (21:00)
[2024-04-13] MEDS ORDERED: CALCIUM CARB 500MG/VIT D 200 IU TAB PO SCH (21:00)
[2024-04-14] MEDS ORDERED: BUMETANIDE 1 MG TABLET PO SCH (09:00)
[2024-04-14] MEDS ORDERED: CALCITROL 0.25 MCG CAP PO SCH (09:00)
--- NOTE | 2024-04-16 13:18 | EKG ---
Test Date: 2024-04-09 Test Time: 16:00:45 [employer]: MOOK MEASUREMENT RESULTS: Intervals: Rate: 67 IA: 132 QRSD: 72 QT: 400 QTc: 422 [place]: P: 38 IA: 132 QRS: 11 T: 76 INTERPRETIVE STATEMENTS: Normal sinus rhythm Normal ECG Compared to ECG 08/07/2023 10:48:54 No significant changes Electronically Signed On 04-16-24 13:06:39 [employer] by J Luis Marinelli
== END 2024-04-13 18:29 | DRG 481 ==
LOC: ER 14:17 → ERHOLD 17:40 → 2ND 19:06
PROVIDERS: ADMIT Internal Medicine; ATTEND Hospitalist
PROC: 0QS634Z Reposition Right Upper Femur with Internal Fixation Device, Percutaneous Approach (ICD-10-PCS; principal; 2024-04-10 11:30)
DX: S72.141A Displaced intertrochanteric fracture of right femur, initial encounter for closed fracture (principal); I13.0 Hypertensive heart and chronic kidney disease with heart failure and stage 1 through stage 4 chronic kidney disease, or unspecified chronic kidney disease; S42.201A Unspecified fracture of upper end of right humerus, initial encounter for closed fracture; N17.9 Acute kidney failure, unspecified; N18.4 Chronic kidney disease, stage 4 (severe); I50.32 Chronic diastolic (congestive) heart failure; D63.1 Anemia in chronic kidney disease; S42.001A Fracture of unspecified part of right clavicle, initial encounter for closed fracture; M19.90 Unspecified osteoarthritis, unspecified site; M06.9 Rheumatoid arthritis, unspecified; E87.5 Hyperkalemia; K59.00 Constipation, unspecified; E78.00 Pure hypercholesterolemia, unspecified; I77.82 Antineutrophilic cytoplasmic antibody [ANCA] vasculitis; E66.01 Morbid (severe) obesity due to excess calories; M81.0 Age-related osteoporosis without current pathological fracture; I25.10 Atherosclerotic heart disease of native coronary artery without angina pectoris; Z68.32 Body mass index [BMI] 32.0-32.9, adult; Z79.52 Long term (current) use of systemic steroids; Z90.49 Acquired absence of other specified parts of digestive tract; Z86.73 Personal history of transient ischemic attack (TIA), and cerebral infarction without residual deficits; Z96.642 Presence of left artificial hip joint; Z79.899 Other long term (current) drug therapy; Z96.653 Presence of artificial knee joint, bilateral; W18.30XA Fall on same level, unspecified, initial encounter; Y93.9 Activity, unspecified; Y99.9 Unspecified external cause status; Y92.008 Other place in unspecified non-institutional (private) residence as the place of occurrence of the external cause
CPT/HCPCS: 36415; 70450; 71250; 72125; 72170; 74176; 80048; 80076; 82306; 82947; 83735; 83880; 84484; 85025; 85610; 93005; 96374; 96375; 97110; 97161; 97530; 99285; J0690; J1171; J1644; J1650; J2003; J2270; J2405; J2704; J3010; J7120; J7512; Q5106

== ENCOUNTER 2024-04-24 13:24 | Emergency (ER) | payer OTHER ==
--- OUTSIDE RECORDS SUMMARY | 2024-04-24 13:42 | XMS REPORT | Continuity of Care Document ---
Author Name Unknown Address [address] [facility] [address] [place] [address] [facility] Address [address] [facility] [address] [place] [address] Care Team Providers Care Blanket Maker Name Role Phone Rajan Guerra Primary Care Physician [phone] Rajan Guerra Attending Clinician Unavailable RAJAN GUERRA Attending Clinician Unavailable MALIK WEINBERG Attending Clinician UnavailMALIK Gerber Attending Clinician UnavailMYKEL Francois Attending Clinician Unavailable MYKEL SHAW Attending Clinician Unavailable Malik Weinberg MD Attending Clinician [phone] SUSAN BETHEA Attending Clinician Unavailable Susan Bethea MD Attending Clinician [phone], [facility] Attending Clinician Unavailable Alyssa Matt RN Attending Clinician Unavail able Jose Rivero MD Attending Clinician [phone] Luis Albrecht MD Attending Clinician [phone] Juan Martin MD Attending Clinician [phone] Little Galarza RN Attending Clinician Unavailable Montse Myers Attending Clinician Unavailable JUAN MARTIN Attending Clinician Unavailable JOSE RIVERO Attending Clinician Unavailable JOSE RIVERO Attending Clinician Unavailable AISHA MORALES Attending Clinician Unavailable AISHA MORALES Attending Clinician Unavailable RADIOLOGY Attending Clinician Unavailable Radiology Attending Clinician Unavailable Luis Albrecht MD Admitting Clinician LUIS ALBRECHT Admitting Clinician Unavailable AISHA MORALES Admitting Clinician Unavailable RAJAN GUERRA Admitting Clinician Unavailable Payers Payer Name Policy Type Policy Number Effective Date Expirati on Date Source MEDICARE LAUREANO LENZ [id number] 2007 00:00:00 [facility] Problems Condition Name Condition Details Condition Category Status Onset Date Resolution Date Last Treatment Date Treating Clinician Comments Source 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 Disease Active 2023-03 00:00: 00 [facility] [id number] Chronic pain syndrome Problem [facility] Depression Depression Problem Co mmon [facility] Gastritis Gastritis Problem Comm [facility] Essential hypertensi on Benign essential HTN Problem [facility] Mixed hyperlipid emia Hyperlipid emia, mixed Problem [facility] [id number] Body mass index (BMI) 31.0-31.9, adult Problem [facility] Gastro-eso phageal reflux disease without esophagiti s Gastro-eso phageal reflux disease without esophagiti s Problem [facility] [id number] Other obesity due to excess calories Problem [facility] Anemia of chronic disorder Anemia in chronic illness Problem [facility] Rheumatoid arthritis Rheumatoid arthritis Problem [facility] 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 Problem [facility] Cyst of left ovary Other ovarian cyst, left side Problem [facility] [id number] 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 Problem [facility] [id number] Opiate dependence , continuous Problem [facility] [id number] Moderate major depression , single episode Problem [facility] [id number] Coronary artery disease involving [place] coronary artery of [place] heart with angina pectoris Problem [facility] [id number] Stage 3a chronic kidney disease Problem [facility] 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 Problem [facility] Allergies, Adverse Reactions, Alerts Allergy Name Allergy Type Status Severity Reaction(s) Onset Date Inactive Date Treating Clinician Comments Source NO KNOWN ALLERGIE S Drug Class Active [facility] Social History Social Habit Start Date Stop Date Quantity Comments Source [facility] Use [facility] History of Social function 2024-01-14 00:00:00 2024-01-14 00:00:00 [facility] Tobacco use and exposure 2024-01-13 00:00:00 2024-01-13 00:00:00 Smokeless tobacco non-user [facility] Exposure to SARS-CoV-2 (event) 2022-01-19 00:00:00 2022-01-29 16:29:00 Not sure [facility] Sex assigned at 1940 00:00:00 1940 00:00:00 [facility] Smoking Status Start Date Stop Date Source Tobacco smoking consumption unknown [facility] Never smoked tobacco [facility] Medications Ordered Medication Name Filled Medication Name [...] 1 dose, On 01/18/24 at 0930, Routine [facility] calcium carbonate 500 mg calcium (1,250 mg) tablet 2023-03 00:00: 00 Yes [id number] 500mg Take 1 tablet by mouth 2 (two) times daily with meals. [facility] avacopan 10 mg capsule 2023-03 00:00: 00 02-17 05:59 :00 No [id number] 9105 30mg Take 3 capsules by mouth 2 (two) times daily with meals for 30 days. [facility] avacopan (TAVNEOS) capsule 30 mg 2023-03 17:00: 00 Yes 30mg 30 mg, Oral, BID MEALS, First dose on Sat01/17/24 at 1200, Until Discontinu ed, Routine [facility] calcium gluconate 2 g in NaCl 100 mL (ISO-OSM) RTU IV infusion 2 g 2023-03 14:15: 00 01-16 16:14 :00 No 2g 2 g, IV Infusion, at 200 mL/hr Administer over 30 Minutes, ONCE, 1 dose, On Sat01/17/24 at 0915, Routine [facility] calcium carbonate (OSCAL-500) tablet 500 mg 2023-03 15:15: 00 Yes 500mg 500 mg, Oral, DAILY, First dose on Sat01/16/24 at 1015, Until Discontinu ed, Routine [facility] methylpredn isolone sod succ (SOLU-MEDRO L) injection 250 mg 2023-03 21:45: 00 01-16 21:52 :00 No 250mg 250 mg, Intravenou s, Q24H, 3 doses, First dose on Sat01/15/24 at 1645, Last dose on Sat01/17/24 at 1645, 4 mL [facility] sodium citrate-cit ralph acid (BICITRA) 500-334 mg/5 mL solution 30 mL 2023-03 14:00: 00 01-17 18:32 :56 No 30mL 30 mL, Oral, PC+HS, First dose (after last modificati on) on Sat01/15/24 at 0900, Until Discontinu ed, Routine [facility] sodium citrate-cit ralph acid (BICITRA) 500-334 mg/5 mL solution 15 mL 2023-03 15:15: 00 01-14 12:12 :37 No 15mL 15 mL, Oral, PC+HS, First dose on Sat01/14/24 at 1015, Until Discontinu ed, Routine [facility] pantoprazol e (PROTONIX) EC tablet 40 mg 2023-03 14:00: 00 01-17 18:32 :56 No 40mg 40 mg, Oral, DAILY, First dose on Sat01/14/24 at 0900, Until Discontinu ed, Routine [facility] hydrALAZINE (APRESOLINE ) tablet 25 mg 2023-03 14:00: 00 01-17 18:32 :56 No 25mg 25 mg, Oral, DAILY, First dose on Sat01/14/24 at 0900, Until Discontinu ed, Routine [facility] atorvastati n (LIPITOR) tablet 20 mg 2023-03 14:00: 00 01-17 18:32 :56 No 20mg 20 mg, Oral, QAM, First dose on Sat01/14/24 at 0900, Until Discontinu ed, Routine [facility] ferrous sulfate tablet 325 mg 2023-03 14:00: 00 01-17 18:32 :56 No 325mg 325 mg, Oral, DAILY, First dose on Sat01/14/24 at 0900, Until Discontinu ed, Routine [facility] docusate (COLACE) capsule 100 mg 2023-03 14:00: 00 01-17 18:32 :56 No 100mg 100 mg, Oral, DAILY, First dose on Sat01/14/24 at 0900, Until Discontinu ed, Routine [facility] sodium zirconium cyclosilica te (LOKELMA) 10 gram packet 10 g 2023-03 13:30: 00 01-16 11:59 :00 No 10g 10 g, Oral, QAM-0700, 3 doses, First dose on Sat01/14/24 at 0830, Last dose on Sat01/16/24 at 0700, Routine [facility] metoprolol tartrate (LOPRESSOR) tablet 100 mg 2023-03 13:00: 00 01-17 18:32 :56 No 100mg 100 mg, Oral, BID, First dose on Sat01/14/24 at 0800, Until Discontinu ed [facility] traMADoL (ULTRAM) tablet 50 mg 2023-03 05:00: 00 01-17 18:32 :56 No 50mg 50 mg, Oral, Q6H, First dose on Sat01/14/24 at 0000, Until Discontinu ed, Routine [facility] traMADoL (ULTRAM) tablet 50 mg 2023-03 01:30: 45 01-15 01:29 :45 No 50mg 50 mg, Oral, Q8HPRN, Starting on Sat01/13/24 at 2030, Until Sat01/15/24 at 2028, Routine, Pain (scale 4-6) [facility] ondansetron (ZOFRAN (PF)) injection 4 mg 2023-03 01:28: 42 01-17 18:32 :56 No 4mg 4 mg, Slow IV Push, Q6HPRN, Starting on Sat01/13/24 at 2028, Until 01/18/24 at 1332, Routine, Nausea and Vomiting (N/V) [facility] acetaminoph en (TYLENOL) tablet 650 mg 2023-03 01:28: 15 01-17 18:32 :56 No 650mg [facility] atorvastati n 20 mg tablet 2023-03 21:29: 23 Yes 20mg Take 1 tablet by mouth every morning. [facility] ferrous sulfate 325 mg (65 mg iron) tablet 2023-03 21:29: 23 Yes 325mg Take 1 tablet by mouth daily. [facility] pantoprazol e 40 mg EC tablet 2023-03 21:29: 23 Yes 40mg Take 1 tablet by mouth daily. [facility] nebivoloL 10 mg tablet 2023-03 21:29: 23 Yes 10mg Take 1 tablet by mouth daily. [facility] traMADoL 50 mg tablet 2023-03 21:29: 23 Yes 50mg Take 1 tablet by mouth every 6 (six) hours. [facility] furosemide 40 mg tablet 2023-03 21:23: 09 Yes 40mg Take 1 tablet by mouth daily. [facility] lisinopriL 20 mg tablet 2023-03 21:23: 09 Yes 20mg Take 1 tablet by mouth 2 (two) times daily. [facility] iopamidol (ISOVUE 300-100 mL) injection 150 mL 2023-03 19:40: 00 01-12 19:40 :00 No [id number] 150mL 150 mL, Intravenou s, ONCE, 1 dose, On Sat01/13/24 at 1500, Routine [facility] Nitroglycer in (TRIDIL) injection 2023-03 19:34: 00 01-12 19:34 :00 No PRN, Starting on Sat01/13/24 at 1434, Until Sat01/13/24 at 1434, Routine, Intra-op [facility] fentanyl PF (SUBLIMAZE (PF)) injection 2023-03 18:55: 00 01-12 19:29 :03 No Slow IV Push, PRN, Starting on Sat01/13/24 at 1355, Until Sat01/13/24 at 1429, Routine, Intra-op [facility] FENTanyl (PF) (SUBLIMAZE) injection 2023-03 17:50: 50 01-12 18:50 :38 No Slow IV Push, PRN, Starting on Sat01/13/24 at 1250, Until Sat01/13/24 at 1350, Routine, Intra-op [facility] verapamiL (ISOPTIN) injection 2023-03 17:36: 00 01-12 19:34 :39 No PRN, Starting on Sat01/13/24 at 1236, Until Sat01/13/24 at 1434, Routine, Intra-op [facility] heparin 1,000 unit/mL injection 2023-03 17:36: 00 01-12 17:36 :00 No PRN, Starting on Sat01/13/24 at 1236, Until Sat01/13/24 at 1236, Routine, Intra-op [facility] nitroglycer in 50 mg in D5W 250 mL infusion RTU 2023-03 17:36: 00 01-12 17:36 :00 No CONTINUOUS PRN, Starting on Sat01/13/24 at 1236, Intra-op [facility] lidocaine-e pinephrine (XYLOCAINE W/EPINEPHRI NE) 1 %-1:200,000 injection 2023-03 17:34: 00 01-12 17:34 :00 No PRN, Starting on Sat01/13/24 at 1234, Until Sat01/13/24 at 1234, Routine, Intra-op [facility] ceFAZolin (ANCEF) 1,000 mg in NaCl 0.9% (NS) 10 mL IV push 2023-03 17:31: 00 01-12 17:31 :00 No PRN, Starting on Sat01/13/24 at 1231, Until Sat01/13/24 at 1231, 10 mL, Intra-op [facility] ceFAZolin (ANCEF) 1,000 mg in NaCl 0.9% (NS) 10 mL IV push 2023-03 17:30: 00 01-12 17:30 :00 No PRN, Starting on Sat01/13/24 at 1230, Until Sat01/13/24 at 1230, 10 mL, Intra-op [facility] iopamidol (ISOVUE 370-500 mL) injection 80 mL 2023-03 16:45: 00 01-12 15:56 :00 No [id number] 80mL 80 mL, Intravenou s, ONCE, 1 dose, On Sat01/13/24 at 1145, Routine [facility] lidocaine 1% (XYLOCAINE) 10 mg/mL (1 %) injection 2023-03 14:54: 40 01-12 14:54 :40 No PRN, Starting on Sat01/13/24 at 0954, Until Sat01/13/24 at 0954, Routine, Intra-op [facility] FENTanyl (PF) (SUBLIMAZE) injection 2023-03 14:30: 58 01-12 15:04 :49 No Slow IV Push, PRN, Starting on Sat01/13/24 at 0930, Until Sat01/13/24 at 1004, Routine, Intra-op [facility] midazolam (VERSED) injection 2023-03 14:30: 08 01-12 14:30 :08 No IV Push, PRN, Starting on Sat01/13/24 at 0930, Until Sat01/13/24 at 0930, Routine, Intra-op [facility] hydrALAZINE 25 mg tablet 2023-03 00:00: 00 Yes 25mg Take 1 tablet by mouth daily. [facility] amLODIPine 10 mg tablet 10-17 00:00: 00 Yes 10mg Take 1 tablet by mouth daily. [facility] iopamidol (ISOVUE 370-500 mL) injection 80 mL 09-12 03:30: 00 09-12 03:30 :00 No [id number] 80mL 80 mL, Intravenou s, ONCE, 1 dose, On Aysha 09/12/23 at 2230, Routine [facility] amoxicillin -clavulanat e 875-125 mg per tablet 09-11 00:00: 00 01-17 00:00 :00 No [id number] 1{tbl} Take 1 tablet by mouth every 12 (twelve) hours. [facility] azithromyci n (ZITHROMAX Z-YUN) 250 mg tablet 09-11 00:00: 00 01-17 00:00 :00 No [id number] 250mg Take 1 tablet by mouth SEE-INSTRU CTIONS. Take 500 mg day 1, then 250 mg days 2 to 5. [facility] leflunomide 10 mg tablet 09-02 00:00: 00 Yes 10mg Take 1 tablet by mouth daily. [facility] Pantoprazol e Sodium 40 MG Pantoprazol e Sodium 40 MG No 1{table t} QD Pantoprazo le Sodium 40 MG Bumetanide 1 MG Bumetanide 1 MG No 1{table t} QD Bumetanide 1 MG Ondansetron 4 MG Ondansetron 4 MG No 1{table t_on_ e_tongu e_and_a llow_to _dissol ve} QD Ondansetro n 4 MG predniSONE 20 MG predniSONE 20 MG No 1{table t} QD predniSONE 20 MG amLODIPine Besylate 5 MG amLODIPine Besylate 5 MG No 1{table t} QD amLODIPine Besylate 5 MG Metoprolol Tartrate 25 MG Metoprolol Tartrate 25 MG No 1{table t_with_ food} BID Metoprolol Tartrate 25 MG Melatonin 3 MG Melatonin 3 MG No 1{table t_at_be dtime_a s_neede d} QD Melatonin 3 MG Docusate Sodium 100 MG Docusate Sodium 100 MG No 1{capsu le_as_n eeded} BID Docusate Sodium 100 MG hydrALAZINE HCl 100 MG hydrALAZINE HCl 100 MG No 1{table t_with_ food} BID hydrALAZIN E HCl 100 MG Leflunomide 10 MG Leflunomide 10 MG No 1{table t} QD Leflunomid e 10 MG Alendronate Sodium 70 MG Alendronate Sodium 70 MG No Alendronat e Sodium 70 MG Cefdinir 300 MG Cefdinir 300 MG No 1{table t} BID Cefdinir 300 MG HYDROcodone -Acetaminop hen 7.5-325 MG HYDROcodone -Acetaminop hen 7.5-325 MG No 1{table t_as_ne eded} QID HYDROcodon e-Acetamin ophen 7.5-325 MG Cyclobenzap rine HCl 10 MG Cyclobenzap rine HCl 10 MG No 1{table t_at_be dtime_a s_neede d} Cyclobenza marcus HCl 10 MG Ultram 50 MG Ultram 50 MG No 1{table t_as_ne eded} Ultram 50 MG Lisinopril 20 MG Lisinopril 20 MG No 1{table t} BID Lisinopril 20 MG Ferrous Sulfate 325 (65 Fe) MG Ferrous Sulfate 325 (65 Fe) MG No 1{table t} QD Ferrous Sulfate 325 (65 Fe) MG Folic Acid 1 MG Folic Acid 1 MG No 1{table t} QD Folic Acid 1 MG Lasix 40 MG Lasix 40 MG No 1{table t} BID Lasix 40 MG Avacopan 10 MG Avacopan 10 MG No 3{capsu les_wit h_food} QD Avacopan 10 MG Lipitor 20 MG Lipitor 20 MG No 1{table t} QD Lipitor 20 MG Vital Signs Vital Name Observation Time Observation Value Comments S darin height 2024-01-31 14:00:00 62 [in_i] Commo n [facility] weight 2024-01-31 14:00:00 166 [lb_av] Comm on [facility] temperature 2024-01-31 14:00:00 97.9 [degF] Com mon [facility] bmi 2024-01-31 14:00:00 30.36 kg/m2 Comm on [facility] oximetry 2024-01-31 14:00:00 98 % Commo n [facility] respiratory rate 2024-01-31 14:00:00 18 /min [facility] blood pressure systolic 2024-01-31 14:00:00 136 mm[Hg] [facility] blood pressure diastolic 2024-01-31 14:00:00 61 mm[Hg] [facility] Systolic blood pressure 2024-01-22 13:30:00 157 mm[Hg] [facility] Diastolic blood pressure 2024-01-22 13:30:00 69 mm[Hg] [facility] Heart rate 2024-01-22 13:30:00 67 /min [facility] Body height 2024-01-22 13:30:00 157.5 cm [facility] Body weight 2024-01-22 13:30:00 76.204 kg [facility] BMI 2024-01-22 13:30:00 30.73 kg/m2 [facility] Oxygen saturation in Arterial blood by Pulse oximetry 2024-01-22 13:30:00 95 /min [facility] Systolic blood pressure 2024-01-18 16:47:00 155 mm[Hg] [facility] Diastolic blood pressure 2024-01-18 16:47:00 65 mm[Hg] [facility] Heart rate 2024-01-18 16:47:00 63 /min [facility] Body temperature 2024-01-18 16:47:00 36.39 Edelmira [facility] Respiratory rate 2024-01-18 16:47:00 20 /min [facility] Oxygen saturation in Arterial blood by Pulse oximetry 2024-01-18 16:47:00 91 /min [facility] Body weight 2024-01-18 09:00:00 79.833 kg [facility] BMI 2024-01-18 09:00:00 31.18 kg/m2 [facility] Systolic blood pressure 2024-01-15 12:52:00 149 mm[Hg] [facility] Diastolic blood pressure 2024-01-15 12:52:00 64 mm[Hg] [facility] Heart rate 2024-01-15 12:52:00 68 /min [facility] Body temperature 2024-01-15 12:52:00 36.44 Edelmira [facility] Respiratory rate 2024-01-15 12:52:00 16 /min [facility] Oxygen saturation in Arterial blood by Pulse oximetry 2024-01-15 12:52:00 91 /min [facility] Body height 2024-01-13 23:23:00 160 cm [facility] Body weight 2024-01-13 23:23:00 76.204 kg [facility] BMI 2024-01-13 23:23:00 29.76 kg/m2 [facility] Systolic blood pressure 2024-01-13 22:00:00 173 mm[Hg] [facility] Diastolic blood pressure 2024-01-13 22:00:00 83 mm[Hg] [facility] Heart rate 2024-01-13 22:00:00 61 /min [facility] Respiratory rate 2024-01-13 22:00:00 16 /min [facility] Oxygen saturation in Arterial blood by Pulse oximetry 2024-01-13 22:00:00 98 /min [facility] height 2023-12-04 09:30:00 62 [in_i] Commo n [facility] weight 2023-12-04 09:30:00 158.6 [lb_av] Co on [facility] temperature 2023-12-04 09:30:00 97.6 [degF] Com mon [facility] bmi 2023-12-04 09:30:00 29.01 kg/m2 Comm on [facility] oximetry 2023-12-04 09:30:00 99 % Commo n [facility] blood pressure systolic 2023-12-04 09:30:00 132 mm[Hg] Common [facility] blood pressure diastolic 2023-12-04 09:30:00 60 mm[Hg] Common [facility] height 2023-12-04 09:40:00 62 [in_i] Commo n [facility] weight 2023-12-04 09:40:00 158.6 [lb_av] Co on [facility] temperature 2023-12-04 09:40:00 97.6 [degF] Com mon [facility] bmi 2023-12-04 09:40:00 29.01 kg/m2 Comm on [facility] oximetry 2023-12-04 09:40:00 99 % Commo n [facility] blood pressure systolic 2023-12-04 09:40:00 132 mm[Hg] [facility] blood pressure diastolic 2023-12-04 09:40:00 60 mm[Hg] Common [facility] Systolic blood pressure 2023-09-13 03:31:00 124 mm[Hg] [facility] Diastolic blood pressure 2023-09-13 03:31:00 104 mm[Hg] [facility] Heart rate 2023-09-13 03:31:00 62 /min [facility] Body temperature 2023-09-13 03:31:00 36.72 Edelmira [facility] Respiratory rate 2023-09-13 03:31:00 16 /min [facility] Oxygen saturation in Arterial blood by Pulse oximetry 2023-09-13 03:31:00 99 /min [place] [facility] Body height 2023-09-12 21:49:00 160 cm [facility] Body weight 2023-09-12 21:49:00 76.204 kg [facility] BMI 2023-09-12 21:49:00 29.76 kg/m2 [facility] height 2023-09-04 08:10:00 62 [in_i] Commo n [facility] weight 2023-09-04 08:10:00 164.6 [lb_av] Co [facility] temperature 2023-09-04 08:10:00 98.1 [degF] Com mon [facility] bmi 2023-09-04 08:10:00 30.1 kg/m2 Commo n [facility] oximetry 2023-09-04 08:10:00 99 % Commo n [facility] blood pressure systolic 2023-09-04 08:10:00 138 mm[Hg] Common [facility] blood pressure diastolic 2023-09-04 08:10:00 70 mm[Hg] Common [facility] height 2023-05-30 08:10:00 62 [in_i] Commo n [facility] weight 2023-05-30 08:10:00 173.0 [lb_av] Co mmon [facility] temperature 2023-05-30 08:10:00 98.3 [degF] Com mon [facility] bmi 2023-05-30 08:10:00 31.64 kg/m2 Comm on [facility] oximetry 2023-05-30 08:10:00 99 % Commo n [facility] respiratory rate 2023-05-30 08:10:00 18 /min Common [facility] blood pressure systolic 2023-05-30 08:10:00 137 mm[Hg] [facility] blood pressure diastolic 2023-05-30 08:10:00 68 mm[Hg] [facility] height 2023-01-14 10:00:00 62 [in_i] Commo n [facility] weight 2023-01-14 10:00:00 163 [lb_av] Comm on [facility] temperature 2023-01-14 10:00:00 98 [degF] Comm on [facility] bmi 2023-01-14 10:00:00 29.81 kg/m2 Comm on [facility] blood pressure systolic 2023-01-14 10:00:00 149 mm[Hg] Common [facility] blood pressure diastolic 2023-01-14 10:00:00 72 mm[Hg] Common [facility] height 2022-10-03 11:00:00 62 [in_i] Commo n [facility] weight 2022-10-03 11:00:00 173.0 [lb_av] Co mmon [facility] temperature 2022-10-03 11:00:00 97.1 [degF] Com mon [facility] bmi 2022-10-03 11:00:00 31.64 kg/m2 Comm on [facility] oximetry 2022-10-03 11:00:00 99 % Commo n [facility] respiratory rate 2022-10-03 11:00:00 18 /min Common [facility] blood pressure systolic 2022-10-03 11:00:00 126 mm[Hg] [facility] blood pressure diastolic 2022-10-03 11:00:00 77 mm[Hg] [facility] height 2022-10-03 11:00:00 62 [in_i] Commo n [facility] weight 2022-10-03 11:00:00 173.0 [lb_av] Co mmon [facility] temperature 2022-10-03 11:00:00 97.1 [degF] Com mon [facility] bmi 2022-10-03 11:00:00 31.64 kg/m2 Comm on [facility] oximetry 2022-10-03 11:00:00 99 % Commo n [facility] respiratory rate 2022-10-03 11:00:00 18 /min Common [facility] blood pressure systolic 2022-10-03 11:00:00 126 mm[Hg] Common [facility] blood pressure diastolic 2022-10-03 11:00:00 77 mm[Hg] [facility] height 2022-07-30 11:20:00 62 [in_i] Commo n [facility] weight 2022-07-30 11:20:00 178 [lb_av] Comm on [facility] temperature 2022-07-30 11:20:00 96 [degF] Comm on [facility] bmi 2022-07-30 11:20:00 32.55 kg/m2 Comm on [facility] blood pressure systolic 2022-07-30 11:20:00 123 mm[Hg] Common [facility] blood pressure diastolic 2022-07-30 11:20:00 76 mm[Hg] Common [facility] height 2022-05-07 09:40:00 62 [in_i] Commo n [facility] weight 2022-05-07 09:40:00 170 [lb_av] Comm on [facility] temperature 2022-05-07 09:40:00 98.1 [degF] Com mon [facility] bmi 2022-05-07 09:40:00 31.09 kg/m2 Comm on [facility] blood pressure systolic 2022-05-07 09:40:00 128 mm[Hg] Common [facility] blood pressure diastolic 2022-05-07 09:40:00 75 mm[Hg] [facility] height 2022-01-02 11:30:00 62 [in_i] Commo n [facility] weight 2022-01-02 11:30:00 174 [lb_av] Comm on [facility] temperature 2022-01-02 11:30:00 97 [degF] Comm on [facility] bmi 2022-01-02 11:30:00 31.82 kg/m2 Comm on [facility] blood pressure systolic 2022-01-02 11:30:00 119 mm[Hg] Common [facility] blood pressure diastolic 2022-01-02 11:30:00 64 mm[Hg] Common [facility] height 2021-11-09 14:10:00 62 [in_i] Commo n [facility] weight 2021-11-09 14:10:00 173.4 [lb_av] Co mmon [facility] temperature 2021-11-09 14:10:00 97.5 [degF] Com mon [facility] bmi 2021-11-09 14:10:00 31.71 kg/m2 Comm on [facility] oximetry 2021-11-09 14:10:00 100 % Commo n [facility] respiratory rate 2021-11-09 14:10:00 17 /min [facility] blood pressure systolic 2021-11-09 14:10:00 131 mm[Hg] Common [facility] blood pressure diastolic 2021-11-09 14:10:00 76 mm[Hg] Common [facility] height 2021-10-04 10:50:00 62 [in_i] Commo n [facility] weight 2021-10-04 10:50:00 170 [lb_av] Comm on [facility] temperature 2021-10-04 10:50:00 97 [degF] Comm on [facility] bmi 2021-10-04 10:50:00 31.09 kg/m2 Comm on [facility] blood pressure systolic 2021-10-04 10:50:00 109 mm[Hg] Common [facility] blood pressure diastolic 2021-10-04 10:50:00 65 mm[Hg] Common [facility] height 2021-10-04 11:20:00 62 [in_i] Commo n [facility] weight 2021-10-04 11:20:00 170 [lb_av] Comm on [facility] temperature 2021-10-04 11:20:00 97 [degF] Comm on [facility] bmi 2021-10-04 11:20:00 31.09 kg/m2 Comm on [facility] height 2021-08-14 13:00:00 62 [in_i] Commo n [facility] weight 2021-08-14 13:00:00 173.0 [lb_av] Co mmon [facility] temperature 2021-08-14 13:00:00 97.7 [degF] Com mon [facility] bmi 2021-08-14 13:00:00 31.64 kg/m2 Comm on [facility] oximetry 2021-08-14 13:00:00 100 % Commo n [facility] respiratory rate 2021-08-14 13:00:00 18 /min Common [facility] blood pressure systolic 2021-08-14 13:00:00 124 mm[Hg] Common [facility] blood pressure diastolic 2021-08-14 13:00:00 58 mm[Hg] Common [facility] height 2021-07-12 11:40:00 62 [in_i] Commo n [facility] weight 2021-07-12 11:40:00 173 [lb_av] Comm on [facility] temperature 2021-07-12 11:40:00 97.3 [degF] Com mon [facility] bmi 2021-07-12 11:40:00 31.64 kg/m2 Comm on [facility] blood pressure systolic 2021-07-12 11:40:00 116 mm[Hg] Common [facility] blood pressure diastolic 2021-07-12 11:40:00 70 mm[Hg] Common [facility] height 2021-04-13 11:30:00 62 [in_i] Commo n [facility] weight 2021-04-13 11:30:00 170 [lb_av] Comm on [facility] temperature 2021-04-13 11:30:00 96.1 [degF] Com mon [facility] bmi 2021-04-13 11:30:00 31.09 kg/m2 Comm on [facility] blood pressure systolic 2021-04-13 11:30:00 116 mm[Hg] Common [facility] blood pressure diastolic 2021-04-13 11:30:00 65 mm[Hg] Common [facility] height 2021-01-11 10:40:00 62 [in_i] Commo n [facility] weight 2021-01-11 10:40:00 174.1 [lb_av] Co mmon [facility] temperature 2021-01-11 10:40:00 98.0 [degF] Com mon [facility] bmi 2021-01-11 10:40:00 31.84 kg/m2 Comm on [facility] oximetry 2021-01-11 10:40:00 97 % Commo n [facility] respiratory rate 2021-01-11 10:40:00 17 /min Common [facility] blood pressure systolic 2021-01-11 10:40:00 132 mm[Hg] [facility] blood pressure diastolic 2021-01-11 10:40:00 72 mm[Hg] [facility] Procedures Procedure Date / Time Performed Performing Clinician Source CBC WITHOUT DIFF 2024-01-22 14:34:00 Susan Bethea [facility] BASIC METABOLIC PANEL (NA, K, CL, CO2, GLUCOSE, BUN, CREATININE, CA) 2024-01-18 10:06:00 Twin Ghosh [facility] CBC WITHOUT DIFF 2024-01-18 10:06:00 Richmond Gonsalves [facility] BASIC METABOLIC PANEL (NA, K, CL, CO2, GLUCOSE, BUN, CREATININE, CA) 2024-01-17 08:44:00 [facility] 2024-01-17 08:44:00 Richmond Gonsalves [facility] BASIC METABOLIC PANEL (NA, K, CL, CO2, GLUCOSE, BUN, CREATININE, CA) 2024-01-16 17:56[facility] (NA, K, CL, CO2, GLUCOSE, BUN, CREATININE, CA) 2024-01-16 09:30:00 Richmond Gonsalves [facility] CBC WITHOUT DIFF 2024-01-16 09:30:00 Richmond Gonsalves [facility] SODIUM, URINE RANDOM 2024-01-15 15:21:00 Melissa [facility] PROTEIN CREAT RATIO URINE RANDOM 2024-01-15 15:20:00 Melissa [facility] BASIC METABOLIC PANEL (NA, K, CL, CO2, GLUCOSE, BUN, CREATININE, CA) 2024-01-15 09:34:00 Twin Ghosh [facility] CBC WITHOUT DIFF 2024-01-15 09:34:00 Richmond Gonsalves [facility] C4 COMPLEMENT 2024-01-14 19:07:[facility] 2024-01-14 19:07:00 Augie Twin [facility] COMPLEMENT CH50, TOTAL 2024-01-14 19:07:00 Augie [facility] ANTI-NUCLEAR ANTIBODY SCREEN 2024-01-14 19:07:00 Augie [facility] ANTI-NUCLEAR ANTIBODY TITER 2024-01-14 19:07:00 Augie [facility] PROTEINASE 3 ANTIBODY PR3 2024-01-14 19:07:00 Augie [facility] BASIC METABOLIC PANEL (NA, K, CL, CO2, GLUCOSE, BUN, CREATININE, CA) 2024-01-14 17:38:00 Richmond Gonsalves [facility] CBC WITHOUT DIFF 2024-01-14 17:38:00 Charly Jacob [facility] BASIC METABOLIC PANEL (NA, K, CL, CO2, GLUCOSE, BUN, CREATININE, CA) 2024-01-14 10:09:00 Charly Jacob [facility] CBC WITH DIFF 2024-01-14 10:09:00 Charly Jacob [facility] CBC WITH DIFF 2024-01-14 03:59:00 Coretta Marsh [facility] CBC WITHOUT DIFF 2024-01-13 18:16:00 Susan Bethea [facility] PREPARE PACKED RBC 2024-01-13 17:57:46 Daiana Bethea [facility] TYPE AND SCREEN 2024-01-13 16:50:00 Jose Rivero [facility] TYPE AND SCREEN 2024-01-13 16:50:00 Susan Bethea [facility] CT ANGIOGRAM ABDOMEN/PELVIS 2024-01-13 15:54:00 Susan Bethea [facility] COMP. METABOLIC PANEL (71244) 2024-01-13 13:19:00 Susan Bethea [facility] CBC WITH DIFF 2024-01-13 13:19:00 Susan Bethea [facility] PROTHROMBIN TIME / INR 2024-01-13 13:19:00 Dimitry Bethea [facility] CT ABDOMEN PELVIS WO CONTRAST 2023-09-13 02:35:22 Aisha Morales [facility] TROPONIN I 2023-09-12 23:39:00 Aisha Morales [facility] COMP. METABOLIC PANEL ([id number]) 2023-09-12 23:39:00 Aisha Morales [facility] CBC WITH DIFF 2023-09-12 23:39:00 Aisha Morales [facility] URINALYSIS 2023-09-12 23:39:00 Aisha Morales [facility] INFLUENZA A/B RSV COVID NAAT 2023-09-12 23:39:00 Aisha Morales [facility] N-TERMINAL PRO-BNP 2023-09-12 23:39:00 Aisha Morales [facility] LACTIC ACID WHOLE BLOOD 2023-09-12 23:39:00 Do peter Morales [facility] XR CHEST 1 VW 2023-09-12 23:31:42 Aisha Morales [facility] DEXA AXIAL (HIP AND SPINE) 2022-02-28 17:18:41 Rajan Guerra [facility] Encounters Start Date/Time End Date/Time Encounter Type Admission Type [facility]ending [facility] Care Department Encounter ID Source 2024-04-07 11:32:00 [facility] [id number] [facility] 2023-10-03 16:19:00 [facility] [id number] [facility] 2023-09-05 11:15:00 [facility] [id number] [facility] 2022-07-30 09:37:00 [facility] [id number] [facility] 2022-05-18 11:00:00 Inpatient RAJAN RODRIGUEZ [facility] [id number] [facility] 2022-05-07 09:27:00 Outpatient Guerra, Rajan [facility] [id number] [facility] 2021-04-19 14:37:58 Outpatient Guerra, Rajan [facility] [id number] [facility] 2021-04-19 12:58:12 Outpatient Guerra, Rajan [facility] [id number] [facility] 2021-04-19 12:25:52 Outpatient Guerra, Rajan [facility] [id number] [facility] 2021-04-19 12:25:30 Outpatient Guerra, Rajan [facility] [id number] [facility] 2021-04-19 11:59:48 Outpatient Guerra, Rajan [facility] [id number] [facility] 2021-04-19 11:59:35 Outpatient Guerra, Rajan [facility] ST[facility] [id number] [facility] 2021-04-19 11:49:05 Outpatient Guerra, Rajan [facility] ST[facility] [id number] [facility] 2021-04-19 11:32:13 Outpatient Guerra, Rajan [facility] ST[facility] [id number] [facility] 2021-04-19 11:31:48 Outpatient Guerra, Rajan [facility] [id number] [facility] 2021-04-19 11:17:25 Outpatient Guerra, Rajan [facility] [id number] [facility] 2021-04-19 10:59:19 Outpatient Guerra, Rajan [facility] [id number] [facility] 2024-04-23 00:00:00 2024-04-23 13:09:44 Telephone [facility] [id number] [id number] [facility] 2024-04-15 00:00:00 2024-04-15 00:00:00 (TEL) STLMLC STLMLC [id number] [facility] 2024-04-02 00:00:00 2024-04-02 00:00:00 (TEL) STLMLC STLMLC [id number] [facility] 2024-01-31 00:00:00 2024-01-31 00:00:00 (HOSP F/U) Hospital Follow Up STLMLC STLMLC [id number] [facility] 2024-01-29 00:00:00 2024-01-29 00:00:00 (TEL) STLMLC STLMLC [id number] [facility] 2024-01-22 08:00:00 2024-01-22 10:34:02 [facility] [id number] [facility] 2024-01-22 08:00:00 2024-01-22 10:34:02 [facility] [id number] 350.1.13.10 4.2.7.2.686 [id number] [facility] 2024-01-22 09:30:00 2024-01-22 10:01:22 Insurance Adjuster Visit 2, Adc Lab Susan Bethea 2, Adc Lab [facility] [id number] 350.1.13.10 [id number] [id number] [facility] 2024-01-21 00:00:00 2024-01-21 00:00:00 (TEL) STLMLC STLMLC [id number] [facility] 2024-01-20 00:00:00 2024-01-20 12:13:05 Transition of Care Alyssa Matt Miatha R SHEARN POLO LIRA [id number] 350.1.13.10 [id number] [id number] [facility] 2024-01-20 00:00:00 2024-01-20 00:00:00 [facility]EL[facility] [id number] [facility] 2024-01-13 17:36:00 2024-01-18 13:32:00 Hospital Encounter Jose Rivero Rachel Armstrong, Robin Ezzeldin, Obadah Magnus, Leah Herrera, Sierra [facility] 1.2.840.114 350.1.13.10 4.2.7.2.686 [id number] [facility] 2024-01-13 07:40:53 2024-01-18 13:32:00 Inpatient R JUAN MARTIN [facility] [id number] [facility] 2024-01-14 00:00:00 2024-01-14 11:21:55 Case Management Susan Bethea [facility] [id number] 350.1.13.10 4.2.7.2.686 [id number] [facility] 2024-01-13 11:38:50 2024-01-13 17:35:00 Hospital Encounter Susan Bethea Leah Laird, Rachel [facility] 1.2.840.114 350.1.13.10 4.2.7.2.686 [id number] [facility] 2024-01-13 10:30:00 2024-01-13 11:37:00 Hospital Encounter Susan Bethea Rachel [facility] 1.2.840.114 350.1.13.10 4.2.7.2.686 [id number] [facility] 2023-12-04 00:00:00 2023-12-04 00:00:00 OFFICE VISIT ESTAB PT LEVEL 4 STLMLC STLMLC [id number] [facility] 2023-12-04 00:00:00 2023-12-04 00:00:00 SUB ANNUAL [facility] VISIT STLMLC STLMLC [id number] [facility] 2023-09-12 16:52:00 2023-09-12 22:44:00 Emergency X AISHA MORALES [facility] ERT [id number] [facility] 2023-09-12 16:52:00 2023-09-12 22:44:00 Emergency Aisha Moralse [facility] [id number] 350.1.13.10 4.2.7.2.686 [id number] [facility] 2023-09-05 00:00:00 2023-09-05 00:00:00 (TEL) STLMLC STLMLC [id number] [facility] 2023-09-04 00:00:00 2023-09-04 00:00:00 OFFICE VISIT ESTAB PT LEVEL 4 STLMLC STLMLC [id number] [facility] 2023-08-21 00:00:00 2023-08-21 00:00:00 (TEL) STLMLC STLMLC [id number] [facility] 2023-08-14 00:00:00 2023-08-14 00:00:00 (TEL) STLMLC STLMLC [id number] [facility] 2023-08-09 00:00:00 2023-08-09 00:00:00 (TEL) STLMLC STLMLC [id number] [facility] 2023-05-30 00:00:00 2023-05-30 00:00:00 OFFICE VISIT ESTAB PT LEVEL 4 STLMLC STLMLC [id number] [facility] 2023-01-28 00:00:00 2023-01-28 00:00:00 (TEL) STLMLC STLMLC [id number] [facility] 2023-01-14 00:00:00 2023-01-14 00:00:00 OFFICE VISIT ESTAB PT LEVEL 4 STLMLC STLMLC [id number] [facility] 2022-12-18 00:00:00 2022-12-18 00:00:00 (TEL) STLMLC STLMLC [id number] [facility] 2022-10-05 00:00:00 2022-10-05 00:00:00 (TEL) STLMLC STLMLC [id number] [facility] 2022-10-03 00:00:00 2022-10-03 00:00:00 OFFICE VISIT ESTAB PT LEVEL 4 STLMLC STLMLC [id number] [facility] 2022-10-03 00:00:00 2022-10-03 00:00:00 (TEL) STLMLC STLMLC [id number] [facility] 2022-10-03 00:00:00 2022-10-03 00:00:00 SUB ANNUAL [facility] VISIT STLMLC STLMLC [id number] [facility] 2022-07-30 00:00:00 2022-07-30 00:00:00 OFFICE VISIT ESTAB PT LEVEL 4 STLMLC STLMLC [id number] [facility] 2022-05-22 08:51:00 2022-05-22 00:01:00 Outpatient INNA GUERRA [facility] [id number] [facility] 2022-05-07 00:00:00 2022-05-07 00:00:00 OFFICE VISIT ESTAB PT LEVEL 4 STLMLC STLMLC [id number] [facility] 2022-05-07 00:00:00 2022-05-07 00:00:00 (TEL) STLMLC STLMLC [id number] [facility] 2022-02-28 10:31:27 2022-02-28 23:59:00 Outpatient R [facility]IOLOGY [facility] [id number] [facility] 2022-02-28 10:31:27 2022-02-28 23:59:00 Hospital Encounter Radiology [facility] [id number] 350.1.13.10 [id number] [id number] [facility] 2022-02-20 00:00:00 2022-02-20 00:00:00 (TEL) STLMLC STLMLC [id number] [facility] 2022-01-16 00:00:00 2022-01-16 00:00:00 (TEL) STLMLC STLMLC [id number] [facility] 2022-01-02 00:00:00 2022-01-02 00:00:00 OFFICE VISIT ESTAB PT LEVEL 4 STLMLC STLMLC [id number] [facility] 2022-01-02 00:00:00 2022-01-02 00:00:00 (TEL) STLMLC STLMLC [id number] [facility] 2021-11-09 00:00:00 2021-11-09 00:00:00 OFFICE VISIT ESTAB PT LEVEL 4 STLMLC STLMLC [id number] [facility] 2021-11-09 00:00:00 2021-11-09 00:00:00 (TEL) STLMLC STLMLC [id number] [facility] 2021-10-25 00:00:00 2021-10-25 00:00:00 (TEL) STLMLC STLMLC [id number] [facility] 2021-10-04 00:00:00 2021-10-04 00:00:00 OFFICE VISIT ESTAB PT LEVEL 4 STLMLC STLMLC [id number] [facility] 2021-10-04 00:00:00 2021-10-04 00:00:00 SUB ANNUAL [facility] VISIT STLMLC STLMLC [id number] [facility] 2021-08-14 00:00:00 2021-08-14 00:00:00 (HOSP F/U) Hospital Follow Up STLMLC STLMLC [id number] [facility] 2021-08-10 00:00:00 2021-08-10 00:00:00 (TEL) STLMLC STLMLC [id number] [facility] 2021-08-09 00:00:00 2021-08-09 00:00:00 (TEL) STLMLC STLMLC [id number] [facility] 2021-07-12 00:00:00 2021-07-12 00:00:00 OFFICE VISIT ESTAB PT LEVEL 4 STLMLC STLMLC [id number] [facility] 2021-04-13 00:00:00 2021-04-13 00:00:00 OFFICE VISIT ESTAB PT LEVEL 4 STLMLC STLMLC [id number] [facility] 2021-03-06 00:00:00 2021-03-06 00:00:00 (TEL) STLMLC STLMLC [id number] [facility] 2021-01-11 00:00:00 2021-01-11 00:00:00 OFFICE VISIT ESTAB PT LEVEL 4 STLMLC STLMLC [id number] [facility] 2020-10-11 00:00:00 2020-10-11 00:00:00 Outpatient STLMLC STLMLC [id number] [facility] 2020-10-11 00:00:00 2020-10-11 00:00:00 Outpatient STLMLC STLMLC [id number] [facility] 2020-10-05 00:00:00 2020-10-05 00:00:00 Outpatient STLMLC STLMLC [id number] [facility] 2020-07-20 00:00:00 2020-07-20 00:00:00 Outpatient STLMLC STLMLC [id number] [facility] 2020-04-21 00:00:00 2020-04-21 00:00:00 Outpatient STLMLC STLMLC [id number] [facility] 2020-01-20 00:00:00 2020-01-20 00:00:00 Outpatient STLMLC STLMLC [id number] [facility] 2019-12-21 00:00:00 2019-12-21 00:00:00 Outpatient STLMLC STLMLC [id number] [facility] 2019-12-18 00:00:00 2019-12-18 00:00:00 Outpatient STLMLC STLMLC [id number] [facility] 2019-10-20 11:00:00 2019-10-20 11:00:[address] [facility] [address] [facility] [id number] [facility] 2019-10-20 11:00:00 2019-10-20 11:00:00 [facility] [address] [facility] [id number] [facility] 2019-10-12 15:00:00 2019-10-12 15:00:00 [facility] [address] [facility] [id number] [facility] 2019-10-11 21:54:00 2019-10-11 21:54:[address] [facility] [address] [facility] [id number] [facility] 2019-10-05 08:30:00 2019-10-05 08:30:[address] [facility] [address] [facility] [id number] [facility] 2019-09-30 13:20:00 2019-09-30 13:20:[address] [facility] [facility] [address] [facility] [id number] [facility] 2019-09-28 16:39:00 2019-09-28 16:39:00 [facility] [facility] [address] [facility] [id number] [facility] 2019-09-21 16:12:00 2019-09-21 16:12:00 [facility] [address] [facility] [address] [facility] [id number] [facility] 2019-09-16 08:20:00 2019-09-16 08:20:00 [facility] [address] [facility] [address] [facility] [id number] [facility] 2019-09-15 13:09:00 2019-09-15 13:09:00 [facility] [address] [facility] [facility] [id number] [facility] 2019-06-23 11:30:00 2019-06-23 11:30:00 [facility] [address] [facility] [facility] [id number] [facility] 2019-04-02 11:00:00 2019-04-02 11:00:00 [facility] [address] [facility] [facility] [id number] [facility] 2019-03-26 08:00:00 2019-03-26 08:00:00 [facility] [address] [facility] [address] [facility] [id number] [facility] 2018-12-18 10:45:00 2018-12-18 10:45:00 [facility] [address] [facility] [address] [facility] [id number] [facility] 2018-09-18 10:30:00 2018-09-18 10:30:00 [facility] [address] [facility] [address] [facility] [id number] [facility] 2018-07-09 13:59:00 2018-07-09 13:59:00 [facility] [address] [facility] [address] [facility] [id number] [facility] 2017-11-07 10:30:00 2017-11-07 10:30:[address] [facility] [address] [facility] [address] [facility] [id number] [facility] Results Test Description Test Time Test Comments Results Result Co mments Source [facility] without [id number] 18:59:31* Test Item Value Reference Range Interpretation [...] 777-3) 353 166-358 MPV (test code = 67169-4) 11.0 fL 9.5-12.9 RDW-CV (test code = 788-0) 14.9 % 12.0-15.5 RDW-SD (test code = 11768-0) 48.8 fL 39.0-49.9 NRBC x10^3 (test code = 1143187799) See_Comment [Automated messa ge] The system which generated this result transmitted reference range: 10*3/?L. The reference range was not used to interpret this result as normal/abnormal. NRBC/100 WBC (test code = 1221006802) 0.0 0.0-10.0 IPF % (test code = 4396822155) Lab Interpretation (test code = 64057-9) [facility]normal [facility] STAT [id number] 18:09:14* Test Item Value Reference Range Interpretation Comme nts ABO & RH (test code = 20) A POSITIVE IAT (test code = 1185) Negative [facility] - [id number] 17:56:42* Test Item Value Reference Range Interpretation Comme nts IAT (test code = 1185) Negative Performed at [facility] Laboratory Services [facility] Blood [address] [place] [id number] Free: [phone] No. [id number] ABO & RH (test code = 20) A POSITIVE Performed at [facility] Laboratory Services - [facility] Blood [address] [place] [id number] Free: [phone] No. [id number] [facility] Met[facility] Panel (95580)2024-01-13 13:53:13* Test Item Value Reference Range Interpretation Comme nts NA (test code = 0777837316) 137 mmol/L 135-145 K (test code = 8827952007) 5.0 mmol/L 3.5-5.0 CL (test code = 2176461266) 108 mmol/L 98-108 CO2 TOTAL (test code = 4387036611) 20 mmol/L 23-31 L AGAP (test code = 5093771384) 9 2-16 BUN (test code = 6090529580) 35 mg/dL 7-23 H GLUCOSE (test code = 4465186765) 100 mg/dL 70-110 CREATININE (test code = 2160-0) 1.90 mg/dL 0.50-1.04 H TOTAL BILI (test code = 0825939694) 0.5 mg/dL 0.1-1.1 CALCIUM (test code = 3274105667) 8.4 mg/dL 8.6-10.6 L T PROTEIN (test code = 3822483517) 7.1 g/dL 6.3-8.2 ALBUMIN (test code = 7340109119) 3.9 g/dL 3.5-5.0 ALK PHOS (test code = 9676758029) 132 U/L 34-122 H ALTv (test code = 1742-6) 8 U/L 5-35 AST(SGOT) (test code = 6146471687) 19 U/L 13-40 eGFR (test code = 23241-2) 26.3 mL/min/1.73m2 CKD-EPI eGFR (2020). Assuming creatinine has been stable day-to-day for at least three months, the eGFR indicates Category G4 (15 - 29 mL/min/1.73 m2) Lab Interpretation (test code = 19373-3) Abnormal [facility] / [id number] 13:41:27* Test Item Value Reference Range Interpretation Comme nts PROTIME PATIENT (test code = 5964-2) 11.2 10.1-12.6 INR (test code = 6301-6) 1.0 Normal INR <1.1; Warfarin Therapeutic range 2.0 to 3.0 or 2.5 to 3.5, depending upon the indications. Lab Interpretation (test code = 76007-1) Normal [facility] with [id number] 13:34:51* Test Item Value Reference Range Interpretation [...] g/dL 31.6-35.1 L RDW-SD (test code = 60085-1) 47.8 fL 39.0-49.9 RDW-CV (test code = 788-0) 14.9 % 12.0-15.5 PLT (test code = 777-3) 363 166-358 H MPV (test code = 25551-8) 10.6 fL 9.5-12.9 NRBC/100 WBC (test code = 2175701932) 0.0 0.0-10.0 NRBC x10^3 (test code = 4131980519) See_Comment [Automated [employer] ge] The system which generated this result transmitted reference range: 10*3/?L. The reference range was not used to interpret this result as normal/abnormal. GRAN MAT (NEUT) % (test code = 770-8) 74.3 % IMM GRAN % (test code = 4689758903) 0.30 % LYMPH % (test code = 736-9) 14.1 % MONO % (test code = 5905-5) 8.2 % EOS % (test code = 713-8) 2.2 % BASO % (test code = 706-2) 0.9 % GRAN MAT x10^3(ANC) (test code = 4615696888) 4.80 10*3/uL 1.88-7.09 IMM GRAN x10^3 (test code = 7523645986) 0.00-0.06 LYMPH x10^3 (test code = 731-0) 0.91 10*3/uL 1.32-3.29 L MONO x10^3 (test code = 742-7) 0.53 10*3/uL 0.33-0.92 EOS x10^3 (test code = 711-2) 0.14 10*3/uL 0.03-0.39 BASO x10^3 (test code = 704-7) 0.06 10*3/uL 0.01-0.07 Lab Interpretation (test code = 52764-2) Abnormal [facility]OL[facility] [id number] 00:00:00* Test Item Value Reference Range Interpretation Comme nts TSH REFLEX TO FREE T4 (test code = 68211-4) 2.400 UIU/ML See_Comment [Automated message] The system which generated this result transmitted reference range: 0.400-4.100 UIU/ML. The reference range was not used to interpret this result as normal/abnormal. CALC LDL CHOL (test code = 40325-0) 129 MG/DL See_Comment H [Automated GTxcel] The system which generated this result transmitted reference range: <100 MG/DL. The reference range was not used to interpret this result as normal/abnormal. CHOLESTEROL (test code = 2093-3) 211 MG/DL See_Comment H [Automated GTxcel] The system which generated this result transmitted reference range: <200 MG/DL. The reference range was not used to interpret this result as normal/abnormal. HDL CHOLESTEROL (test code = 2085-9) 58 MG/DL See_Comment [Automated GTxcel] The system which generated this result transmitted reference range: >39 MG/DL. The reference range was not used to interpret this result as normal/abnormal. RISK RATIO LDL/HDL (test code = 24055-4) 2.22 RATIO See_Comment [Automated message] The system [...] result as normal/abnormal. BASOPHILS (test code = 61510-0) 1.7 % DIAGNOSIS: (test code = 57932-7) (NOTE) COMMENTS (test code = 28244-3) (NOTE) EOSINOPHILS (test code = 45491-7) 1.7 % HEMATOCRIT (test code = 94817-7) 28.1 % See_Comment L [Automated messa ge] [...] result as normal/abnormal. LYMPHOCYTES (test code = 00606-2) 20.5 % MCH (test code = 11593-2) 27.0 PG See_Comment [Automated messa ge] The system which generated this result transmitted reference range: 25.0-33.0 PG. The reference range was not used to interpret this result as normal/abnormal. MCHC (test code = 10545-2) 31.0 G/DL See_Comment [Automated messa ge] The system which generated this result transmitted reference range: 31.0-36.0 G/DL. The reference range was not used to interpret this result as normal/abnormal. MCV (test code = 87183-9) 87.3 fL See_Comment [Automated messa ge] The system which generated this result transmitted reference range: 80.0-99.0 fL. The reference range was not used to interpret this result as normal/abnormal. MICROSCOPIC DESCRIPTION: (test code = 00950-2) (NOTE) MONOCYTES (test code = 09435-0) 7.7 % NEUTROPHILS (test code = 83701-8) 68.4 % PATHOLOGIST: (test code = 76315-1) (NOTE) PLATELET COUNT (test code = 56003-3) 407 K/UL See_Comment H [Automated messa ge] The system which generated this result transmitted reference range: 130-400 K/UL. The reference range was not used to interpret this result as normal/abnormal. RBC (test code = 08395-1) 3.22 M/UL See_Comment L [Automated messa ge] The system which generated this result transmitted reference range: 3.80-5.40 M/UL. The reference range was not used to interpret this result as normal/abnormal. RDW (test code = 80408-5) 13.9 % See_Comment [Automated messa ge] The system which generated this result transmitted reference range: 11.5-15.0 %. The reference range was not used to interpret this result as normal/abnormal. WBC (test code = 83709-9) 6.0 K/UL See_Comment [Automated messa ge] The [...] result as normal/abnormal. CALCIUM (test code = 67650-3) 8.7 MG/DL See_Comment [Automated messa ge] The [...] as normal/abnormal. CALC GLOBULIN (test code = 56445-7) 2.5 G/DL See_Comment [Automated messa ge] The [...] normal/abnormal. eGFR (2020 CKD-EPI) (test code = 64019-2) 29 ML/MIN/1.73 See_Comment L [Automated message] The [...] result as normal/abnormal. CT ABDOMEN PELVIS WO [id number] 03:11:51Ordering Physician: IASHA MORALES Clinical indication: Nausea and vomiting Comparison: [...] areapparent, suggesting these fractures are likely chronic. [facility]ST 1 [id number] 00:27:48Ordering physician: AISHA MORALES Clinical indication: Pneumonia [...] and spine. No acute bony abnormalities are evident.[facility] WITH DIFF 2023-09-13 00:21:11* Test Item Value [...] g/dL 31.6-35.1 L RDW-SD (test code = 99661-7) 54.0 fL 39.0-49.9 H RDW-CV (test code = 788-0) 17.0 % 12.0-15.5 H PLT (test code = 777-3) 393 166-358 H MPV (test code = 27746-0) 10.8 fL 9.5-12.9 NRBC/100 WBC (test code = 6514454915) 0.0 0.0-10.0 NRBC x10^3 (test code = 4573578029) See_Comment [Automated messa ge] The system which generated this result transmitted reference range: 10*3/?L. The reference range was not used to interpret this result as normal/abnormal. GRAN MAT (NEUT) % (test code = 770-8) 72.5 % IMM GRAN % (test code = 2482957464) 0.70 % LYMPH % (test code = 736-9) 14.8 % MONO % (test code = 5905-5) 9.6 % EOS % (test code = 713-8) 1.9 % BASO % (test code = 706-2) 0.5 % GRAN MAT x10^3(ANC) (test code = 0974124748) 5.43 10*3/uL 1.88-7.09 IMM GRAN x10^3 (test code = 4716485357) 0.05 10*3/uL 0.00-0.06 LYMPH x10^3 (test code = 731-0) 1.11 10*3/uL 1.32-3.29 L MONO x10^3 (test code = 742-7) 0.72 10*3/uL 0.33-0.92 EOS x10^3 (test code = 711-2) 0.14 10*3/uL 0.03-0.39 BASO x10^3 (test code = 704-7) 0.04 10*3/uL 0.01-0.07 Lab Interpretation (test code = 77308-8) Abnormal [facility]TR[facility]LARON [id number] 00:21:11* Test Item Value Reference Range Interpretation Comme nts TROPONIN I (test code = 0752295595) 0.018 ng/mL <=0.034 THOMAS (test code = [...] of biotin. Lab Interpretation (test code = 30461-1) Normal [facility] Hospital[facility]-TERMINAL [id number] 00:18:29* Test Item Value Reference Range Interpretation Comme nts NT-proBNP (test code = 70953-2) 6030 pg/mL <=125 H THOMAS (test code = THOMAS) Positive: Heart Failure Likely Lab Interpretation (test code = 54523-2) Abnormal [facility] HospitalCOMP. METABOLIC PANEL (45023)2023-09-13 00:09:47* Test Item Value Reference Range Interpretation Comme nts NA (test code = 4711829449) 137 mmol/L 135-145 K (test code = 2719461096) 4.1 mmol/L 3.5-5.0 CL (test code = 2739766057) 105 mmol/L 98-108 CO2 TOTAL (test code = 1126909842) 19 mmol/L 23-31 L AGAP (test code = 8443147144) 13 2-16 BUN (test code = 5834955554) 36 mg/dL 7-23 H GLUCOSE (test code = 5663188315) 124 mg/dL 70-110 H CREATININE (test code = 2160-0) 1.54 mg/dL 0.50-1.04 H TOTAL BILI (test code = 7556993424) 0.6 mg/dL 0.1-1.1 CALCIUM (test code = 8832914819) 8.6 mg/dL 8.6-10.6 T PROTEIN (test code = 9352201759) 7.7 g/dL 6.3-8.2 ALBUMIN (test code = 0977450554) 4.0 g/dL 3.5-5.0 ALK PHOS (test code = 2841099698) 117 U/L 34-122 ALTv (test code = 1742-6) 11 U/L 5-35 AST(SGOT) (test code = 2828007712) 20 U/L 13-40 eGFR (test code = 79419-8) 33.8 mL/min/1.73m2 CKD-EPI eGFR (2020). Assuming creatinine has been stable day-to-day for at least three months, the eGFR indicates Category G3b (30 - 44 mL/min/1.73 m2) Lab Interpretation (test code = 69837-4) Abnormal [facility] HospitalLactic Acid Whole [id number] 23:49:13* Test Item Value Reference Range Interpretation Comme nts LACTIC ACID (test code = 6536504553) 1.62 mmol/L 0.50-2.20 Lab Interpretation (test cod e = 32490-5) Normal [facility] REFLEX TO FREE [id number] 00:00:00* Test Item Value Reference Range Interpretation Comme nts TSH REFLEX TO FREE T4 (test code = 11734-7) 2.010 UIU/ML See_Comment [Automated [employer] ge] The system which generated this result transmitted reference range: 0.400-4.100 UIU/ML. The reference range was not used to interpret this result as normal/abnormal. Consult Notes Date/Time Note Provider Source 2024-01-14 09:46:38 Associated Order(s): CONSULT NEPHROLOGY [facility] of Nephrology Nephrology Consult Note 01/14/2024 9:46 AM Subjective Admission Date: 01/13/2024 Consult Date: 01/14/24 Reason for Consult JEB on CKD Requesting Provider Juan Martin MD Chief Complaint Right renal hematoma after renal biopsy History of Present Illness Mahnaz Osborne is a 83 year old female with PMH of HTN, Hypercholesteremia , arthritis who present to [facility] with JEB for kidney workup and renal [...] 50 mg Oral Q8HPRN 50 mg at 01/13/24 2157 traMADoL (ULTRAM) tablet 50 mg 50 mg [...] patient with you. Twin Ghosh MD FACP [facility] Adjunct telephone technician [facility] Associated attestation - Twin Ghosh MD - [...] anti proteinase 3 and anti myeloperoxidase antibodies. LIME KILN AND RECAUSTICIZING OPERATOR-NURSE PRACTITIONER MIDLEVEL PROVIDER [facility] - Health History and Physical Notes Date/Time Note Provider Source 2024-01-13 21:06:55 AMG History & Physical DATE: 01/13/2024 SERVICE: Internal Medicine CHIEF COMPLAINT: No chief complaint on file. Acute Kidney Injury and renal hematoma HISTORY OF PRESENT ILLNESS Mahnaz Osborne is a 83 year old female with PMH significant for HTN, high cholesterol, and arthritis, who presents to [facility] with acute kidney injury for possible kidney [...] 50 mg, 50 mg, Oral, Q8HPRN, Charly Jacob, AGACNP Current Discharge Medication List STOP taking [...] 0.01 - 0.07 10*3/uL Comp. Metabolic Panel (90205) Collection Time: 01/13/24 8:19 AM Result Value [...] Unit Blood Type A Pos Unit Number [id number] Blood Expiration Date & Time [id number] Status Information Ready Product Identification Red Blood Cells Product Code [id number] Cbc without Diff Collection Time: 01/13/24 1:16 [...] - Pharmacologic interventions contraindicated due to hematoma Charly Jacob AGACNP 01/13/2024 9:07 PM Associated attestation - Lukas Guerra MD - 01/14/2024 12:48 AM CDT I agree with documentation as stated. I was available in consultation for patient's care but did not see or examine patient. [employer] RECAUSTICIZING OPERATOR-GERONTOLOGY MIDLEVEL PROVIDER [facility] 2024-01-13 08:00:00 VASCULAR AND INTERVENTIONAL RADIOLOGY H&P [...] services. Susan Bethea MD Staff Interventional Radiology [facility] Procedure Notes Date/Time Note Provider Source 2024-01-13 [...] in PACS. RAD-VASCULAR & INTERVENTIONAL RADIOLOGY STAFF [facility] 2024-01-13 08:00:00 VASCULAR AND INTERVENTIONAL RADIOLOGY PROCEDURE NOTE Pre-procedure diagnosis: Elevated creatinine Post-procedure diagnosis: Same. Procedure: US guided [place] renal biopsy. Anesthesia: Local 1% lidocaine, IV [...] Full dictated note to follow in PACS. [facility]
--- NOTE | 2024-04-24 14:31 | RAD REPORT ---
EXAMINATION: CT ABDOMEN AND PELVIS WITHOUT CONTRAST CLINICAL INDICATION: Female, 83 years old.ABD PAIN TECHNIQUE: CT abdomen and pelvis was performed, without IV contrast, as per department protocol. Axia l, sagittal and coronal reconstructions were obtained. One or more of the following dose reduction techniques were used: Automated exposure control, adjustment of the mA and/or kV according to the pat ient size, and/or iterative reconstruction. Unless otherwise specified, incidental findings do not require dedicated imaging follow-up. [id number]. IV CONTRAST: Not administered. COMPARISON: 04/09/2024 FINDINGS: The lack of intravenous contrast limits the sensitivity of this exam for evaluation of solid visceral organs, vascular structures, and retroperitoneum. LOWER CHEST: Increased nodular airspace disease present in the lower lungs bilaterally.Coronary arter y calcifications. Small to moderate hiatal hernia. UPPER GI: No significant abnormality. LIVER: No significant focal abnormality. GALLBLADDER/BILE DUCTS: Cholecystectomy? PANCREAS: No mass, ductal dilation, or laci-pancreatic fluid. SPLEEN: Unremarkable. ADRENALS: No adrenal masses. KIDNEYS AND URETERS: No hydronephrosis.Unchanged small subcapsular right renal fluid collection. Prob able embolization coils along the upper pole. ABDOMINAL AORTA AND OTHER VESSELS: Moderate atherosclerotic changes without aortic aneurysm. PERITONEUM: No abnormal free fluid. No free air. LYMPH NODES: No pathologic lymphadenopathy. ABDOMINAL WALL: Small fat containing umbilical hernia. SMALL BOWEL/COLON: Small bowel has normal course and caliber. No colonic wall thickening or pericolon ic inflammatory changes. URINARY BLADDER: Underdistended but grossly unremarkable. REPRODUCTIVE ORGANS: No pathologic process. MUSCULOSKELETAL: Remote compression fractures in the lower thoracic and lumbar spine. Nondisplaced fr acture through the anterior T12-L1 osteophyte which includes a small portion of the T12 vertebral body that was not previously seen. It is favored subacute. There may also be a fracture at the T9-10 anterior bridging osteophyte. This also was not previously seen. Surgical changes from recent right hip ORIF. No hardware complications. Remote right obturator ring fracture. Remote bilateral rib fract ures. ADDITIONAL FINDINGS: None. IMPRESSION: 1. Not previously visualized fracture involving the T12-L1 anterior osteophyte and small portion of t he T12 vertebral body. This is favored subacute and may have been present although radiographically occult on the 04/09/2024 CT. A possible fracture involving the T9-T10 anterior bridging osteophyte is also present and not previously seen. No traumatic malalignment. 2. Nodular airspace disease in the lung bases bilaterally concerning for either pneumonia or pneumoni tis such as from aspiration.
[2024-04-24 14:33] LABS: Absolute Lymphocytes (CBC) 0.4 K/uL (0.7-4.9); Absolute Monocytes 0.5 K/uL (0.1-1.3); Absolute Neutrophil 13.4 K/uL (1.8-8.0); Basophils % 0.1 % (0-1.3); Eosinophils % 0.1 % (0-4.4); Hematocrit 20.6 % (36.0-45.0); Hemoglobin 6.9 g/dL (12.0-15.0); Lymphocytes % 2.6 % (15.3-44.8); MCH 28.7 pg (27.0-35.0); MCHC 33.7 g/dL (32.0-36.0); MCV 85.2 fL (80-100); MPV 8.6 fL (7.6-11.3); Monocytes % 3.3 % (3.3-12.3); Neutrophils % 93.9 % (41.7-73.7); Nucleated Red Blood Cells % 0.1 % (0-0); Platelets 370 thou/uL (152-406); RBC Red Blood Cell Count 2.41 M/uL (3.86-4.86); Red Cell Distribution Width 17.5 % (12.1-15.2)
[2024-04-24 14:47] LABS: AST/SGOT 16 U/L (15-37); Albumin 2.4 g/dL (3.4-5.0); Albumin/Globulin Ratio 0.8 (1.1-1.8); Alkaline Phosphatase 94 U/L (45-117); Anion Gap 16.2 mEq/L (5.0-15.0); BUN Blood Urea Nitrogen 133 mg/dL (7-18); Bicarbonate 21 mEq/L (21-32); Bilirubin Total 0.6 mg/dL (0.2-1.0); Globulin 3.2 g/dL (2.3-3.5); Glomerular Filtration Rate 19 ml/min (=/>90); Glucose Level 126 mg/dL (74-106); Lipase 160 U/L (13-75); Potassium 5.2 mEq/L (3.5-5.1); Protein, Total 5.6 g/dL (6.4-8.2); Sodium Level 128 mEq/L (136-145)
[2024-04-24 14:52] LABS: ALT/SGPT < 14 U/L (13-56)
--- NOTE | 2024-04-24 15:02 | ER ---
Nurse's Notes [facility] Name: Mahnaz Osborne Age: 83 yrs Sex: Female : 1940 Arrival Date: 04/24/2024 Time: 13:24 Bed 17 Private MD: Diagnosis: GI bleed;Anemia, unspecified;Hypo-osmolality and hyponatremia;Leukocytosis Presentation: 04/24 13:45 Chief complaint: EMS states: was not eating as normal. Coronavirus screen: Client kj2 denies travel out of the [place] in the last 14 days. Ebola Screen: No symptoms or risks identified at this time. Initial Sepsis Screen: Does the patient meet any 2 criteria? No. Patient's initial sepsis screen is negative. Does the patient have a suspected source of infection? No. Patient's initial sepsis screen is negative. Risk Assessment: Do you want to hurt yourself or someone else? Patient reports no desire to harm self or others. Onset of symptoms was April 24, 2024. 13:45 Method Of Arrival: EMS: [facility] kj2 13:45 Acuity: REENA 3 kj2 Triage Assessment: 13:45 General: Appears in no apparent distress. Behavior is calm, cooperative. Pain: Denies kj2 pain. Historical: - Allergies: 14:28 No Known Allergies; kj2 - PMHx: 14:49 Arthritis; CVA; High Cholesterol; Hypertension; Osteoporosis; kj2 - Immunization history:: Adult Immunizations unknown. - Infectious Disease History:: Denies. - Social history:: Smoking status: unknown. Screenin:32 [facility] ED Fall Risk Assessment (Adult) History of falling in the last 3 months, kj2 including since admission No falls in past 3 months (0 pts) Confusion or Disorientation Yes (5 pts) Intoxicated or Sedated No (0 pts) Impaired Gait Yes (1 pt) Mobility Assist Device Used Yes (1 pt) Altered Elimination No (0 pt) Score/Fall Risk Level 0 - 2 = Low Risk Maintained a safe environment, Hourly rounding (assess needs \T\ fall precautionary measures) done. Abuse screen: Denies threats or abuse. Denies injuries from another. Nutritional screening: decreased appetite. Tuberculosis screening: No symptoms or risk factors identified. Assessment: 13:50 General: see triage assessment. kj2 15:02 Reassessment: Patient appears in no apparent distress at this time. Patient is alert, kj2 oriented x 3, equal unlabored respirations, skin warm/dry/pink. 15:49 Reassessment: Patient appears in no apparent distress at this time. Patient and/or kj2 family updated on plan of care and expected duration. Pain level reassessed. Patient is alert, oriented x 3, equal unlabored respirations, skin warm/dry/pink. 17:17 Reassessment: blood started. kj2 17:34 Reassessment: EMS arrived to transport. kj2 Vital Signs: 13:45 BP 111 / 46; Pulse 69; Resp 18; Temp 99; Pulse Ox 98% on R/A; Weight 76.2 kg; Height 5 kj2 ft. 2 in. ; 15:01 BP 140 / 74; Pulse 98; Resp 20; Pulse Ox 97% on R/A; kj2 15:49 BP 111 / 51; Pulse 70; Resp 18; Pulse Ox 97% ; kj2 17:17 BP 131 / 48; Pulse 71; Resp 18; Temp 98.8; Pulse Ox 98% on R/A; kj2 17:23 BP 132 / 51; Pulse 70; Resp 18; Temp 98.8; Pulse Ox 98% on R/A; kj2 13:45 Body Mass Index 30.73 (76.20 kg, 157.48 cm) kj2 ED Course: 13:45 Patient has correct armband on for positive identification. Provided Education on: call kj2 light. 13:45 Arm band placed on Patient placed. kj2 13:55 Patient arrived in ED. ms3 13:55 Helder Devries DO is Attending Physician. ms3 14:15 Abdomen In Process Unspecified. EDMS 14:24 Tracie Stafford, LAN is Primary Nurse. kj2 14:24 CBC with Diff Sent. em1 14:24 CMP Sent. em1 14:24 Lipase Sent. em1 14:24 Initial lab(s) drawn, by me, sent to lab. Inserted saline lock: 20 gauge in right em1 antecubital area, using aseptic technique. Blood collected. Flushed with 10 mL NS. 14:28 Triage completed. kj2 14:34 No provider procedures requiring assistance completed. kj2 15:01 initiated a transfer with Giuliana from the [facility]. eb 15:02 Repositioned patient. Cleaned of incontinence. kj2 15:05 per [facility], [facility], and [facility] are all at capacity and will have to decline the patient in transfer. 15:06 initiated a transfer with Dulce from the [facility] Transfer Center/. eb 15:18 connected the hospitalist design consultant for [facility] for patient transfer consultation. eb 15:26 per the [facility] transfer center they will wait for a bed to get cleaned and will have to call back with approval/. 16:03 EKG done, by ED staff, reviewed by Helder Devries DO. nh2 16:22 administrative approval given by Dulce Briceño/ patient has been accepted to [facility] 10C 1048/ Dr. Danna Henriquez has accepted the patient in transfer/ report to be called [phone]. 17:23 Inserted saline lock: 22 gauge in left antecubital area, using aseptic technique. kc6 Flushed with 10 mL NS. 17:37 Patient transferred, IV remains in place. kj2 Administered Medications: 15:48 Drug: Pantoprazole IVP 80 mg IVP once Route: IVP; Site: right antecubital; kj2 17:35 Follow up: Response: No adverse reaction kj2 15:49 Drug: Rocephin IV 1 grams IV at calculated rate once; Given slow IV push per pharmacy kj2 instructions Route: IV; Rate: calculated rate; Site: right antecubital; 17:35 Follow up: Response: No adverse reaction; IV Status: Completed infusion kj2 15:49 Drug: Pantoprazole IV 8 mg/hr IV at 25 ml/hr continuous; (Standard dilution is 80 mg in kj2 250 mL NS) Route: IV; Rate: 25 ml/hr; Site: right antecubital; 17:35 Follow up: IV Status: Infusion continued upon transfer kj2 Medication: 14:33 VIS not applicable for this client. kj2 Outcome: 15:02 ER care complete, transfer ordered by MD. quintero 17:36 Discharged to [facility] 17:36 Transferred by ground EMS to [facility], 17:36 Condition: stable 17:36 Instructed on the need for transfer, 17:41 Patient left the ED. kj2 Signatures: Dispatcher [employer] EDLayton Medley em1 Areli Turk Marcus, DO [place] ms3 Jordyn Whitmore, RN RN kc6 Tracie Stafford RN RN kj2 Yovanny Shin, Jasson [facility] Corrections: (The following items were deleted from the chart) 17:33 17:31 BP 131 / 48; Pulse 71bpm; Resp 18bpm; Pulse Ox 98% RA; Temp 98.8F; kj2 kj2
--- NOTE | 2024-04-24 15:02 | EDPHYS ---
Physician Documentation [facility] Name: Mahnaz Osborne Age: 83 yrs Sex: Female : 1940 Arrival Date: 04/24/2024 Time: 13:24 Bed 17 Private MD: ED Physician Helder Devries HPI: 04/24 13:56 This 83 yrs old Female presents to ER via Unassigned with complaints of not ms3 eating. 13:56 Mahnaz Osborne presents to the Emergency Department via [facility] for not ms3 eating. She has a past medical history of stage 3 kidney disease and is not currently on dialysis. Additionally, she has a right femur fracture and is currently not ambulatory. There is a concern about her not eating, although it was noted that she ate a little before arrival. EMS notes patient's vital signs to be stable. . Historical: - Allergies: 14:28 No Known Allergies; kj2 - PMHx: 14:49 Arthritis; CVA; High Cholesterol; Hypertension; Osteoporosis; kj2 - Immunization history:: Adult Immunizations unknown. - Infectious Disease History:: Denies. - Social history:: Smoking status: unknown. ROS: 13:56 Constitutional: Negative for fever, and chills. Cardiovascular: Negative for chest ms3 pain, and palpitations. Respiratory: Negative for shortness of breath, cough, wheezing, and pleuritic chest pain, Abdomen/GI: Negative for abdominal pain, nausea, vomiting, diarrhea, and constipation, Exam: 13:56 Constitutional: This is a well developed, well nourished patient who is awake, alert, ms3 and in no acute distress. Head/Face: Normocephalic, atraumatic. Cardiovascular: Regular rate and rhythm with a normal S1 and S2. No gallops, murmurs, or rubs. Normal PMI, no JVD. No pulse deficits. Respiratory: Lungs have equal breath sounds bilaterally, clear to auscultation and percussion. No rales, rhonchi or wheezes noted. No increased work of breathing, no retractions or nasal flaring. Abdomen/GI: Soft, non-tender, with normal bowel sounds. No distension or tympany. No guarding or rebound. No evidence of tenderness throughout. Skin: Warm, dry with normal turgor. Normal color with no rashes, no lesions, and no evidence of cellulitis. 16:00 ECG was reviewed by the Attending Physician. ms3 Vital Signs: 13:45 BP 111 / 46; Pulse 69; Resp 18; Temp 99; Pulse Ox 98% on R/A; Weight 76.2 kg; Height 5 kj2 ft. 2 in. ; 15:01 BP 140 / 74; Pulse 98; Resp 20; Pulse Ox 97% on R/A; kj2 15:49 BP 111 / 51; Pulse 70; Resp 18; Pulse Ox 97% ; kj2 17:17 BP 131 / 48; Pulse 71; Resp 18; Temp 98.8; Pulse Ox 98% on R/A; kj2 17:23 BP 132 / 51; Pulse 70; Resp 18; Temp 98.8; Pulse Ox 98% on R/A; kj2 13:45 Body Mass Index 30.73 (76.20 kg, 157.48 cm) kj2 MDM: 13:55 Medical Screening Exam initiated ms3 13:56 Differential Diagnosis Bowel obstruction vs dehydration vs electrolyte abnormality. ms3 15:02 Data reviewed: vital signs, nurses notes, lab test result(s), radiologic studies, and ms3 as a result, I will transfer patient for GI services. Consideration of Admission/Observation Patient transferred for GI. I considered the following discharge prescriptions or medication management in the emergency department Medications were administered in the Emergency Department. See MAR. Care significantly affected by the following chronic conditions: Hypertension. Counseling: I had a detailed discussion with the patient and/or guardian regarding the historical points, exam findings, and any diagnostic results supporting the discharge/admit diagnosis, lab results, radiology results, the need to transfer to another facility, [facility] does not immediately have the required specialist. ED course: Rectal exam revealed melena. Will plan to transfuse 1 unit PRBCs and plan for transfer as [facility] does not have GI services currently.. 15:06 ED course: [facility] contacted for transfer and patient declined at [address] system due to capacity. 15:23 ED course: Discussed case with Dr Henriquez at [facility] and he accepts patient.. ms3 04/24 14:56 Order name: Type And Screen ms3 04/24 13:56 Order name: CBC with Diff; Complete Time: 14:43 ms3 04/24 13:56 Order name: CMP; Complete Time: 14:56 ms3 04/24 13:56 Order name: Lipase; Complete Time: 14:56 ms3 04/24 15:02 Order name: Packed RBC Leukored EDMS 04/24 16:44 Order name: ABO/RH no charge EDMS 04/24 14:03 Order name: Abdomen ; Complete Time: 14:43 EDMS 04/24 15:22 Order name: EKG; Complete Time: 15:22 ms3 04/24 13:56 Order name: IV Saline Lock; Complete Time: 14:24 ms3 04/24 13:56 Order name: Labs collected and sent; Complete Time: 14:24 ms3 04/24 15:22 Order name: EKG - Nurse/Tech; Complete Time: 17:23 ms3 EC:00 Rate is 72 beats/min. Rhythm is regular. QRS [place] is Normal. [place] interval is normal. QRS ms3 interval is normal. Clinical impression: NSR w/ Non-specific ST/T Changes. Interpreted by me. Reviewed by me. Administered Medications: 15:48 Drug: Pantoprazole IVP 80 mg IVP once Route: IVP; Site: right antecubital; kj2 17:35 Follow up: Response: No adverse reaction kj2 15:49 Drug: Rocephin IV 1 grams IV at calculated rate once; Given slow IV push per pharmacy kj2 instructions Route: IV; Rate: calculated rate; Site: right antecubital; 17:35 Follow up: Response: No adverse reaction; IV Status: Completed infusion kj2 15:49 Drug: Pantoprazole IV 8 mg/hr IV at 25 ml/hr continuous; (Standard dilution is 80 mg in kj2 250 mL NS) Route: IV; Rate: 25 ml/hr; Site: right antecubital; 17:35 Follow up: IV Status: Infusion continued upon transfer kj2 Disposition Summary: 04/24/24 15:02 Transfer Ordered Notes: Reason: Higher level of care ms3 Condition: Stable ms3 Problem: new ms3 Symptoms: are unchanged ms3 Transfer Location: [facility](04/24/24 15:23) ms3 Accepting Physician: Dr Henriquez(04/24/24 17:41) kj2 Diagnosis - GI bleed ms3 - Anemia, unspecified ms3 - Hypo-osmolality and hyponatremia ms3 - Leukocytosis ms3 Forms: - Medication Reconciliation Form ms3 - SBAR form ms3 Critical care time excluding procedures: 15:03 Critical care time: Bedside Care: 35 minutes, Consultation: 5 minutes, Family ms3 Intervention: 5 minutes. Total time: 45 minutes Signatures: Dispatcher [employer] EDMS Helder Devries, DO ms3 Tracie Stafford, RN RN kj2 Corrections: (The following items were deleted from the chart) 13:56 13:56 CBC+H.LAB.BRZ ordered. EDMS EDMS 13:56 13:56 COMPREHENSIVE METABOLIC PANEL+C.LAB.BRZ ordered. EDMS EDMS 13:56 13:56 LIPASE+C.LAB.BRZ ordered. EDMS EDMS 13:56 13:56 Abdomen Pelvis W Con+CT.RAD.BRZ ordered. EDMS EDMS 14:57 14:57 TYPE AND SCREEN+BB.LAB.BRZ ordered. EDMS EDMS 15:23 15:02 ms3 ms3 15:23 15:02 [facility] ms3 ms3 17:41 15:23 Dr Henriquez ms3 kj2
[2024-04-24] MEDS ORDERED: CEFTRIAXONE 1000 MG/VIAL ONE (15:13)
[2024-04-24] MEDS ORDERED: PANTOPRAZOLE 40 MG INJ ONE ×2 (15:14)
[2024-04-24] MEDS ORDERED: NA CHLORIDE 0.9% 250 ML ONE ×2 (15:14→17:01)
[2024-04-24 18:14] VITALS: TEMP 98.8; O2SAT 98
[2024-04-24 18:16] VITALS: BP 132/51
== END 2024-04-24 17:41 | disposition short-term general hospital (02) ==
LOC: ER 13:24
PROC: 30233N1 Transfusion of Nonautologous Red Blood Cells into Peripheral Vein, Percutaneous Approach (ICD-10-PCS; principal; 2024-04-24)
DX: D64.9 Anemia, unspecified (principal); E87.1 Hypo-osmolality and hyponatremia; D72.829 Elevated white blood cell count, unspecified; I10 Essential (primary) hypertension; Z86.73 Personal history of transient ischemic attack (TIA), and cerebral infarction without residual deficits
CPT/HCPCS: 96365; 96368; 85025; 36415; 86900; 86850; 86901; 86920; 83690; 80053; 74176; 99285; 96366; 36430; J2470 ×2; P9016; J7050 ×2; J0696; 93005

== ENCOUNTER 2024-05-06 08:09 | Inpatient (IN) | payer OTHER ==
--- OUTSIDE RECORDS SUMMARY | 2024-05-06 09:19 | XMS REPORT | Continuity of Care Document ---
Author Name Unknown Address [address] [facility] [address] [place] [address] [facility] thconnect Address [address] [facility] [address] [place] [address] Care Team Providers Care Claims Assistant Name Role Phone RAJAN GUERRA Primary Care Physician Unavailab Rajan Foreman Attending Clinician Unavailable RAJAN GUERRA Attending Clinician Unavailable MALIK WEINBERG Attending Clinician UnavailMALIK Gerber Attending Clinician UnavailSelene Odom PA-C Attending Clinician [phone] SELENE QUINTERO Attending Clinician Unavailable SELENE QUINTERO Attending Clinician Unavailable Ewa Escobar RN Attending Clinician UnaKALPANA Cagle Attending Clinician UnavailKalpana Blake MD Attending Clinician [phone] Dino Grider DO Attending Clinician [phone] Malik Weinberg MD Attending Clinician [phone] MONICA BETHEA Attending Clinician Unavailable Monica Bethea MD Attending Clinician [phone], [facility] Attending Clinician Unavailable Alyssa Matt RN Attending Clinician Unavail Jose Sunshine MD Attending Clinician [phone] Luis Albrecht MD Attending Clinician [phone] Maddy Martin MD Attending Clinician [phone] Geovanni MONTENEGRO, Little Attending Clinician Unavailable Montse Myers Attending Clinician Unavailable MADDY MARTIN Attending Clinician Unavailable JOSE RIVERO Attending Clinician Unavailable ANJOSE RIVERA Attending Clinician Unavailable AISHA MORALES Attending Clinician Unavailable AISHA MORALES Attending Clinician Unavailable RADIOLOGY Attending Clinician Unavailable Radiology Attending Clinician Unavailable DINO GRIDER Admitting Clinician Unavailable Dino Grider DO Admitting Clinician [phone] Luis Albrecht MD Admitting Clinician [phone] LUIS ALBRECHT Admitting Clinician Unavailable AISHA MORALES Admitting Clinician Unavailable RAJAN GUERRA Admitting Clinician Unavailable Payers Payer Name Policy Type Policy Number Effective Date Expirati on Date Source [facility] [id number] 2007 00:00:00 [facility] Problems Condition Name Condition Details Condition Category Status Onset Date Resolution Date Last Treatment Date Treating Clinician Comments Source 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 Disease Active 2- 00:00: 00 [facility] GI bleed GI bleed Disease Active 1- 00:00: 00 [facility] 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 Disease Active 2023-03 0- 00:00: 00 [facility] [id number] Chronic pain syndrome Problem Common [facility] Depression Depression Problem Co mmon [facility] Gastritis Gastritis Problem Comm on [facility] Essential hypertensi on Benign essential HTN Problem Common [facility] Mixed hyperlipid emia Hyperlipid emia, mixed Problem [facility] [id number] Body mass index (BMI) 31.0-31.9, adult Problem [facility] Gastro-eso phageal reflux disease without esophagiti s Gastro-eso phageal reflux disease without esophagiti s Problem [facility] [id number] Other obesity due to excess calories Problem [facility] Anemia of chronic disorder Anemia in chronic illness Problem [facility] Rheumatoid arthritis Rheumatoid arthritis Problem [facility] 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 Problem [facility] Cyst of left ovary Other ovarian cyst, left side Problem [facility] [id number] 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 Problem [facility] [id number] Opiate dependence , continuous Problem [facility] [id number] Moderate major depression , single episode Problem [facility] [id number] Coronary artery disease involving [place] coronary artery of [place] heart with angina pectoris Problem [facility] [id number] Stage 3a chronic kidney disease Problem [facility] 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 Problem [facility] Allergies, Adverse Reactions, Alerts Allergy Name Allergy Type Status Severity Reaction(s) Onset Date Inactive Date Treating Clinician Comments Source NO KNOWN ALLERGIE S Drug Class Active [facility] Social History Social Habit Start Date Stop Date Quantity Comments Source History of Tobacco Use [facility] Sexual orientation U [facility] History of Social function 2024-04-30 00:00:00 2024-04-30 00:00:00 [facility] Tobacco use and exposure 2024-01-13 00:00:00 2024-01-13 00:00:00 Smokeless tobacco non-user [facility] Exposure to SARS-CoV-2 (event) 2022-01-19 00:00:00 2022-01-29 16:29:00 Not sure [facility] Sex assigned at 1940 00:00:00 1940 00:00:00 [facility] Smoking Status Start Date Stop Date Source Tobacco smoking consumption unknown [facility] Never smoked tobacco [facility] Medications Ordered Medication Name Filled Medication Name Start Date Stop Date Current Medication? Ordering Clinician Indication Dosage Frequency Signature (SIG) Comments Components Source bumetanide 1 mg tablet 04-27 15:00: 55 04-27 00:00 :00 No 1mg Take 1 tablet by mouth every morning and evening. [facility] avacopan (TAVNEOS) 10 mg capsule 04-27 15:00: 53 Yes 30mg Take 3 capsules by mouth 2 (two) times daily with meals. [facility] predniSONE 20 mg tablet 04-27 15:00: 53 Yes 20mg Take 1 tablet by mouth daily. [facility] pantoprazol e (PROTONIX) EC tablet 40 mg 04-27 15:00: 00 Yes 40mg 40 mg, Oral, DAILY, First dose on 04/27/24 at 0900, Until Discontinu ed, Routine [facility] polyethylen e glycol 3350 17 gram powder 04-27 00:00: 00 Yes [id number] 17g Take 1 Packet by mouth 2 (two) times daily. [facility] sennosides- docusate sodium 8.6-50 mg per tablet 04-27 00:00: 00 Yes [id number] 1{tbl} Take 1 tablet by mouth 2 (two) times daily. [facility] glycerin/mi neral oil (AGLO ENEMA) (COMPOUNDED ) Enem 225 mL 04-26 19:00: 00 04-26 20:40 :00 No 225mL 225 mL, Rectal, ONCE, 1 dose, On 04/26/24 at 1300, Routine [facility] sennosides- docusate sodium (SENOKOT-S) 8.6-50 mg per tablet 1 tablet 04-26 02:00: 00 Yes 1{tbl} 1 tablet, Oral, BID, First dose on 04/25/24 at 2000, Until Discontinu ed, Routine [facility] polyethylen e glycol 3350 powder 17 g 04-26 02:00: 00 Yes 17g 17 g, Oral, BID, First dose (after last modificati on) on 04/25/24 at 2000, Until Discontinu ed, Routine [facility] predniSONE (DELTASONE) tablet 20 mg 04-25 15:00: 00 Yes 20mg 20 mg, Oral, DAILY, First dose on 04/25/24 at 0900, Until Discontinu ed, Routine [facility] atorvastati n (LIPITOR) tablet 20 mg 04-25 15:00: 00 Yes 20mg 20 mg, Oral, QAM, First dose on 04/25/24 at 0900, Until Discontinu ed, Routine [facility] calcium carbonate (OSCAL-500) tablet 500 mg 04-25 14:00: 00 Yes 500mg 500 mg, Oral, BID MEALS, First dose on 04/25/24 at 0800, Until Discontinu ed, Routine [facility] avacopan (TAVNEOS) capsule 30 mg 04-25 14:00: 00 Yes 30mg 30 mg, Oral, BID MEALS, First dose on 04/25/24 at 0800, Until Discontinu ed, Routine [facility] pantoprazol e (PROTONIX) injection 40 mg 04-25 14:00: 00 04-27 12:08 :25 No 40mg 40 mg, Slow IV Push, Q12H, First dose on 04/25/24 at 0800, Until Discontinu ed [facility] HYDROcodone -acetaminop hen (NORCO 5) tablet 1 tablet 04-25 04:25: 24 Yes 1{tbl} 1 tablet, Oral, Q6HPRN, Starting on Sat04/24/24 at 2225, Until Discontinu ed, Routine, Pain (scale 4-6) [facility] lactated ringers IV infusion 1,000 mL 04-25 02:30: 00 04-25 03:15 :00 No 1000mL at 999 mL/hr, 1,000 mL, Intravenou s, ONCE, 1 dose, On Sat04/24/24 at 2030, TANJA [facility] acetaminoph en (TYLENOL) tablet 650 mg 04-25 01:12: 14 Yes 650mg 650 mg, Oral, Q6HPRN, Starting on Sat04/24/24 at 1912, Until Discontinu ed, Routine, Pain (scale 1-3) [facility] calcium gluconate 2 g in NaCl 100 mL (ISO-OSM) RTU IV infusion 2 g 2023-03 14:30: 00 01-17 14:48 :00 No 2g 2 g, IV Infusion, at 200 mL/hr Administer over 30 Minutes, ONCE, 1 dose, On 01/18/24 at 0930, Routine [facility] calcium carbonate 500 mg calcium (1,250 mg) tablet 2023-03 00:00: 00 Yes [id number] 9105 500mg Take 1 tablet by mouth 2 (two) times daily with meals. [facility] avacopan 10 mg capsule 2023-03 00:00: 00 02-17 05:59 :00 No [id number] 9105 30mg Take 3 capsules by mouth 2 (two) times daily with meals for 30 days. [facility] avacopan (TAVNEOS) capsule 30 mg 2023-03 17:00: 00 Yes 30mg 30 mg, Oral, BID MEALS, First dose on Sat01/17/24 at 1200, Until Discontinu ed, Routine [facility] calcium gluconate 2 g in NaCl 100 mL (ISO-OSM) RTU IV infusion 2 g 2023-03 14:15: 00 01-16 16:14 :00 No 2g 2 g, IV Infusion, at 200 mL/hr Administer over 30 Minutes, ONCE, 1 dose, On Sat01/17/24 at 0915, Routine [facility] calcium carbonate (OSCAL-500) tablet 500 mg 2023-03 15:15: 00 Yes 500mg 500 mg, Oral, DAILY, First dose on Aysha 01/16/24 at 1015, Until Discontinu ed, [facility] isolone sod succ (SOLU-MEDRO L) injection 250 mg 2023-03 21:45: 00 01-16 21:52 :00 No 250mg 250 mg, Intravenou s, Q24H, 3 doses, First dose on Sat01/15/24 at 1645, Last dose on Sat01/17/24 at 1645, 4 mL [facility] sodium citrate-cit ralph acid (BICITRA) 500-334 mg/5 mL solution 30 mL 2023-03 14:00: 00 01-17 18:32 :56 No 30mL 30 mL, Oral, PC+HS, First dose (after last modificati on) on Sat01/15/24 at 0900, Until Discontinu ed, Routine [facility] sodium citrate-cit ralph acid (BICITRA) 500-334 mg/5 mL solution 15 mL 2023-03 15:15: 00 01-14 12:12 :37 No 15mL 15 mL, Oral, PC+HS, First dose on Sat01/14/24 at 1015, Until Discontinu ed, Routine [facility] pantoprazol e (PROTONIX) EC tablet 40 mg 2023-03 14:00: 00 01-17 18:32 :56 No 40mg 40 mg, Oral, DAILY, First dose on Sat01/14/24 at 0900, Until Discontinu ed, Routine [facility] hydrALAZINE (APRESOLINE ) tablet 25 mg 2023-03 14:00: 00 01-17 18:32 :56 No 25mg 25 mg, Oral, DAILY, First dose on Sat01/14/24 at 0900, Until Discontinu ed, Routine [facility] atorvastati n (LIPITOR) tablet 20 mg 2023-03 14:00: 00 01-17 18:32 :56 No 20mg 20 mg, Oral, QAM, First dose on Sat01/14/24 at 0900, Until Discontinu ed, Routine [facility] ferrous sulfate tablet 325 mg 2023-03 14:00: 00 01-17 18:32 :56 No 325mg 325 mg, Oral, DAILY, First dose on Sat01/14/24 at 0900, Until Discontinu ed, Routine [facility] docusate (COLACE) capsule 100 mg 2023-03 14:00: 00 01-17 18:32 :56 No 100mg 100 mg, Oral, DAILY, First dose on Sat01/14/24 at 0900, Until Discontinu ed, Routine [facility] sodium zirconium cyclosilica te (LOKELMA) 10 gram packet 10 g 2023-03 13:30: 00 01-16 11:59 :00 No 10g 10 g, Oral, QAM-0700, 3 doses, First dose on Sat01/14/24 at 0830, Last dose on Sat01/16/24 at 0700, Routine [facility] metoprolol tartrate (LOPRESSOR) tablet 100 mg 2023-03 13:00: 00 01-17 18:32 :56 No 100mg 100 mg, Oral, BID, First dose on Sat01/14/24 at 0800, Until Discontinu ed [facility] traMADoL (ULTRAM) tablet 50 mg 2023-03 05:00: 00 01-17 18:32 :56 No 50mg 50 mg, Oral, Q6H, First dose on Sat01/14/24 at 0000, Until Discontinu ed, Routine [facility] traMADoL (ULTRAM) tablet 50 mg 2023-03 01:30: 45 01-15 01:29 :45 No 50mg 50 mg, Oral, Q8HPRN, Starting on Sat01/13/24 at 2030, Until Sat01/15/24 at 2028, Routine, Pain (scale 4-6) [facility] ondansetron (ZOFRAN (PF)) injection 4 mg 2023-03 01:28: 42 01-17 18:32 :56 No 4mg 4 mg, Slow IV Push, Q6HPRN, Starting on Sat01/13/24 at 2028, Until Sat01/18/24 at 1332, Routine, Nausea and Vomiting (N/V) [facility] acetaminoph en (TYLENOL) tablet 650 mg 2023-03 01:28: 15 01-17 18:32 :56 No 650mg [facility] atorvastati n 20 mg tablet 2023-03 21:29: 23 Yes 20mg Take 1 tablet by mouth every morning. [facility] ferrous sulfate 325 mg (65 mg iron) tablet 2023-03 21:29: 23 Yes 325mg Take 1 tablet by mouth daily. [facility] pantoprazol e 40 mg EC tablet 2023-03 21:29: 23 Yes 40mg Take 1 tablet by mouth daily. [facility] nebivoloL 10 mg tablet 2023-03:29: 23 04-27 00:00 :00 No 10mg Take 1 tablet by mouth daily. [facility] traMADoL 50 mg tablet 2023-03:29: 04-27 00:00 :00 No 50mg Take 1 tablet by mouth every 6 (six) hours. [facility] lisinopriL 20 mg tablet 2023-03 21:23: 09 04-27 00:00 :00 No 20mg Take 1 tablet by mouth 2 (two) times daily. [facility] furosemide 40 mg tablet 2023-03 21:23: 09 04-24 00:00 :00 No 40mg Take 1 tablet by mouth daily. [facility] iopamidol (ISOVUE 300-100 mL) injection 150 mL 2023-03 19:40: 00 01-12 19:40 :00 No [id number] 150mL 150 mL, Intravenou s, ONCE, 1 dose, On Sat01/13/24 at 1500, Routine [facility] Nitroglycer in (TRIDIL) injection 2023-03 19:34: 00 01-12 19:34 :00 No PRN, Starting on Sat01/13/24 at 1434, Until Sat01/13/24 at 1434, Routine, Intra-op [facility] fentanyl PF (SUBLIMAZE (PF)) injection 2023-03 18:55: 00 01-12 19:29 :03 No Slow IV Push, PRN, Starting on Sat01/13/24 at 1355, Until Sat01/13/24 at 1429, Routine, Intra-op [facility] FENTanyl (PF) (SUBLIMAZE) injection 2023-03 17:50: 50 01-12 18:50 :38 No Slow IV Push, PRN, Starting on Sat01/13/24 at 1250, Until Sat01/13/24 at 1350, Routine, Intra-op [facility] verapamiL (ISOPTIN) injection 2023-03 17:36: 00 01-12 19:34 :39 No PRN, Starting on Sat01/13/24 at 1236, Until Sat01/13/24 at 1434, Routine, Intra-op [facility] heparin 1,000 unit/mL injection 2023-03 17:36: 00 01-12 17:36 :00 No PRN, Starting on Sat01/13/24 at 1236, Until Sat01/13/24 at 1236, Routine, Intra-op [facility] nitroglycer in 50 mg in D5W 250 mL infusion RTU 2023-03 17:36: 00 01-12 17:36 :00 No CONTINUOUS PRN, Starting on Sat01/13/24 at 1236, Intra-op [facility] lidocaine-e pinephrine (XYLOCAINE W/EPINEPHRI NE) 1 %-1:200,000 injection 2023-03 17:34: 00 01-12 17:34 :00 No PRN, Starting on Sat01/13/24 at 1234, Until Sat01/13/24 at 1234, Routine, Intra-op [facility] ceFAZolin (ANCEF) 1,000 mg in NaCl 0.9% (NS) 10 mL IV push 2023-03 17:31: 00 01-12 17:31 :00 No PRN, Starting on Sat01/13/24 at 1231, Until Sat01/13/24 at 1231, 10 mL, Intra-op [facility] ceFAZolin (ANCEF) 1,000 mg in NaCl 0.9% (NS) 10 mL IV push 2023-03 17:30: 00 01-12 17:30 :00 No PRN, Starting on Sat01/13/24 at 1230, Until Sat01/13/24 at 1230, 10 mL, Intra-op [facility] iopamidol (ISOVUE 370-500 mL) injection 80 mL 2023-03 16:45: 00 01-12 15:56 :00 No [id number] 80mL 80 mL, Intravenou s, ONCE, 1 dose, On Sat01/13/24 at 1145, Routine [facility] lidocaine 1% (XYLOCAINE) 10 mg/mL (1 %) injection 2023-03 14:54: 40 01-12 14:54 :40 No PRN, Starting on Sat01/13/24 at 0954, Until Sat01/13/24 at 0954, Routine, Intra-op [facility] FENTanyl (PF) (SUBLIMAZE) injection 2023-03 14:30: 58 01-12 15:04 :49 No Slow IV Push, PRN, Starting on Sat01/13/24 at 0930, Until Sat01/13/24 at 1004, Routine, Intra-op [facility] midazolam (VERSED) injection 2023-03 14:30: 08 01-12 14:30 :08 No IV Push, PRN, Starting on Sat01/13/24 at 0930, Until Sat01/13/24 at 0930, Routine, Intra-op [facility] hydrALAZINE 25 mg tablet 2023-03 0 00:00: 00 04-27 00:00 :00 No 100mg Take 4 tablets by mouth 2 (two) times daily. [facility] amLODIPine 10 mg tablet 10-17 00:00: 00 Yes 10mg Take 1 tablet by mouth daily. [facility] iopamidol (ISOVUE 370-500 mL) injection 80 mL 09-12 03:30: 00 09-12 03:30 :00 No [id number] 80mL 80 mL, Intravenou s, ONCE, 1 dose, On Aysha 09/12/23 at 2230, Routine [facility] amoxicillin -clavulanat e 875-125 mg per tablet 09-11 00:00: 00 01-17 00:00 :00 No [id number] 1{tbl} Take 1 tablet by mouth every 12 (twelve) hours. [facility] azithromyci n (ZITHROMAX Z-YUN) 250 mg tablet 09-11 00:00: 00 01-17 00:00 :00 No [id number] 250mg Take 1 tablet by mouth SEE-INSTRU CTIONS. Take 500 mg day 1, then 250 mg days 2 to 5. [facility] leflunomide 10 mg tablet 09-02 00:00: 00 04-24 00:00 :00 No 10mg Take 1 tablet by mouth daily. [facility] Pantoprazol e Sodium 40 MG Pantoprazol e Sodium 40 MG No 1{table t} QD Pantoprazo le Sodium 40 MG predniSONE 20 MG predniSONE 20 MG No 1{table t} QD predniSONE 20 MG Melatonin 3 MG Melatonin 3 MG [...] s_neede d} Cyclobenza marcus HCl 10 MG amLODIPine Besylate 10 MG amLODIPine Besylate 10 MG No 1{table t} amLODIPine Besylate 10 MG Ultram 50 MG Ultram 50 MG No 1{table t_as_ne eded} Ultram 50 MG Ferrous Sulfate 325 (65 Fe) MG Ferrous Sulfate 325 (65 Fe) MG No 1{table t} QD Ferrous Sulfate 325 (65 Fe) MG Folic Acid 1 MG Folic Acid 1 MG No 1{table t} QD Folic Acid 1 MG Avacopan 10 MG Avacopan 10 MG No 3{capsu les_wit h_food} QD Avacopan 10 MG Lipitor 20 MG Lipitor 20 MG No 1{table t} QD Lipitor 20 MG Vital Signs Vital Name Observation Time Observation Value Comments S ource height 2024-05-04 11:15:00 62 [in_i] Commo n [facility] weight 2024-05-04 11:15:00 146 [lb_av] Comm on [facility] temperature 2024-05-04 11:15:00 98.7 [degF] Com mon [facility] bmi 2024-05-04 11:15:00 26.7 kg/m2 Commo n [facility] blood pressure systolic 2024-05-04 11:15:00 125 mm[Hg] Common [facility] blood pressure diastolic 2024-05-04 11:15:00 67 mm[Hg] [facility] Systolic blood pressure 2024-04-30 14:55:00 130 mm[Hg] [facility] Diastolic blood pressure 2024-04-30 14:55:00 70 mm[Hg] [facility] Heart rate 2024-04-30 14:55:00 80 /min [facility] Body temperature 2024-04-30 14:55:00 36.89 [place] [facility] Body height 2024-04-30 14:55:00 157.5 cm [facility] Body weight 2024-04-30 14:55:00 66.225 kg [facility] BMI 2024-04-30 14:55:00 26.70 kg/m2 [facility] Oxygen saturation in Arterial blood by Pulse oximetry 2024-04-30 14:55:00 98 /min [facility] Systolic blood pressure 2024-04-27 22:51:00 137 mm[Hg] [facility] Diastolic blood pressure 2024-04-27 22:51:00 60 mm[Hg] [facility] Heart rate 2024-04-27 22:51:00 58 /min [facility] Body temperature 2024-04-27 22:51:00 36.33 [place] [facility] Respiratory rate 2024-04-27 22:51:00 20 /min [facility] Oxygen saturation in Arterial blood by Pulse oximetry 2024-04-27 22:51:00 94 /min [facility] Body height 2024-04-25 03:17:00 157.5 cm [facility] Body weight 2024-04-25 03:17:00 67.495 kg [facility] BMI 2024-04-25 03:17:00 27.22 kg/m2 [facility] height 2024-01-31 14:00:00 62 [in_i] Commo n [facility] weight 2024-01-31 14:00:00 166 [lb_av] Comm on [facility] temperature 2024-01-31 14:00:00 97.9 [degF] Com mon [facility] bmi 2024-01-31 14:00:00 30.36 kg/m2 Comm on [facility] oximetry 2024-01-31 14:00:00 98 % Commo n [facility] respiratory rate 2024-01-31 14:00:00 18 /min Common [facility] blood pressure systolic 2024-01-31 14:00:00 136 mm[Hg] [facility] blood pressure diastolic 2024-01-31 14:00:00 61 mm[Hg] [facility] Systolic blood pressure 2024-01-22 13:30:00 157 mm[Hg] [facility] Diastolic blood pressure 2024-01-22 13:30:00 69 mm[Hg] [facility] Heart rate 2024-01-22 13:30:00 67 /min [facility] Body height 2024-01-22 13:30:00 157.5 cm [facility] Body weight 2024-01-22 13:30:00 76.204 kg [facility] BMI 2024-01-22 13:30:00 30.73 kg/m2 [facility] Oxygen saturation in Arterial blood by Pulse oximetry 2024-01-22 13:30:00 95 /min [facility] Systolic blood pressure 2024-01-18 16:47:00 155 mm[Hg] [facility] Diastolic blood pressure 2024-01-18 16:47:00 65 mm[Hg] [facility] Heart rate 2024-01-18 16:47:00 63 /min [facility] Body temperature 2024-01-18 16:47:00 36.39 Edelmira [facility] Respiratory rate 2024-01-18 16:47:00 20 /min [facility] Oxygen saturation in Arterial blood by Pulse oximetry 2024-01-18 16:47:00 91 /min [facility] Body weight 2024-01-18 09:00:00 79.833 kg [facility] BMI 2024-01-18 09:00:00 31.18 kg/m2 [facility] Systolic blood pressure 2024-01-15 12:52:00 149 mm[Hg] [facility] Diastolic blood pressure 2024-01-15 12:52:00 64 mm[Hg] [facility] Heart rate 2024-01-15 12:52:00 68 /min [facility] Body temperature 2024-01-15 12:52:00 36.44 [place] [facility] Respiratory rate 2024-01-15 12:52:00 16 /min [facility] Oxygen saturation in Arterial blood by Pulse oximetry 2024-01-15 12:52:00 91 /min [facility] Body height 2024-01-13 23:23:00 160 cm [facility] Body weight 2024-01-13 23:23:00 76.204 kg [facility] BMI 2024-01-13 23:23:00 29.76 kg/m2 [facility] Systolic blood pressure 2024-01-13 22:00:00 173 mm[Hg] [facility] Diastolic blood pressure 2024-01-13 22:00:00 83 mm[Hg] [facility] Heart rate 2024-01-13 22:00:00 61 /min [facility] Respiratory rate 2024-01-13 22:00:00 16 /min [facility] Oxygen saturation in Arterial blood by Pulse oximetry 2024-01-13 22:00:00 98 /min [facility] height 2023-12-04 09:30:00 62 [in_i] Commo n [facility] weight 2023-12-04 09:30:00 158.6 [lb_av] Co mmon [facility] temperature 2023-12-04 09:30:00 97.6 [degF] Com mon [facility] bmi 2023-12-04 09:30:00 29.01 kg/m2 Comm on [facility] oximetry 2023-12-04 09:30:00 99 % Commo n [facility] blood pressure systolic 2023-12-04 09:30:00 132 mm[Hg] Common [facility] blood pressure diastolic 2023-12-04 09:30:00 60 mm[Hg] Common [facility] height 2023-12-04 09:40:00 62 [in_i] Commo n [facility] weight 2023-12-04 09:40:00 158.6 [lb_av] Co mmon [facility] temperature 2023-12-04 09:40:00 97.6 [degF] Com mon [facility] bmi 2023-12-04 09:40:00 29.01 kg/m2 Comm on [facility] oximetry 2023-12-04 09:40:00 99 % Commo n [facility] blood pressure systolic 2023-12-04 09:40:00 132 mm[Hg] Common [facility] blood pressure diastolic 2023-12-04 09:40:00 60 mm[Hg] [facility] Systolic blood pressure 2023-09-13 03:31:00 124 mm[Hg] [facility] Diastolic blood pressure 2023-09-13 03:31:00 104 mm[Hg] [facility] Heart rate 2023-09-13 03:31:00 62 /min [facility] Body temperature 2023-09-13 03:31:00 36.72 Edelmira [facility] Respiratory rate 2023-09-13 03:31:00 16 /min [facility] Oxygen saturation in Arterial blood by Pulse oximetry 2023-09-13 03:31:00 99 /min [facility] Body height 2023-09-12 21:49:00 160 cm [facility] Body weight 2023-09-12 21:49:00 76.204 kg [facility] BMI 2023-09-12 21:49:00 29.76 kg/m2 [facility] height 2023-09-04 08:10:00 62 [in_i] Commo n [facility] weight 2023-09-04 08:10:00 164.6 [lb_av] Co mmon [facility] temperature 2023-09-04 08:10:00 98.1 [degF] Com mon [facility] bmi 2023-09-04 08:10:00 30.1 kg/m2 Commo n [facility] oximetry 2023-09-04 08:10:00 99 % Commo n [facility] blood pressure systolic 2023-09-04 08:10:00 138 mm[Hg] [facility] blood pressure diastolic 2023-09-04 08:10:00 70 mm[Hg] [facility] height 2023-05-30 08:10:00 62 [in_i] Commo n [facility] weight 2023-05-30 08:10:00 173.0 [lb_av] Co mmon [facility] temperature 2023-05-30 08:10:00 98.3 [degF] Com mon [facility] bmi 2023-05-30 08:10:00 31.64 kg/m2 Comm on [facility] oximetry 2023-05-30 08:10:00 99 % Commo n [facility] respiratory rate 2023-05-30 08:10:00 18 /min [facility] blood pressure systolic 2023-05-30 08:10:00 137 mm[Hg] [facility] blood pressure diastolic 2023-05-30 08:10:00 68 mm[Hg] Common [facility] height 2023-01-14 10:00:00 62 [in_i] Commo n [facility] weight 2023-01-14 10:00:00 163 [lb_av] Comm on [facility] temperature 2023-01-14 10:00:00 98 [degF] Comm on [facility] bmi 2023-01-14 10:00:00 29.81 kg/m2 Comm on [facility] blood pressure systolic 2023-01-14 10:00:00 149 mm[Hg] [facility] blood pressure diastolic 2023-01-14 10:00:00 72 mm[Hg] [facility] height 2022-10-03 11:00:00 62 [in_i] Commo n [facility] weight 2022-10-03 11:00:00 173.0 [lb_av] Co on [facility] temperature 2022-10-03 11:00:00 97.1 [degF] Com [facility] bmi 2022-10-03 11:00:00 31.64 kg/m2 Comm on [facility] oximetry 2022-10-03 11:00:00 99 % Commo n [facility] respiratory rate 2022-10-03 11:00:00 18 /min Common [facility] blood pressure systolic 2022-10-03 11:00:00 126 mm[Hg] Common [facility] blood pressure diastolic 2022-10-03 11:00:00 77 mm[Hg] Common [facility] height 2022-10-03 11:00:00 62 [in_i] Commo n [facility] weight 2022-10-03 11:00:00 173.0 [lb_av] Co on [facility] temperature 2022-10-03 11:00:00 97.1 [degF] Com [facility] bmi 2022-10-03 11:00:00 31.64 kg/m2 Comm on [facility] oximetry 2022-10-03 11:00:00 99 % Commo n [facility] respiratory rate 2022-10-03 11:00:00 18 /min Common [facility] blood pressure systolic 2022-10-03 11:00:00 126 mm[Hg] Common [facility] blood pressure diastolic 2022-10-03 11:00:00 77 mm[Hg] [facility] height 2022-07-30 11:20:00 62 [in_i] Commo n [facility] weight 2022-07-30 11:20:00 178 [lb_av] Comm on [facility] temperature 2022-07-30 11:20:00 96 [degF] Comm on [facility] bmi 2022-07-30 11:20:00 32.55 kg/m2 Comm on [facility] blood pressure systolic 2022-07-30 11:20:00 123 mm[Hg] Common [facility] blood pressure diastolic 2022-07-30 11:20:00 76 mm[Hg] [facility] height 2022-05-07 09:40:00 62 [in_i] Commo n [facility] weight 2022-05-07 09:40:00 170 [lb_av] Comm on [facility] temperature 2022-05-07 09:40:00 98.1 [degF] Com mon [facility] bmi 2022-05-07 09:40:00 31.09 kg/m2 Comm on [facility] blood pressure systolic 2022-05-07 09:40:00 128 mm[Hg] [facility] blood pressure diastolic 2022-05-07 09:40:00 75 mm[Hg] [facility] height 2022-01-02 11:30:00 62 [in_i] Commo n [facility] weight 2022-01-02 11:30:00 174 [lb_av] Comm on [facility] temperature 2022-01-02 11:30:00 97 [degF] Comm on [facility] bmi 2022-01-02 11:30:00 31.82 kg/m2 Comm on [facility] blood pressure systolic 2022-01-02 11:30:00 119 mm[Hg] Common [facility] blood pressure diastolic 2022-01-02 11:30:00 64 mm[Hg] [facility] height 2021-11-09 14:10:00 62 [in_i] Commo n [facility] weight 2021-11-09 14:10:00 173.4 [lb_av] Co mmon [facility] temperature 2021-11-09 14:10:00 97.5 [degF] Com mon [facility] bmi 2021-11-09 14:10:00 31.71 kg/m2 Comm on [facility] oximetry 2021-11-09 14:10:00 100 % Commo n [facility] respiratory rate 2021-11-09 14:10:00 17 /min Common [facility] blood pressure systolic 2021-11-09 14:10:00 131 mm[Hg] Common [facility] blood pressure diastolic 2021-11-09 14:10:00 76 mm[Hg] Common [facility] height 2021-10-04 10:50:00 62 [in_i] Commo n [facility] weight 2021-10-04 10:50:00 170 [lb_av] Comm on [facility] temperature 2021-10-04 10:50:00 97 [degF] Comm on [facility] bmi 2021-10-04 10:50:00 31.09 kg/m2 Comm on [facility] blood pressure systolic 2021-10-04 10:50:00 109 mm[Hg] Common [facility] blood pressure diastolic 2021-10-04 10:50:00 65 mm[Hg] Common [facility] height 2021-10-04 11:20:00 62 [in_i] Commo n [facility] weight 2021-10-04 11:20:00 170 [lb_av] Comm on [facility] temperature 2021-10-04 11:20:00 97 [degF] Comm on [facility] bmi 2021-10-04 11:20:00 31.09 kg/m2 Comm on [facility] height 2021-08-14 13:00:00 62 [in_i] Commo n [facility] weight 2021-08-14 13:00:00 173.0 [lb_av] Co mmon [facility] temperature 2021-08-14 13:00:00 97.7 [degF] Com mon [facility] bmi 2021-08-14 13:00:00 31.64 kg/m2 Comm on [facility] oximetry 2021-08-14 13:00:00 100 % Commo n [facility] respiratory rate 2021-08-14 13:00:00 18 /min Common [facility] blood pressure systolic 2021-08-14 13:00:00 124 mm[Hg] Common [facility] blood pressure diastolic 2021-08-14 13:00:00 58 mm[Hg] Common [facility] height 2021-07-12 11:40:00 62 [in_i] Commo n [facility] weight 2021-07-12 11:40:00 173 [lb_av] Comm on [facility] temperature 2021-07-12 11:40:00 97.3 [degF] Com [facility] bmi 2021-07-12 11:40:00 31.64 kg/m2 Comm on [facility] blood pressure systolic 2021-07-12 11:40:00 116 mm[Hg] [facility] blood pressure diastolic 2021-07-12 11:40:00 70 mm[Hg] [facility] height 2021-04-13 11:30:00 62 [in_i] Commo n [facility] weight 2021-04-13 11:30:00 170 [lb_av] Comm on [facility] temperature 2021-04-13 11:30:00 96.1 [degF] Com [facility] bmi 2021-04-13 11:30:00 31.09 kg/m2 Comm on [facility] blood pressure systolic 2021-04-13 11:30:00 116 mm[Hg] [facility] blood pressure diastolic 2021-04-13 11:30:00 65 mm[Hg] [facility] height 2021-01-11 10:40:00 62 [in_i] Commo n [facility] weight 2021-01-11 10:40:00 174.1 [lb_av] Co mmon [facility] temperature 2021-01-11 10:40:00 98.0 [degF] Com mon [facility] bmi 2021-01-11 10:40:00 31.84 kg/m2 Comm on [facility] oximetry 2021-01-11 10:40:00 97 % Commo n [facility] respiratory rate 2021-01-11 10:40:00 17 /min [facility] blood pressure systolic 2021-01-11 10:40:00 132 mm[Hg] [facility] blood pressure diastolic 2021-01-11 10:40:00 72 mm[Hg] [facility] Procedures Procedure Date / Time Performed Performing Clinician Source ALMAS AURIS SURVEILLANCE BY PCR (INFECTION CONTROL PURPOSES) 2024-04-27 10:53:00 Natalie Travis [facility] MAGNESIUM 2024-04-27 10:52:00 Viki Guerra [facility] BASIC METABOLIC PANEL (NA, K, CL, CO2, GLUCOSE, BUN, CREATININE, CA) 2024-04-27 10:52:00 Viki Guerra [facility] CBC WITH DIFF 2024-04-27 10:52:00 Viki Guerra [facility] CBC WITH DIFF 2024-04-27 03:36:00 Viki Guerra [facility] MAGNESIUM 2024-04-26 09:44:00 Alvino Mccormick [facility] BASIC METABOLIC PANEL (NA, K, CL, CO2, GLUCOSE, BUN, CREATININE, CA) 2024-04-26 09:44:00 Alvino Mccormick [facility] CBC WITH DIFF 2024-04-26 09:44:00 Alvino Mccormick [facility] CBC WITH DIFF 2024-04-26 00:28:00 [facility] RBC 2024-04-25 15:23:00 Jen Choudhary [facility] PREPARE PACKED RBC 2024-04-25 15:05:38 Jen Choudhary ae [facility] TRANSFUSE PACKED RBC 2024-04-25 11:26:00 Jen Choudhary [facility] XR CHEST 1 VW 2024-04-25 11:10:00 Jen Choudhary Un [facility] XR HIPS 2 VW RIGHT 2024-04-25 11:10:00 Jen Choudhary ae [facility] PHOSPHORUS 2024-04-25 09:41:00 Jen Choudhary [facility] MAGNESIUM 2024-04-25 09:41:00 Jen Choudhary [facility] FERRITIN SERUM 2024-04-25 09:41:00 Alvino Mccormick [facility] OSMOLALITY, SERUM OR PLASMA 2024-04-25 09:41:00 Alvino Mccormick [facility] BASIC METABOLIC PANEL (NA, K, CL, CO2, GLUCOSE, BUN, CREATININE, CA) 2024-04-25 09:41:00 Jen Choudhary [facility] CBC WITH DIFF 2024-04-25 09:41:00 [facility] 2024-04-25 09:41:00 Jen Choudhary [facility] URINALYSIS 2024-04-25 09:34:00 Jen Choudhary [facility] EXTRA TUBE URINE CULTURE 2024-04-25 09:34:00 Dino Grider [facility] LACTIC ACID WHOLE BLOOD 2024-04-25 03:07:00 Newton Choudhary [facility] PHOSPHORUS 2024-04-25 03:04:00 Jen Choudhary [facility] MAGNESIUM 2024-04-25 03:04:00 Jen Choudhary [facility] HEPATIC FUNCTION PANEL (80701) (ALB,T.PRO,BILI T,BU/BC,ALT,AST,ALK PHOS) 2024-04-25 03:04:00 Jen Choudhary [facility] BASIC METABOLIC PANEL (NA, K, CL, CO2, GLUCOSE, BUN, CREATININE, CA) 2024-04-25 03:04:00 Jen Choudhary [facility] CBC WITH DIFF 2024-04-25 03:04:00 Jen Choudhary [facility] GLYCOSYLATED HEMOGLOBIN (A1C) 2024-04-25 03:04:00 Jen Choudhary [facility] PROTHROMBIN TIME / INR 2024-04-25 03:04:00 Ramona Choudhary Elizabeth [facility] ACTIVATED PARTIAL THRMPLAS DAIN 2024-04-25 03:04:00 Jen Choudhary [facility] HB ABO GROUPING 2024-04-25 03:04:00 Jen Choudhary Elizabeth [facility] N-TERMINAL PRO-BNP 2024-04-25 03:04:00 Jen Choudhary ae [facility] CBC WITHOUT DIFF 2024-01-22 14:34:00 Monica Bethea [facility] BASIC METABOLIC PANEL (NA, K, CL, CO2, GLUCOSE, BUN, CREATININE, CA) 2024-01-18 10:06:00 Twin Ghosh [facility] CBC WITHOUT DIFF 2024-01-18 10:06:00 Richmond Gonsalves [facility] BASIC METABOLIC PANEL (NA, K, CL, CO2, GLUCOSE, BUN, CREATININE, CA) 2024-01-17 08:44:00 Louisa Torres [facility] CBC WITHOUT DIFF 2024-01-17 08:44:00 Richmond Gonsalves [facility] BASIC METABOLIC PANEL (NA, K, CL, CO2, GLUCOSE, BUN, CREATININE, CA) 2024-01-16 17:56:00 [facility] BASIC METABOLIC PANEL (NA, K, CL, CO2, GLUCOSE, BUN, CREATININE, CA) 2024-01-16 09:30:00 [facility] CBC WITHOUT DIFF 2024-01-16 09:30:00 Richmond Gonsalves [facility] SODIUM, URINE RANDOM 2024-01-15 15:21:00 [facility] PROTEIN CREAT RATIO URINE RANDOM 2024-01-15 15:20:00 [facility] BASIC METABOLIC PANEL (NA, K, CL, CO2, GLUCOSE, BUN, CREATININE, CA) 2024-01-15 09:34:00 Augie [facility] CBC WITHOUT DIFF 2024-01-15 09:34:00 Richmond Gonsalves [facility] C4 COMPLEMENT 2024-01-14 19:07:00 [facility] CBC WITH DIFF 2024-01-14 19:07:00 [facility] COMPLEMENT CH50, TOTAL 2024-01-14 19:07:00 [facility] ANTI-NUCLEAR ANTIBODY SCREEN 2024-01-14 19:07:00 [facility] ANTI-NUCLEAR ANTIBODY TITER 2024-01-14 19:07:00 [facility] PROTEINASE 3 ANTIBODY PR3 2024-01-14 19:07:00 [facility] BASIC METABOLIC PANEL (NA, K, CL, CO2, GLUCOSE, BUN, CREATININE, CA) 2024-01-14 17:38:00 [facility] CBC WITHOUT DIFF 2024-01-14 17:38:00 Charly Jacob [facility] BASIC METABOLIC PANEL (NA, K, CL, CO2, GLUCOSE, BUN, CREATININE, CA) 2024-01-14 10:09:00 Charly Jacob [facility] CBC WITH DIFF 2024-01-14 10:09:00 Charly Jacob [facility] CBC WITH DIFF 2024-01-14 03:59:00 Coretta Marsh [facility] CBC WITHOUT DIFF 2024-01-13 18:16:00 [facility] 2024-01-13 17:57:46 Reema Bethea [facility] TYPE AND SCREEN 2024-01-13 16:50:00 Jose Rivero [facility] TYPE AND SCREEN 2024-01-13 16:50:00 Monica Bethea [facility] CT ANGIOGRAM ABDOMEN/PELVIS 2024-01-13 15:54:00 [facility] COMP. METABOLIC PANEL (57223) 2024-01-13 13:19:00 [facility] WITH DIFF 2024-01-13 13:19:00 Monica Bethea [facility] PROTHROMBIN TIME / INR 2024-01-13 13:19:00 Dimitry Bethea [facility] CT ABDOMEN PELVIS WO CONTRAST 2023-09-13 02:35:22 Aisha Morales [facility] TROPONIN I 2023-09-12 23:39:00 Aisha Morales [facility] COMP. METABOLIC PANEL ([id number]) 2023-09-12 23:39:00 Aisha Morales [facility] CBC WITH DIFF 2023-09-12 23:39:00 Aisha Morales [facility] URINALYSIS 2023-09-12 23:39:00 Aisha Morales [facility] INFLUENZA A/B RSV COVID NAAT 2023-09-12 23:39:00 Aisha Morales [facility] N-TERMINAL PRO-BNP 2023-09-12 23:39:00 Aisha Morales [facility] LACTIC ACID WHOLE BLOOD 2023-09-12 23:39:00 Do peter Morales [facility] XR CHEST 1 VW 2023-09-12 23:31:42 Aisha Morales [facility] DEXA AXIAL (HIP AND SPINE) 2022-02-28 17:18:41 Rajan Guerra [facility] Encounters Start Date/Time End Date/Time Encounter Type Admission Type Attending [facility] Care Facility Care Department Encounter ID Source 2024-04-30 10:59:00 [facility] [id number] [facility] 2024-04-07 11:32:00 [facility] [id number] [facility] 2023-10-03 16:19:00 Outpatient Guerra, [facility] [id number] [facility] 2023-09-05 11:15:00 [facility] [id number] [facility] 2022-07-30 09:37:00 Outpatient Guerra, [facility] [id number] [facility] 2022-05-18 11:00:00 [facility] [id number] [facility] 2022-05-07 09:27:00 Outpatient Guerra, [facility] [id number] [facility] 2021-04-19 14:37:58 [facility] [id number] [facility] 2021-04-19 12:58:12 [facility] [id number] [facility] 2021-04-19 12:25:52 [facility] [id number] [facility] 2021-04-19 12:25:30 [facility] [id number] [facility] 2021-04-19 11:59:48 Outpatient Gu[facility] [id number] [facility] 2021-04-19 11:59:35 Outpatient Guerra, Rajan [facility] [id number] [facility] 2021-04-19 11:49:05 Outpatient Guerra, Rajan [facility] [id number] [facility] 2021-04-19 11:32:13 Outpatient Guerra, Rajan [facility] [id number] [facility] 2021-04-19 11:31:48 [facility] [id number] [facility] 2021-04-19 11:17:25 [facility] [id number] [facility] 2021-04-19 10:59:19 [facility] [id number] [facility] 2024-05-04 00:00:00 2024-05-04 00:00:00 (EST. VIDEO) EST V[facility]UAL [facility]IT [facility] [id number] [facility] 2024-04-30 00:00:00 2024-04-30 16:21:29 [facility]phone [facility] 1.2.840.114 350.1.13.10 4.2.7.2.686 [id number] [facility] 2024-04-30 08:00:00 2024-04-30 09:42:55 Outpatient R SELENE QUINTERO [facility] [id number] [facility] 2024-04-30 08:00:00 2024-04-30 09:42:55 Office Visit Ingrid, Selene [facility] 1.2.840.114 350.1.13.10 4.2.7.2.686 [id number] [facility] 2024-04-28 00:00:00 2024-04-28 14:37:26 Transition of Care Ewa Escobar Christine A SHEARN POLO LIRA 1.2.840.114 350.1.13.10 4.2.7.2.686 [id number] [facility] 2024-04-28 00:00:00 2024-04-28 00:00:00 (TEL) STLMLC STLMLC [id number] [facility] 2024-04-24 18:48:00 2024-04-27 19:53:00 [facility] [id number] [facility] 2024-04-24 18:48:00 2024-04-27 19:53:[address] [facility] KalpanaDino Wilburn [facility] 1.2.840.114 350.1.13.10 4.2.7.2.686 [id number] [facility] 2024-04-23 00:00:00 2024-04-23 13:09:44 Telephone Malik Weinberg [facility] 1.2.840.114 350.1.13.10 4.2.7.2.686 [id number] [facility] 2024-04-15 00:00:00 2024-04-15 00:00:00 (TEL) STLMLC STLMLC [id number] [facility] 2024-04-02 00:00:00 2024-04-02 00:00:00 (TEL) STLMLC STLMLC [id number] [facility] 2024-01-31 00:00:00 2024-01-31 00:00:00 (HOSP F/U) Hospital Follow Up STLMLC STLMLC [id number] [facility] 2024-01-29 00:00:00 2024-01-29 00:00:00 (TEL) STLMLC STLMLC [id number] [facility] 2024-01-22 08:00:00 2024-01-22 10:34:02 [facility] [id number] [facility] 2024-01-22 08:00:00 2024-01-22 10:34:02 Office [facility]Monica [facility] 1.2.840.114 350.1.13.10 4.2.7.2.686 [id number] [facility] 2024-01-22 09:30:00 2024-01-22 10:01:22 Sports Anchor Visit 2, Adc Lab Reema Bethea 2, Adc Lab [facility] 1.2.840.114 350.1.13.10 4.2.7.2.686 [id number] [facility] 2024-01-21 00:00:00 2024-01-21 00:00:00 (TEL) STLMLC STLMLC [id number] [facility] 2024-01-20 00:00:00 2024-01-20 12:13:05 Transition of Care Alyssa Matt Miatha R [place] 1.2.840.114 350.1.13.10 4.2.7.2.686 [id number] [facility] 2024-01-20 00:00:00 2024-01-20 00:00:00 (TEL) STLMLC STLMLC [id number] [facility] 2024-01-13 17:36:00 2024-01-18 13:32:00 Hospital Encounter Jose Rivero Luis Veronica Monica Antoine Leah HerreraMontse [facility] 1.2.840.114 350.1.13.10 4.2.7.2.686 [id number] [facility] 2024-01-13 07:40:53 2024-01-18 13:32:00 Inpatient Jonatan MARTIN MADDY [facility] [id number] [facility] 2024-01-14 00:00:00 2024-01-14 11:21:55 Case Management Monica Bethea [facility] 1.2.840.114 350.1.13.10 4.2.7.2.686 [id number] [facility] 2024-01-13 11:38:50 2024-01-13 17:35:00 Hospital Encounter Monica Bethea Leah Laird, Rachel [facility] 1.2.840.114 350.1.13.10 4.2.7.2.686 [id number] [facility] 2024-01-13 10:30:00 2024-01-13 11:37:00 Hospital Encounter Monica Bethea Rachel [facility] 1.2.840.114 350.1.13.10 4.2.7.2.686 [id number] [facility] 2023-12-04 00:00:00 2023-12-04 00:00:00 OFFICE VISIT ESTAB PT LEVEL 4 [facility] [id number] [facility] 2023-12-04 00:00:00 2023-12-04 00:00:00 SUB ANNUAL [facility] VISIT [facility] [id number] [facility] 2023-09-12 16:52:00 2023-09-12 22:44:00 Emergency X AISHA MORALES [facility] E[facility] [id number] [facility] 2023-09-12 16:52:00 2023-09-12 22:44:00 Emergency Aisha Morales [facility] 1.2.840.114 350.1.13.10 4.2.7.2.686 [id number] [facility] 2023-09-05 00:00:00 2023-09-05 00:00:00 (TEL) STLMLC STLMLC [id number] [facility] 2023-09-04 00:00:00 2023-09-04 00:00:00 OFFICE VISIT ESTAB PT LEVEL 4 STLMLC STLMLC [id number] [facility] 2023-08-21 00:00:00 2023-08-21 00:00:00 (TEL) STLMLC STLMLC [id number] [facility] 2023-08-14 00:00:00 2023-08-14 00:00:00 (TEL) STLMLC STLMLC [id number] [facility] 2023-08-09 00:00:00 2023-08-09 00:00:00 (TEL) STLMLC STLMLC [id number] [facility] 2023-05-30 00:00:00 2023-05-30 00:00:00 OFFICE VISIT ESTAB PT LEVEL 4 STLMLC STLMLC [id number] [facility] 2023-01-28 00:00:00 2023-01-28 00:00:00 (TEL) STLMLC STLMLC [id number] [facility] 2023-01-14 00:00:00 2023-01-14 00:00:00 OFFICE VISIT ESTAB PT LEVEL 4 STLMLC STLMLC [id number] [facility] 2022-12-18 00:00:00 2022-12-18 00:00:00 (TEL) STLMLC STLMLC [id number] [facility] 2022-10-05 00:00:00 2022-10-05 00:00:00 (TEL) STLMLC STLMLC [id number] [facility] 2022-10-03 00:00:00 2022-10-03 00:00:00 OFFICE VISIT ESTAB PT LEVEL 4 STLMLC STLMLC [id number] [facility] 2022-10-03 00:00:00 2022-10-03 00:00:00 (TEL) STLMLC STLMLC [id number] [facility] 2022-10-03 00:00:00 2022-10-03 00:00:00 SUB ANNUAL [facility] VISIT STLMLC STLMLC [id number] [facility] 2022-07-30 00:00:00 2022-07-30 00:00:00 OFFICE VISIT ESTAB PT LEVEL 4 STLMLC STLMLC [id number] [facility] 2022-05-22 08:51:00 2022-05-22 00:01:00 [id number] [facility] 2022-05-07 00:00:00 2022-05-07 00:00:00 OFFICE VISIT ESTAB PT LEVEL 4 STLMLC STLMLC [id number] [facility] 2022-05-07 00:00:00 2022-05-07 00:00:00 (TEL) STLMLC STLMLC [id number] [facility] 2022-02-28 10:31:27 2022-02-28 23:59:00 Outpatient R RADIOLOGY [facility] [id number] [facility] 2022-02-28 10:31:27 2022-02-28 23:59:00 Hospital Encounter Radiology [facility] [id number] [facility] 2022-02-20 00:00:00 2022-02-20 00:00:00 (TEL) STLMLC STLMLC [id number] [facility] 2022-01-16 00:00:00 2022-01-16 00:00:00 (TEL) STLMLC STLMLC [id number] [facility] 2022-01-02 00:00:00 2022-01-02 00:00:00 OFFICE VISIT ESTAB PT LEVEL 4 STLMLC STLMLC [id number] [facility] 2022-01-02 00:00:00 2022-01-02 00:00:00 (TEL) STLMLC STLMLC [id number] [facility] 2021-11-09 00:00:00 2021-11-09 00:00:00 OFFICE VISIT ESTAB PT LEVEL 4 STLMLC STLMLC [id number] [facility] 2021-11-09 00:00:00 2021-11-09 00:00:00 (TEL) STLMLC STLMLC [id number] [facility] 2021-10-25 00:00:00 2021-10-25 00:00:00 (TEL) STLMLC STLMLC [id number] [facility] 2021-10-04 00:00:00 2021-10-04 00:00:00 OFFICE VISIT ESTAB PT LEVEL 4 STLMLC STLMLC [id number] [facility] 2021-10-04 00:00:00 2021-10-04 00:00:00 SUB ANNUAL [facility]NESS VISIT STLMLC STLMLC [id number] [facility] 2021-08-14 00:00:00 2021-08-14 00:00:00 (HOSP F/U) Hospital Follow Up STLMLC STLMLC [id number] [facility] 2021-08-10 00:00:00 2021-08-10 00:00:00 (TEL) STLMLC STLMLC [id number] [facility] 2021-08-09 00:00:00 2021-08-09 00:00:00 (TEL) STLMLC STLMLC [id number] [facility] 2021-07-12 00:00:00 2021-07-12 00:00:00 OFFICE VISIT ESTAB PT LEVEL 4 STLMLC STLMLC [id number] [facility] 2021-04-13 00:00:00 2021-04-13 00:00:00 OFFICE VISIT ESTAB PT LEVEL 4 STLMLC STLMLC [id number] [facility] 2021-03-06 00:00:00 2021-03-06 00:00:00 (TEL) STLMLC STLMLC [id number] [facility] 2021-01-11 00:00:00 2021-01-11 00:00:00 OFFICE VISIT ESTAB PT LEVEL 4 STLMLC STLMLC [id number] [facility] 2020-10-11 00:00:00 2020-10-11 00:00:00 Outpatient STLMLC STLMLC [id number] [facility] 2020-10-11 00:00:00 2020-10-11 00:00:00 Outpatient STLMLC STLMLC [id number] [facility] 2020-10-05 00:00:00 2020-10-05 00:00:00 Outpatient STLMLC STLMLC [id number] [facility] 2020-07-20 00:00:00 2020-07-20 00:00:00 Outpatient STLMLC STLMLC [id number] [facility] 2020-04-21 00:00:00 2020-04-21 00:00:00 Outpatient STLMLC STLMLC [id number] [facility] 2020-01-20 00:00:00 2020-01-20 00:00:00 Outpatient STLMLC STLMLC [id number] [facility] 2019-12-21 00:00:00 2019-12-21 00:00:00 Outpatient STLMLC STLMLC [id number] [facility] 2019-12-18 00:00:00 2019-12-18 00:00:00 Outpatient STLMLC STLMLC [id number] [facility] 2019-10-20 11:00:00 2019-10-20 11:00:[address] [facility] [id number] [facility] 2019-10-20 11:00:00 2019-10-20 11:00:00 [facility] [id number] [facility] 2019-10-12 15:00:00 2019-10-12 15:00:00 [facility] [id number] [facility] 2019-10-11 21:54:00 2019-10-11 21:54:[address] [facility] [id number] [facility] 2019-10-05 08:30:00 2019-10-05 08:30:[address] [facility] [facility] [id number] [facility] 2019-09-30 13:20:00 2019-09-30 13:20:[address] [facility] [facility] [id number] [facility] 2019-09-28 16:39:00 2019-09-28 16:39:[address] [facility] [facility] [id number] [facility] 2019-09-21 16:12:00 2019-09-21 16:12:[address] [facility] [id number] [facility] 2019-09-16 08:20:00 2019-09-16 08:20:[address] [facility] [id number] [facility] 2019-09-15 13:09:00 2019-09-15 13:09:[address] [facility] [id number] [facility] 2019-06-23 11:30:00 2019-06-23 11:30:00 [facility] [id number] [facility] 2019-04-02 11:00:00 2019-04-02 11:00:00 [facility] [id number] [facility] 2019-03-26 08:00:00 2019-03-26 08:00:00 [facility] [id number] [facility] 2018-12-18 10:45:00 2018-12-18 10:45:00 [facility] [id number] [facility] 2018-09-18 10:30:00 2018-09-18 10:30:00 [facility] [id number] [facility] 2018-07-09 13:59:00 2018-07-09 13:59:00 [facility] [id number] [facility] 2017-11-07 10:30:00 2017-11-07 10:30:00 Outpatient [facility] [id number] [facility] Results Test Description Test Time Test Comments Results Result Co mments Source [facility] (NA, K, CL, CO2, GLUCOSE, BUN, CREATININE, CA)2024-04-27 12:03:36* Test Item Value Reference Range Interpretation Comme nts NA (test code = 4894137131) 130 mmol/L 135-145 L K (test code = 7995967314) 4.9 mmol/L 3.5-5.0 CL (test code = 0951273910) 105 mmol/L 98-108 CO2 TOTAL (test code = 0473227788) 22 mmol/L 23-31 L AGAP (test code = 9619008987) 3 2-16 BUN (test code = 1578720211) 91 mg/dL 7-23 H GLUCOSE (test code = 5112466575) 82 mg/dL 70-110 CREATININE (test code = 2160-0) 1.57 mg/dL 0.50-1.04 H CALCIUM (test code = 3227705598) 8.1 mg/dL 8.6-10.6 L eGFR (test code = 28736-2) 33.0 mL/min/1.73m2 CKD-EPI eGFR (2020). Assuming creatinine has been stable day-to-day for at least three months, the eGFR indicates Category G3b (30 - 44 mL/min/1.73 m2) Lab Interpretation (test code = 19160-9) [facility]normal [facility] 12:03:36* Test Item Value Reference Range Interpretation Comme nts MAGNESIUM (test code = 2076810378) 1.9 mg/dL 1.7-2.4 Lab Interpretation (test cod e = 59928-7) Normal [facility] with [id number] 04:14:58* Test Item Value Reference Range Interpretation Comme nts WBC (test code = 6690-2) 8.34 4.30-11.10 RBC (test code = 789-8) 3.51 3.93-5.25 L HGB (test code = 718-7) 10.4 g/dL 11.6-15.0 L HCT (test code = 4544-3) 30.6 % 35.7-45.2 L MCV (test code = 787-2) 87.2 fL 80.6-95.5 MCH (test code = 785-6) 29.6 pg 25.9-32.8 MCHC (test code = 786-4) 34.0 g/dL 31.6-35.1 RDW-SD (test code = 85442-6) 49.8 fL 39.0-49.9 RDW-CV (test code = 788-0) 15.6 % 12.0-15.5 H PLT (test code = 777-3) 262 166-358 MPV (test code = 20575-2) 9.9 fL 9.5-12.9 NRBC/100 WBC (test code = 2679048159) 0.0 0.0-10.0 NRBC x10^3 (test code = 8767900338) See_Comment [Automated messa ge] The system which generated this result transmitted reference range: 10*3/?L. The reference range was not used to interpret this result as normal/abnormal. GRAN MAT (NEUT) % (test code = 770-8) 77.6 % IMM GRAN % (test code = 0722290274) 7.20 % LYMPH % (test code = 736-9) 5.8 % MONO % (test code = 5905-5) 9.1 % EOS % (test code = 713-8) 0.1 % BASO % (test code = 706-2) 0.2 % GRAN MAT x10^3(ANC) (test code = 5194182728) 6.47 10*3/uL 1.88-7.09 IMM GRAN x10^3 (test code = 8151956118) 0.60 10*3/uL 0.00-0.06 H LYMPH x10^3 (test code = 731-0) 0.48 10*3/uL 1.32-3.29 L MONO x10^3 (test code = 742-7) 0.76 10*3/uL 0.33-0.92 EOS x10^3 (test code = 711-2) 0.03-0.39 L BASO x10^3 (test code = 704-7) 0.01-0.07 Lab Interpretation (test code = 17675-2) Abnormal [facility] with Tsfp9273-97-90 10:42:45* Test Item Value Reference Range Interpretation Comme nts WBC (test code = 6690-2) 9.46 4.30-11.10 RBC (test code = 789-8) 3.48 3.93-5.25 L HGB (test code = 718-7) 10.3 g/dL 11.6-15.0 L HCT (test code = 4544-3) 29.9 % 35.7-45.2 L MCV (test code = 787-2) 85.9 fL 80.6-95.5 MCH (test code = 785-6) 29.6 pg 25.9-32.8 MCHC (test code = 786-4) 34.4 g/dL 31.6-35.1 RDW-SD (test code = 18507-9) 48.1 fL 39.0-49.9 RDW-CV (test code = 788-0) 15.4 % 12.0-15.5 PLT (test code = 777-3) 270 166-358 MPV (test code = 85230-5) 10.2 fL 9.5-12.9 NRBC/100 WBC (test code = 6274414876) 0.0 0.0-10.0 NRBC x10^3 (test code = 3312179816) See_Comment [Automated messa ge] The system which generated this result transmitted reference range: 10*3/?L. The reference range was not used to interpret this result as normal/abnormal. GRAN MAT (NEUT) % (test code = 770-8) 80.8 % IMM GRAN % (test code = 6402478097) 5.50 % LYMPH % (test code = 736-9) 4.7 % MONO % (test code = 5905-5) 8.4 % EOS % (test code = 713-8) 0.0 % BASO % (test code = 706-2) 0.6 % GRAN MAT x10^3(ANC) (test code = 7600538468) 7.65 10*3/uL 1.88-7.09 H IMM GRAN x10^3 (test code = 1086905220) 0.52 10*3/uL 0.00-0.06 H LYMPH x10^3 (test code = 731-0) 0.44 10*3/uL 1.32-3.29 L MONO x10^3 (test code = 742-7) 0.79 10*3/uL 0.33-0.92 EOS x10^3 (test code = 711-2) 0.03-0.39 L BASO x10^3 (test code = 704-7) 0.06 10*3/uL 0.01-0.07 DANNI CELLS (test code = 7790-9) 2+ See_Comment A [Automated messa ge] The system which generated this result transmitted reference range: (none). The reference range was not used to interpret this result as normal/abnormal. Lab Interpretation (test code = 14957-3) Abnormal [facility] Metabolic Panel (NA, K, CL, CO2, GLUCOSE, BUN, CREATININE, CA)2024-04-26 10:21:49* Test Item Value Reference Range Interpretation Comme nts NA (test code = 2147995755) 130 mmol/L 135-145 L K (test code = 6660173905) 5.3 mmol/L 3.5-5.0 H CL (test code = 9530321608) 104 mmol/L 98-108 CO2 TOTAL (test code = 6206869871) 22 mmol/L 23-31 L AGAP (test code = 3226119049) 4 2-16 BUN (test code = 3498908256) 105 mg/dL 7-23 H GLUCOSE (test code = 1972256240) 98 mg/dL 70-110 CREATININE (test code = 2160-0) 1.89 mg/dL 0.50-1.04 H CALCIUM (test code = 6804664002) 8.1 mg/dL 8.6-10.6 L eGFR (test code = 91028-6) 26.4 mL/min/1.73m2 CKD-EPI eGFR (2020). Assuming creatinine has been stable day-to-day for at least three months, the eGFR indicates Category G4 (15 - 29 mL/min/1.73 m2) Lab Interpretation (test code = 86654-5) Abnormal [facility]2025-[facility]-02 10:21:49* Test Item Value Reference Range Interpretation Comme nts MAGNESIUM (test code = 0882743092) 2.0 mg/dL 1.7-2.4 Lab Interpretation (test cod e = 30935-3) Normal [facility] 1 [id number] 02:50:41CHEST SINGLE VIEW CLINICAL HISTORY: CF pneumonitis versus pneumonia. ORDERING PHYSICIAN: SHUN PADILLA TECHNIQUE: Frontal view of chest COMPARISON: 09/20/2023 FINDINGS: The heart size is within normal limits. The pulmonary vascularity does notappear congested. Mild opacities in the right lung base are observed.Calcific density which may represent a granuloma is seen in the medial leftlung apex. There is no convincing pleural effusion or pneumothorax. Noacute osseous process is observedUnOdessa [facility] Medical CenterFerritin Vtqkl3067-28-21 21:14:37* Test Item Value Reference Range Interpretation Comme nts FERRITIN (test code = 2843754676) 464.0 ng/mL 11.0-264.0 H THOMAS (test code = THOMAS) Biotin has been reported to cause a negative bias, interpret results relative to patient's use of biotin. Lab Interpretation (test code = 98614-8) Abnormal [facility]anoOsmolality, Serum or Lbkagz6919-12-02 16:04:19 * Test Item Value Reference Range Interpretation Comme nts OSMOLALITY (test code = 2692-2) 321 278-305 HH Lab Interpretation (test cod e = 60642-1) Abnormal [facility] Packed RBC (in units), 2 Units 2024-04-25 15:05:38* Test Item Value Reference Range Interpretation Comme nts Cross Match Result (test code = 4409) Compatible ISBT Blood Type Code (test code = 179271) 6200 Unit Blood Type (test code = 4410) A Pos Unit Number (test code = 4411) [id number] Blood Expiration Date & Time (test code = 409269) [id number] Status Information (test code = 4412) Issued Product Identification (test code = 4413) Red Blood Cells Product Code (test code = 4414) [id number] Performed at [facility] B Laboratory Services - [facility] Blood [address] [place] [address] 135[address]Bgxt Free: [phone] No. [id number] [facility] Hips 2 vw grbum5523-31-97 13:35:19EXAM: XR HIPS 2 VW RIGHT HISTORY: patient w/ recent R femur fx s/p rods, no OSH images or report available COMPARISON: None available FINDINGS: Imaging of the hip demonstrates interval intramedullarynail fixationsecuring an intertrochanteric right femoral fracture with gross appositionof fragments. Arterial calcifications are present. Postoperative softtissue swelling and gas are seen over the right hip. Severe osteopenia ispresent. Remote fracture deformities are seen through the right pubic rami.Moderate joint space narrowing, subchondral sclerosis and marginalosteophyte formation involve the bilateral hip joints. Compression fracturedeformities are partially profiled at the lower lumbarspine, correlateclinically. Left femoral intertrochanteric fracture fixation is seen with amedialized lesser trochanter fragment.[facility] Metabolic Panel (NA, K, CL, CO2, GLUCOSE, BUN, CREATININE, CA)2024-04-25 10:40:59* Test Item Value Reference Range Interpretation Comme nts NA (test code = 9040146381) 126 mmol/L 135-145 L K (test code = 2488828084) 5.0 mmol/L 3.5-5.0 CL (test code = 4603610909) 99 mmol/L 98-108 CO2 TOTAL (test code = 6720221934) 24 mmol/L 23-31 AGAP (test code = 9505924429) 3 2-16 BUN (test code = 2951268743) 127 mg/dL 7-23 H GLUCOSE (test code = 9218036444) 99 mg/dL 70-110 CREATININE (test code = 2160-0) 2.09 mg/dL 0.50-1.04 H CALCIUM (test code = 6358042670) 7.8 mg/dL 8.6-10.6 L eGFR (test code = 09031-6) 23.4 mL/min/1.73m2 CKD-EPI eGFR (2020). Assuming creatinine has been stable day-to-day for at least three months, the eGFR indicates Category G4 (15 - 29 mL/min/1.73 m2) Lab Interpretation (test code = 21970-5) Abnormal [facility]ano[facility]b with Ihye1569-43-01 10:32:04* Test Item Value Reference Range Interpretation Comme nts WBC (test code = 6690-2) 12.28 4.30-11.10 H RBC (test code = 789-8) 2.18 3.93-5.25 L HGB (test code = 718-7) 6.1 g/dL 11.6-15.0 L HCT (test code = 4544-3) 18.8 % 35.7-45.2 L MCV (test code = 787-2) 86.2 fL 80.6-95.5 MCH (test code = 785-6) 28.0 pg 25.9-32.8 MCHC (test code = 786-4) 32.4 g/dL 31.6-35.1 RDW-SD (test code = 47304-6) 51.0 fL 39.0-49.9 H RDW-CV (test code = 788-0) 16.2 % 12.0-15.5 H PLT (test code = 777-3) 310 166-358 MPV (test code = 92362-0) 10.7 fL 9.5-12.9 NRBC/100 WBC (test code = 6152185513) 0.0 0.0-10.0 NRBC x10^3 (test code = 0294941125) See_Comment [Automated message] The system which generated this result transmitted reference range: 10*3/?L. The reference range was not used to interpret this result as normal/abnormal. GRAN MAT (NEUT) % (test code = 770-8) 85.3 % IMM GRAN % (test code = 0807034563) 2.40 % LYMPH % (test code = 736-9) 5.8 % MONO % (test code = 5905-5) 6.3 % EOS % (test code = 713-8) 0.1 % BASO % (test code = 706-2) 0.1 % GRAN MAT x10^3(ANC) (test code = 4015038115) 10.48 10*3/uL 1.88-7.09 H IMM GRAN x10^3 (test code = 9537146059) 0.30 10*3/uL 0.00-0.06 H LYMPH x10^3 (test code = 731-0) 0.71 10*3/uL 1.32-3.29 L MONO x10^3 (test code = 742-7) 0.77 10*3/uL 0.33-0.92 EOS x10^3 (test code = 711-2) 0.03-0.39 L BASO x10^3 (test code = 704-7) 0.01-0.07 DANNI CELLS (test code = 7790-9) 2+ See_Comment A [Automated message] The system which generated this result transmitted reference range: (none). The reference range was not used to interpret this result as normal/abnormal. Lab Interpretation (test code = 70816-3) Abnormal [facility]2025-02-01 10:25:33* Test Item Value Reference Range Interpretation Comme nts MAGNESIUM (test code = 3280222657) 1.9 mg/dL 1.7-2.4 Lab Interpretation (test cod e = 43517-3) Normal [facility]ano[facility]osph[facility]2025-02-01 10:25:33* Test Item Value Reference Range Interpretation Comme nts PHOSPHORUS (test code = 6768122707) 5.1 mg/dL 2.5-5.0 H Lab Interpretation (test cod e = 85641-0) Abnormal [facility]ano[facility]cosylated Hemoglobin (A1C)2024-04-25 10:11:36* Test Item Value Reference Range Interpretation Comme nts HGB A1C (test code = 4548-4) 4.5 % 4.0-5.7 THOMAS (test code = THOMAS) Reference RangesNormal: <5.7%Prediabetes: 5.7 - 6.4%Diabetes: > 6.5% Lab Interpretation (test code = 67659-4) Normal [facility]2025-02-01 10:00:30* Test Item Value Reference Range Interpretation Comme nts Fibrinogen (test code = 0402519797) 558 mg/dL 167-453 H Lab Interpretation (test cod e = 68474-9) Abnormal [facility]anoCbc with Elac5559-58-00 03:46:01* Test Item Value Reference Range Interpretation Comme nts WBC (test code = 6690-2) 15.21 4.30-11.10 H RBC (test code = 789-8) 2.50 3.93-5.25 L HGB (test code = 718-7) 7.2 g/dL 11.6-15.0 L HCT (test code = 4544-3) 21.8 % 35.7-45.2 L MCV (test code = 787-2) 87.2 fL 80.6-95.5 MCH (test code = 785-6) 28.8 pg 25.9-32.8 MCHC (test code = 786-4) 33.0 g/dL 31.6-35.1 RDW-SD (test code = 94632-9) 51.1 fL 39.0-49.9 H RDW-CV (test code = 788-0) 16.0 % 12.0-15.5 H PLT (test code = 777-3) 366 166-358 H MPV (test code = 85639-8) 10.2 fL 9.5-12.9 NRBC/100 WBC (test code = 6962852068) 0.1 0.0-10.0 NRBC x10^3 (test code = 7618793299) 0.02 See_Comment [Automated message] The system which generated this result transmitted reference range: 10*3/?L. The reference range was not used to interpret this result as normal/abnormal. GRAN MAT (NEUT) % (test code = 770-8) 90.8 % IMM GRAN % (test code = 6260444190) 2.10 % LYMPH % (test code = 736-9) 2.2 % MONO % (test code = 5905-5) 4.8 % EOS % (test code = 713-8) 0.0 % BASO % (test code = 706-2) 0.1 % GRAN MAT x10^3(ANC) (test code = 5422289668) 13.81 10*3/uL 1.88-7.09 H IMM GRAN x10^3 (test code = 5719295242) 0.32 10*3/uL 0.00-0.06 H LYMPH x10^3 (test code = 731-0) 0.34 10*3/uL 1.32-3.29 L MONO x10^3 (test code = 742-7) 0.73 10*3/uL 0.33-0.92 EOS x10^3 (test code = 711-2) 0.03-0.39 L BASO x10^3 (test code = 704-7) 0.01-0.07 Lab Interpretation (test code = 34813-9) Abnormal [facility] Metabolic Panel (NA, K, CL, CO2, GLUCOSE, BUN, CREATININE, CA)2024-04-25 03:37:24* Test Item Value Reference Range Interpretation Comme nts NA (test code = 8655574685) 127 mmol/L 135-145 L K (test code = 0429925189) 5.2 mmol/L 3.5-5.0 H CL (test code = 4458896232) 98 mmol/L 98-108 CO2 TOTAL (test code = 3522481422) 24 mmol/L 23-31 AGAP (test code = 4642297436) 5 2-16 BUN (test code = 9384367797) 130 mg/dL 7-23 H GLUCOSE (test code = 7429772280) 133 mg/dL 70-110 H CREATININE (test code = 2160-0) 2.29 mg/dL 0.50-1.04 H CALCIUM (test code = 8331733263) 8.0 mg/dL 8.6-10.6 L eGFR (test code = 11337-6) 21.0 mL/min/1.73m2 CKD-EPI eGFR (2020). Assuming creatinine has been stable day-to-day for at least three months, the eGFR indicates Category G4 (15 - 29 mL/min/1.73 m2) Lab Interpretation (test code = 74811-2) Abnormal [facility]ano[facility]-Term[facility] Muc-Bln3953-98-01 03:34:18* Test Item Value Reference Range Interpretation Comme [facility] NT-proBNP (test code = 23788-8) 1520 pg/mL <=125 THOMAS (test code = THOMAS) Result Indeterminate-Consid er causes of NT-proBNP elevation other than Heart failure such as acute coronary syndrome, pulmonary embolism, pulmonary hypertension, sepsis, stroke, and renal dysfunction. Lab Interpretation (test code = 62829-0) Abnormal [facility]anoProthrombin Time / [id number] 03:26:35* Test Item Value Reference Range Interpretation Comme [facility] PROTIME PATIENT (test code = 5964-2) 10.2 10.1-12.6 INR (test code = 6301-6) 0.9 Normal INR <1.1; Warfarin Therapeutic range 2.0 to 3.0 or 2.5 to 3.5, depending upon the indications. Lab Interpretation (test code = 57802-5) Normal [facility] Partial Thrmplas [id number] 03:26:35* Test Item Value Reference Range Interpretation Comme [facility] APTT Patient (test code = 3173-2) 24 26-36 L Lab Interpretation (test cod e = 85111-6) [facility]normal [facility] ([facility]43) (ALB,T.PRO,BILI T,BU/BC,ALT,AST,ALK PHOS)2024-04-25 03:26:15* Test Item Value Reference Range Interpretation Comme nts TOTAL BILI (test code = 9729604218) 0.9 mg/dL 0.1-1.1 BILI UNCON (test code = 5303166954) 0.4 mg/dL 0.1-1.1 BILI CONJ (test code = 0521802857) 0.0 mg/dL 0.0-0.3 T PROTEIN (test code = 0249030375) 5.8 g/dL 6.3-8.2 L ALBUMIN (test code = 1137414023) 3.1 g/dL 3.5-5.0 L ALK PHOS (test code = 6520543749) 92 U/L 34-122 ALTv (test code = 1742-6) 9 U/L 5-35 AST(SGOT) (test code = 3308042568) 22 U/L 13-40 Lab Interpretation (test cod e = 24456-2) [facility]normal [facility]2025-02-01 03:26:15* Test Item Value Reference Range Interpretation Comme nts MAGNESIUM (test code = 2447498873) 2.0 mg/dL 1.7-2.4 Lab Interpretation (test cod e = 60776-6) Normal [facility]osph[facility]2025-02-01 03:26:15* Test Item Value Reference Range Interpretation Comme nts PHOSPHORUS (test code = 5615562354) 5.0 mg/dL 2.5-5.0 Lab Interpretation (test cod e = 34398-4) Normal [facility]Type and Screen - ONCE [id number] 03:14:00* Test Item Value Reference Range Interpretation Comme nts ABO & RH (test code = 20) A POSITIVE IAT (test code = 1185) Negative [facility]anoLactic Acid Whole [id number] 03:13:39* Test Item Value Reference Range Interpretation Comme nts LACTIC ACID (test code = 8931658034) 1.55 mmol/L 0.50-2.20 Lab Interpretation (test cod e = 78906-0) Normal [facility] (NA, K, CL, CO2, GLUCOSE, BUN, CREATININE, CA)2024-01-16 18:27:03* Test Item Value Reference Range Interpretation Comme nts NA (test code = 9109983100) 132 mmol/L 135-145 L K (test code = 4685338705) 4.3 mmol/L 3.5-5.0 CL (test code = 3437447861) 102 mmol/L 98-108 CO2 TOTAL (test code = 1891551746) 25 mmol/L 23-31 AGAP (test code = 1673035314) 5 2-16 BUN (test code = 1353175045) 56 mg/dL 7-23 H GLUCOSE (test code = 4105294795) 134 mg/dL 70-110 H CREATININE (test code = 2160-0) 2.57 mg/dL 0.50-1.04 H CALCIUM (test code = 9868543234) 6.6 mg/dL 8.6-10.6 L eGFR (test code = 10486-3) 18.3 mL/min/1.73m2 CKD-EPI eGFR (2020). Assuming creatinine has been stable day-to-day for at least three months, the eGFR indicates Category G4 (15 - 29 mL/min/1.73 m2) Lab Interpretation (test code = 83320-0) [facility]normal [facility] without [id number] 18:59:31* Test Item Value Reference Range Interpretation [...] 777-3) 353 166-358 MPV (test code = 79881-4) 11.0 fL 9.5-12.9 RDW-CV (test code = 788-0) 14.9 % 12.0-15.5 RDW-SD (test code = 47208-8) 48.8 fL 39.0-49.9 NRBC x10^3 (test code = 0470674289) See_Comment [Automated messa ge] The system which generated this result transmitted reference range: 10*3/?L. The reference range was not used to interpret this result as normal/abnormal. NRBC/100 WBC (test code = 0367453952) 0.0 0.0-10.0 IPF % (test code = 0616036566) Lab Interpretation (test code = 67374-5) Abnormal [facility] and Screen - STAT [id number] 18:09:14* Test Item Value Reference Range Interpretation Comme nts ABO & RH (test code = 20) A POSITIVE IAT (test code = 1185) Negative [facility] and Screen - [id number] 17:56:42* Test Item Value Reference Range Interpretation Comme nts IAT (test code = 1185) Negative Performed at [facility] Laboratory Services [facility] Blood [address] [place], [place] [id number] Free: [phone] No. [id number] ABO & RH (test code = 20) A POSITIVE Performed at [facility] Laboratory Services [facility] Blood [address] [place], [place] [id number] Free: [phone] No. [id number] [facility] Met[facility] (05072)2024-01-13 13:53:13* Test Item Value Reference Range Interpretation Comme nts NA (test code = 3077542528) 137 mmol/L 135-145 K (test code = 2722230911) 5.0 mmol/L 3.5-5.0 CL (test code = 2165289588) 108 mmol/L 98-108 CO2 TOTAL (test code = 0996587686) 20 mmol/L 23-31 L AGAP (test code = 0684441156) 9 2-16 BUN (test code = 8765728149) 35 mg/dL 7-23 H GLUCOSE (test code = 1330127710) 100 mg/dL 70-110 CREATININE (test code = 2160-0) 1.90 mg/dL 0.50-1.04 H TOTAL BILI (test code = 8102655078) 0.5 mg/dL 0.1-1.1 CALCIUM (test code = 5654260952) 8.4 mg/dL 8.6-10.6 L T PROTEIN (test code = 0506301217) 7.1 g/dL 6.3-8.2 ALBUMIN (test code = 2075767122) 3.9 g/dL 3.5-5.0 ALK PHOS (test code = 3266674600) 132 U/L 34-122 H ALTv (test code = 1742-6) 8 U/L 5-35 AST(SGOT) (test code = 7477109408) 19 U/L 13-40 eGFR (test code = 18275-3) 26.3 mL/min/1.73m2 CKD-EPI eGFR (2020). Assuming creatinine has been stable day-to-day for at least three months, the eGFR indicates Category G4 (15 - 29 mL/min/1.73 m2) Lab Interpretation (test code = 81265-5) Abnormal [facility]ano[facility]th[facility] Time / [id number] 13:41:27* Test Item Value Reference Range Interpretation Comme nts PROTIME PATIENT (test code = 5964-2) 11.2 10.1-12.6 INR (test code = 6301-6) 1.0 Normal INR <1.1; Warfarin Therapeutic range 2.0 to 3.0 or 2.5 to 3.5, depending upon the indications. Lab Interpretation (test code = 81810-5) Normal [facility] with [id number] 13:34:51* Test Item Value Reference Range Interpretation [...] g/dL 31.6-35.1 L RDW-SD (test code = 63407-6) 47.8 fL 39.0-49.9 RDW-CV (test code = 788-0) 14.9 % 12.0-15.5 PLT (test code = 777-3) 363 166-358 H MPV (test code = 12063-7) 10.6 fL 9.5-12.9 NRBC/100 WBC (test code = 4001623162) 0.0 0.0-10.0 NRBC x10^3 (test code = 2401189545) See_Comment [Automated messa ge] The system which generated this result transmitted reference range: 10*3/?L. The reference range was not used to interpret this result as normal/abnormal. GRAN MAT (NEUT) % (test code = 770-8) 74.3 % IMM GRAN % (test code = 7411375374) 0.30 % LYMPH % (test code = 736-9) 14.1 % MONO % (test code = 5905-5) 8.2 % EOS % (test code = 713-8) 2.2 % BASO % (test code = 706-2) 0.9 % GRAN MAT x10^3(ANC) (test code = 6645235509) 4.80 10*3/uL 1.88-7.09 IMM GRAN x10^3 (test code = 3419019388) 0.00-0.06 LYMPH x10^3 (test code = 731-0) 0.91 10*3/uL 1.32-3.29 L MONO x10^3 (test code = 742-7) 0.53 10*3/uL 0.33-0.92 EOS x10^3 (test code = 711-2) 0.14 10*3/uL 0.03-0.39 BASO x10^3 (test code = 704-7) 0.06 10*3/uL 0.01-0.07 Lab Interpretation (test code = 86297-6) Abnormal [facility]PRE[facility] MET[facility]OLIC [id number] 00:00:00* Test Item Value Reference Range Interpretation Comme nts TSH REFLEX TO FREE T4 (test code = 99078-6) 2.400 UIU/ML See_Comment [Automated message] The system which generated this result transmitted reference range: 0.400-4.100 UIU/ML. The reference range was not used to interpret this result as normal/abnormal. CALC LDL CHOL (test code = 71553-8) 129 MG/DL See_Comment H [Automated messa ge] The system which generated this result transmitted reference range: <100 MG/DL. The reference range was not used to interpret this result as normal/abnormal. CHOLESTEROL (test code = 2093-3) 211 MG/DL See_Comment H [Automated messa ge] The system which generated this result transmitted reference range: <200 MG/DL. The reference range was not used to interpret this result as normal/abnormal. HDL CHOLESTEROL (test code = 2085-9) 58 MG/DL See_Comment [Automated messa ge] The system which generated this result transmitted reference range: >39 MG/DL. The reference range was not used to interpret this result as normal/abnormal. RISK RATIO LDL/HDL (test code = 69463-2) 2.22 RATIO See_Comment [Automated message] The system [...] result as normal/abnormal. BASOPHILS (test code = 64617-3) 1.7 % DIAGNOSIS: (test code = 59256-8) (NOTE) COMMENTS (test code = 18291-2) (NOTE) EOSINOPHILS (test code = 39253-6) 1.7 % HEMATOCRIT (test code = 16429-3) 28.1 % See_Comment L [Automated messa ge] [...] result as normal/abnormal. LYMPHOCYTES (test code = 03334-7) 20.5 % MCH (test code = 90332-0) 27.0 PG See_Comment [Automated messa ge] The system which generated this result transmitted reference range: 25.0-33.0 PG. The reference range was not used to interpret this result as normal/abnormal. MCHC (test code = 47241-1) 31.0 G/DL See_Comment [Automated messa ge] The system which generated this result transmitted reference range: 31.0-36.0 G/DL. The reference range was not used to interpret this result as normal/abnormal. MCV (test code = 53168-9) 87.3 fL See_Comment [Automated messa ge] The system which generated this result transmitted reference range: 80.0-99.0 fL. The reference range was not used to interpret this result as normal/abnormal. MICROSCOPIC DESCRIPTION: (test code = 08023-9) (NOTE) MONOCYTES (test code = 51320-2) 7.7 % NEUTROPHILS (test code = 20305-5) 68.4 % PATHOLOGIST: (test code = 25645-5) (NOTE) PLATELET COUNT (test code = 01966-7) 407 K/UL See_Comment H [Automated messa ge] The system which generated this result transmitted reference range: 130-400 K/UL. The reference range was not used to interpret this result as normal/abnormal. RBC (test code = 41395-8) 3.22 M/UL See_Comment L [Automated messa ge] The system which generated this result transmitted reference range: 3.80-5.40 M/UL. The reference range was not used to interpret this result as normal/abnormal. RDW (test code = 09261-7) 13.9 % See_Comment [Automated messa ge] The system which generated this result transmitted reference range: 11.5-15.0 %. The reference range was not used to interpret this result as normal/abnormal. WBC (test code = 03937-1) 6.0 K/UL See_Comment [Automated messa ge] The [...] result as normal/abnormal. CALCIUM (test code = 67393-7) 8.7 MG/DL See_Comment [Automated messa ge] The system which generated this result transmitted reference range: 8.5-10.5 MG/DL. The reference range was not used to interpret this result as normal/abnormal. CALC A/G RATIO (test code = 1759-0) 1.5 RATIO See_Comment [Automated [employer] ge] The system which generated this result [...] as normal/abnormal. CALC GLOBULIN (test code = 61261-8) 2.5 G/DL See_Comment [Automated messa ge] The [...] normal/abnormal. eGFR (2020 CKD-EPI) (test code = 40768-7) 29 ML/MIN/1.73 See_Comment L [Automated message] The [...] code = 2951-2) 140 MEQ/L See_Comment [Automated [employer]] The system which generated this result transmitted reference range: 133-146 MEQ/L. The reference range was not used to interpret this result as normal/abnormal. CT ABDOMEN PELVIS WO [id number] 03:11:51Ordering Physician: AISHA MORALES Clinical indication: Nausea [...] areapparent, suggesting these fractures are likely chronic. [facility] 1 [id number] 00:27:48Ordering physician: AISHA MORALES Clinical indication: Pneumonia [...] and spine. No acute bony abnormalities are evident.[facility] WITH DIFF 2023-09-13 00:21:11* Test Item Value [...] g/dL 31.6-35.1 L RDW-SD (test code = 46960-1) 54.0 fL 39.0-49.9 H RDW-CV (test code = 788-0) 17.0 % 12.0-15.5 H PLT (test code = 777-3) 393 166-358 H MPV (test code = 37564-6) 10.8 fL 9.5-12.9 NRBC/100 WBC (test code = 5630672586) 0.0 0.0-10.0 NRBC x10^3 (test code = 4690714027) See_Comment [Automated [employer] ge] The system which generated this result transmitted reference range: 10*3/?L. The reference range was not used to interpret this result as normal/abnormal. GRAN MAT (NEUT) % (test code = 770-8) 72.5 % IMM GRAN % (test code = 1683118510) 0.70 % LYMPH % (test code = 736-9) 14.8 % MONO % (test code = 5905-5) 9.6 % EOS % (test code = 713-8) 1.9 % BASO % (test code = 706-2) 0.5 % GRAN MAT x10^3(ANC) (test code = 7419724652) 5.43 10*3/uL 1.88-7.09 IMM GRAN x10^3 (test code = 3456768933) 0.05 10*3/uL 0.00-0.06 LYMPH x10^3 (test code = 731-0) 1.11 10*3/uL 1.32-3.29 L MONO x10^3 (test code = 742-7) 0.72 10*3/uL 0.33-0.92 EOS x10^3 (test code = 711-2) 0.14 10*3/uL 0.03-0.39 BASO x10^3 (test code = 704-7) 0.04 10*3/uL 0.01-0.07 Lab Interpretation (test code = 52171-1) Abnormal [facility]ano[facility] [id number] 00:21:11* Test Item Value Reference Range Interpretation Comme nts TROPONIN I (test code = 6491190544) 0.018 ng/mL <=0.034 THOMAS (test code = [...] of biotin. Lab Interpretation (test code = 44869-7) Normal [facility]-TERMINAL [id number] 00:18:29* Test Item Value Reference Range Interpretation Comme nts NT-proBNP (test code = 63276-4) 6030 pg/mL <=125 H THOMAS (test code = THOMAS) Positive: Heart Failure Likely Lab Interpretation (test code = 39929-2) Abnormal [facility] METABOLIC PANEL (24859)2023-09-13 00:09:47* Test Item Value Reference Range Interpretation Comme nts NA (test code = 9668837531) 137 mmol/L 135-145 K (test code = 7029542395) 4.1 mmol/L 3.5-5.0 CL (test code = 1796381720) 105 mmol/L 98-108 CO2 TOTAL (test code = 3224757759) 19 mmol/L 23-31 L AGAP (test code = 0126382523) 13 2-16 BUN (test code = 4206309461) 36 mg/dL 7-23 H GLUCOSE (test code = 5430767192) 124 mg/dL 70-110 H CREATININE (test code = 2160-0) 1.54 mg/dL 0.50-1.04 H TOTAL BILI (test code = 7352878517) 0.6 mg/dL 0.1-1.1 CALCIUM (test code = 4359321161) 8.6 mg/dL 8.6-10.6 T PROTEIN (test code = 8879688519) 7.7 g/dL 6.3-8.2 ALBUMIN (test code = 5916032446) 4.0 g/dL 3.5-5.0 ALK PHOS (test code = 9431169759) 117 U/L 34-122 ALTv (test code = 1742-6) 11 U/L 5-35 AST(SGOT) (test code = 3405297968) 20 U/L 13-40 eGFR (test code = 18135-3) 33.8 mL/min/1.73m2 CKD-EPI eGFR (2020). Assuming creatinine has been stable day-to-day for at least three months, the eGFR indicates Category G3b (30 - 44 mL/min/1.73 m2) Lab Interpretation (test code = 24652-7) Abnormal [facility]anoLactic Acid Whole [id number] 23:49:13* Test Item Value Reference Range Interpretation Comme nts LACTIC ACID (test code = 4513610232) 1.62 mmol/L 0.50-2.20 Lab Interpretation (test cod e = 91256-0) Normal [facility] REFLEX TO FREE [id number] 00:00:00* Test Item Value Reference Range Interpretation Comme nts TSH REFLEX TO FREE T4 (test code = 21869-4) 2.010 UIU/ML See_Comment [Automated messa ge] The system which generated this result transmitted reference range: 0.400-4.100 UIU/ML. The reference range was not used to interpret this result as normal/abnormal. Consult Notes Date/Time Note Provider Source 2024-04-27 13:17:00 Associated Order(s): CONSULT ADULT PHYSICAL THERAPY Images from the original note were not included. Patient agreeable to working with physical therapy. Patient supine in bed, Family present . Recommend nursing staff utilize Wheelchair to safely assist patient with mobility out of the bed or chair. PHYSICAL THERAPY EVALUATION Consult received, chart reviewed and evaluation complete this date. Patient is referred to PT for evaluation and treatment. Patient is a 83 year old female who presents to hospital for GI bleed [K92.2] . Discharge Recommendations: Therapy Needs and Potential: Patient would benefit from continued physical therapy services to address: decline in bed mobility decline in transfers decline w/c mobility decreased strength decreased endurance decreased coordination decreased motor planning Patient demonstrates good potential to improve and meet therapy goals with further physical therapy services. Patient appears motivated to improve their functional mobility and return to their previous level of function. Patient demonstrates ability to tolerate atleast 30-60 minutes of physical therapy with active participation. Challenges to Home Transition: increased risk of falls decreased caregiver availability decreased safety awareness environmental barriers Equipment recommendations: Patient has or access to necessary equipment Patient can return to Inpatient Rehab where she came from. Current Functional Status and/or Treatment: AM-PAC 6 Clicks (Raw Score 0=Dependent, 24=Independent; Low function Raw Score 0= Dependent, 32=Independent): Raw Score - Basic Mobility : 9 T-Scale Score - Basic Mobility : 25.8 Bed Mobility: Rolling: Maximum Assistance Supine-sit: Maximum Assistance Sit to supine: Maximum Assistance Educated on log rolling, hand placement and right body mechanics. Dizziness Yes Transfers: Sit to stand: Maximum Assistance using handheld assist Stand to sit: Maximum Assistance using handheld assist Static/dynamic standing balance: Fair Verbal cueing provided for correct hand placement and correct use of AD Educated on upright posture, feet placement, and body mechanics. Dizziness Yes Ambulation: NA, patient unable to ambulate at this time, but tolerated sitting EOB for 5 minutes. Dizziness Yes Therapeutic exercise: patient educated in Compensatory techniques/adaptive strategies, Deep breathing, Energy conservation, Fall prevention, General strengthening, Relaxation/breathing techniques, and Safety awareness., instructed patient in the following: ankle pumps, quad sets, glut sets, long arc quads, seated marching, patient/caregiver instructed to perform HEP 3 times per day, 10 repetitions., and patient/caregiver verbalizes understanding of instructions. Patient trained in TIANA LE AROM exercises all joints and planes, 10 x 1, 1 set. Functional Outcome Measures: (Values within the past 12 hours) PT Functional Outcomes 5 X Bbj-te-Xrqjk Test: 0 (Unable) After session, patient supine in bed, Family present. Call button provided. Nurse notified. PLAN OF CARE: While in the hospital, PT will follow patient at least 2 times per week,once or twice a day, per patient's tolerance and needs. See below for complete details. 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 Patient lives with son whom has down syndromes and provides full time staff interpreter care for him. Stairs with bilateral hand rails, and able to negotiate. Ramp access DME: Four wheeled walker with seat Prior level of Mobility: community ambulation, house hold ambulation Suspected ischemic or hemorraghic stroke:No Subjective: Patient says she is in pain Patient/Family Goals: To go home. Patient/Family verbalizes understanding of condition: Yes PAIN: -Pain Description: constant -Pain Location: right leg -Pain rating before treatment: 4, After treatment: 4 -Pain Management: Nursing Notified COMMUNICATION Primary Language: [place] Able to Verbalize needs: Yes Vision:good; no issues reported Hearing:good; no issues reported ORIENTATION/COGNITION: Oriented to: person, place, date/time, and situation Awake: Yes Alert: Yes Dizzy: Yes Follows Commands: Yes 1-Step Yes Multi-Step Yes Inconsistent: No NEUROLOGICAL Light Touch: within functional limits bilateral LE Heel to lennon: NT Tone: WFL BALANCE: Sitting: Static: Fair Dynamic: Fair Standing: Static: NT Dynamic: NT RANGE OF MOTION: within functional limits bilateral LE STRENGTH: 3-/5 (F-), bilateral LE ENDURANCE: Fair, Room air SKIN INTEGRITY: Defer to nursing PROBLEM LIST: Decline in bed mobility, Decline in gait, Decline in transfers, Decreased strength, Decreased balance, Pain, Decreased Coordination, and Decreased Motor Planning ASSESSMENT: Patient is a 83 year old female seen secondary to the above listed diagnosis. Patient would benefit from continued PT to address the above listed deficits to maximize independence and safety with functional mobility. Rehabilitation Potential: fair Goals: The following goals are to maximize independence and safety with functional mobility to eventually return to prior living situation and prior functional status. Upon discharge, patient and/or family will demonstrate the followin. Rolling: Minimal Assistance Supine-sit: Minimal Assistance Sit to supine: Minimal Assistance 2. Sit to stand: Minimal Assistance using wheelchair Stand to sit: Minimal Assistance using wheelchair Stand pivot transfer: Minimal Assistance Squat pivot transfer: Minimal Assistance 3 Independent with wheelchair propulsion and management of brakes. Treatment Plan: Therapeutic exercise, Balance training, Bed mobility training, Equipment needs assessment, Safety education, patient/caregiver education, Wheelchair mobility training, and Functional Motor Training PATIENT EDUCATION: Patient and Family member provided with preferred teaching of verbal information on role of PT, plan of care, HEP. Shows readiness to learn. Verbal instruction teaching provided. Individual is able to read and verbalizes understanding of teaching provided. Total Time Tx Codes in Minutes: 25 min Total Treatment Time in Minutes: 33 min Pablo Botello PT, DPT, MS Department of Rehabilitation Services [facility] A physical therapy evaluation of high complexity was completed based on meeting at the criteria below: A history of present problem with at least 3 or more personal factors (includes environmental factors) and/or comorbidities that impact the plan of care An examination of body systems using standardized tests and measures addressing a total of at least 4 or more elements from any of the following: body structures and functions, activity limitations, and/or participation limitations A clinical presentation with unstable and unpredictable characteristics UNICATIONS CONSULTANT Pablo Botello PT [facility] 2024-04-25 09:16:05 Associated Order(s): CONSULT GASTROENTEROLOGY Department of Gastroenterology & Hepatology Consult Note Requesting Physician: Dino Grider DO Service: Medicine Reason for Consultation: Reported melena Date of Service: 04/25/2024 History of Present Illness Mahnaz Osborne is a 83 year old /White female with past medical history as below who presents with complaints of pain and weakness. GI consulted for reported dark stools. History obtained with the assistance of family at bedside. Patient reportedly had an episode of emesis a few days ago. Was at a rehab facility recovering from recent surgery. Currently denies nausea, vomiting, abdominal pain. Patient was sent to outside hospital ED with concerns. Found to have acute on chronic anemia to range of 6. Per reports, rectal exam showed dark stool. Patient has not had a bowel movement for a couple of days. Per family no prior history of gastrointestinal bleeding. Denies NSAID use, anticoagulation, family history of GI malignancy. No prior endoscopy. 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 ALLERGIES No Known Allergies MEDICATIONS Current Facility-Administered Medications Medication Dose Route Frequency Last Rate Last Admin pantoprazole (PROTONIX) injection 40 mg 40 mg Slow IV Push Q12H polyethylene glycol 3350 powder 17 g 17 g Oral DAILY acetaminophen (TYLENOL) tablet 650 mg 650 mg Oral Q6HPRN 650 mg at 04/24/24 2100 atorvastatin (LIPITOR) tablet 20 mg 20 mg Oral QAM avacopan (TAVNEOS) capsule 30 mg 30 mg Oral BID MEALS calcium carbonate (OSCAL-500) tablet 500 mg 500 mg Oral BID MEALS HYDROcodone-acetaminophen (NORCO 5) tablet 1 tablet 1 tablet Oral Q6HPRN 1 tablet at 04/25/24 0328 predniSONE (DELTASONE) tablet 20 mg 20 mg Oral DAILY SOCIAL HISTORY Social History Socioeconomic History Marital status: Spouse [...] Resource Strain: Not on file Food Insecurity: No Food Insecurity (01/14/2024) NCSS - Food Insecurity Worried About Running Out of Food in the Last Year: No Ran Out of Food in the Last Year: No Transportation Needs: No Transportation Needs (01/14/2024) NCSS - Transportation Lack of Transportation: No Physical Activity: Not on file Stress: Not on file Social Connections: Not on file Housing Stability: Not At Risk (01/14/2024) NCSS - Housing/Utilities Has Housing: Yes Worried About Losing Housing: No Unable to Get Utilities: No ROS: 10 point review of systems was negative except for the above mentioned PE: BP (!) 149/58 | Pulse 57 | Temp 35.6 ?C (96.1 ?F) | Resp 19 | Ht 1.575 m (5' 2") | Wt 67.5 kg (148 lb 12.8 oz) | SpO2 96% | BMI 27.22 kg/m? General: alert, in no apparent distress HEENT: EOMI, no scleral icterus Lungs: clear to auscultation bilaterally Cardio: regular rate and rhythm Abdomen: soft, non-tender, non-distended, no ascites, no hepatosplenomegaly Extremities: no edema, no clubbing or cyanosis Skin: no jaundice Neuro: no focal deficits, no asterixis LABORATORY HGB (g/dL) Date Value 04/25/2024 6.1 (L) 04/24/2024 7.2 (L) 01/22/2024 7.6 (L) PLT (10*3/?L) Date Value 04/25/2024 310 04/24/2024 366 (H) 01/22/2024 398 (H) INR (no units) Date Value 04/24/2024 0.9 01/13/2024 1.0 Hepatic Function Panel ALBUMIN (g/dL) Date Value 04/24/2024 3.1 (L) T PROTEIN (g/dL) Date Value 04/24/2024 5.8 (L) TOTAL BILI (mg/dL) Date Value 04/24/2024 0.9 BILI UNCON (mg/dL) Date Value 04/24/2024 0.4 BILI CONJ (mg/dL) Date Value 04/24/2024 0.0 ALTv (U/L) Date Value 04/24/2024 9 AST(SGOT) (U/L) Date Value 04/24/2024 22 ALK PHOS (U/L) Date Value 04/24/2024 92 BMP NA (mmol/L) Date Value 04/25/2024 126 (L) K (mmol/L) Date Value 04/25/2024 5.0 CALCIUM (mg/dL) Date Value 04/25/2024 7.8 (L) CL (mmol/L) Date Value 04/25/2024 99 BUN (mg/dL) Date Value 04/25/2024 127 (H) CREATININE (mg/dL) Date Value 04/25/2024 2.09 (H) GLUCOSE (mg/dL) Date Value 04/25/2024 99 CO2 TOTAL (mmol/L) Date Value 04/25/2024 24 RADIOLOGY: XR Hips 2 vw right Result Date: 04/25/2024 Right femoral intertrochanteric fracture fixation with postoperative changes. Severe osteopenia. Osteoarthrosis. CHART REVIEW: Previous Endoscopy: no ASSESSMENT and PLAN Mahnaz Osborne is a 83 year old female with PMH as listed above, consulted Gastroenterology for Acute on chronic anemia Reported dark stool Patient admitted with weakness and found to have acute on chronic anemia. Reported dark stool at outside hospital. Hemodynamically stable. Rectal exam performed with dark green, formed stool. Per family, patient is on oral iron supplementation which is likely the cause of stool color. No clinical evidence to support active gastrointestinal hemorrhage. Of note, patient with recent orthopedic surgery. In addition in December, underwent renal angioembolization for active bleeding. Will recommend cross-sectional abdominal imaging to assess for other causes of anemia. -No GI intervention planned at this time -Clear liquid diet -Continue to trend H&H, transfuse as needed -PPI IV twice daily -Will reserve inpatient endoscopy for significant overt bleeding with changes in hemoglobin and hemodynamics -Monitor all stool output -Recommend cross-sectional imaging Patient was seen and discussed with Dr. Castañeda , please call with any questions. Dashawn Rivas, Gastroenterology & Hepatology PGY 6 UNICATIONS CONSULTANT Associated attestation - Luís Castañeda MD - 04/26/2024 10:23 AM COMMUNICATIONS CONSULTANT I personally interviewed/examined the patient on 04/25/[address] Rivas's resident/fellow note as written . I actively participated in the decision-making process. Please see the resident's note for additional details. [facility] 2024-01-14 09:46:38 Associated Order(s): CONSULT NEPHROLOGY [facility] Nephrology Nephrology Consult Note 01/14/2024 9:46 AM Subjective Admission Date: 01/13/2024 Consult Date: 01/14/24 Reason for Consult JEB on CKD Requesting Provider Maddy Martin MD Chief Complaint Right renal hematoma after renal biopsy History of Present Illness Mahnaz Osborne is a 83 year old female with PMH of HTN, Hypercholesteremia , arthritis who present to [facility] with JEB for kidney workup and [...] pain management Finally thank you very much Maddy Hurtado MD for this consult, I will be happy to follow this patient with you. Twin Ghosh MD [facility] [place] [facility] Adjunct elementary art teacher [facility] Associated attestation - Twin Ghosh MD [...] anti proteinase 3 and anti myeloperoxidase antibodies. LOGISTICS OPERATIONS DIRECTOR-NURSE PRACTITIONER MIDLEVEL PROVIDER [facility] - Health History and Physical Notes Date/Time Note Provider Source 2024-04-24 19:13:35 MEDICINE [place] ADMIT H&P PCP: Rajan Guerra Date of Service: 04/24/2024 CHIEF COMPLAINT: melena, decreased appetite HISTORY OF PRESENT ILLNESS Ms. Mahnaz Osborne is an 83 y/o female with a PMHx of HTN, ANCA + vasculitis c/b glomerulonephritis, seropositive RA, AoCD, CKD stage 3B, HfpEF, recent R femur fx (2/2 fall from ground on 04/09, s/p "pablo", not ambulatory) who presented from OSH for higher level of care in setting of UGIB. Patient presented to [facility] on 04/23 in the afternoon via EMS for a chief complaint of not eating. She had an unremarkable physical exam except for a rectal exam which revealed melena. Her vital signs were within normal limits with an initial blood pressure of 111/46, heart rate 69, respiratory rate 18, satting 98% on room air with a temp of 99. EKG revealed normal sinus rhythm with a rate of 72, normal axis, normal MO and QRS intervals, nonspecific ST-T wave changes. Labs were notable for a white blood cell count of 14, hemoglobin of 6.9, platelets of 370, sodium 128, potassium 5.2, CO2 21, anion gap 16, glucose 126, BUN 133, creatinine 2.49, GFR 19, normal hepatic function panel, lipase 160. CT abdomen pelvis performed without IV contrast and noted a newly visualized fracture involving the T12-L1 anterior osteophyte in the T12 vertebral body favored to be subacute, as well as a new fracture involving T9-T10. Also noted was nodular airspace disease in the lung bases concerning for pneumonia or pneumonitis from aspiration. Patient was given an 80 mg IV push of Protonix and started on Protonix drip. 1 g of Rocephin was also given. 1 unit of pRBC transfused. On my encounter, patient speaks in [place]; japanese interpreter used. Patient appears slightly confused, but converses appropriately She reports she went to hospital for weakness and poor appetite onset 3 days ago. She endorses nausea, but denied vomiting; she says the nausea happens every other day. She denies diarrhea and constipation, but does not know when her last bowel movement was. She denies recent fever, chills, cough, rhinorrhea, sore throat, abdominal pain, rectal bleeding, blood in bowel movements. She does not remember being told she has a GI bleed. She and jdvqhdzu-vl-rlr deny any recent NSAID use, but report pt has been taking Cortland every 4-6 hours for her recent hip fracture. Patient fell 2 weeks ago on 04/09, hitting her hip and shoulder. She was seen in [facility] where she had R hip surgery which included "pablo placement." Patient reports she lives alone; son and jetnmjso-lu-rjv are in same town and help her get her groceries, transport to medical appointments, etc. 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 Past surgical history: has a past surgical history that includes total knee arthroplasty (Bilateral). Social history: reports that she has never smoked. She has never used smokeless tobacco. Family history: family history is not on file. Allergies: No Known Allergies MEDICATIONS: reviewed ROS See HPI above PHYSICAL EXAMINATION BP 117/79 | Pulse 62 | Temp 35.7 ?C (96.3 ?F) (Tympanic) | Resp 18 | Ht 1.575 m (5' 2") | Wt 67.5 kg (148 lb 12.8 oz) | SpO2 96% | BMI 27.22 kg/m? General: A&Ox2, NAD. Does appear somewhat tired. Lungs: CTAB in apexes. Decreased in bases. Satting well on RA. No respiratory distress or accessory muscle use. Cardio: RRR, S1 S2 normal, no rubs/murmurs/gallops Abdomen: Soft, nontender, nondistended, normoactive bowel sounds Extremities: no BLE edema. B/l hand joints with diffuse changes c/w RA. TTP of R hip. Neuro: No focal deficits. CN, sensory, motor grossly intact. LABS - reviewed IMAGING - reviewed ASSESSMENT/PLAN Mahnaz Osborne is a 83 year old female with PMH as listed above, admitted to the hospital with: Melena c/f UGIB Acute blood loss anemia Nausea, constipation Patient presenting with c/o decreased appetite and weakness; Hgb noted to be 6.9 at OSH. Per OSH records, ED doc did rectal exam which noted melena, which patient's uprikkxy-rf-ukt confirmed. Prior to this, no bloody bowel movements had been noted by patient or family. No reported NSAID or alcohol use; no blood thinner use. Patient has notably always had low Hgb with baseline around 7.5-8. At OSH she was noted to be 6.9. Transfused 1 unit at OSH, given 1 g ceftriaxone, 80 mg Protonix IV push, and started on Protonix gtt. Will await repeat labs to see what patient's response is to 1u pRBCs. Will obtain consent for blood transfusion. Given patient is HDS, without further episodes of melena, will wait until AM to consult GI. Given decreased PO intake, no fluid given at OSH and daily diuretic usage, will give 1L IVF here. No hx or evidence of cirrhosis. - Admit to [place] - F/u admit labs including repeat post-transfusion CBC, lactic acid, coags, fibrinogen - Pending post-transfusion CBC, will monitor q12h - PPCLD - Consult GI in the AM - May want to obtain CT abdomen/pelvis in AM as patient did not come with disc and CTAP at OSH was w/o contrast - Stop protonix gtt, start protonix 40 mg bid IV - No need for ceftriaxone or octreotide at this time - 1L LR now - Active type and cross, transfuse Hgb <7 (consent obtained) - Hold all blood thinners at this time - Two large bore Ivs - Monitor for episodes of melena, hematochezia - Can give zofran if patient becomes nauseous - Start gentle bowel regimen with miralax Newly visualized anterior osteophyte fractures involving T9-10, T12-L1 Recent R hip fracture s/p "rods" 2/2 fall from ground (04/09/2024) B/l knee replacements Remote L hip fracture Unfortunately, no records in [facility]where but reportedly patient fell 2 weeks ago and underwent surgery. Prior to fall, patient walked around with walker. Patient was discharged to rehab but did poorly per family members. Also noted on CT AP obtained were two newly visualized thoracic and lumbar fractures. Spoke briefly with ortho resident part time receptionist who said patient likely does not require log-rolling, but may be beneficial to get hip imaging to verify what procedure patient had and where fracture is. Patient reports hip pain and has been taking - In AM, will need to examine spine/ R hip surgical site - Obtain R hip XR 2 view - SCDs - PT/OT in the coming days - Cortland 5 prn, ensure bowel regimen CKD Stage 3B ANCA vasculitis c/b glomerulonephritis AoCD HTN | HLD HFpEF Patient's mjiiwfvr-zh-feq reports she has been taking . Patient recently received a reduced dose of IV Cytoxan; she stopped the leuflonamide that she was on previously. Patient was to continue with IV cytoxan every month for 6 months but this has been delayed since she broke her hip several weeks ago. Notably patient has had poor PO intake the last several days but continued to take bumex. Cr at OSH was 2.49, which appears consistent with baseline of 2.5. - C/w prednisone 20 mg qd - C/w home avacopan 30 mg bidac - C/w home liptor 20 mg qAM - C/w home calcium carbonate 500 mg bidac - Hold home bumex 1 mg bid, hold home amlodipine 5 mg qd, home lisinopril 20 mg, hydralazine 100 mg bid C/f pneumonitis vs. aspiration Satting well on RA. Lung sounds clear but diminished in bases. Notably had minimally elevated WBC at OSH, but denies any URI symptoms. CT A/P noted nodular airspace disease in the lung bases concerning for pneumonia or pneumonitis from aspiration. - CXR 1 view - Incentive spirometry - Bedside swallow eval by RN Stable, chronic Rheumatoid arthritis Elevated glucose No longer on leuflonamide as she had started cyclophosphamide for her kidneys. - Check A1c, although likely will not be accurate as patient has had 1 unit pRBC Discharge Planning Patient reports living alone; she does have good social support with her son and kqrzbory-cd-jcw. Suspect she will not be safe for home discharge and require placement at SNF. Pain ppx: Cortland 5, tylenol prn DVT ppx: SCDs GI ppx: Protonix Code Status: DNR/DNI Jen Choudhary MD Internal Medicine, PGY-2 UNICATIONS CONSULTANT Associated attestation - Dino Grider DO - 04/27/2024 3:43 AM COMMUNICATIONS CONSULTANT I personally examined the patient on the date of service and agree with Dr. Choudhary's resident note as written. I actively participated in the decision-making process. Please see the resident's note for additional details. Dino Grider DO [employer] | Department of Internal Medicine [facility] 2024-01-13 21:06:55 AMG History & Physical DATE: 01/13/2024 SERVICE: Internal Medicine CHIEF COMPLAINT: No chief complaint on file. Acute Kidney Injury and renal hematoma HISTORY OF PRESENT ILLNESS Mahnaz Osborne is a 83 year old female with PMH significant for HTN, high cholesterol, and arthritis, who presents to [facility] with acute kidney injury for possible [...] mg, 650 mg, Oral, Q6HPRN, Charly Jacob, AGACNP [START ON 01/14/2024] docusate (COLACE) capsule 100 mg, 100 mg, Oral, DAILY, AnyCharly raya AGACNP ondansetron (ZOFRAN (PF)) injection 4 mg, 4 mg, Slow IV Push, Q6HPRN, Charly Jacob AGACNP traMADoL (ULTRAM) tablet 50 mg, 50 [...] 0.01 - 0.07 10*3/uL Comp. Metabolic Panel (72385) Collection Time: 01/13/24 8:19 AM Result Value [...] Unit Blood Type A Pos Unit Number [id number] Blood Expiration Date & Time [id number] Status Information Ready Product Identification Red Blood Cells Product Code [id number] Cbc without Diff Collection Time: 01/13/24 1:16 [...] hours were found. ASSESSMENT AND PLAN Mahnaz Dylon is a 83 year old female who [...] but did not see or examine patient. LOGISTICS OPERATIONS DIRECTOR-GERONTOLOGY MIDLEVEL PROVIDER [facility] 2024-01-13 08:00:00 VASCULAR AND INTERVENTIONAL RADIOLOGY H&P [...] patient s proposed care, treatment, and services. Monica Bethea MD Staff Interventional Radiology [facility] Procedure Notes Date/Time Note Provider Source 2024-01-13 [...] Full dictated note to follow in PACS. [facility] RAD-VASCULAR & INTERVENTIONAL RADIOLOGY STAFF [facility] 2024-01-13 08:00:00 VASCULAR AND INTERVENTIONAL RADIOLOGY PROCEDURE NOTE Pre-procedure diagnosis: Elevated creatinine Post-procedure diagnosis: Same. Procedure: US guided [place] renal biopsy. Anesthesia: Local 1% lidocaine, IV [...] Full dictated note to follow in PACS. [facility] Notes Date/Time Note Provider Source 2024-04-27 11:15:23 Problem: Falls, Risk of Goal: Absence of falls Outcome: Progressing as expected Problem: Bleeding, Risk of Goal: Absence of impaired coagulation signs and symptoms Outcome: Progressing as expected Goal: Absence of active bleeding Outcome: Progressing as expected Problem: Pain Goal: Control of pain at or below patient's documented comfort goal Outcome: Progressing as expected Goal: Reduction in pain sensation Outcome: Progressing as expected Problem: Skin integrity Impaired (Risk or Actual) Goal: Wound healing Outcome: Progressing as expected Goal: Prevention of new skin breakdown Outcome: Progressing as expected Problem: Discharge Planning Goal: Adequate for discharge Outcome: Progressing as expected Goal: Effective communication Outcome: Progressing as expected UNICATIONS CONSULTANT Beverly Monroy RN [facility] 2024-04-27 06:40:13 Problem: Falls, Risk of Goal: Absence of falls Outcome: Progressing as expected Problem: Bleeding, Risk of Goal: Absence of impaired coagulation signs and symptoms Outcome: Progressing as expected Goal: Absence of active bleeding Outcome: Progressing as expected Problem: Pain Goal: Control of pain at or below patient's documented comfort goal Outcome: Progressing as expected Goal: Reduction in pain sensation Outcome: Progressing as expected Problem: Skin integrity Impaired (Risk or Actual) Goal: Wound healing Outcome: Progressing as expected Goal: Prevention of new skin breakdown Outcome: Progressing as expected Problem: Discharge Planning Goal: Adequate for discharge Outcome: Progressing as expected Goal: Effective communication Outcome: Progressing as expected IN Sky RN [facility] 2024-04-26 07:08:13 Problem: Falls, Risk of Goal: Absence of falls Outcome: Progressing as expected Problem: Bleeding, Risk of Goal: Absence of impaired coagulation signs and symptoms Outcome: Progressing as expected Goal: Absence of active bleeding Outcome: Progressing as expected Problem: Pain Goal: Control of pain at or below patient's documented comfort goal Outcome: Progressing as expected Goal: Reduction in pain sensation Outcome: Progressing as expected Problem: Skin integrity Impaired (Risk or Actual) Goal: Wound healing Outcome: Progressing as expected Goal: Prevention of new skin breakdown Outcome: Progressing as expected Problem: Discharge Planning Goal: Adequate for discharge Outcome: Progressing as expected Goal: Effective communication Outcome: Progressing as expected IN Osborne RN [facility] 2024-04-25 21:26:36 Problem: Falls, Risk of Goal: Absence of falls Outcome: Progressing as expected Problem: Bleeding, Risk of Goal: Absence of impaired coagulation signs and symptoms Outcome: Progressing as expected Goal: Absence of active bleeding Outcome: Progressing as expected Problem: Pain Goal: Control of pain at or below patient's documented comfort goal Outcome: Progressing as expected Goal: Reduction in pain sensation Outcome: Progressing as expected Problem: Skin integrity Impaired (Risk or Actual) Goal: Wound healing Outcome: Progressing as expected Goal: Prevention of new skin breakdown Outcome: Progressing as expected Problem: Discharge Planning Goal: Adequate for discharge Outcome: Progressing as expected Goal: Effective communication Outcome: Progressing as expected [facility] 2024-04-25 11:31:56 Problem: Falls, Risk of Goal: Absence of falls Outcome: Progressing as expected Problem: Bleeding, Risk of Goal: Absence of impaired coagulation signs and symptoms Outcome: Progressing as expected Problem: Pain Goal: Control of pain at or below patient's documented comfort goal Outcome: Progressing as expected Problem: Skin integrity Impaired (Risk or Actual) Goal: Wound healing Outcome: Progressing as expected Goal: Prevention of new skin breakdown Outcome: Progressing as expected Problem: Discharge Planning Goal: Adequate for discharge Outcome: Progressing as expected [facility] 2024-04-24 22:05:14 Problem: Falls, Risk of Goal: Absence of falls Outcome: Progressing as expected Problem: Bleeding, Risk of Goal: Absence of impaired coagulation signs and symptoms Outcome: Progressing as expected Goal: Absence of active bleeding Outcome: Progressing as expected Problem: Pain Goal: Control of pain at or below patient's documented comfort goal Outcome: Progressing as expected Goal: Reduction in pain sensation Outcome: Progressing as expected Problem: Skin integrity Impaired (Risk or Actual) Goal: Wound healing Outcome: Progressing as expected Goal: Prevention of new skin breakdown Outcome: Progressing as expected [facility] 2024-04-23 13:05:20 Dr. Weinberg, he stated to reinforce dressing. Nurse scheduled patient to come in for post op 04/30/24. UNICATIONS CONSULTANT Samantha Brenner RN [facility] 2024-04-23 11:47:06 Nurse spoke with nurse Lo. Lo states that patient had surgery at [facility] on 04/09/24. Patient is not on blood thinners. Nurse states patient has a follow up appointment on 05/12/24. Nurse states bandage has not been removed since surgery, red blood is coming out of the top of the dressing and on the tape. Dressing has been reinforced. UNICATIONS CONSULTANT [facility] 2024-04-23 10:39:15 Lo from [facility] called reporting some bleeding at the top of her bandage, she it has been re enforced , no bandage has been removed. Please review and advise , her call back is [phone] Did not I've body part UNICATIONS CONSULTANT Trish Slade MA [facility] 2024-01-22 09:30:00 Images from the original note were not included. Venipuncture collection performed by clean technique on the left anticubitus. Total of 1 attempts were made. Slight pressure and a bandage/dressing were applied to the site(s). The patient experienced no complications. The following specimens were processed according to instructions and sent to [facility] laboratories per lab order on 01/22/2024 : LT BLUE SST RED LAV 1 PPT DK GREEN (LiHep) DK GREEN (SodH) TENORIO DK BLUE (K2) DK BLUE (S) ACD Blood Culture NIPT/NTD [facility] 2024-01-20 12:12:29 TRANSITIONAL CARE MANAGEMENT ASSESSMENT 01/20/2024 Mahnaz Osborne [id number] Mahnaz Osborne is a 83 year old /White female was admitted on 01/13/24 to [facility] CLC 6A. She was discharged on 01/18/24 with discharge disposition of HR- Routine Discharge. Admitting Physician: Luis Albrecht Discharge Diagnosis: R renal hematoma/ acute blood loss anemia, JEB on CKD No linked episodes TCM Kul-ugtt-ag-face outreach documentation: Discharge Assessment Chart Assessed: 01/20/24 TCM Outreach Completed: 01/20/24 Do you have a few minutes to speak with me about how you are doing at home?: Yes Discharge Instructions Do you understand your at-home instructions?: Yes Medications Have you filled your prescriptions and do you have them in your home? : No Medication Interventions?: Contacted physician (per ANDREW, "the pharmacy doesn't have the Avocopan cause it's specialty") Supplies Did you receive applicable home medical supplies/equipment?: N/A Follow Up Appointment Has a follow up appointment been scheduled?: No May I assist with scheduling this appointment?: Patient has outside PCP Are you able to get to your appointment? Who will be taking you?: Yes Home Health Assistance Has the home health nurse contacted you since you've been home?: N/A Survey - Recognition Is there anything you would like to share about your recent hospitalization, or anyone you would like to recognize?: No Do you have any suggestions for improvement?: No Do you have any other questions or concerns at this time?: No Future Appointments: Future Appointments Provider Department Dept Phone 01/22/2024 8:00 AM Monica Bethea MD [facility] Interventional Rad. Clinic, [facility] [phone] Alyssa Matt RN [facility] 2024-01-18 12:50:36 Problem: Falls, Risk of Goal: Absence of falls 01/18/2024 1250 by Tamara Sosa RN Outcome: Resolved 01/18/2024 1049 by Tamara Sosa RN Outcome: Progressing as expected Problem: Pain Goal: Control of pain at or below patient's documented comfort goal 01/18/2024 1250 by Tamara Sosa RN Outcome: Resolved 01/18/2024 1049 by Tamara Sosa RN Outcome: Progressing as expected Problem: Discharge Planning Goal: Adequate for discharge 01/18/2024 1250 by Tamara Sosa RN Outcome: Resolved 01/18/2024 1049 by Tamara Sosa RN Outcome: Progressing as expected Goal: Effective communication 01/18/2024 1250 by Tamara Sosa RN Outcome: Resolved 01/18/2024 1049 by Tamara Sosa RN Outcome: Progressing as expected T [facility] 2024-01-18 10:53:25 Patient's fall score is elevated. Patent is alert and oriented x4, call light is within reach. Bed alarm is on. Patient is instructed to call before getting out of bed or if assistance is required. Tamara Sosa RN [facility] 2024-01-17 20:44:44 Problem: Falls, Risk of Goal: Absence of falls Outcome: Progressing as expected Problem: Pain Goal: Control of pain at or below patient's documented comfort goal Outcome: Progressing as expected Problem: Discharge Planning Goal: Adequate for discharge Outcome: Progressing as expected Goal: Effective communication Outcome: Progressing as expected [facility] 2024-01-17 07:34:44 Problem: Falls, Risk of Goal: Absence of falls Outcome: Progressing as expected Problem: Pain Goal: Control of pain at or below patient's documented comfort goal Outcome: Progressing as expected Problem: Discharge Planning Goal: Adequate for discharge Outcome: Progressing as expected Goal: Effective communication Outcome: Progressing as expected Jefe Avina RN [facility] 2024-01-16 22:08:37 Problem: Falls, Risk of Goal: Absence of falls Outcome: Progressing as expected Problem: Pain Goal: Control of pain at or below patient's documented comfort goal Outcome: Progressing as expected Problem: Discharge Planning Goal: Adequate for discharge Outcome: Progressing as expected Goal: Effective communication Outcome: Progressing as expected [facility] 2024-01-16 07:52:42 Problem: Falls, Risk of Goal: Absence of falls Outcome: Progressing as expected Problem: Pain Goal: Control of pain at or below patient's documented comfort goal Outcome: Progressing as expected Problem: Discharge Planning Goal: Adequate for discharge Outcome: Progressing as expected Goal: Effective communication Outcome: Progressing as expected [facility] 2024-01-15 21:53:20 Problem: Falls, Risk of Goal: Absence of falls Outcome: Progressing as expected Problem: Pain Goal: Control of pain at or below patient's documented comfort goal Outcome: Progressing as expected Problem: Discharge Planning Goal: Adequate for discharge Outcome: Progressing as expected Goal: Effective communication Outcome: Progressing as expected [facility] 2024-01-15 20:10:58 High fall Risk Score identified. Patient is AOX4 able to follow commands, He knows how to call for help, Kept bed in low position Bed alarm in place and call lights within reach. Instructed to call for any assistance and do not get up unaided, lights within reach. Relatives at bedside. [facility] Naa Higginbotham RN [facility] 2024-01-15 08:00:00 Problem: Falls, Risk of Goal: Absence of falls Outcome: Progressing as expected Problem: Pain Goal: Control of pain at or below patient's documented comfort goal Outcome: Progressing as expected Jefe Avina RN [facility] 2024-01-15 05:00:00 Problem: Falls, Risk of Goal: Absence of falls Outcome: Progressing as expected Problem: Pain Goal: Control of pain at or below patient's documented comfort goal Outcome: Progressing as expected Gilbert Longoria RN [facility] 2024-01-14 07:38:00 Introduced myself to patient and her son. I offered language line to interpret. The son decline services and stated that he would interpret. LAN Raza Ry Tobar RN [facility] 2024-01-14 05:19:23 Problem: Falls, Risk of Goal: Absence of falls 01/14/2024 0519 by Gilbert Longoria RN Outcome: Progressing as expected 01/14/2024 0118 by Gilbert Longoria RN Outcome: Progressing as expected Problem: Pain Goal: Control of pain at or below patient's documented comfort goal Outcome: Progressing as expected [facility] 2024-01-13 10:37:00 Please review patient's pre-procedure charting that was completed under the patient's first procedure, right real biopsy, on 01/13/2024, at 1036. [facility] 2023-09-12 22:42:15 Pt given printed and verbal discharge instructions regarding pneumonia, hiatal hernia, vomiting, and CKD Prescriptions provided Discussed antibiotic therapy and to take until all completed unless adverse reaction occurs - if occurs, discontinue medication and follow up with pcp/seek medical attention Pt verbalized understanding of instructions, pt awake alert oriented, resp reg unlabored, skin w/d, color appropriate for race, moves all ext well,pt encouraged to follow up with pcp Advised to seek medical attention for new/prolonged/worsening of symptoms No adverse reaction to meds given in ER noted upon discharge PIV d'cd, dressing to site, catheter in tact. Awake, alert oriented, resp reg unlabored, skin w/d, pt leaving amb with steady gait, in no apparent distress, Jacques Brenner RN [facility] 2023-09-12 16:48:06 Pt presents with c/o abd pain, nausea, high blood pressure and concern for fever. Pt is afebrile during triage. Pt has appt with kidney doctor tomorrow. Symptoms began yesterday. [facility]
[2024-05-06] MEDS ORDERED: POLYETHYL GLY 3350 17 GM/DOSE PO PRN (09:57)
[2024-05-06] MEDS ORDERED: SENOSIDES 8.6 MG TAB PO PRN (09:58)
[2024-05-06 10:06] VITALS: BMI 27.1
[2024-05-06] MEDS: HYDROCODONE/APAP 5/325 MG TAB PO PRN (10:19)
[2024-05-06 20:09] LABS: Specific Gravity 1.015 (1.005-1.030); Sqamous Epithelial <5 /HPF (None Seen); Urine Bacteria <20 /HPF (<20); Urine Bilirubin NEGATIVE (Negative); Urine Blood Negative (Negative); Urine Clarity Turbid (Clear); Urine Color Light-Yellow (Yellow); Urine Crystals Unidentified Few /HPF (None Seen); Urine Culture Reflex Order NOT NEEDED; Urine Glucose NEGATIVE (Negative); Urine Ketones NEGATIVE (Negative); Urine Micro Reflex YN NO BILL MICROSCOPIC; Urine Mucus Slight /HPF (None Seen); Urine Nitrite NEGATIVE (Negative); Urine Protein 1+ (Negative); Urine RBC <5 /HPF (None Seen); Urine Urobilinogen Normal (Normal); Urine WBC <5 /HPF (<5); Urine WBC Clump Rare /HPF (None Seen); Urine Yeast (Budding) Occasional /HPF (None Seen)
[2024-05-06] MEDS: ATORVASTATIN 40 MG TAB PO SCH (20:21)
[2024-05-06] MEDS: APIXABAN 2.5 MG TABLET PO SCH (20:21)
[2024-05-06] MEDS: MAGNESIUM OXIDE 400 MG TAB PO SCH (20:21)
[2024-05-06] MEDS: CALCIUM CARBONATE 500 MG TAB PO SCH (20:21)
[2024-05-06] MEDS: MEGESTROL 40 MG TAB PO SCH (20:21)
[2024-05-06] MEDS: GABAPENTIN 100 MG CAP PO SCH (20:21)
[2024-05-06] MEDS: TRAMADOL HCL 50 MG TAB PO SCH (20:21)
[2024-05-06] MEDS: ENSURE ENLIVE 237 ML CAN PO SCH (20:22)
--- NOTE | 2024-05-07 04:00 | HP ---
Date of Admission: 05/06/2024 Time Of Service: 1 p.m. Ms. Osborne is Chilean-speaking only. Translation was needed. Chief Complaint: She fell and broke some bones. History Of Present Illness: Ms. Osborne is an 84-year-old right-handed patient with hyperten maria r, coronary artery disease, iron deficiency anemia, edema, osteoarthritis, bilateral knee replacem ents, who was walking at home and she fell on her porch. She was unable to get up. Emergency Medica l Services were called and she was brought in and found to have right intertrochanteric hip fracture and right medial clavicular fracture. She at that point had the right hip fracture addressed surgica llrd, and the right clavicular fracture was put in a sling for healing by secondary intention. She wa s discharged to correction to begin rehabilitation and to manage her comorbid conditions. She d id have daily steroids and her comorbid conditions which include management for chronic kidney diseas e stage III, dyslipidemia, rheumatoid arthritis, and essential hypertension. While there, she had 1 exacerbation of chest pain requiring transportation to the emergency department. She was worked up a nd managed medically and was referred under correction. Prior to her fall, she was fully indepe ndent, able to ambulate and take care of her activities of daily living without any difficulty. Mckeon darlyn, while in skilled, she was not thriving and the level of therapy was not adequate. Furthermore, her medical management did not allow her to participate adequately. She was therefore determined to be a better candidate for aggressive inpatient rehabilitation and was therefore admitted to the [facility] rehabilitation unit for physical and occupational therapy along with medical comorbid condition management. Allergies: NO KNOWN DRUG ALLERGIES. Medications: Norvasc 10 mg daily, Eliquis 2.5 mg twice daily, Lipitor 40 mg at bedtime, calcium carb myles 500 mg twice daily, ferrous sulfate 325 mg daily, gabapentin 100 mg twice daily, [place] 5/325 ev francy 6 hours as needed. She has lidocaine patch apply 2 topically daily to the shoulder and knee, mag nesium oxide 400 mg twice daily, Megace 40 mg twice daily, Ensure Enlive 237 mL twice daily, Protonix 40 mg daily, prednisone 10 mg daily, Senokot-S 8.6 mg daily, and tramadol 50 mg twice daily. Laboratory Studies: Urinalysis shows occasional budding yeast, turbid clarity, 1+ total protein. Ot herwise, she does have labs pending. X-ray/imaging: A pelvic x-ray done on 04/10 shows status post right hip open reduction and internal fixation with intact hardware. No fractures. Knee x-ray on 04/09/2024, hardware intact in the right knee, no acute findings. Abdomen, chest, and pelvis CT scan done on 04/09/2024 showed comminuted ri ght intertrochanteric fracture, mildly comminuted right medial clavicular fracture. There were sever al chronic lumbar compression fractures identified and a chronic-appearing right subcapital fluid col lection measuring about 9 mm in maximal thickness. Her EKG on 04/09/2024 shows normal sinus rhythm, normal EKG. Review of Systems: She does report some pain in the right shoulder and the clavicular fracture region. Some pain in the right hip. Otherwise, she has significant ulnar deviation with arthritic changes in the hands, very difficult to hold onto objects because of the significant deviation of her fingers and hands from os teoarthritis. Current Level Of Functioning: Currently, she ambulates with moderate assistance. Eating is setup as sistance and grooming setup assistance, maximal assistance for bathing, moderate assistance for upper body dressing, maximal assistance for lower body dressing and donning and doffing footwear. She is dependent for wheelchair transfer, toilet transfer, and again mobilization, she is at actually maximu m assistance for ambulation with rolling walker. Physical Examination: Vital Signs: Blood pressure is 140/71, pulse of 80, respiratory rate 18, temperature 98.2, oxygen sa turation 100%. General: Ms. Osborne is sitting in a chair, but the right arm in a sling. HEENT: She does appear normocephalic, atraumatic. Sclerae anicteric. Neuro: She has significant ulnar deviation in both hands and fingers, making it difficult to grasp o bjects. She has healing surgical bandage on the right hip, where she had the open reduction and inte rnal fixation and no significant swelling in the lower extremities bilaterally. Chest: Good air movement. Abdomen: Soft. Extremities: She has some diffuse weakness in upper and lower extremities. Rehab And Medical Assessment And Plan: Ms. Osborne is an 84-year-old right-handed patient, w ho is Chilean-speaking only. She has right intertrochanteric hip fracture, status post surgical repa ir. She has right clavicular fracture healing by secondary intention. She has decreased mobility, d ecreased physical functioning, iron deficiency anemia, hypertension, coronary artery disease, osteoar thritis, bilateral knee replacement. Surgical history includes cholecystectomy, left hip replacement , right elbow surgery, and bilateral knee replacement. Plan: She will have physical, occupational, and speech therapy. Note, in her diagnosis, her rehabil itation impairment group code is 07, fracture of the lower extremity. Her impairment group code is 0 8.11, unilateral hip fracture. Her etiologic diagnosis is right 4-part intertrochanteric hip fractur e and right clavicular fracture and as noted, she has multiple comorbid conditions which have been no alonzo. Plan: She will have physical, occupational, and speech therapy 3.5 hours, 5 of 7 days. We will cont inue with management of pain with [place], gabapentin and tramadol, also muscle relaxant as needed. Co ntinue constipation management with Senokot. Prednisone will be decreased from 20 to 10 mg daily, Pr otonix for GE reflux, Ensure Enlive for malnutrition along with Megace for poor appetite, magnesium o xide in addition for muscle spasms, ferrous sulfate for iron deficiency anemia, Lipitor for dyslipide karley, Eliquis 2.5 mg twice daily for DVT prophylaxis, Norvasc for hypertension control. Comorbidities That Are Impacting Rehabilitation: She has severe osteoarthritis with ulnar deviation making it hard to grasp objects and difficult to use a rolling walker. However, she still will make attempts to use as an accommodation perhaps with elbow walkers may be helpful. She is of course nonw eightbearing on the right upper extremity, where she has clavicular fracture and may make it even mor e difficult for her to mobilize via walker and she will be transferring mostly via wheelchair. She d oes have family who will help her when she goes home. Rehab Specific Plan: Ms. Osborne will have physical, occupational, and speech therapy 3.5 hours, 5 of 7 days, to improve her ability to transfer from bed to chair, to a wheelchair, to toilet off and on, and to shower in and out along with dressing upper and lower body, donning and doffing footwear. Al so therapy will help with her performing activities of daily living. She will have speech to help wi th cognition, maintaining proper airway protection, and safety awareness. Ms. Osborne has a good understanding of the process of admission to the inpatient rehabilitation unit and how she will benefit from physical, occupational, and speech therapy. She will have 24 hours a d ay, 7 days a week, skilled rehabilitation and nursing, daily physician evaluation and management, and licensed social worker evaluation and management for discharge planning, home equipment, and for followup. Also, home health physical therapy will likely be ordered after. If need be, Hospitalist Service wi ll be consulted for help. Barriers To Discharge: Severe ulnar deviation makes it hard for her to grasp objects and it may be d ifficult for her to use the arm on the left side. The right side course where she has a fracture is nonweightbearing. She will have to work with transfer board perhaps and mobilize via wheelchair usin g the left hand and the lower extremities. Length Of Stay: About 2 weeks. Disposition: Back home with family and continue therapy via Home Health. Prognosis: Good. Code Status: Full code. Rehab Specific Goals: 1. As much as possible, become independent with upper and lower body dressing and donning and doffing footwear. 2. Try to be independent with mobilization via a wheelchair at least household distances with a walke r. 3. She may not be able to go up and down steps, but will try 5 steps. 4. Be able to perform cognitive functioning independently and with good safety awareness. The above goals were reviewed with Ms. Osborne and she is in understanding and agreement. By signing this document, I acknowledge I personally performed a full physical examination on Ms. Jose cartwright no later than 24 hours after her admission to the inpatient rehabilitation facility and determine that she is able to tolerate the above course of treatment at an intensive level for a reasonable pe riod of time. A detailed individualized plan of care for her will be completed by hospital day 4 bas ed on the preadmission screen, history and physical, and therapy evaluations. RALPH Voice ID: [id number]
[2024-05-07 06:25] LABS: Absolute Lymphocytes (CBC) 0.5 K/uL (0.7-4.9); Absolute Monocytes 0.9 K/uL (0.1-1.3); Absolute Neutrophil 6.9 K/uL (1.8-8.0); Basophils % 0.4 % (0-1.3); Eosinophils % 0.4 % (0-4.4); Hematocrit 31.2 % (36.0-45.0); Hemoglobin 10.5 g/dL (12.0-15.0); Lymphocytes % 5.6 % (15.3-44.8); MCH 30.1 pg (27.0-35.0); MCHC 33.5 g/dL (32.0-36.0); MCV 89.8 fL (80-100); MPV 8.1 fL (7.6-11.3); Monocytes % 10.7 % (3.3-12.3); Neutrophils % 82.9 % (41.7-73.7); Nucleated Red Blood Cells % 0.1 % (0-0); Platelets 278 thou/uL (152-406); RBC Red Blood Cell Count 3.48 M/uL (3.86-4.86)
[2024-05-07] MEDS ORDERED: predniSONE 20 MG TAB PO SCH (08:00)
[2024-05-07] MEDS: FERROUS SULFATE 325 MG TAB PO SCH (08:28)
[2024-05-07] MEDS: PANTOPRAZOLE 40MG TABLET PO SCH (08:28)
[2024-05-07] MEDS: AMLODIPINE 10 MG TAB PO SCH (08:29)
[2024-05-07] MEDS: predniSONE 10 MG TAB PO SCH (08:31)
[2024-05-07 10:04] LABS: Albumin 2.3 g/dL (3.4-5.0); Anion Gap 12.3 mEq/L (5.0-15.0); Magnesium 2.2 mg/dL (1.6-2.4); Potassium 5.3 mEq/L (3.5-5.1); Prealbumin 18.2 mg/dL (20-40)
[2024-05-07] MEDS: LIDOCAINE 4% PATCH TOP SCH (12:14)
[2024-05-07] MEDS: ONDANSETRON 4 MG (ODT) TAB PO PRN (12:14)
[2024-05-07] MEDS: ENSURE ENLIVE 237 ML CAN PO SCH (19:04)
--- NOTE | 2024-05-08 00:45 | PN ---
The evaluation today was done by a feed in worker as the patient is Turkmen-speaking only. Subjective: She reports still some mild pain in the right hip, where she has a 4-part intertrochante ralph fracture and in the right clavicular region, there is also a fracture. She does have significant ulnar deviation in both hands from osteoarthritis making it hard to hold onto a rolling walker. Oth erwise, some mild myalgias, arthralgias. No rash in terms of objective. Physical Examination: Vital Signs: Blood pressure 115/62, pulse of 102, respiratory rate 18, temperature 98.2, oxygen satu ration 98%. Weight 148 pounds, height 5 feet 2 inches, BMI 27.1. General: Again, Ms. Osborne is resting well. She is in no significant distress. HEENT: She appears normocephalic, atraumatic. Sclerae anicteric. Oropharynx pink and moist. Neck: Supple. Extremities: She has good hemostasis in the right hip surgical center and the right arm is in a slin g, likely be a nonweightbearing status. Laboratory Studies: White blood cell count 8.3, hemoglobin 10.5, platelets 278. Sodium 135, potassi um 5.3, chloride 106, carbon dioxide 22, BUN 46, creatinine 1.25, glucose 86, calcium 8.1, magnesium 2.2, prealbumin 18.2, albumin 2.3. Urinalysis, turbid clarity, occasional budding yeast, 1+ total pr otein, and cultures are pending. X-ray/imaging: No new x-rays or imaging. Medications: [place] 5/325 every 6 hours as needed, Norvasc 10 mg daily, Eliquis 2.5 mg twice daily, L ipitor 40 mg at bedtime, Os-Tato plus D 500 mg twice daily, ferrous sulfate 325 mg daily, gabapentin 1 00 mg twice daily, lidocaine patch apply 2 topically daily, magnesium oxide 400 mg daily due to poor appetite. She is on Megace 40 mg twice daily, Ensure Enlive 237 mL 3 times daily, Zofran 4 mg every 6 hours. She did have some nausea early in the day and vomiting that was addressed with Zofran and t hat is resolved. Protonix 40 mg daily, Glycolax 17 g daily for constipation, prednisone 10 mg daily, Senokot 8.6 mg at bedtime for constipation, tramadol 50 mg twice daily. Progress Made With Physical, Occupational, And Speech Therapy: Today with physical therapy, she did perform supine exercises to both lower extremity strength and range of motion. She did ankle pumps, straight leg raises, knee flexion exercises, and did have some rest as she was working. She did perf orm rolling from left to right and right to left scooting and with maximum assistance while in bed. She did not feel good most of the day because of nausea, did not do much out of bed exercises. She w as unable to stay seated secondary to feeling "sick to the stomach." With occupational therapy, she did exercises with yellow Thera-Band multiple sets. She did take rest breaks due to fatigue. She di d refuse to eat lunch and again Megace was used to stimulate appetite. She is beginning to work with speech with a weekly assessment where on the BIMS score she scored 12/15 and the SLUMS score she got 4/24 as the patient has no formal education. Assessment: Ms. Osborne is an 84-year-old patient in the rehabilitation unit with 4-part right femur intertrochanteric fracture and a right clavicular fracture. She has poor appetite. She has some khloe sea and vomiting earlier that is resolved with Zofran. She now has Megace to help with appetite stim ulation. Of course, she has pain medications on board and possibly narcotic medication may be contri buting to nausea. Her white blood cell count slightly elevated. She is on prednisone now decreased to 10 mg daily. She has Protonix for GE reflux, Ensure Enlive for the poor nutrition, gabapentin for neuropathic pain, ferrous sulfate for iron deficiency anemia. She has Lipitor for dyslipidemia, Irma ana 2.5 mg twice daily for DVT prophylaxis, and amlodipine 10 mg daily for blood pressure. Plan: She will continue with physical, again occupational therapy. Continue with comorbid condition medications for decreased mobility, decreased physical functioning, and she is again working hard wi th speech. LB/DANN Voice ID: [id number] Report ID: [id number]
[2024-05-08 09:23] LABS: Anion Gap 9.3 mEq/L (5.0-15.0); Potassium 5.3 mEq/L (3.5-5.1)
[2024-05-08] MEDS: NA CHLORIDE 0.9% 1,000 ML IV SCH ×3 (11:01→17:30)
--- NOTE | 2024-05-08 14:25 | P.RH.PN ---
Estimated Length of Stay: 16 Expected Discharge Date: 05/20/24 Discharge Disposition Plan: Home Family Support: Yes Half-Way Goal: Mobility, Transfers, Self Care Vital Signs: Last Vital Signs Temp 98.1 F 05/08/24 07:28 Pulse 95 H 05/08/24 10:02 Resp 18 05/08/24 07:28 BP 132/66 05/08/24 10:02 Pulse Ox 96 05/08/24 07:28 Laboratory: Laboratory Last Values WBC 8.30 thou/uL (4.3-10.9) 05/07/24 05:45 RBC 3.48 M/uL (3.86-4.86) L 05/07/24 05:45 Hgb 10.5 g/dL (12.0-15.0) L 05/07/24 05:45 Hct 31.2 % (36.0-45.0) L 05/07/24 05:45 MCV 89.8 fL (80-100) 05/07/24 05:45 MCH 30.1 pg (27.0-35.0) 05/07/24 05:45 MCHC 33.5 g/dL (32.0-36.0) 05/07/24 05:45 RDW 16.0 % (12.1-15.2) H 05/07/24 05:45 Plt Count 278 thou/uL (152-406) 05/07/24 05:45 MPV 8.1 fL (7.6-11.3) 05/07/24 05:45 Neutrophils % 82.9 % (41.7-73.7) H 05/07/24 05:45 Lymphocytes % 5.6 % (15.3-44.8) L 05/07/24 05:45 Monocytes % 10.7 % (3.3-12.3) 05/07/24 05:45 Eosinophils % 0.4 % (0-4.4) 05/07/24 05:45 Basophils % 0.4 % (0-1.3) 05/07/24 05:45 Absolute Neutrophils 6.9 K/uL (1.8-8.0) 05/07/24 05:45 Absolute Lymphocytes 0.5 K/uL (0.7-4.9) L 05/07/24 05:45 Absolute Monocytes 0.9 K/uL (0.1-1.3) 05/07/24 05:45 Absolute Eosinophils 0.0 K/uL (0-0.5) 05/07/24 05:45 Absolute Basophils 0.0 K/uL (0-0.5) 05/07/24 05:45 Sodium 134 mEq/L (136-145) L 05/08/24 08:42 Potassium 5.3 mEq/L (3.5-5.1) H 05/08/24 08:42 Chloride 104 mEq/L (98-107) 05/08/24 08:42 Carbon Dioxide 26 mEq/L (21-32) 05/08/24 08:42 Anion Gap 9.3 mEq/L (5.0-15.0) 05/08/24 08:42 BUN 50 mg/dL (7-18) H 05/08/24 08:42 Creatinine 1.47 mg/dL (0.55-1.02) H 05/08/24 08:42 Est GFR (CKD-EPI) 35 ml/min (=/>90) L 05/08/24 08:42 Glucose 105 mg/dL (74-106) 05/08/24 08:42 Calcium 8.5 mg/dL (8.5-10.1) 05/08/24 08:42 Magnesium 2.2 mg/dL (1.6-2.4) 05/07/24 05:45 Albumin 2.3 g/dL (3.4-5.0) L 05/07/24 05:45 Prealbumin 18.2 mg/dL (20-40) L 05/07/24 05:45 Urine Color Light-yellow (Yellow) 05/06/24 19:50 Urine Clarity Turbid (Clear) H 05/06/24 19:50 Urine pH 5.0 (5.0-7.0) 05/06/24 19:50 Ur Specific [place] 1.015 (1.005-1.030) 05/06/24 19:50 Glucose (UA)(Auto) Negative (Negative) 05/06/24 19:50 Urine Ketones Negative (Negative) 05/06/24 19:50 Urine Blood Negative (Negative) 05/06/24 19:50 Urine Nitrite Negative (Negative) 05/06/24 19:50 Urine Bilirubin Negative (Negative) 05/06/24 19:50 Urine Urobilinogen Normal (Normal) 05/06/24 19:50 Ur Leukocyte Esterase Negative Jovita/uL (Negative) 05/06/24 19:50 Urine RBC <5 /HPF (None Seen) 05/06/24 19:50 Urine WBC <5 /HPF (<5) 05/06/24 19:50 Urine WBC Clumps Rare /HPF (None Seen) 05/06/24 19:50 Ur Squamous Epith Cells <5 /HPF (None Seen) 05/06/24 19:50 Unidentified Crystals Few /HPF (None Seen) 05/06/24 19:50 Urine Bacteria <20 /HPF (<20) 05/06/24 19:50 Hyaline Casts 0-5 /LPF (None Seen) 05/06/24 19:50 Urine Mucus Slight /HPF (None Seen) 05/06/24 19:50 Urine Yeast (Budding) Occasional /HPF (None Seen) H 05/06/24 19:50 Urine Culture Reflexed Not needed 05/06/24 19:50 Urine Total Protein 1+ (Negative) H 05/06/24 19:50 Weight: 148 lb 3.2 oz Closed Surgical Incision Present: Yes Physician Update: She is now on IV fluits. BIMS 12, 4 on the SLUMS. Poor organized thinking skills. Max assist transfers, bed mobility, wheelchair 250' going backwards. She is weight bearing as tolerated. Max assist x 2 for shower and toilet transfers. CGA for upper body dressing and oral hygiene. two view x- ray of right hip to rule out displacement. Summary: Patient's care plan and oysterman goals have been reviewed and revised as necessary. Please see the Rehabilitation Signature page for all necessary signatures.
--- NOTE | 2024-05-08 17:29 | P.CNS ---
Date of Consult: 05/08/24 Reason for Consult: Renal insufficiency, hx of ANCA associated GN Requesting Physician: Vini Green Chief Complaint: Weakness, debility s/p hip fracture/surgery History of Present Illness: Pt is a elderly female well known to me from clinic with a hx of malignant HTN, diastolic CHF, chronic peripheral edema, renal insufficiency with worsening of renal function and active urinary sediment last year on referral. Pt has a hx RA and sees Rheumatology. W/u ended up revealing P-ANCA serology and a biopsy confirmed ANCA associated pauci-immune GN for which she was put on Prednisone, Avacopan and had gotten just one dose of Cytoxan. Pt was also getting ADORE therapy for anemia of chronic disease. She unfortunately developed a recent right intertrochanteric hip fracture and right medial clavicular fracture. She had right hip fracture addressed surgically, and the right clavicular fracture was put in a sling for healing by secondary intention. She was discharged to care home to begin rehabilitation and to manage her comorbid conditions. However, while in skilled, she was not thriving and the level of therapy was not adequate. She was therefore transferred here for more intensive therapy. Allergies No Known Allergies Allergy (Verified 05/06/24 14:02) Home Medications: Amlodipine [Norvasc*] 10 mg PO DAILY 05/07/24 Apixaban [Eliquis *] 2.5 mg PO BID 05/07/24 Atorvastatin Calcium [Lipitor] 40 mg PO BEDTIME 05/07/24 Calcium Carbonate [Oscal*] 500 mg PO BID 05/07/24 Ferrous Sulfate [Ferrous Sulfate*] 325 mg PO DAILY 05/07/24 Gabapentin [Neurontin*] 100 mg PO BID 05/07/24 Hydrocodone 5/APAP 325 [[place] 5/325*] 1 tab PO Q6H PRN 05/07/24 Magnesium Oxide [Magnesium] 400 mg PO BID 05/07/24 Megestrol [Megace*] 40 mg PO BID 05/07/24 predniSONE [Deltasone*] 10 mg PO DAILY 05/07/24 traMADol HCL [Ultram*] 50 mg PO BID 05/07/24 - Past Medical/Surgical History Diabetic: No -: Hypertension -: Coronary artery disease -: Iron deficiency anemia -: Edema -: Osteoarthritis -: jorge knee replacement -: c- section -: left hip replacement -: Cholecystectomy -: Right elbow surgery Psychosocial/ Personal History: She is to 47 years, has 3 children, she does not work. - Social History Smoking Status: Unknown if ever smoked Alcohol use: No CD- Drugs: No Caffeine use: No Place of Residence: Home Review of Systems General: Unremarkable Eyes: Unremarkable ENT: Unremarkable Respiratory: Unremarkable Cardiovascular: Unremarkable Gastrointestinal: Other (low appetite) Genitourinary: Unremarkable Musculoskeletal: As per HPI Neurological: Unremarkable Lymphatics: Unremarkable Physical Examination Temp Pulse Resp BP Pulse Ox 98.1 F 95 H 18 132/66 96 05/08/24 07:28 05/08/24 10:02 05/08/24 07:28 05/08/24 10:02 05/08/24 07:28 General: Alert, In no apparent distress, Cooperative HEENT: Atraumatic, Normocephalic Neck: Supple Respiratory: Clear to auscultation bilaterally, Normal air movement Cardiovascular: Regular rate/rhythm, Other (Improved peripheral edema c/w in the past) Gastrointestinal: Soft and benign, No tenderness Musculoskeletal: No contractures, No tenderness, Other (Rt lateral hip incision site healed) Integumentary: No rashes Neurological: Normal speech, Normal tone, Normal affect, Other (muscle strength not tested) Laboratory Data (last 24 hrs) 05/08/24 08:42 Sodium 134 L Potassium 5.3 H BUN 50 H Creatinine 1.47 H Glucose 105 Conclusions/Impression: A/P) Stage I JEB episode in Mar, 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 -Cont to monitor renal function closely -Would lower rate of ordered maintenance IVF and d/c when pt's PO intake improves or if showing signs of fluid retention -Avoid any NSAIDs ANCA vasculitis, renal limited -s/p Cytoxan dose x1, had been on Avocapan and lower dose Prednisone, 20 mg qd but latest UA does not show the active urinary sediment seen prev so disease may be in remission already and with her other issues will look to pause therapy, therefore agree with Prednisone tapering. Will recheck P-ANCA serology, will check CRP. Once recovered and rehab stint completed, will re-assess benefits/risks of completing any protocol with Cytoxan, etc HTN with CKD -Currently BP not as accelerated as it has been in the past, some of her other agents are suspended, ok to cont CCB but will split dose and using holding parameters Chronic diastolic CHF -LE edema improved, compensated, off maintenance diuretics, caution with on going IVF, check BNP level
--- NOTE | 2024-05-08 18:50 | RAD REPORT ---
Exam:Hip Right 2 View HISTORY: Right hip pain FINDINGS: Compression screw and intramedullary pablo affix a femoral fracture. Moderate displacement of fracture fragments is present. No dislocation
[2024-05-08] MEDS: AMLODIPINE 5 MG TAB PO SCH (20:39)
[2024-05-09 06:07] LABS: Absolute Eosinophils 0.1 K/uL (0-0.5); Absolute Lymphocytes (CBC) 0.7 K/uL (0.7-4.9); Absolute Neutrophil 6.3 K/uL (1.8-8.0); Basophils % 0.4 % (0-1.3); Eosinophils % 0.9 % (0-4.4); Hematocrit 26.5 % (36.0-45.0); Hemoglobin 8.9 g/dL (12.0-15.0); Lymphocytes % 9.1 % (15.3-44.8); MCHC 33.5 g/dL (32.0-36.0); MCV 89.5 fL (80-100); MPV 8.1 fL (7.6-11.3); Monocytes % 12.2 % (3.3-12.3); Neutrophils % 77.4 % (41.7-73.7); Platelets 252 thou/uL (152-406); RBC Red Blood Cell Count 2.96 M/uL (3.86-4.86); Red Cell Distribution Width 15.7 % (12.1-15.2)
[2024-05-09] MEDS: PANTOPRAZOLE 40MG TABLET PO SCH (06:53)
[2024-05-09 06:54] LABS: Anion Gap 9.7 mEq/L (5.0-15.0); C-Reactive Protein 56.4 mg/L (<3.00); Potassium 5.7 mEq/L (3.5-5.1)
[2024-05-09 08:44] LABS: Platelet Estimate ADEQ; Platelets Clumped FEW; Platelets, Giant RARE; White Blood Cell Scan OK (OK)
[2024-05-09 08:45] LABS: Blood Morphology Comment NOT SEEN (NOT SEEN)
[2024-05-09] MEDS: MAGNESIUM OXIDE 400 MG TAB PO SCH (09:13)
[2024-05-09] MEDS: SODIUM ZIRCONIUM CYCLOSILICATE 10 GM/PKT PO ONE (10:34)
[2024-05-09] MEDS: NEPRO SHAKE 237 ML CAN PO SCH (21:32)
[2024-05-10 06:04] LABS: Magnesium 2.3 mg/dL (1.6-2.4)
[2024-05-10] MEDS: NA CHLORIDE 0.9% 1,000 ML IV SCH (11:35)
--- NOTE | 2024-05-11 16:48 | RAD REPORT ---
Exam:Knee Right 2 View HISTORY: Right knee pain FINDINGS: No fracture or dislocation seen Right knee prosthesis in good position without evidence of loosening.. 2.5 cm bony/calcific density superior to the patella is chronic
--- NOTE | 2024-05-11 19:50 | P.PN ---
Date of Service: 05/11/24 Vital Signs Temp Pulse Resp BP Pulse Ox 97.9 F 84 18 127/67 98 05/11/24 07:36 05/11/24 19:32 05/11/24 19:32 05/11/24 19:32 05/11/24 19:32 Medications Hydrocodone Bitart/Acetaminophen (Hydrocodone/Apap 5/325 Mg Tab) 1 tab PO Q6H PRN PRN Reason: Pain scale 5-7 (Moderate) Last Admin: 05/11/24 11:29 Dose: 1 tab Amlodipine Besylate (Amlodipine 5 Mg Tab) 5 mg PO BID [facility] Last Admin: 05/11/24 19:32 Dose: 5 mg Apixaban (Apixaban 2.5 Mg Tablet) 2.5 mg PO BID [facility] Last Admin: 05/11/24 19:33 Dose: 2.5 mg Atorvastatin Calcium (Atorvastatin 40 Mg Tab) 40 mg PO BEDTIME [facility] Last Admin: 05/11/24 19:32 Dose: 40 mg Calcium Carbonate/Glycine (Calcium Carbonate 500 Mg Tab) 500 mg PO BID [facility] Last Admin: 05/11/24 19:32 Dose: 500 mg Enteral Nutritional Formula (Nepro Shake 237 Ml Can) 237 ml PO BID [facility] Last Admin: 05/11/24 19:32 Dose: 237 ml Ferrous Sulfate (Ferrous Sulfate 325 Mg Tab) 325 mg PO DAILY [facility] Last Admin: 05/11/24 09:01 Dose: 325 mg Gabapentin (Gabapentin 100 Mg Cap) 100 mg PO BID [facility] Last Admin: 05/11/24 19:33 Dose: 100 mg Lidocaine (Lidocaine 4% Patch) 2 patch TOP DAILY [facility] Last Admin: 05/11/24 09:01 Dose: 2 patch Magnesium Oxide (Magnesium Oxide 400 Mg Tab) 400 mg PO DAILY [facility] Last Admin: 05/11/24 09:01 Dose: 400 mg Ondansetron HCl (Ondansetron 4 Mg (Odt) Tab) 4 mg PO Q6H PRN PRN Reason: NAUSEA / VOMITING Last Admin: 05/07/24 12:14 Dose: 4 mg Pantoprazole Sodium (Pantoprazole 40mg Tablet) 40 mg PO ACB [facility]; Protocol Last Admin: 05/11/24 06:41 Dose: 40 mg Polyethylene Glycol (Polyethyl Gly 3350 17 Gm/Dose) 17 gm PO DAILY PRN PRN Reason: CONSTIPATION-1ST LINE Prednisone (Prednisone 10 Mg Tab) 10 mg PO DAILY [facility] Last Admin: 05/11/24 09:01 Dose: 10 mg Senna (Senosides 8.6 Mg Tab) 8.6 mg PO DAILY PRN PRN Reason: CONSTIPATION-2ND LINE Tramadol HCl (Tramadol Hcl 50 Mg Tab) 50 mg PO BID [facility] Last Admin: 05/11/24 19:32 Dose: 50 mg Assessment/ Plan: Nephrology No dyspnea No chest pain Right hip pain No acute events overnight Vitals, medications, blood work and imaging reviewed in the chart General: Alert, In no apparent distress, Cooperative HEENT: Atraumatic, Normocephalic Neck: Supple Respiratory: Clear to auscultation bilaterally, Normal air movement Cardiovascular: Regular rate/rhythm. No Edema Gastrointestinal: Soft and benign, No tenderness Musculoskeletal: No contractures, No tenderness, Rt lateral hip incision site Integumentary: No rashes Neurological: Normal speech Laboratory Data (last 24 hrs) 05/08/24 08:42 Sodium 134 L Potassium 5.3 H BUN 50 H Creatinine 1.47 H Glucose 105 Conclusions/Impression: CKD IIIb MPO/ P-ANCA associated pauci immune GN sp bx Jan 2024 Immunosuppressive therapy sp Cytoxan X1 dose -No NSAIDs -Continue Avocapan -Continue Prednisone Hyponatremia -Stable -Encourage nutrition Hyperkalemia -Improving -Low potassium diet HTN with CKD/ CHF -Continue Amlodipine Diastolic CHF, chronic Peripheral Edema -Low sodium diet Hypoalbuminemia -Continue Nepro Anemia in chronic illness -Monitor H&H -Continue oral iron Attending note reviewed
--- NOTE | 2024-05-12 02:46 | PN ---
Date of Progress Note: 05/11/2024 Time Of Service: 1:30 p.m. Subjective: Ms. Osborne is resting comfortably in a chair beside the bed, therapist at bedside. Mult iple daughters are present. She is as communicative as ever. She speaks in [place] and requires tra nslation. She denies any significant pain, has 4-part intertrochanteric fracture in the right lower extremity. There is more pain noted in the right knee and there is a lidocaine patch applied. X-ray was done on that right knee and it shows no fractures or dislocation. Right knee prosthesis in good position without evidence of loosening. There is a 2.5 cm bony calcific density superior to the pat angelica and noted to be chronic. Objective: Again, some pain in the right knee and is addressed with a lidocaine patch. There is a l idocaine patch along the right hip as already. Otherwise, she has no new complaints. Pain in the ri ght hip is better controlled. Physical Examination: Vital Signs: Blood pressure 127/67, pulse 84, respiratory rate 18, temperature 97.8, oxygen saturati on 98%. Weight 148 pounds, height 5 feet 2 inches, BMI 27.1. General: Ms. Osborne is sitting in a chair doing her therapy. HEENT: She appears normocephalic, atraumatic. Sclerae anicteric. Oropharynx pink and moist. Neck: Supple. Chest: Clear. Extremities: She has good hemostasis at the right hip surgical site. In terms of her other comorbidities, she does have right clavicular fracture and she is now able to b ear weight with the right upper extremity which is helpful. She has malnutrition, neuropathic pain, iron deficiency, and dyslipidemia. Progress Made With Physical, Occupational, And Speech Therapy: Today with physical therapy, she did perform [id number] transfers and do a rolling walker with maximum assistance. She did have again r ight knee pain rated up to 8/10. Pain medications were adjusted. Wheelchair mobilization, covered 2 60 feet with standby assistance using the left upper extremity. With occupational therapy, she did t ransfer from bed to wheelchair with assistance, required long rest breaks. She did perform sink oral hygiene including brushing teeth and facial hygiene with supervision. With speech, oriented to temp oral concepts with 60% to 70% accuracy and spatial concepts with 50% accuracy. She did recall 4/4 un related pictures after a 5-minute delay and 5 members of a concrete category were stated with 90% acc uracy and minimum assistance. Session was conducted in [place]. Assessment: Ms. Osborne is an 84-year-old patient with 4-part right intertrochanteric fracture, right clavicular fracture, all traumatic. She is [place]-speaking only and requires translation. She has hypertension addressed with Norvasc, Eliquis for DVT prophylaxis, Lipitor for dyslipidemia, signific ant bone density loss. She has Os-Tato on board, Nepro shake as well as ferrous sulfate. She has lisette apentin for neuropathic pain, lidocaine patch apply to the right knee and the right hip surgical site , Protonix for GE reflux, prednisone on board cut to 5 mg daily, Senokot for constipation, tramadol a dditional for pain management and those medications will be continued. She will continue with physic al, occupational, and speech therapy 3.5 hours, 5 of 7 days. Comorbidities Impacting Rehabilitation: The right knee pain where she has actually bilateral knee re placement, but the right one is more painful and again pain patch applied to that to help mitigate th at as she does her therapy. X-ray did not show any unexpected findings. CHEIKH/DANN Voice ID: [id number] Report ID: [id number]
[2024-05-12 08:27] LABS: Absolute Eosinophils 0.1 K/uL (0-0.5); Absolute Monocytes 1.1 K/uL (0.1-1.3); Absolute Neutrophil 7.1 K/uL (1.8-8.0); Basophils % 0.4 % (0-1.3); Hematocrit 27.2 % (36.0-45.0); Lymphocytes % 10.9 % (15.3-44.8); MCH 29.8 pg (27.0-35.0); MCHC 33.3 g/dL (32.0-36.0); MCV 89.5 fL (80-100); MPV 7.9 fL (7.6-11.3); Monocytes % 12.1 % (3.3-12.3); Neutrophils % 75.6 % (41.7-73.7); Nucleated Red Blood Cells % 0.1 % (0-0); Platelets 279 thou/uL (152-406); RBC Red Blood Cell Count 3.03 M/uL (3.86-4.86); Red Cell Distribution Width 16.1 % (12.1-15.2)
[2024-05-12 08:35] LABS: Anion Gap 9.2 mEq/L (5.0-15.0); Potassium 5.2 mEq/L (3.5-5.1)
--- NOTE | 2024-05-12 21:56 | PN ---
Date of Progress Note: 05/12/2024 Time Of Service: 1:35 p.m. Subjective: Ms. Osborne is smiling very well. She communicates in [place] and vegetable harvest worker was used. She reports some mild pain in the right knee, but that is improved after pain patch was placed there and the right hip fracture, she has a 4-part intertrochanteric fracture. Also fracture of the right clavicle. She is weightbearing as tolerated there. Objective: No fevers, chills, nausea, vomiting. No myalgias, arthralgias. No rash. No other compl aints. Physical Examination: Vital Signs: Blood pressure 123/61, pulse 86, respiratory rate 16, temperature 98.2, oxygen saturati on 98%. General: Ms. Osborne is resting in bed in between therapy sessions. HEENT: She appears normocephalic, atraumatic. Sclerae anicteric. She has marked ulnar deviation fr om osteoarthritis. Abdomen: Soft. Extremities: No significant clubbing, cyanosis, or edema. She does have the bilateral knee replacem ent chronically done and pain is slightly better with pain patch in the right knee, which is more bot hersome for her. Laboratory Studies: White blood cell count 9.5, hemoglobin 9.0, platelets 279. Sodium 134, potassiu m 5.2, chloride 106, BUN 60, creatinine 1.30, calcium 8.6, glucose 89. She is receiving a liter of n ormal saline at 50 cc an hour. X-ray/imaging: No new x-rays or imaging. Medications: Medications have been reviewed and remain unchanged except she is receiving normal sali ne as noted. Progress Made With Physical And Occupational Therapy Along With Speech Therapy: With physical therap y, she mobilized a wheelchair 50 feet forward and 80 feet backwards. Family did work with her, but t hey need to do more hands-on training as she is planning on going back home with her daughter and oth er family members. Wheelchair mobilization was 55 feet forward and then 130 feet backwards with shaka dby assistance. Regarding occupational therapy, did have some increased participation and motivation . The patient came to the shower room, required minimum assistance for showering, needed help with c leaning buttocks and both feet. Maximal assistance with wheelchair transfer. Regarding speech, orie nted to temporal concepts with 25% accuracy and spatial concepts with 75% accuracy. She was using sp leon retrieval to improve delayed recall, recalling 4 of 4 unrelated pictures after 5 minutes and 10 m inutes without cues. Assessment: Ms. Osborne is an 84-year-old patient in the rehabilitation unit with a 4-part right inte rtrochanteric hip fracture. She has decreased mobility, decreased physical functioning. She has adam al insufficiency, followed by the Renal Service. She has dyslipidemia, hypertension, decreased mobil ity, decreased physical functioning, and GE reflux. Plan: She will continue with physical, occupational, and speech therapy 3.5 hours, 5 of 7 days. She will continue with comorbid condition medications as needed including for DVT prophylaxis, for malnu trition, for pain and dyslipidemia. CHEIKH/DANN Voice ID: [id number] Report ID: [id number]
--- NOTE | 2024-05-12 22:09 | P.PN ---
Date of Service: 05/12/24 Vital Signs Temp Pulse Resp BP Pulse Ox 98.2 F 86 16 122/61 97 05/12/24 18:55 05/12/24 19:09 05/12/24 20:09 05/12/24 19:09 05/12/24 20:09 Medications Hydrocodone Bitart/Acetaminophen (Hydrocodone/Apap 5/325 Mg Tab) 1 tab PO Q6H PRN PRN Reason: Pain scale 5-7 (Moderate) Last Admin: 05/11/24 11:29 Dose: 1 tab Amlodipine Besylate (Amlodipine 5 Mg Tab) 5 mg PO BID [facility] Last Admin: 05/12/24 19:09 Dose: 5 mg Apixaban (Apixaban 2.5 Mg Tablet) 2.5 mg PO BID [facility] Last Admin: 05/12/24 19:09 Dose: 2.5 mg Atorvastatin Calcium (Atorvastatin 40 Mg Tab) 40 mg PO BEDTIME [facility] Last Admin: 05/12/24 19:09 Dose: 40 mg Calcium Carbonate/Glycine (Calcium Carbonate 500 Mg Tab) 500 mg PO BID [facility] Last Admin: 05/12/24 19:09 Dose: 500 mg Enteral Nutritional Formula (Nepro Shake 237 Ml Can) 237 ml PO BID [facility] Last Admin: 05/12/24 19:10 Dose: 237 ml Ferrous Sulfate (Ferrous Sulfate 325 Mg Tab) 325 mg PO DAILY [facility] Last Admin: 05/12/24 08:26 Dose: 325 mg Gabapentin (Gabapentin 100 Mg Cap) 100 mg PO BID [facility] Last Admin: 05/12/24 19:09 Dose: 100 mg Lidocaine (Lidocaine 4% Patch) 2 patch TOP DAILY [facility] Last Admin: 05/12/24 08:26 Dose: 2 patch Magnesium Oxide (Magnesium Oxide 400 Mg Tab) 400 mg PO DAILY [facility] Last Admin: 05/12/24 08:28 Dose: 400 mg Ondansetron HCl (Ondansetron 4 Mg (Odt) Tab) 4 mg PO Q6H PRN PRN Reason: NAUSEA / VOMITING Last Admin: 05/07/24 12:14 Dose: 4 mg Pantoprazole Sodium (Pantoprazole 40mg Tablet) 40 mg PO ACB [facility]; Protocol Last Admin: 05/12/24 08:25 Dose: 40 mg Polyethylene Glycol (Polyethyl Gly 3350 17 Gm/Dose) 17 gm PO DAILY PRN PRN Reason: CONSTIPATION-1ST LINE Prednisone (Prednisone 10 Mg Tab) 10 mg PO DAILY [facility] Last Admin: 05/12/24 08:25 Dose: 10 mg Senna (Senosides 8.6 Mg Tab) 8.6 mg PO DAILY PRN PRN Reason: CONSTIPATION-2ND LINE Tramadol HCl (Tramadol Hcl 50 Mg Tab) 50 mg PO BID [facility] Last Admin: 05/12/24 19:09 Dose: 50 mg Lab Results (last 24 hrs) 05/12/24 08:07: Sodium 134 L, Potassium 5.2 H, Chloride 106, Carbon Dioxide 24, Anion Gap 9.2, BUN 60 H, Creatinine 1.30 H, Est GFR (CKD-EPI) 41 L, Glucose 89, Calcium 8.3 L 05/12/24 08:07: WBC 9.50, RBC 3.03 L, Hgb 9.0 L, Hct 27.2 L, MCV 89.5, MCH 29.8, MCHC 33.3, RDW 16.1 H, Plt Count 279, MPV 7.9, Neutrophils % 75.6 H, Lymphocytes % 10.9 L, Monocytes % 12.1, Eosinophils % 1.0, Basophils % 0.4, Absolute Neutrophils 7.1, Absolute Lymphocytes 1.0, Absolute Monocytes 1.1, Absolute Eosinophils 0.1, Absolute Basophils 0.0 Assessment/ Plan: Nephrology No dyspnea No chest pain Right hip pain No acute events overnight Vitals, medications, blood work and imaging reviewed in the chart General: Alert, In no apparent distress, Cooperative HEENT: Atraumatic, Normocephalic Neck: Supple Respiratory: Clear to auscultation bilaterally, Normal air movement Cardiovascular: Regular rate/rhythm. 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
[2024-05-13 06:33] LABS: Absolute Eosinophils 0.1 K/uL (0-0.5); Absolute Lymphocytes (CBC) 0.9 K/uL (0.7-4.9); Absolute Monocytes 1.2 K/uL (0.1-1.3); Absolute Neutrophil 7.6 K/uL (1.8-8.0); Basophils % 0.5 % (0-1.3); Eosinophils % 1.3 % (0-4.4); Hematocrit 27.4 % (36.0-45.0); Lymphocytes % 9.3 % (15.3-44.8); MCH 29.7 pg (27.0-35.0); MCHC 32.9 g/dL (32.0-36.0); MPV 7.9 fL (7.6-11.3); Monocytes % 12.1 % (3.3-12.3); Neutrophils % 76.8 % (41.7-73.7); Nucleated Red Blood Cells % 0.1 % (0-0); Platelets 279 thou/uL (152-406); RBC Red Blood Cell Count 3.04 M/uL (3.86-4.86); Red Cell Distribution Width 16.1 % (12.1-15.2)
[2024-05-13 06:38] LABS: Anion Gap 9.3 mEq/L (5.0-15.0); Potassium 5.3 mEq/L (3.5-5.1)
[2024-05-13] MEDS: SODIUM ZIRCONIUM CYCLOSILICATE 10 GM/PKT PO ONE (08:21)
[2024-05-13 10:12] LABS: Uric Acid 6.1 mg/dL (2.6-6.0)
[2024-05-13 10:45] LABS: Band Neutrophils 4 % (0-1); Differential Total Cells Count 100; Lymphocytes 10 % (15-42); Metamyelocytes 1 % (0-0); Monocytes 11 % (0-10); Myelocytes 2 % (0-0); Segmented Neutrophils 71 % (40-80)
[2024-05-13 10:46] LABS: Blood Morphology Comment NOTED (NOT SEEN); Ovalocytes SLIGHT; Platelet Estimate ADEQ
[2024-05-13] MEDS: ACETAMINOPHEN 500 MG TAB PO PRN (17:14)
[2024-05-13] MEDS: DOCUSATE NA 100 MG CAP PO SCH (19:14)
--- NOTE | 2024-05-13 20:09 | PN ---
Date of Progress Note: 05/13/2024 Time Of Service: 1:45 p.m. Subjective: Ms. Osborne is in the room, family is at the bedside. They were little apprehensive abou t her going home and them taking care of her. They did work with her today with therapy and they wer e able to see what is required for her to be safe to mobilize, transfer, and to perform activities of daily living. She denies any significant pain in the right leg and knee where she had the right hip fracture that has been repaired and no significant pain in the right shoulder where she had a clavic ular fracture. Physical Examination: Vital Signs: Blood pressure 124/56, pulse 74, respiratory rate of 18, temperature 97, oxygen saturat ion 96%. General: Ms. Osborne is sitting in a chair beside bed. HEENT: She is normocephalic, atraumatic. Sclerae anicteric. Oropharynx moist. Neck: Supple. Chest: Clear. Extremities: No significant clubbing, cyanosis, or edema noted and no other findings. Good hemostas is in the right hip surgical site. Laboratory Studies: White blood cell count 9.9, hemoglobin 9.0. The platelets are 279. Her sodium is 135, potassium 5.3, chloride 107, carbon dioxide 24, BUN 9.3, creatinine 1.38, glucose 92. Uric a rose marie 6.1. Calcium 8.2. Beta- natriuretic peptide 2733. She did have an antimyeloperoxidase test. I t was elevated to 1.6. This is noted to be associated with small-vessel vasculitides, microscopic po lyangiitis and polyangiitis nodosa, Churg-Ivett syndrome, necrotizing and crescentic glomerulonephr itis. X-ray/imaging: No new x-rays or imaging. Medications: Medications have been reviewed and are unchanged except she does have the extra-strengt h Tylenol 500 mg every 6 hours as needed. She has Colace for stool softening 100 mg twice daily. Fernando pritchard is followed by the renal service for hyperkalemia. Progress Made With Physical, Occupational, And Speech Therapy: With physical therapy today, she was able to perform sliding board transfer, maximum assistance x2 persons; bed mobilization including sit to supine, did without scooting with maximal assistance x2. She did mobilize a wheelchair 115 feet forward and 80 feet backward with supervision and as noted, she was able to transfer with caregiver's help and family did participate in training. With occupational therapy, wheelchair transfer, maximu m assistance and wheelchair to shower, bench transfer, maximum assistance x2. Minimum assistance for showering needed to wipe buttocks and feet. With speech therapy today, she was able to perform temp oral orientation concepts with 75% accuracy and spatial concepts also with 75% accuracy. 4/4 unrelat ed words were recalled after 10 minutes. She did consistently use her call light as noted by the spe ech pathologist. Assessment And Plan: Ms. Osborne is an -[id number] patient with a 4-part right intertrochante ralph femur fracture. She does have a right clavicular fracture. 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 She also has decreased mobility, decreased physical fun ctioning, hypertension, dyslipidemia, constipation, insomnia, and renal insufficiency along with hype rkalemia and dehydration. Plan: She will continue with physical, occupational, and speech therapy 3.5 hours, 5 of 7 days. She will continue with comorbid condition medications that have been listed and noted. The renal servic e is also following and will address the hyperkalemia. Family were in the room and they were educate d about the need to be with her 24 hours a day. The plan is for her to go home with Home Health, but the caregiver will be required. Family does work and they understand that it is best for her safety to have someone there with her at all times and that is work in progress. CHEIKH/DANN Voice ID: [id number] Report ID: [id number]
--- NOTE | 2024-05-13 22:46 | P.PN ---
Date of Service: 05/13/24 Vital Signs Temp Pulse Resp BP Pulse Ox 97.6 F 88 16 120/61 99 05/13/24 19:27 05/13/24 19:27 05/13/24 19:27 05/13/24 19:27 05/13/24 19:27 Medications Acetaminophen (Acetaminophen 500 Mg Tab) 500 mg PO Q6H PRN PRN Reason: Pain scale 2-4 (Mild) Last Admin: 05/13/24 17:14 Dose: 500 mg Hydrocodone Bitart/Acetaminophen (Hydrocodone/Apap 5/325 Mg Tab) 1 tab PO Q6H PRN PRN Reason: Pain scale 5-7 (Moderate) Last Admin: 05/11/24 11:29 Dose: 1 tab Amlodipine Besylate (Amlodipine 5 Mg Tab) 5 mg PO DAILY [facility] Apixaban (Apixaban 2.5 Mg Tablet) 2.5 mg PO BID [facility] Last Admin: 05/13/24 19:14 Dose: 2.5 mg Atorvastatin Calcium (Atorvastatin 40 Mg Tab) 40 mg PO BEDTIME [facility] Last Admin: 05/13/24 19:14 Dose: 40 mg Calcium Carbonate/Glycine (Calcium Carbonate 500 Mg Tab) 500 mg PO BID [facility] Last Admin: 05/13/24 19:14 Dose: 500 mg Docusate Sodium (Docusate Na 100 Mg Cap) 100 mg PO BID [facility] Last Admin: 05/13/24 19:14 Dose: 100 mg Enteral Nutritional Formula (Nepro Shake 237 Ml Can) 237 ml PO BID [facility] Last Admin: 05/13/24 19:15 Dose: 237 ml Ferrous Sulfate (Ferrous Sulfate 325 Mg Tab) 325 mg PO DAILY [facility] Last Admin: 05/13/24 08:03 Dose: 325 mg Gabapentin (Gabapentin 100 Mg Cap) 100 mg PO BID [facility] Last Admin: 05/13/24 19:14 Dose: 100 mg Lidocaine (Lidocaine 4% Patch) 2 patch TOP DAILY [facility] Last Admin: 05/13/24 07:20 Dose: 2 patch Magnesium Oxide (Magnesium Oxide 400 Mg Tab) 400 mg PO DAILY [facility] Last Admin: 05/13/24 08:03 Dose: 400 mg Ondansetron HCl (Ondansetron 4 Mg (Odt) Tab) 4 mg PO Q6H PRN PRN Reason: NAUSEA / VOMITING Last Admin: 05/07/24 12:14 Dose: 4 mg Pantoprazole Sodium (Pantoprazole 40mg Tablet) 40 mg PO ACB [facility]; Protocol Last Admin: 05/13/24 07:17 Dose: 40 mg Polyethylene Glycol (Polyethyl Gly 3350 17 Gm/Dose) 17 gm PO DAILY PRN PRN Reason: CONSTIPATION-1ST LINE Prednisone (Prednisone 10 Mg Tab) 10 mg PO DAILY [facility] Last Admin: 05/13/24 08:03 Dose: 10 mg Senna (Senosides 8.6 Mg Tab) 8.6 mg PO DAILY PRN PRN Reason: CONSTIPATION-2ND LINE Lab Results (last 24 hrs) 05/13/24 06:11: Sodium 135 L, Potassium 5.3 H, Chloride 107, Carbon Dioxide 24, Anion Gap 9.3, BUN 72 H, Creatinine 1.38 H, Est GFR (CKD-EPI) 38 L, Glucose 92, Uric Acid 6.1 H, Calcium 8.2 L, NT-Pro-B Natriuret Pep 2733 H 05/13/24 06:11: WBC 9.90, RBC 3.04 L, Hgb 9.0 L, Hct 27.4 L, MCV 90.0, MCH 29.7, MCHC 32.9, RDW 16.1 H, Plt Count 279, MPV 7.9, Neutrophils % 76.8 H, Lymphocytes % 9.3 L, Monocytes % 12.1, Eosinophils % 1.3, Basophils % 0.5, Absolute Neutrophils 7.6, Segmented Neutrophils 71, Band Neutrophils 4 H, Absolute Lymphocytes 0.9, Lymphocytes 10 L, Monocytes 11 H, Absolute Monocytes 1.2, Absolute Eosinophils 0.1, Basophils 1, Absolute Basophils 0.0, Metamyelocytes 1 H, Myelocytes 2 H, Platelet Estimate Adeq, Ovalocytes Slight, Morphology Comment Noted 05/09/24 05:07: Anti-Myeloperoxidase 1.6 H Assessment/ Plan: Nephrology No dyspnea No chest pain Right hip pain No acute events overnight Vitals, medications, blood work and imaging reviewed in the chart General: Alert, In no apparent distress, Cooperative HEENT: Atraumatic, Normocephalic Neck: Supple Respiratory: Clear to auscultation bilaterally, Normal air movement Cardiovascular: Regular rate/rhythm. 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
[2024-05-14 06:01] LABS: Absolute Eosinophils 0.1 K/uL (0-0.5); Absolute Monocytes 1.1 K/uL (0.1-1.3); Absolute Neutrophil 7.4 K/uL (1.8-8.0); Basophils % 0.5 % (0-1.3); Eosinophils % 1.4 % (0-4.4); Hematocrit 25.9 % (36.0-45.0); Hemoglobin 8.7 g/dL (12.0-15.0); Lymphocytes % 9.9 % (15.3-44.8); MCHC 33.7 g/dL (32.0-36.0); MCV 89.2 fL (80-100); MPV 7.9 fL (7.6-11.3); Monocytes % 11.8 % (3.3-12.3); Neutrophils % 76.4 % (41.7-73.7); Platelets 292 thou/uL (152-406); Red Cell Distribution Width 15.7 % (12.1-15.2)
[2024-05-14 06:18] LABS: AST/SGOT 13 U/L (15-37); Albumin 2.1 g/dL (3.4-5.0); Albumin/Globulin Ratio 0.6 (1.1-1.8); Alkaline Phosphatase 124 U/L (45-117); Anion Gap 10.6 mEq/L (5.0-15.0); BUN Blood Urea Nitrogen 70 mg/dL (7-18); Bicarbonate 24 mEq/L (21-32); Bilirubin Total 0.4 mg/dL (0.2-1.0); Globulin 3.4 g/dL (2.3-3.5); Glomerular Filtration Rate 42 ml/min (=/>90); Glucose Level 93 mg/dL (74-106); Magnesium 2.2 mg/dL (1.6-2.4); NT PRO-BNP 2570 pg/mL (<450); Phosphorus 2.3 mg/dL (2.5-4.9); Potassium 4.6 mEq/L (3.5-5.1); Prealbumin 19.1 mg/dL (20-40); Protein, Total 5.5 g/dL (6.4-8.2); Sodium Level 136 mEq/L (136-145); Uric Acid 6.2 mg/dL (2.6-6.0)
[2024-05-14 06:19] LABS: ALT/SGPT < 14 U/L (13-56); Creatine Phosphokinase < 15 U/L (26-192)
[2024-05-14] MEDS: AMLODIPINE 5 MG TAB PO SCH (08:51)
--- NOTE | 2024-05-14 13:05 | ECHO ---
HEIGHT: 5 ft 2 in WEIGHT: 148 lb 3.2 oz DATE OF STUDY: 05/14/[address]: Rudy Gotti DO 2-DIMENSIONAL: YES M.MODE: YES DOPPLER: YES COLOR FLOW: YES TDS: PORTABLE: YES DEFINITY: BUBBLE STUDY: DIAGNOSIS: DIASTOLIC CONGESTIVE HEART FAILURE CARDIAC HISTORY: CATHERIZATION: SURGERY: PROSTHETIC VALVE: PACEMAKER: MEASUREMENTS (cm) DIASTOLIC (NORMALS) SYSTOLIC (NORMALS) IVSd 1.1 (0.6-1.2) LA Diam (1.9-4.0) LVEF 60-65% LVIDd 3.2 (3.5-5.7) LVIDs 2.2 (2.0-3.5) %FS 31% LVPWd 1.3 (0.6-1.2) Ao Diam 3.1 (2.0-3.7) 2 DIMENSIONAL ASSESSMENT: RIGHT ATRIUM: NORMAL LEFT ATRIUM: NORMAL RIGHT VENTRICLE: NORMAL LEFT VENTRICLE: NORMAL TRICUSPID VALVE: TRACE TRICUSPID REGURGITATION MITRAL VALVE: NORMAL PULMONIC VALVE: NORMAL AORTIC VALVE: TRACE AORTIC REGURGITATION PERICARDIAL EFFUSION: NONE AORTIC ROOT: NORMAL LEFT VENTRICULAR WALL MOTION: NORMAL DOPPLER/COLOR FLOW: GRADE I DIASTOLIC DYSFUNCTION COMMENTS: 1. NORMAL LEFT VENTRICULAR SYSTOLIC FUNCTION, EJECTION FRACTION 60-65%, NORMAL WALL MOTION 2. GRADE I DIASTOLIC DYSFUNCTION 3. NORMAL FILLING PRESSURE (RIGHT ATRIAL PRESSURE 0-5 mmHg) TECHNOLOGIST: JOSE GUADALUPE CORONA
--- NOTE | 2024-05-14 21:13 | P.PN ---
Date of Service: 05/14/24 Vital Signs Temp Pulse Resp BP Pulse Ox 97.9 F 83 20 138/60 100 05/14/24 06:43 05/14/24 08:51 05/14/24 06:43 05/14/24 08:51 05/14/24 06:43 Medications Acetaminophen (Acetaminophen 500 Mg Tab) 500 mg PO Q6H PRN PRN Reason: Pain scale 2-4 (Mild) Last Admin: 05/13/24 17:14 Dose: 500 mg Hydrocodone Bitart/Acetaminophen (Hydrocodone/Apap 5/325 Mg Tab) 1 tab PO Q6H PRN PRN Reason: Pain scale 5-7 (Moderate) Last Admin: 05/11/24 11:29 Dose: 1 tab Amlodipine Besylate (Amlodipine 5 Mg Tab) 5 mg PO DAILY [facility] Last Admin: 05/14/24 08:51 Dose: 5 mg Apixaban (Apixaban 2.5 Mg Tablet) 2.5 mg PO BID [facility] Last Admin: 05/14/24 19:30 Dose: 2.5 mg Atorvastatin Calcium (Atorvastatin 40 Mg Tab) 40 mg PO BEDTIME [facility] Last Admin: 05/14/24 19:30 Dose: 40 mg Calcium Carbonate/Glycine (Calcium Carbonate 500 Mg Tab) 500 mg PO BID [facility] Last Admin: 05/14/24 19:30 Dose: 500 mg Docusate Sodium (Docusate Na 100 Mg Cap) 100 mg PO BID [facility] Last Admin: 05/14/24 19:30 Dose: 100 mg Enteral Nutritional Formula (Nepro Shake 237 Ml Can) 237 ml PO BID [facility] Last Admin: 05/14/24 19:30 Dose: 237 ml Ferrous Sulfate (Ferrous Sulfate 325 Mg Tab) 325 mg PO DAILY [facility] Last Admin: 05/14/24 08:52 Dose: 325 mg Gabapentin (Gabapentin 100 Mg Cap) 100 mg PO BID [facility] Last Admin: 05/14/24 19:30 Dose: 100 mg Lidocaine (Lidocaine 4% Patch) 2 patch TOP DAILY [facility] Last Admin: 05/14/24 08:47 Dose: 2 patch Magnesium Oxide (Magnesium Oxide 400 Mg Tab) 400 mg PO DAILY [facility] Last Admin: 05/14/24 08:50 Dose: 400 mg Ondansetron HCl (Ondansetron 4 Mg (Odt) Tab) 4 mg PO Q6H PRN PRN Reason: NAUSEA / VOMITING Last Admin: 05/07/24 12:14 Dose: 4 mg Pantoprazole Sodium (Pantoprazole 40mg Tablet) 40 mg PO ACB [facility]; Protocol Last Admin: 05/14/24 08:51 Dose: 40 mg Polyethylene Glycol (Polyethyl Gly 3350 17 Gm/Dose) 17 gm PO DAILY PRN PRN Reason: CONSTIPATION-1ST LINE Prednisone (Prednisone 10 Mg Tab) 10 mg PO DAILY [facility] Last Admin: 05/14/24 08:50 Dose: 10 mg Senna (Senosides 8.6 Mg Tab) 8.6 mg PO DAILY PRN PRN Reason: CONSTIPATION-2ND LINE Lab Results (last 24 hrs) 05/14/24 05:40: Ammonia < 15 L 05/14/24 05:23: Sodium 136, Potassium 4.6 D, Chloride 106, Carbon Dioxide 24, Anion Gap 10.6, BUN 70 H, Creatinine 1.27 H, Est GFR (CKD-EPI) 42 L, Glucose 93, Uric Acid 6.2 H, Calcium 8.5, Phosphorus 2.3 L, Magnesium 2.2, Total Bilirubin 0.4, AST 13 L, ALT < 14, Alkaline Phosphatase 124 H, Creatine Kinase < 15 L, C- Reactive Protein 15.90 H, NT-Pro-B Natriuret Pep 2570 H, Serum Total Protein 5.5 L, Albumin 2.1 L, Globulin 3.4, Albumin/Globulin Ratio 0.6 L, Prealbumin 19.1 L 05/14/24 05:23: WBC 9.70, RBC 2.90 L, Hgb 8.7 L, Hct 25.9 L, MCV 89.2, MCH 30.0, MCHC 33.7, RDW 15.7 H, Plt Count 292, MPV 7.9, Neutrophils % 76.4 H, Lymphocytes % 9.9 L, Monocytes % 11.8, Eosinophils % 1.4, Basophils % 0.5, Absolute Neutrophils 7.4, Absolute Lymphocytes 1.0, Absolute Monocytes 1.1, Absolute Eosinophils 0.1, Absolute Basophils 0.0 Assessment/ Plan: Nephrology No dyspnea No chest pain Right hip pain No acute events overnight Vitals, medications, blood work and imaging reviewed in the chart General: Alert, In no apparent distress, Cooperative HEENT: Atraumatic, Normocephalic Neck: Supple Respiratory: Clear to auscultation bilaterally, Normal air movement Cardiovascular: Regular rate/rhythm. LE Edema Gastrointestinal: Soft and benign, No tenderness Musculoskeletal: No contractures, No tenderness, Rt lateral hip incision site Integumentary: No rashes Neurological: Normal speech Laboratory Data (last 24 hrs) 05/08/24 08:42 Sodium 134 L Potassium 5.3 H BUN 50 H Creatinine 1.47 H Glucose 105 LEFT VENTRICULAR WALL MOTION: NORMAL DOPPLER/COLOR FLOW: GRADE I DIASTOLIC DYSFUNCTION COMMENTS: 1. NORMAL LEFT VENTRICULAR SYSTOLIC FUNCTION, EJECTION FRACTION 60-65%, NORMAL WALL MOTION 2. GRADE I DIASTOLIC DYSFUNCTION 3. 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
--- NOTE | 2024-05-14 22:31 | PN ---
Date of Progress Note: 05/14/2024 Time Of Service: 1:30 p.m. Subjective: Ms. Osborne is resting comfortably in room, translation by her son. The patient's condit ion was communicated with her son. She is making good progress, but still requires a 24-hour care asif pervision environment. The family is leaning toward prison prior to her coming home. Objective: No fevers, chills, nausea, vomiting. No myalgias, arthralgias. She does have significan t ulnar deviation. Physical Examination: Vital Signs: Blood pressure 132/60, pulse 83, respiratory rate 20, temperature 97.9, oxygen saturati on 100%. General: Ms. Osborne again is sitting in a chair beside bed, communicating in Icelandic. Musculoskeletal: She does have some mild pain in the right clavicular area and in the right lower ex tremity where she has a 4-part intertrochanteric fracture of the right femur. Otherwise, she has no new deficits. Good hemostasis of the right hip surgical site. Laboratory Studies: White blood cell count 9.7, hemoglobin 8.7, platelets 292. Sodium 136, potassiu m 4.6, chloride 106, carbon dioxide 25, BUN is 70, creatinine 1.27, glucose 93, uric acid 6.2, calciu m 8.5, phosphorus 2.3, magnesium 2.2, AST 13, ALT less than 14, alkaline phosphate 124. Ammonia is l ess than 15. Creatine kinase less than 15. Prealbumin 19.1, albumin 2.1. Progress Made With Physical, Occupational, And Speech Therapy: With physical therapy today, she did multiple sliding board transfers, wheelchair to bed with maximum assistance. Could not offer much he lp, she tried. The family did work with the therapist and voiced understanding of the techniques and did attempt also to help her with the transfers. Bed mobility [id number] transfer, bu t maximum assistance required. She did report not feeling as good today. However, she did mobilize wheelchair 250 feet with standby assistance while going backwards. Regarding her occupational therap y, wheelchair to shower, bench transfer done with maximum assistance. Ntlrx-we-ybfum transfer also w ith [id number] assist. She required constant cues to maintain the right lower extremity touchdo wn weightbearing status. With speech, she completed sustained attention, card sorting task with 80% accuracy and minimum assistance. When divided attention tasks were attempted, she was unable to comp rehend the task requirements. Assessment: Ms. Osborne is an 84-year-old patient in rehabilitation unit with a 4-part right intertro chanteric hip fracture. She has a right clavicular fracture. 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 Plan: She will continue with physical, occupational, and speech therapy 3.5 hours, 5 of 7 days. She will continue her current comorbid medications and the patient is likely to go to prison as she requires 24-hour care and supervision and she is at a maximum assistance level with touchdown we ightbearing status. Until then, she will continue with physical, occupational, and speech therapy [facility] in hospital. CHEIKH/DANN Voice ID: [id number] Report ID: [id number]
--- NOTE | 2024-05-15 12:17 | P.PN ---
Nephrology note (S) Pt seen sitting in wheel chair, no acute complaints, making slow progress with PT, mild PRIETO reported (O) vitals reviewed in the EMR General: Alert, In no apparent distress, Cooperative HEENT: Atraumatic, Normocephalic Neck: Supple Respiratory: Clear to auscultation bilaterally, Normal air movement Cardiovascular: Regular rate/rhythm, Other (Improved peripheral edema c/w in the past) Gastrointestinal: Soft and benign, No tenderness Musculoskeletal: No contractures, No tenderness, Other (Rt lateral hip incision site healed) Integumentary: No rashes Neurological: Normal speech, Normal tone, Normal affect, Other (muscle strength not tested) Laboratory Data (last 24 hrs) Reviewed Conclusions/Impression: A/P) Stage I JEB episode in Mar, 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 -Cont to monitor renal function closely -D/c'ed IVF early on -Mod azotemia possibly steroid, protein supplementation effect, trend -Avoid any NSAIDs ANCA vasculitis, renal limited -s/p Cytoxan dose x1, had been on Avocapan and lower dose Prednisone, 20 mg qd but latest UA does not show the active urinary sediment seen prev so disease may be in partial remission already and with her other issues, agreed with Prednisone tapering. Did recheck P-ANCA serology which is still present. Once recovered and rehab stint completed, will re-assess benefits/risks of completing any protocol with Cytoxan, etc HTN with CKD -Currently BP not as accelerated as it has been in the past, some of her other agents are suspended, ok to cont CCB but recommend lower dose using holding parameters Chronic diastolic CHF -LE edema improved, compensated largely although BNP chronically elevated and > 1000 but TTE was not reporting elevated filling pressures, some PRIETO, mild basilar rales, will order lose dose Bumex for a few day
[2024-05-15] MEDS: BUMETANIDE 1 MG TABLET PO SCH (13:31)
[2024-05-15] MEDS: EPOETIN ALFA-EPBX 10,000 UNIT/ML VIAL SQ ONE (13:34)
--- NOTE | 2024-05-15 13:51 | P.RH.PN ---
Estimated Length of Stay: 16 Expected Discharge Date: 05/20/24 Discharge Disposition Plan: Home Family Support: Yes Senior Care Goal: Mobility, Transfers, Self Care Vital Signs: Last Vital Signs Temp 98.1 F 05/15/24 07:25 Pulse 76 05/15/24 13:31 Resp 17 05/15/24 08:57 BP 121/58 L 05/15/24 13:31 Pulse Ox 99 05/15/24 08:57 Laboratory: Laboratory Last Values WBC 9.70 thou/uL (4.3-10.9) 05/14/24 05:23 RBC 2.90 M/uL (3.86-4.86) L 05/14/24 05:23 Hgb 8.7 g/dL (12.0-15.0) L 05/14/24 05:23 Hct 25.9 % (36.0-45.0) L 05/14/24 05:23 MCV 89.2 fL (80-100) 05/14/24 05:23 MCH 30.0 pg (27.0-35.0) 05/14/24 05:23 MCHC 33.7 g/dL (32.0-36.0) 05/14/24 05:23 RDW 15.7 % (12.1-15.2) H 05/14/24 05:23 Plt Count 292 thou/uL (152-406) 05/14/24 05:23 MPV 7.9 fL (7.6-11.3) 05/14/24 05:23 Neutrophils % 76.4 % (41.7-73.7) H 05/14/24 05:23 Lymphocytes % 9.9 % (15.3-44.8) L 05/14/24 05:23 Monocytes % 11.8 % (3.3-12.3) 05/14/24 05:23 Eosinophils % 1.4 % (0-4.4) 05/14/24 05:23 Basophils % 0.5 % (0-1.3) 05/14/24 05:23 Absolute Neutrophils 7.4 K/uL (1.8-8.0) 05/14/24 05:23 Segmented Neutrophils 71 % (40-80) 05/13/24 06:11 Band Neutrophils 4 % (0-1) H 05/13/24 06:11 Absolute Lymphocytes 1.0 K/uL (0.7-4.9) 05/14/24 05:23 Lymphocytes 10 % (15-42) L 05/13/24 06:11 Monocytes 11 % (0-10) H 05/13/24 06:11 Absolute Monocytes 1.1 K/uL (0.1-1.3) 05/14/24 05:23 Absolute Eosinophils 0.1 K/uL (0-0.5) 05/14/24 05:23 Basophils 1 % (0-1) 05/13/24 06:11 Absolute Basophils 0.0 K/uL (0-0.5) 05/14/24 05:23 Metamyelocytes 1 % (0-0) H 05/13/24 06:11 Myelocytes 2 % (0-0) H 05/13/24 06:11 Platelet Estimate Adeq 05/13/24 06:11 Clumped Platelets Few 05/09/24 05:07 Giant Platelets Rare 05/09/24 05:07 Ovalocytes Slight 05/13/24 06:11 Morphology Comment Noted (NOT SEEN) 05/13/24 06:11 Sodium 136 mEq/L (136-145) 05/14/24 05:23 Potassium 4.6 mEq/L (3.5-5.1) D 05/14/24 05:23 Chloride 106 mEq/L (98-107) 05/14/24 05:23 Carbon Dioxide 24 mEq/L (21-32) 05/14/24 05:23 Anion Gap 10.6 mEq/L (5.0-15.0) 05/14/24 05:23 BUN 70 mg/dL (7-18) H 05/14/24 05:23 Creatinine 1.27 mg/dL (0.55-1.02) H 05/14/24 05:23 Est GFR (CKD-EPI) 42 ml/min (=/>90) L 05/14/24 05:23 Glucose 93 mg/dL (74-106) 05/14/24 05:23 Uric Acid 6.2 mg/dL (2.6-6.0) H 05/14/24 05:23 Calcium 8.5 mg/dL (8.5-10.1) 05/14/24 05:23 Phosphorus 2.3 mg/dL (2.5-4.9) L 05/14/24 05:23 Magnesium 2.2 mg/dL (1.6-2.4) 05/14/24 05:23 Total Bilirubin 0.4 mg/dL (0.2-1.0) 05/14/24 05:23 AST 13 U/L (15-37) L 05/14/24 05:23 ALT < 14 U/L (13-56) 05/14/24 05:23 Alkaline Phosphatase 124 U/L (45-117) H 05/14/24 05:23 Ammonia < 15 umol/L (19-54) L 05/14/24 05:40 Creatine Kinase < 15 U/L (26-192) L 05/14/24 05:23 C-Reactive Protein 15.90 mg/L (<3.00) H 05/14/24 05:23 NT-Pro-B Natriuret Pep 2570 pg/mL (<450) H 05/14/24 05:23 Serum Total Protein 5.5 g/dL (6.4-8.2) L 05/14/24 05:23 Albumin 2.1 g/dL (3.4-5.0) L 05/14/24 05:23 Globulin 3.4 g/dL (2.3-3.5) 05/14/24 05:23 Albumin/Globulin Ratio 0.6 (1.1-1.8) L 05/14/24 05:23 Prealbumin 19.1 mg/dL (20-40) L 05/14/24 05:23 Urine Color Light-yellow (Yellow) 05/06/24 19:50 Urine Clarity Turbid (Clear) H 05/06/24 19:50 Urine pH 5.0 (5.0-7.0) 05/06/24 19:50 Ur Specific [place] 1.015 (1.005-1.030) 05/06/24 19:50 Glucose (UA)(Auto) Negative (Negative) 05/06/24 19:50 Urine Ketones Negative (Negative) 05/06/24 19:50 Urine Blood Negative (Negative) 05/06/24 19:50 Urine Nitrite Negative (Negative) 05/06/24 19:50 Urine Bilirubin Negative (Negative) 05/06/24 19:50 Urine Urobilinogen Normal (Normal) 05/06/24 19:50 Ur Leukocyte Esterase Negative Jovita/uL (Negative) 05/06/24 19:50 Urine RBC <5 /HPF (None Seen) 05/06/24 19:50 Urine WBC <5 /HPF (<5) 05/06/24 19:50 Urine WBC Clumps Rare /HPF (None Seen) 05/06/24 19:50 Ur Squamous Epith Cells <5 /HPF (None Seen) 05/06/24 19:50 Unidentified Crystals Few /HPF (None Seen) 05/06/24 19:50 Urine Bacteria <20 /HPF (<20) 05/06/24 19:50 Hyaline Casts 0-5 /LPF (None Seen) 05/06/24 19:50 Urine Mucus Slight /HPF (None Seen) 05/06/24 19:50 Urine Yeast (Budding) Occasional /HPF (None Seen) H 05/06/24 19:50 Urine Culture Reflexed Not needed 05/06/24 19:50 Urine Total Protein 1+ (Negative) H 05/06/24 19:50 Anti-Myeloperoxidase 1.6 AI (<1.0) H 05/09/24 05:07 Smear Scan Ok (OK) 05/09/24 05:07 Weight: 148 lb 3.2 oz Wound Present: No Closed Surgical Incision Present: Yes Negative Pressure Wound Therapy Present: No Physician Update: Labs reviewed and are stable. Met 4/4 speech goals. Cannot keep TDWB with right lower extremity. Max assist with sliding board. WC 250' backwards. Set up for upper body dressing. Max for transfers, toileting, dressing, showering. Summary: Patient's care plan and jail goals have been reviewed and revised as necessary. Please see the Rehabilitation Signature page for all necessary signatures.
[2024-05-16 07:18] LABS: Anion Gap 10.2 mEq/L (5.0-15.0); Potassium 4.2 mEq/L (3.5-5.1)
[2024-05-16] MEDS: NEPRO SHAKE 237 ML CAN PO SCH (09:02)
--- NOTE | 2024-05-16 13:03 | PN ---
Date of Progress Note: 05/16/2024 Subjective: Patient was seen and examined at bedside. She denies any complaints. Objective: Vital Signs: Have been reviewed and are stable. General: She appears in no acute distress. HEENT: Atraumatic head. Lungs: Clear to auscultation. Abdomen: Soft and nontender. Extremities: Showed no evidence of edema. Laboratory Data: Showed creatinine improving to 1.7. Other electrolytes are stable. CBC showed hem oglobin of 8.7, hematocrit is 25.9. Current Medications: Include amlodipine 5 mg a day, Eliquis 2.5 mg b.i.d., Bumex 0.5 mg daily to be stopped on the , iron, Retacrit 1-time dose was given, Nepro shake, prednisone 10 mg a day. Impression: 1. 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 The patient currently with stable renal function. Remains on p.o. prednisone. We will resume further immunosuppression once fabián pritchard is discharged from the hospital. 2. Hypertension with chronic kidney disease, currently with stable blood pressures. 3. Chronic diastolic heart failure, currently on Bumex. 4. Anemia with drop in hemoglobin and hematocrit. The patient's hemoglobin continues to trend down. She remains on p.o. iron. She is also on Eliquis for anticoagulation. We will go ahead and order some PPI to help with GI bleed if she is having any. Continue all other medications and plan of care . VV/MODL Voice ID: [id number] Report ID: [id number]
[2024-05-16] MEDS: PANTOPRAZOLE 40MG TABLET PO SCH (16:57)
--- NOTE | 2024-05-18 10:12 | P.PN ---
Date of Service: 05/18/24 Vital Signs Temp Pulse Resp BP Pulse Ox 97.6 F 81 18 153/67 H 98 05/18/24 06:44 05/18/24 07:16 05/18/24 06:44 05/18/24 07:16 05/18/24 06:44 Medications Acetaminophen (Acetaminophen 500 Mg Tab) 500 mg PO Q6H PRN PRN Reason: Pain scale 2-4 (Mild) Last Admin: 05/13/24 17:14 Dose: 500 mg Hydrocodone Bitart/Acetaminophen (Hydrocodone/Apap 5/325 Mg Tab) 1 tab PO Q6H PRN PRN Reason: Pain scale 5-7 (Moderate) Last Admin: 05/15/24 14:39 Dose: 1 tab Amlodipine Besylate (Amlodipine 5 Mg Tab) 5 mg PO DAILY [facility] Last Admin: 05/18/24 07:15 Dose: 5 mg Apixaban (Apixaban 2.5 Mg Tablet) 2.5 mg PO BID [facility] Last Admin: 05/18/24 07:36 Dose: 2.5 mg Atorvastatin Calcium (Atorvastatin 40 Mg Tab) 40 mg PO BEDTIME [facility] Last Admin: 05/17/24 19:49 Dose: 40 mg Bumetanide (Bumetanide 1 Mg Tablet) 0.5 mg PO DAILY [facility] Stop: 05/18/24 13:01 Last Admin: 05/18/24 07:16 Dose: 0.5 mg Calcium Carbonate/Glycine (Calcium Carbonate 500 Mg Tab) 500 mg PO BID [facility] Last Admin: 05/18/24 07:16 Dose: 500 mg Docusate Sodium (Docusate Na 100 Mg Cap) 100 mg PO BID [facility] Last Admin: 05/18/24 07:34 Dose: Not Given Enteral Nutritional Formula (Nepro Shake 237 Ml Can) 237 ml PO DAILY [facility] Last Admin: 05/18/24 07:37 Dose: 237 ml Ferrous Sulfate (Ferrous Sulfate 325 Mg Tab) 325 mg PO DAILY [facility] Last Admin: 05/18/24 07:16 Dose: 325 mg Gabapentin (Gabapentin 100 Mg Cap) 100 mg PO BID [facility] Last Admin: 05/18/24 07:15 Dose: 100 mg Lidocaine (Lidocaine 4% Patch) 2 patch TOP DAILY [facility] Last Admin: 05/18/24 07:33 Dose: 2 patch Magnesium Oxide (Magnesium Oxide 400 Mg Tab) 400 mg PO DAILY [facility] Last Admin: 05/18/24 07:16 Dose: 400 mg Ondansetron HCl (Ondansetron 4 Mg (Odt) Tab) 4 mg PO Q6H PRN PRN Reason: NAUSEA / VOMITING Last Admin: 05/07/24 12:14 Dose: 4 mg Pantoprazole Sodium (Pantoprazole 40mg Tablet) 40 mg PO BIDAC [facility]; Protocol Last Admin: 05/18/24 07:17 Dose: 40 mg Polyethylene Glycol (Polyethyl Gly 3350 17 Gm/Dose) 17 gm PO DAILY PRN PRN Reason: CONSTIPATION-1ST LINE Prednisone (Prednisone 10 Mg Tab) 10 mg PO DAILY [facility] Last Admin: 05/18/24 07:16 Dose: 10 mg Senna (Senosides 8.6 Mg Tab) 8.6 mg PO DAILY PRN PRN Reason: CONSTIPATION-2ND LINE Assessment/ Plan: Nephrology No dyspnea No chest pain Right hip pain No acute events overnight Vitals, medications, blood work and imaging reviewed in the chart General: Alert, In no apparent distress, Cooperative HEENT: Atraumatic, Normocephalic Neck: Supple Respiratory: Clear to auscultation bilaterally, Normal air movement Cardiovascular: Regular rate/rhythm. LE Edema Gastrointestinal: Soft and benign, No tenderness Musculoskeletal: No contractures, No tenderness, Rt lateral hip incision site Integumentary: No rashes Neurological: Normal speech Laboratory Data (last 24 hrs) 05/08/24 08:42 Sodium 134 L Potassium 5.3 H BUN 50 H Creatinine 1.47 H Glucose 105 LEFT VENTRICULAR WALL MOTION: NORMAL DOPPLER/COLOR FLOW: GRADE I DIASTOLIC DYSFUNCTION COMMENTS: 1. NORMAL LEFT VENTRICULAR SYSTOLIC FUNCTION, EJECTION FRACTION 60-65%, NORMAL WALL MOTION 2. GRADE I DIASTOLIC DYSFUNCTION 3. 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
--- NOTE | 2024-05-19 01:06 | PN ---
Date of Progress Note: 05/18/2024 Time Of Service: 1:30 p.m. Subjective: Ms. Osborne is in the bathroom taking care of brushing her teeth and grooming her hair. She is very happy with therapy so far. She said the pain in the right hip and shoulder and knee is m anaged fairly well and she communicated through a package center supervisor as she is [place]-speaking only. Objective: No significant or new fevers, chills, nausea, vomiting, myalgias, arthralgias. Mild pain in the right shoulder, right knee, and right hip, where she has the 4-part intertrochanteric fractur e, it is surgically repaired. Physical Examination: Vital Signs: Blood pressure 122/69, pulse is 81, respiratory rate 18, temperature 97.6, oxygen satur ation 98%. General: Ms. Osborne is sitting in the bathroom and taking care of her teeth and combing hair ___. She is in no acute distress. Extremities: Does have significant ulnar deviation as noted and otherwise good hemostasis in the rig ht hip surgical site. Laboratory Studies: No new laboratory studies. X-ray/imaging: No new x-rays or imaging. Medications: Medications have been reviewed and are unchanged. Functional Ability: As noted, she is followed by the Renal Service for renal insufficiency. Progress Made With Physical, Occupational, And Speech Therapy: With physical therapy today, she did complete sliding board transfer from bed to wheelchair with maximum assistance, [id number] transfer s to wheelchair maximum assistance. She mobilized a wheelchair 250 feet with standby assistance and is going backwards. With her occupational therapy, she was dependent in toileting, could not reach h er backside to wipe, unable to pull her diaper down or up for toileting, maximal assistance for toile t transfers. With speech, she was able to demonstrate naming of common objects with 85% accuracy. T emporal orientation information recall with 80% accuracy and minimum assistance. Five of 5 unrelated pictures recalled after 1, 3, and 5-minute delay. Assessment: Ms. Osborne is an 84-year-old patient in the rehabilitation unit with a 4-part right inte rtrochanteric fracture. She has decreased mobility, decreased physical functioning in addition to co nstipation, neuropathic pain, dyslipidemia, hypertension. Plan: She will continue with physical, occupational, and speech therapy 3.5 hours, 5 of 7 days. She has a list of comorbid condition medications which have been continued. She does have the Eliquis f or DVT prophylaxis, Lipitor for dyslipidemia. She has mild anemia. She has ferrous sulfate on board . She has gabapentin for neuropathic pain, lidocaine patch apply to the knee on the right and hip ar ea. She has a low dose of prednisone on board. LB/MODL Voice ID: [id number] Report ID: [id number]
[2024-05-19] MEDS: FE SULF/FA/VIT B COMP & C TAB PO SCH (08:22)
[2024-05-19] MEDS: GLUCERNA SHAKE 237 ML CAN PO SCH (08:24)
--- NOTE | 2024-05-19 17:39 | P.PN ---
Date of Service: 05/19/24 Vital Signs Temp Pulse Resp BP Pulse Ox 97.2 F 73 20 121/56 L 96 05/19/24 08:32 05/19/24 08:32 05/19/24 08:32 05/19/24 08:32 05/19/24 08:32 Medications Acetaminophen (Acetaminophen 500 Mg Tab) 500 mg PO Q6H PRN PRN Reason: Pain scale 2-4 (Mild) Last Admin: 05/13/24 17:14 Dose: 500 mg Hydrocodone Bitart/Acetaminophen (Hydrocodone/Apap 5/325 Mg Tab) 1 tab PO Q6H PRN PRN Reason: Pain scale 5-7 (Moderate) Last Admin: 05/18/24 20:22 Dose: 1 tab Amlodipine Besylate (Amlodipine 5 Mg Tab) 5 mg PO DAILY [facility] Last Admin: 05/19/24 08:00 Dose: Not Given Apixaban (Apixaban 2.5 Mg Tablet) 2.5 mg PO BID [facility] Last Admin: 05/19/24 08:22 Dose: 2.5 mg Atorvastatin Calcium (Atorvastatin 40 Mg Tab) 40 mg PO BEDTIME [facility] Last Admin: 05/18/24 20:22 Dose: 40 mg Calcium Carbonate/Glycine (Calcium Carbonate 500 Mg Tab) 500 mg PO BID [facility] Last Admin: 05/19/24 08:23 Dose: 500 mg Docusate Sodium (Docusate Na 100 Mg Cap) 100 mg PO BID [facility] Last Admin: 05/19/24 08:00 Dose: Not Given Enteral Nutritional Formula (Glucerna Shake 237 Ml Can) 237 ml PO DAILY [facility] Last Admin: 05/19/24 08:24 Dose: 237 ml Ferrous Sulfate (Ferrous Sulfate 325 Mg Tab) 325 mg PO DAILY [facility] Last Admin: 05/19/24 08:22 Dose: 325 mg Gabapentin (Gabapentin 100 Mg Cap) 100 mg PO BID [facility] Last Admin: 05/19/24 08:22 Dose: 100 mg Lidocaine (Lidocaine 4% Patch) 2 patch TOP DAILY [facility] Last Admin: 05/19/24 10:20 Dose: 2 patch Magnesium Oxide (Magnesium Oxide 400 Mg Tab) 400 mg PO DAILY [facility] Last Admin: 05/19/24 08:22 Dose: 400 mg Multivitamins/Iron (Fe Sulf/Fa/Vit B Comp & C Tab) 1 tab PO DAILY WITH BREAKFAST [facility] Last Admin: 05/19/24 08:22 Dose: 1 tab Ondansetron HCl (Ondansetron 4 Mg (Odt) Tab) 4 mg PO Q6H PRN PRN Reason: NAUSEA / VOMITING Last Admin: 05/07/24 12:14 Dose: 4 mg Pantoprazole Sodium (Pantoprazole 40mg Tablet) 40 mg PO BIDAC [facility]; Protocol Last Admin: 05/19/24 17:22 Dose: 40 mg Polyethylene Glycol (Polyethyl Gly 3350 17 Gm/Dose) 17 gm PO DAILY PRN PRN Reason: CONSTIPATION-1ST LINE Prednisone (Prednisone 10 Mg Tab) 10 mg PO DAILY [facility] Last Admin: 05/19/24 08:22 Dose: 10 mg Senna (Senosides 8.6 Mg Tab) 8.6 mg PO DAILY PRN PRN Reason: CONSTIPATION-2ND LINE Assessment/ Plan: Nephrology No dyspnea No chest pain Right hip pain No acute events overnight Vitals, medications, blood work and imaging reviewed in the chart General: Alert, In no apparent distress, Cooperative HEENT: Atraumatic, Normocephalic Neck: Supple Respiratory: Clear to auscultation bilaterally, Normal air movement Cardiovascular: Regular rate/rhythm. LE Edema Gastrointestinal: Soft and benign, No tenderness Musculoskeletal: No contractures, No tenderness, Rt lateral hip incision site Integumentary: No rashes Neurological: Normal speech Laboratory Data (last 24 hrs) 05/08/24 08:42 Sodium 134 L Potassium 5.3 H BUN 50 H Creatinine 1.47 H Glucose 105 LEFT VENTRICULAR WALL MOTION: NORMAL DOPPLER/COLOR FLOW: GRADE I DIASTOLIC DYSFUNCTION COMMENTS: 1. NORMAL LEFT VENTRICULAR SYSTOLIC FUNCTION, EJECTION FRACTION 60-65%, NORMAL WALL MOTION 2. GRADE I DIASTOLIC DYSFUNCTION 3. 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
--- NOTE | 2024-05-19 17:39 | RAD REPORT ---
EXAMINATION: XR Hip Right 2 View CLINICAL INDICATION: Female, 84 years old. [facility] MAIN rt hip fx please make disc for patient to take TECHNIQUE: 2 view radiograph of the right hip were obtained. COMPARISON: 05/08/2024. FINDINGS: Stable alignment of right femoral neck fixating pablo and compression screw. Progressive scle rosis of the mildly displaced posterolateral fragment along the greater trochanter, with no change in alignment. Moderate to advanced right hip joint degenerative changes. Progressive sclerosis along the inferior right pubic ramus may relate to fracture healing. No other suspicious focal bone lesion. Soft tissues are unremarkable apart from vascular calcifications. IMPRESSION: Sequelae of partial healing with no change in alignment as above
--- NOTE | 2024-05-19 21:55 | PN ---
Date of Progress Note: 05/19/2024 Subjective: Ms. Osborne is sitting in a chair beside bed. She is very happy with her therapy so far. She communicates in Russian requiring translation. She has no new complaints. Objective: No fevers, chills, nausea, vomiting. Pain in the right upper and lower extremity improve d. Shoulder pain also improved in the clavicular fracture area. Also no significant pain reported t cathryn. Physical Examination: Vital Signs: Blood pressure 137/62, pulse 84, respiratory rate 16, temperature 98.0, oxygen saturati on 98%. General: Ms. Osborne is resting comfortably. HEENT: She is normocephalic, atraumatic. Sclerae anicteric. Oropharynx pink, moist. Neck: Supple. Chest: Clear. Extremities: Lower extremity, mild edema in the right more than left lower extremity. Laboratory Studies: No new laboratory studies. X-ray/imaging: She did have hip x-ray done today of the right hip 2 views. There is sequelae of par tial healing with no change in alignment as above and this was in comparison to a study done on 05/08, which shows stable alignment of the right femoral neck fixation pablo and compression screw. Th ere was progressive sclerosis of the mildly displaced posterolateral fragment along the lateral troch anter with no change in alignment. There was moderate to advance right hip joint degeneration. Ther e is progressive sclerosis along the inferior right pubic ramus which may relate to fracture healing. No suspicious bone lesion identified. Soft tissues are unremarkable apart from vascular calcificat ion. Progress Made With Physical, Occupational, And Speech Therapy: With physical therapy today, she did complete [id number] transfers with maximum assistance with touchdown weightbearing on the right low er extremity. Wheelchair mobilization, covered 250 feet going backwards with contact guard assistanc e. With her occupational therapy, she was dependent for toilet hygiene, unable to reach around to wi pe herself, partial assistance for [id number] transfers, maximum assistance for [id number] trans fers. With speech, she did improve her BIMS score from 12 to 15 and her SLUMS score from 4 to 8. No te, she did not complete much schooling. Speech therapist noted no further speech therapy is require d. Assessment: Ms. Osborne is an 84-year-old patient in the rehabilitation unit with a 4-part right inte rtrochanteric hip fracture, status post surgical repair. She still has decreased mobility, significa nt of that and decreased physical functioning. She has risk of deep vein thrombus. She has hyperten maria r, dyslipidemia, constipation, neuropathic pain, anemia, GE reflux. Plan: She will continue with physical, occupational, and speech therapy until discharge. She is act ually discharged to intermediate to continue therapy. She has a list of comorbid condition medica tions that are continued to manage her comorbid conditions and again she is just a touchdown weightbe aring status in the right lower extremity. LB/MODL Voice ID: [id number] Report ID: [id number]
[2024-05-20 06:19] LABS: Absolute Eosinophils 0.1 K/uL (0-0.5); Absolute Lymphocytes (CBC) 1.5 K/uL (0.7-4.9); Absolute Neutrophil 6.7 K/uL (1.8-8.0); Basophils % 0.5 % (0-1.3); Eosinophils % 1.4 % (0-4.4); Hematocrit 25.1 % (36.0-45.0); Hemoglobin 8.4 g/dL (12.0-15.0); Lymphocytes % 15.6 % (15.3-44.8); MCH 29.7 pg (27.0-35.0); MCHC 33.6 g/dL (32.0-36.0); MCV 88.5 fL (80-100); MPV 8.1 fL (7.6-11.3); Monocytes % 10.3 % (3.3-12.3); Neutrophils % 72.2 % (41.7-73.7); Platelets 328 thou/uL (152-406); RBC Red Blood Cell Count 2.84 M/uL (3.86-4.86); Red Cell Distribution Width 16.8 % (12.1-15.2)
[2024-05-20 06:46] LABS: Albumin 2.1 g/dL (3.4-5.0); C-Reactive Protein 11.8 mg/L (<3.00); Magnesium 2.1 mg/dL (1.6-2.4); Phosphorus 2.5 mg/dL (2.5-4.9); Prealbumin 18.4 mg/dL (20-40)
[2024-05-20 07:28] VITALS: BP 141/60
[2024-05-20 07:56] VITALS: TEMP 98.3
[2024-05-20 07:57] LABS: Band Neutrophils 5 % (0-1); Differential Total Cells Count 100; Eosinophils 1 % (0-3); Lymphocytes 10 % (15-42); Monocytes 8 % (0-10); Platelet Estimate ADEQ; Segmented Neutrophils 76 % (40-80)
[2024-05-20 07:58] LABS: Anisocytosis 1+; Blood Morphology Comment NOTED (NOT SEEN); Ovalocytes 1+
[2024-05-20] MEDS: EPOETIN ALFA-EPBX 10,000 UNIT/ML VIAL SQ ONE (12:50)
== END 2024-05-20 14:20 | DRG 560 ==
LOC: 5TH 09:14
PROVIDERS: ADMIT Psychiatry & Neurology Neurology with Special Qualifications in Child Neurology; ATTEND Psychiatry & Neurology Neurology with Special Qualifications in Child Neurology
DX: S72.141D Displaced intertrochanteric fracture of right femur, subsequent encounter for closed fracture with routine healing (principal); E46 Unspecified protein-calorie malnutrition; I13.0 Hypertensive heart and chronic kidney disease with heart failure and stage 1 through stage 4 chronic kidney disease, or unspecified chronic kidney disease; N17.9 Acute kidney failure, unspecified; I50.32 Chronic diastolic (congestive) heart failure; E87.1 Hypo-osmolality and hyponatremia; S42.011D Anterior displaced fracture of sternal end of right clavicle, subsequent encounter for fracture with routine healing; I25.10 Atherosclerotic heart disease of native coronary artery without angina pectoris; D50.9 Iron deficiency anemia, unspecified; M19.90 Unspecified osteoarthritis, unspecified site; N18.30 Chronic kidney disease, stage 3 unspecified; E78.5 Hyperlipidemia, unspecified; M06.9 Rheumatoid arthritis, unspecified; E87.5 Hyperkalemia; E88.09 Other disorders of plasma-protein metabolism, not elsewhere classified; D63.8 Anemia in other chronic diseases classified elsewhere; K59.00 Constipation, unspecified; G47.00 Insomnia, unspecified; E86.0 Dehydration; I77.82 Antineutrophilic cytoplasmic antibody [ANCA] vasculitis; K21.9 Gastro-esophageal reflux disease without esophagitis; Z68.27 Body mass index [BMI] 27.0-27.9, adult
CPT/HCPCS: 36415; 80048; 80053; 81001; 82040; 82140; 82550; 83735; 83880; 84100; 84134; 84550; 85025; 86021; 86140; 92523; 93306; 97110; 97116; 97129; 97163; 97165; 97530; 97542; J2003; J7030; J7512; Q0162; Q5106

== ENCOUNTER 2024-07-13 11:36 | Emergency (ER) | payer OTHER ==
--- OUTSIDE RECORDS SUMMARY | 2024-07-13 11:45 | XMS REPORT | Continuity of Care Document ---
Author Name Unknown Address [address] [facility] [place] [address] [facility] Address [address] [facility] [address] [place] [address] Care Team Providers Care Client Experience Administrator Name Role Phone Rajan Guerra Primary Care Physician [phone] Rajan Guerra Attending Clinician Unavailable RAJAN GUERRA Attending Clinician Unavailable Malik Weinberg MD Attending Clinician [phone] MALIK WEINBERG Attending Clinician UnavailMALIK Gerber Attending Clinician Unavailbrittney e Doctor Unassigned, [place] Attending Clinician U Selene Avila PA-C Attending Clinician [phone] SELENE SHAW Attending Clinician Unavailable SELENE SHAW Attending Clinician Unavailable Ewa Escobar RN Attending Clinician UnaKALPANA Cagle Attending Clinician UnavailKalpana Blake MD Attending Clinician [phone] Dino Grider DO Attending Clinician [phone] MONICA BETHEA Attending Clinician Unavailable Monica Bethea MD Attending Clinician [phone], [facility] Attending Clinician Unavailable Alyssa Matt RN Attending Clinician Unavail Jose Sunshine MD Attending Clinician [phone] Luis Albrecht MD Attending Clinician [phone] Maddy Martin MD Attending Clinician [phone] Little Galarza RN Attending Clinician Unavailable Montse Myers Attending Clinician Unavailable MADDY MARTIN Attending Clinician Unavailable ANWAR, JOSE Attending Clinician Unavailable ANWAR, JOSE Attending Clinician Unavailable AISHA MORALES Attending Clinician Unavailable AISHA MORALES Attending Clinician Unavailable RADIOLOGY Attending Clinician Unavailable Radiology Attending Clinician Unavailable DINO GRIDER Admitting Clinician Unavailable Dino Grider DO Admitting Clinician [phone] Luis Albrecht MD Admitting Clinician [phone] LUIS ALBRECHT Admitting Clinician Unavailable AISHA MORALES Admitting Clinician Unavailable RAJAN GUERRA Admitting Clinician Unavailable Payers Payer Name Policy Type Policy Number Effective Date Expirati on Date Source [id number] 2007 00:00:00 [facility] Problems Condition Name Condition Details Condition Category Status Onset Date Resolution Date Last Treatment Date Treating Clinician Comments Source 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 Disease Active 2- 00:00: 00 [facility] GI bleed GI bleed Disease Active 1-31 00:00: 00 [facility] 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 Disease Active 2023-03 0-21 00:00: 00 [facility] Anemia of chronic disorder Anemia in chronic illness Problem [facility] Rheumatoid arthritis Rheumatoid arthritis Problem [facility] 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 Problem [facility] Cyst of left ovary Other ovarian cyst, left side Problem [facility] [id number] 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 Problem [facility] [id number] Opiate dependence , continuous Problem [facility] [id number] Moderate major depression , single episode Problem [facility] [id number] Coronary artery disease involving [place] coronary artery of [place] heart with angina pectoris Problem [facility] [id number] Stage 3a chronic kidney disease Problem [facility] 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 Problem [facility] [id number] Unsteadine ss on feet Problem [facility] [id number] Chronic pain syndrome Problem [facility] Depression Depression Problem Co mmon [facility] Gastritis Gastritis Problem Comm on [facility] Essential hypertensi on Benign essential HTN Problem [facility] Mixed hyperlipid emia Hyperlipid emia, mixed Problem [facility] [id number] Body mass index (BMI) 31.0-31.9, adult Problem [facility] Gastro-eso phageal reflux disease without esophagiti s Gastro-eso phageal reflux disease without esophagiti s Problem [facility] [id number] Other obesity due to excess calories Problem [facility] Allergies, Adverse Reactions, Alerts Allergy Name Allergy Type Status Severity Reaction(s) Onset Date Inactive Date Treating Clinician Comments Source NO KNOWN ALLERGIE S Drug Class Active [facility] Social History Social Habit Start Date Stop Date Quantity Comments Source Sexual orientation U [facility] History of Tobacco Use [facility] History of Social function 2024-04-30 00:00:00 2024-04-30 00:00:00 [facility] Tobacco use and exposure 2024-01-13 00:00:00 2024-01-13 00:00:00 Smokeless tobacco non-user [facility] Exposure to SARS-CoV-2 (event) 2022-01-19 00:00:00 2022-01-29 16:29:00 Not sure [facility] Sex assigned at 1940 00:00:00 1940 00:00:00 [facility] Smoking Status Start Date Stop Date Source Tobacco smoking consumption unknown [facility] Never smoked tobacco [facility] Medications Ordered Medication Name Filled Medication Name Start Date Stop Date Current Medication? Ordering Clinician Indication Dosage Frequency Signature (SIG) Comments Components Source Avacopan 10 MG Avacopan 10 MG 06-29 00:00: 00 No 3{capsu les_wit h_food} QD Avacopan 10 MG Magnesium Oxide 400 MG Magnesium Oxide 400 MG 06-29 00:00: 00 No 1{table t_with_ food} QD Magnesium Oxide 400 MG bumetanide 1 mg tablet 04-27 15:00: 55 04-27 00:00 :00 No 1mg Take 1 tablet by mouth every morning and evening. [facility] avacopan (TAVNEOS) 10 mg capsule 04-27 15:00: 53 Yes 30mg Take 3 capsules by mouth 2 (two) times daily with meals. [facility] predniSONE 20 mg tablet 04-27 15:00: 53 Yes 20mg Take 1 tablet by mouth daily. [facility] pantoprazol e (PROTONIX) EC tablet 40 mg 04-27 15:00: 00 Yes 40mg 40 mg, Oral, DAILY, First dose on Sat04/27/24 at 0900, Until Discontinu ed, Routine [facility] polyethylen e glycol 3350 17 gram powder 04-27 00:00: 00 Yes [id number] 17g Take 1 Packet by mouth 2 (two) times daily. [facility] sennosides- docusate sodium 8.6-50 mg per tablet 04-27 00:00: 00 Yes [id number] 1{tbl} Take 1 tablet by mouth 2 (two) times daily. [facility] glycerin/mi neral oil (AGLO ENEMA) (COMPOUNDED ) Enem 225 mL 04-26 19:00: 00 04-26 20:40 :00 No 225mL 225 mL, Rectal, ONCE, 1 dose, On Sat04/26/24 at 1300, Routine [facility] sennosides- docusate sodium (SENOKOT-S) 8.6-50 mg per tablet 1 tablet 04-26 02:00: 00 Yes 1{tbl} 1 tablet, Oral, BID, First dose on 04/25/24 at 2000, Until Discontinu ed, Routine [facility] polyethylen e glycol 3350 powder 17 g 04-26 02:00: 00 Yes 17g 17 g, Oral, BID, First dose (after last modificati on) on 04/25/24 at 2000, Until Discontinu ed, Routine [facility] predniSONE (DELTASONE) tablet 20 mg 04-25 15:00: 00 Yes 20mg 20 mg, Oral, DAILY, First dose on 04/25/24 at 0900, Until Discontinu ed, Routine [facility] atorvastati n (LIPITOR) tablet 20 mg 04-25 15:00: 00 Yes 20mg 20 mg, Oral, QAM, First dose on 04/25/24 at 0900, Until Discontinu ed, Routine [facility] calcium carbonate (OSCAL-500) tablet 500 mg 04-25 14:00: 00 Yes 500mg 500 mg, Oral, BID MEALS, First dose on 04/25/24 at 0800, Until Discontinu ed, Routine [facility] avacopan (TAVNEOS) capsule 30 mg 04-25 14:00: 00 Yes 30mg 30 mg, Oral, BID MEALS, First dose on 04/25/24 at 0800, Until Discontinu ed, [facility] 40 mg 04-25 14:00: 00 04-27 12:08 :25 No 40mg 40 mg, Slow IV Push, Q12H, First dose on 04/25/24 at 0800, Until [facility] ed [facility] HYDRO[facility] -acetaminop hen (NORCO 5) tablet 1 tablet 04-25 04:25: 24 Yes 1{tbl} 1 tablet, Oral, Q6HPRN, Starting on Sat04/24/24 at 2225, Until Discontinu ed, Routine, Pain (scale 4-6) [facility] lactated ringers IV infusion 1,000 mL 04-25 02:30: 00 04-25 03:15 :00 No 1000mL at 999 mL/hr, 1,000 mL, Intravenou s, ONCE, 1 dose, On Sat04/24/24 at 2030, TANJA [facility] acetaminoph en (TYLENOL) tablet 650 mg 04-25 01:12: 14 Yes 650mg 650 mg, Oral, Q6HPRN, Starting on Sat04/24/24 at 1912, Until Discontinu ed, Routine, Pain (scale 1-3) [facility] calcium gluconate 2 g in NaCl 100 mL (ISO-OSM) RTU IV infusion 2 g 2023-03 14:30: 00 01-17 14:48 :00 No 2g 2 g, IV Infusion, at 200 mL/hr Administer over 30 Minutes, ONCE, 1 dose, On Sat01/18/24 at 0930, Routine [facility] calcium carbonate 500 mg calcium (1,250 mg) tablet 2023-03 00:00: 00 Yes [id number] 500mg Take 1 tablet by mouth 2 (two) times daily with meals. [facility] avacopan 10 mg capsule 2023-03 00:00: 00 02-17 05:59 :00 No [id number] 9105 30mg Take 3 capsules by mouth 2 (two) times daily with meals for 30 days. [facility] avacopan (TAVNEOS) capsule 30 mg 2023-03 17:00: 00 Yes 30mg 30 mg, Oral, BID MEALS, First dose on Sat01/17/24 at 1200, Until Discontinu ed, Routine [facility] calcium gluconate 2 g in NaCl 100 mL (ISO-OSM) RTU IV infusion 2 g 2023-03 14:15: 00 01-16 16:14 :00 No 2g 2 g, IV Infusion, at 200 mL/hr Administer over 30 Minutes, ONCE, 1 dose, On Sat01/17/24 at 0915, Routine [facility] calcium carbonate (OSCAL-500) tablet 500 mg 2023-03 15:15: 00 Yes 500mg 500 mg, Oral, DAILY, First dose on Sat01/16/24 at 1015, Until Discontinu ed, Routine [facility] methylpredn isolone sod succ (SOLU-MEDRO L) injection 250 mg 2023-03 21:45: 00 01-16 21:52 :00 No 250mg 250 mg, Intravenou s, Q24H, 3 doses, First dose on Sat01/15/24 at 1645, Last dose on Sat01/17/24 at 1645, 4 mL [facility] sodium citrate-cit ralph acid (BICITRA) 500-334 mg/5 mL solution 30 mL 2023-03 14:00: 00 01-17 18:32 :56 No 30mL 30 mL, Oral, PC+HS, First dose (after last modificati on) on Sat01/15/24 at 0900, Until Discontinu ed, Routine [facility] sodium citrate-cit ralph acid (BICITRA) 500-334 mg/5 mL solution 15 mL 2023-03 15:15: 00 01-14 12:12 :37 No 15mL 15 mL, Oral, PC+HS, First dose on Sat01/14/24 at 1015, Until Discontinu ed, Routine [facility] pantoprazol e (PROTONIX) EC tablet 40 mg 2023-03 14:00: 00 01-17 18:32 :56 No 40mg 40 mg, Oral, DAILY, First dose on Sat01/14/24 at 0900, Until Discontinu ed, Routine [facility] hydrALAZINE (APRESOLINE ) tablet 25 mg 2023-03 14:00: 00 01-17 18:32 :56 No 25mg 25 mg, Oral, DAILY, First dose on Sat01/14/24 at 0900, Until Discontinu ed, Routine [facility] atorvastati n (LIPITOR) tablet 20 mg 2023-03 14:00: 00 01-17 18:32 :56 No 20mg 20 mg, Oral, QAM, First dose on Sat01/14/24 at 0900, Until Discontinu ed, Routine [facility] ferrous sulfate tablet 325 mg 2023-03 14:00: 00 01-17 18:32 :56 No 325mg 325 mg, Oral, DAILY, First dose on Sat01/14/24 at 0900, Until Discontinu ed, Routine [facility] docusate (COLACE) capsule 100 mg 2023-03 14:00: 00 01-17 18:32 :56 No 100mg 100 mg, Oral, DAILY, First dose on Sat01/14/24 at 0900, Until Discontinu ed, Routine [facility] sodium zirconium cyclosilica te (LOKELMA) 10 gram packet 10 g 2023-03 13:30: 00 01-16 11:59 :00 No 10g 10 g, Oral, QAM-0700, 3 doses, First dose on Sat01/14/24 at 0830, Last dose on Sat01/16/24 at 0700, Routine [facility] metoprolol tartrate (LOPRESSOR) tablet 100 mg 2023-03 13:00: 00 01-17 18:32 :56 No 100mg 100 mg, Oral, BID, First dose on Sat01/14/24 at 0800, Until Discontinu ed [facility] traMADoL (ULTRAM) tablet 50 mg 2023-03 05:00: 00 01-17 18:32 :56 No 50mg 50 mg, Oral, Q6H, First dose on Sat01/14/24 at 0000, Until Discontinu ed, Routine [facility] traMADoL (ULTRAM) tablet 50 mg 2023-03 01:30: 45 01-15 01:29 :45 No 50mg 50 mg, Oral, Q8HPRN, Starting on Sat01/13/24 at 2030, Until 01/15/24 at 2029, Routine, Pain (scale 4-6) [facility] ondansetron (ZOFRAN (PF)) injection 4 mg 2023-03 01:28: 42 01-17 18:32 :56 No 4mg 4 mg, Slow IV Push, Q6HPRN, Starting on 01/13/24 at 2028, Until 01/18/24 at 1332, Routine, Nausea and Vomiting (N/V) [facility] acetaminoph en (TYLENOL) tablet 650 mg 2023-03 01:28: 15 01-17 18:32 :56 No 650mg [facility] atorvastati n 20 mg tablet 2023-03 21:29: 23 Yes 20mg Take 1 tablet by mouth every morning. [facility] ferrous sulfate 325 mg (65 mg iron) tablet 2023-03 21:29: 23 Yes 325mg Take 1 tablet by mouth daily. [facility] pantoprazol e 40 mg EC tablet 2023-03 21:29: 23 Yes 40mg Take 1 tablet by mouth daily. [facility] nebivoloL 10 mg tablet 2023-03:29: 23 04-27 00:00 :00 No 10mg Take 1 tablet by mouth daily. [facility] traMADoL 50 mg tablet 2023-03:29: 23 04-27 00:00 :00 No 50mg Take 1 tablet by mouth every 6 (six) hours. [facility] lisinopriL 20 mg tablet 2023-03 21:23: 09 04-27 00:00 :00 No 20mg Take 1 tablet by mouth 2 (two) times daily. [facility] furosemide 40 mg tablet 2023-03:23: 09 04-24 00:00 :00 No 40mg Take 1 tablet by mouth daily. [facility] iopamidol (ISOVUE 300-100 mL) injection 150 mL 2023-03 19:40: 00 01-12 19:40 :00 No [id number] 150mL 150 mL, Intravenou s, ONCE, 1 dose, On Sat01/13/24 at 1500, Routine [facility] Nitroglycer in (TRIDIL) injection 2023-03 19:34: 00 01-12 19:34 :00 No PRN, Starting on Sat01/13/24 at 1434, Until Sat01/13/24 at 1434, Routine, Intra-op [facility] fentanyl PF (SUBLIMAZE (PF)) injection 2023-03 18:55: 00 01-12 19:29 :03 No Slow IV Push, PRN, Starting on Sat01/13/24 at 1355, Until Sat01/13/24 at 1429, Routine, Intra-op [facility] FENTanyl (PF) (SUBLIMAZE) injection 2023-03 17:50: 50 01-12 18:50 :38 No Slow IV Push, PRN, Starting on Sat01/13/24 at 1250, Until Sat01/13/24 at 1350, Routine, Intra-op [facility] verapamiL (ISOPTIN) injection 2023-03 17:36: 00 01-12 19:34 :39 No PRN, Starting on Sat01/13/24 at 1236, Until Sat01/13/24 at 1434, Routine, Intra-op [facility] heparin 1,000 unit/mL injection 2023-03 17:36: 00 01-12 17:36 :00 No PRN, Starting on Sat01/13/24 at 1236, Until Sat01/13/24 at 1236, Routine, Intra-op [facility] nitroglycer in 50 mg in D5W 250 mL infusion RTU 2023-03 17:36: 00 01-12 17:36 :00 No CONTINUOUS PRN, Starting on Sat01/13/24 at 1236, Intra-op [facility] lidocaine-e pinephrine (XYLOCAINE W/EPINEPHRI NE) 1 %-1:200,000 injection 2023-03 17:34: 00 01-12 17:34 :00 No PRN, Starting on Sat01/13/24 at 1234, Until Sat01/13/24 at 1234, Routine, Intra-op [facility] ceFAZolin (ANCEF) 1,000 mg in NaCl 0.9% (NS) 10 mL IV push 2023-03 17:31: 00 01-12 17:31 :00 No PRN, Starting on Sat01/13/24 at 1231, Until Sat01/13/24 at 1231, 10 mL, Intra-op [facility] ceFAZolin (ANCEF) 1,000 mg in NaCl 0.9% (NS) 10 mL IV push 2023-03 17:30: 00 01-12 17:30 :00 No PRN, Starting on Sat01/13/24 at 1230, Until Sat01/13/24 at 1230, 10 mL, [facility] (ISOVUE 370-500 mL) injection 80 mL 2023-03 16:45: 00 01-12 15:56 :00 No [id number] 80mL 80 mL, Intravenou s, ONCE, 1 dose, On Sat01/13/24 at 1145, Routine [facility] lidocaine 1% (XYLOCAINE) 10 mg/mL (1 %) injection 2023-03 14:54: 40 01-12 14:54 :40 No PRN, Starting on Sat01/13/24 at 0954, Until Sat01/13/24 at 0954, Routine, Intra-op [facility] FENTanyl (PF) (SUBLIMAZE) injection 2023-03 14:30: 58 01-12 15:04 :49 No Slow IV Push, PRN, Starting on Sat01/13/24 at 0930, Until Sat01/13/24 at 1004, Routine, Intra-op [facility] midazolam (VERSED) injection 2023-03 14:30: 08 01-12 14:30 :08 No IV Push, PRN, Starting on Sat01/13/24 at 0930, Until Sat01/13/24 at 0930, Routine, Intra-op [facility] hydrALAZINE 25 mg tablet 2023-03 00:00: 00 04-27 00:00 :00 No 100mg Take 4 tablets by mouth 2 (two) times daily. [facility] amLODIPine 10 mg tablet 10-17 00:00: 00 Yes 10mg Take 1 tablet by mouth daily. [facility] iopamidol (ISOVUE 370-500 mL) injection 80 mL 09-12 03:30: 00 09-12 03:30 :00 No [id number] 80mL 80 mL, Intravenou s, ONCE, 1 dose, On Sat09/12/23 at 2230, Routine [facility] amoxicillin -clavulanat e 875-125 mg per tablet 09-11 00:00: 00 01-17 00:00 :00 No [id number] 1{tbl} Take 1 tablet by mouth every 12 (twelve) hours. [facility] azithromyci n (ZITHROMAX Z-YUN) 250 mg tablet 09-11 00:00: 00 01-17 00:00 :00 No [id number] 250mg Take 1 tablet by mouth SEE-INSTRU CTIONS. Take 500 mg day 1, then 250 mg days 2 to 5. [facility] leflunomide 10 mg tablet 09-02 00:00: 00 04-24 00:00 :00 No 10mg Take 1 tablet by mouth daily. [facility] Pantoprazol e Sodium 40 MG Pantoprazol e Sodium 40 MG No 1{table t} QD Pantoprazo le Sodium 40 MG Melatonin 3 MG Melatonin 3 MG No 1{table t_at_be dtime_a s_neede d} QD Melatonin 3 MG Docusate Sodium 100 MG Docusate Sodium 100 MG No 1{capsu le_as_n eeded} BID Docusate Sodium 100 MG Alendronate Sodium 70 MG Alendronate Sodium 70 MG No Alendronat e Sodium 70 MG amLODIPine Besylate 10 MG amLODIPine Besylate 10 MG No 1{table t} QD amLODIPine Besylate 10 MG Ultram 50 MG Ultram 50 MG No 1{table t_as_ne eded} Ultram 50 MG Eliquis 2.5 MG Eliquis 2.5 MG No 1{table t} BID Eliquis 2.5 MG predniSONE 10 MG predniSONE 10 MG No 1{table t} QD predniSONE 10 MG Ferrous Sulfate 325 (65 Fe) MG Ferrous Sulfate 325 (65 Fe) MG No 1{table t} QD Ferrous Sulfate 325 (65 Fe) MG Lipitor 20 MG Lipitor 20 MG No 1{table t} QD Lipitor 20 MG Vital Signs Vital Name Observation Time Observation Value Comments S darin Systolic blood pressure 2024-05-21 16:58:00 151 mm[Hg] [facility] Diastolic blood pressure 2024-05-21 16:58:00 81 mm[Hg] [facility] Heart rate 2024-05-21 16:58:00 81 /min [facility] Body temperature 2024-05-21 16:57:00 37.11 [facility] Body height 2024-05-21 16:57:00 162.6 cm [facility] Body weight 2024-05-21 16:57:00 65.772 kg [facility] BMI 2024-05-21 16:57:00 24.89 kg/m2 [facility] Oxygen saturation in Arterial blood by Pulse oximetry 2024-05-21 16:57:00 98 /min [facility] height 2024-05-04 11:15:00 62 [in_i] Commo n [facility] weight 2024-05-04 11:15:00 146 [lb_av] Comm on [facility] temperature 2024-05-04 11:15:00 98.7 [degF] Com mon [facility] bmi 2024-05-04 11:15:00 26.7 kg/m2 Commo n [facility] blood pressure systolic 2024-05-04 11:15:00 125 mm[Hg] [facility] blood pressure diastolic 2024-05-04 11:15:00 67 mm[Hg] [facility] Systolic blood pressure 2024-04-30 14:55:00 130 mm[Hg] [facility] Diastolic blood pressure 2024-04-30 14:55:00 70 mm[Hg] [facility] Heart rate 2024-04-30 14:55:00 80 /min [facility] Body temperature 2024-04-30 14:55:00 36.89 [facility] Body height 2024-04-30 14:55:00 157.5 cm [facility] Body weight 2024-04-30 14:55:00 66.225 kg [facility] BMI 2024-04-30 14:55:00 26.70 kg/m2 [facility] Oxygen saturation in Arterial blood by Pulse oximetry 2024-04-30 14:55:00 98 /min [facility] Systolic blood pressure 2024-04-27 22:51:00 137 mm[Hg] [facility] Diastolic blood pressure 2024-04-27 22:51:00 60 mm[Hg] [facility] Heart rate 2024-04-27 22:51:00 58 /min [facility] Body temperature 2024-04-27 22:51:00 36.33 [facility] Respiratory rate 2024-04-27 22:51:00 20 /min [facility] Oxygen saturation in Arterial blood by Pulse oximetry 2024-04-27 22:51:00 94 /min [facility] Body height 2024-04-25 03:17:00 157.5 cm [facility] Body weight 2024-04-25 03:17:00 67.495 kg [facility] BMI 2024-04-25 03:17:00 27.22 kg/m2 [facility] height 2024-01-31 14:00:00 62 [in_i] Commo n [facility] weight 2024-01-31 14:00:00 166 [lb_av] Comm on [facility] temperature 2024-01-31 14:00:00 97.9 [degF] Com mon [facility] bmi 2024-01-31 14:00:00 30.36 kg/m2 Comm on [facility] oximetry 2024-01-31 14:00:00 98 % Commo n [facility] respiratory rate 2024-01-31 14:00:00 18 /min Common [facility] blood pressure systolic 2024-01-31 14:00:00 136 mm[Hg] [facility] blood pressure diastolic 2024-01-31 14:00:00 61 mm[Hg] [facility] Systolic blood pressure 2024-01-22 13:30:00 157 mm[Hg] [facility] Diastolic blood pressure 2024-01-22 13:30:00 69 mm[Hg] [facility] Heart rate 2024-01-22 13:30:00 67 /min [facility] Body height 2024-01-22 13:30:00 157.5 cm [facility] Body weight 2024-01-22 13:30:00 76.204 kg [facility] BMI 2024-01-22 13:30:00 30.73 kg/m2 [facility] Oxygen saturation in Arterial blood by Pulse oximetry 2024-01-22 13:30:00 95 /min [facility] Systolic blood pressure 2024-01-18 16:47:00 155 mm[Hg] [facility] Diastolic blood pressure 2024-01-18 16:47:00 65 mm[Hg] [facility] Heart rate 2024-01-18 16:47:00 63 /min [facility] Body temperature 2024-01-18 16:47:00 36.39 [facility] Respiratory rate 2024-01-18 16:47:00 20 /min [facility] Oxygen saturation in Arterial blood by Pulse oximetry 2024-01-18 16:47:00 91 /min [facility] Body weight 2024-01-18 09:00:00 79.833 kg [facility] BMI 2024-01-18 09:00:00 31.18 kg/m2 [facility] Systolic blood pressure 2024-01-15 12:52:00 149 mm[Hg] [facility] Diastolic blood pressure 2024-01-15 12:52:00 64 mm[Hg] [facility] Heart rate 2024-01-15 12:52:00 68 /min [facility] Body temperature 2024-01-15 12:52:00 36.44 [facility] Respiratory rate 2024-01-15 12:52:00 16 /min [facility] [facility] saturation in Arterial blood by Pulse oximetry 2024-01-15 12:52:00 91 /min [facility] Body height 2024-01-13 23:23:00 160 cm [facility] Body weight 2024-01-13 23:23:00 76.204 kg [facility] BMI 2024-01-13 23:23:00 29.76 kg/m2 [facility] Systolic blood pressure 2024-01-13 22:00:00 173 mm[Hg] [facility] Diastolic blood pressure 2024-01-13 22:00:00 83 mm[Hg] [facility] Heart rate 2024-01-13 22:00:00 61 /min [facility] Respiratory rate 2024-01-13 22:00:00 16 /min [facility] Oxygen saturation in Arterial blood by Pulse oximetry 2024-01-13 22:00:00 98 /min [facility] height 2023-12-04 09:30:00 62 [in_i] Commo n [facility] weight 2023-12-04 09:30:00 158.6 [lb_av] Co mmon [facility] temperature 2023-12-04 09:30:00 97.6 [degF] Com mon [facility] bmi 2023-12-04 09:30:00 29.01 kg/m2 Comm on [facility] oximetry 2023-12-04 09:30:00 99 % Commo n [facility] blood pressure systolic 2023-12-04 09:30:00 132 mm[Hg] [facility] blood pressure diastolic 2023-12-04 09:30:00 60 mm[Hg] Common [facility] height 2023-12-04 09:40:00 62 [in_i] Commo n [facility] weight 2023-12-04 09:40:00 158.6 [lb_av] Co mmon [facility] temperature 2023-12-04 09:40:00 97.6 [degF] Com mon [facility] bmi 2023-12-04 09:40:00 29.01 kg/m2 Comm on [facility] oximetry 2023-12-04 09:40:00 99 % Commo n [facility] blood pressure systolic 2023-12-04 09:40:00 132 mm[Hg] Common [facility] blood pressure diastolic 2023-12-04 09:40:00 60 mm[Hg] Common [facility] Systolic blood pressure 2023-09-13 03:31:00 124 mm[Hg] [facility] Diastolic blood pressure 2023-09-13 03:31:00 104 mm[Hg] [facility] Heart rate 2023-09-13 03:31:00 62 /min [facility] Body temperature 2023-09-13 03:31:00 36.72 Edelmira [facility] Respiratory rate 2023-09-13 03:31:00 16 /min [facility] Oxygen saturation in Arterial blood by Pulse oximetry 2023-09-13 03:31:00 99 /min [facility] Body height 2023-09-12 21:49:00 160 cm [facility] Body weight 2023-09-12 21:49:00 76.204 kg [facility] BMI 2023-09-12 21:49:00 29.76 kg/m2 [facility] height 2023-09-04 08:10:00 62 [in_i] Commo n [facility] weight 2023-09-04 08:10:00 164.6 [lb_av] Co mmon [facility] temperature 2023-09-04 08:10:00 98.1 [degF] Com mon [facility] bmi 2023-09-04 08:10:00 30.1 kg/m2 Commo n [facility] oximetry 2023-09-04 08:10:00 99 % Commo n [facility] blood pressure systolic 2023-09-04 08:10:00 138 mm[Hg] [facility] blood pressure diastolic 2023-09-04 08:10:00 70 mm[Hg] Common [facility] height 2023-05-30 08:10:00 62 [in_i] Commo n [facility] weight 2023-05-30 08:10:00 173.0 [lb_av] Co mmon [facility] temperature 2023-05-30 08:10:00 98.3 [degF] Com [facility] bmi 2023-05-30 08:10:00 31.64 kg/m2 Comm on [facility] oximetry 2023-05-30 08:10:00 99 % Commo n [facility] respiratory rate 2023-05-30 08:10:00 18 /min Common [facility] blood pressure systolic 2023-05-30 08:10:00 137 mm[Hg] Common [facility] blood pressure diastolic 2023-05-30 08:10:00 68 mm[Hg] Common [facility] height 2023-01-14 10:00:00 62 [in_i] Commo n [facility] weight 2023-01-14 10:00:00 163 [lb_av] Comm on [facility] temperature 2023-01-14 10:00:00 98 [degF] Comm on [facility] bmi 2023-01-14 10:00:00 29.81 kg/m2 Comm on [facility] blood pressure systolic 2023-01-14 10:00:00 149 mm[Hg] Common [facility] blood pressure diastolic 2023-01-14 10:00:00 72 mm[Hg] Common [facility] height 2022-10-03 11:00:00 62 [in_i] Commo n [facility] weight 2022-10-03 11:00:00 173.0 [lb_av] Co mmon [facility] temperature 2022-10-03 11:00:00 97.1 [degF] Com [facility] bmi 2022-10-03 11:00:00 31.64 kg/m2 Comm on [facility] oximetry 2022-10-03 11:00:00 99 % Commo n [facility] respiratory rate 2022-10-03 11:00:00 18 /min Common [facility] blood pressure systolic 2022-10-03 11:00:00 126 mm[Hg] Common [facility] blood pressure diastolic 2022-10-03 11:00:00 77 mm[Hg] Common [facility] height 2022-10-03 11:00:00 62 [in_i] Commo n [facility] weight 2022-10-03 11:00:00 173.0 [lb_av] Co mmon [facility] temperature 2022-10-03 11:00:00 97.1 [degF] Com [facility] bmi 2022-10-03 11:00:00 31.64 kg/m2 Comm on [facility] oximetry 2022-10-03 11:00:00 99 % Commo n [facility] respiratory rate 2022-10-03 11:00:00 18 /min Common [facility] blood pressure systolic 2022-10-03 11:00:00 126 mm[Hg] Common [facility] blood pressure diastolic 2022-10-03 11:00:00 77 mm[Hg] Common [facility] height 2022-07-30 11:20:00 62 [in_i] Commo n [facility] weight 2022-07-30 11:20:00 178 [lb_av] Comm on [facility] temperature 2022-07-30 11:20:00 96 [degF] Comm on [facility] bmi 2022-07-30 11:20:00 32.55 kg/m2 Comm on [facility] blood pressure systolic 2022-07-30 11:20:00 123 mm[Hg] Common [facility] blood pressure diastolic 2022-07-30 11:20:00 76 mm[Hg] Common [facility] height 2022-05-07 09:40:00 62 [in_i] Commo n [facility] weight 2022-05-07 09:40:00 170 [lb_av] Comm on [facility] temperature 2022-05-07 09:40:00 98.1 [degF] Com mon [facility] bmi 2022-05-07 09:40:00 31.09 kg/m2 Comm on [facility] blood pressure systolic 2022-05-07 09:40:00 128 mm[Hg] Common [facility] blood pressure diastolic 2022-05-07 09:40:00 75 mm[Hg] Common [facility] height 2022-01-02 11:30:00 62 [in_i] Commo n [facility] weight 2022-01-02 11:30:00 174 [lb_av] Comm on [facility] temperature 2022-01-02 11:30:00 97 [degF] Comm on [facility] bmi 2022-01-02 11:30:00 31.82 kg/m2 Comm on [facility] blood pressure systolic 2022-01-02 11:30:00 119 mm[Hg] Common [facility] blood pressure diastolic 2022-01-02 11:30:00 64 mm[Hg] Common [facility] height 2021-11-09 14:10:00 62 [in_i] Commo n [facility] weight 2021-11-09 14:10:00 173.4 [lb_av] Co mmon [facility] temperature 2021-11-09 14:10:00 97.5 [degF] Com mon [facility] bmi 2021-11-09 14:10:00 31.71 kg/m2 Comm on [facility] oximetry 2021-11-09 14:10:00 100 % Commo n [facility] respiratory rate 2021-11-09 14:10:00 17 /min [facility] blood pressure systolic 2021-11-09 14:10:00 131 mm[Hg] Common [facility] blood pressure diastolic 2021-11-09 14:10:00 76 mm[Hg] Common [facility] height 2021-10-04 10:50:00 62 [in_i] Commo n [facility] weight 2021-10-04 10:50:00 170 [lb_av] Comm on [facility] temperature 2021-10-04 10:50:00 97 [degF] Comm on [facility] bmi 2021-10-04 10:50:00 31.09 kg/m2 Comm on [facility] blood pressure systolic 2021-10-04 10:50:00 109 mm[Hg] Common [facility] blood pressure diastolic 2021-10-04 10:50:00 65 mm[Hg] Common [facility] height 2021-10-04 11:20:00 62 [in_i] Commo n [facility] weight 2021-10-04 11:20:00 170 [lb_av] Comm on [facility] temperature 2021-10-04 11:20:00 97 [degF] Comm on [facility] bmi 2021-10-04 11:20:00 31.09 kg/m2 Comm on [facility] height 2021-08-14 13:00:00 62 [in_i] Commo n [facility] weight 2021-08-14 13:00:00 173.0 [lb_av] Co mmon [facility] temperature 2021-08-14 13:00:00 97.7 [degF] Com mon [facility] bmi 2021-08-14 13:00:00 31.64 kg/m2 Comm on [facility] oximetry 2021-08-14 13:00:00 100 % Commo n [facility] respiratory rate 2021-08-14 13:00:00 18 /min Common [facility] blood pressure systolic 2021-08-14 13:00:00 124 mm[Hg] [facility] blood pressure diastolic 2021-08-14 13:00:00 58 mm[Hg] [facility] height 2021-07-12 11:40:00 62 [in_i] Commo n [facility] weight 2021-07-12 11:40:00 173 [lb_av] Comm on [facility] temperature 2021-07-12 11:40:00 97.3 [degF] Com mon [facility] bmi 2021-07-12 11:40:00 31.64 kg/m2 Comm on [facility] blood pressure systolic 2021-07-12 11:40:00 116 mm[Hg] Common [facility] blood pressure diastolic 2021-07-12 11:40:00 70 mm[Hg] Common [facility] height 2021-04-13 11:30:00 62 [in_i] Commo n [facility] weight 2021-04-13 11:30:00 170 [lb_av] Comm on [facility] temperature 2021-04-13 11:30:00 96.1 [degF] Com mon [facility] bmi 2021-04-13 11:30:00 31.09 kg/m2 Comm on [facility] blood pressure systolic 2021-04-13 11:30:00 116 mm[Hg] Common [facility] blood pressure diastolic 2021-04-13 11:30:00 65 mm[Hg] Common [facility] height 2021-01-11 10:40:00 62 [in_i] Commo n [facility] weight 2021-01-11 10:40:00 174.1 [lb_av] Co mmon [facility] temperature 2021-01-11 10:40:00 98.0 [degF] Com mon [facility] bmi 2021-01-11 10:40:00 31.84 kg/m2 Comm on [facility] oximetry 2021-01-11 10:40:00 97 % Commo n [facility] respiratory rate 2021-01-11 10:40:00 17 /min [facility] blood pressure systolic 2021-01-11 10:40:00 132 mm[Hg] [facility] blood pressure diastolic 2021-01-11 10:40:00 72 mm[Hg] [facility] Procedures Procedure Date / Time Performed Performing Clinician Source RADIOLOGY DOCUMENTATION 2024-05-12 20:20:19 Doct or Unassigned, [place] [facility] RADIOLOGY DOCUMENTATION 2024-05-12 20:19:48 Doct or Unassigned, [place] [facility] ALMAS AURIS SURVEILLANCE BY PCR (INFECTION CONTROL PURPOSES) 2024-04-27 10:53:00 Natalie Travis [facility] MAGNESIUM 2024-04-27 10:52:00 Viki Guerra [facility] BASIC METABOLIC PANEL (NA, K, CL, CO2, GLUCOSE, BUN, CREATININE, CA) 2024-04-27 10:52:00 Viki Guerra [facility] CBC WITH DIFF 2024-04-27 10:52:00 Viki Guerra [facility] CBC WITH DIFF 2024-04-27 03:36:00 Viki Guerra [facility] MAGNESIUM 2024-04-26 09:44:00 Alvino Mccormick [facility] BASIC METABOLIC PANEL (NA, K, CL, CO2, GLUCOSE, BUN, CREATININE, CA) 2024-04-26 09:44:00 Alvino Mccormick [facility] CBC WITH DIFF 2024-04-26 09:44:00 Alvino Mccormick [facility] CBC WITH DIFF 2024-04-26 00:28:00 Alvino Mccormick [facility] TRANSFUSE PACKED RBC 2024-04-25 15:23:00 Jen Choudhary [facility] PREPARE PACKED RBC 2024-04-25 15:05:38 Jen Choudhary ae [facility] TRANSFUSE PACKED RBC 2024-04-25 11:26:00 Jen Choudhary [facility] XR CHEST 1 VW 2024-04-25 11:10:00 [facility] RIGHT 2024-04-25 11:10:00 Jen Choudhary ae [facility] PHOSPHORUS 2024-04-25 09:41:00 Jen Choudhary [facility] MAGNESIUM 2024-04-25 09:41:00 Jen Choudhary [facility] FERRITIN SERUM 2024-04-25 09:41:00 Alvino Mccormick [facility] OSMOLALITY, SERUM OR PLASMA 2024-04-25 09:41:00 Alvino Mccormick [facility] BASIC METABOLIC PANEL (NA, K, CL, CO2, GLUCOSE, BUN, CREATININE, CA) 2024-04-25 09:41:00 Jen Choudhary [facility] CBC WITH DIFF 2024-04-25 09:41:00 [facility] 2024-04-25 09:41:00 Jen Choudhary [facility] URINALYSIS 2024-04-25 09:34:00 Jen Choudhary [facility] EXTRA TUBE URINE CULTURE 2024-04-25 09:34:00 Dino Plasencia i [facility] LACTIC ACID WHOLE BLOOD 2024-04-25 03:07:00 Newton Choudhary [facility] PHOSPHORUS 2024-04-25 03:04:00 Jen Choudhary [facility] MAGNESIUM 2024-04-25 03:04:00 Jen Choudahry [facility] HEPATIC FUNCTION PANEL (97770) (ALB,T.PRO,BILI T,BU/BC,ALT,AST,ALK PHOS) 2024-04-25 03:04:00 Jen Choudhary [facility] BASIC METABOLIC PANEL (NA, K, CL, CO2, GLUCOSE, BUN, CREATININE, CA) 2024-04-25 03:04:00 Jen Choudhary [facility] CBC WITH DIFF 2024-04-25 03:04:00 Jen Choudhary [facility] GLYCOSYLATED HEMOGLOBIN (A1C) 2024-04-25 03:04:00 Jen Choudhary [facility] PROTHROMBIN TIME / INR 2024-04-25 03:04:00 Ramona Choudhary [facility] ACTIVATED PARTIAL THRMPLAS DAIN 2024-04-25 03:04:00 Jen Choudhary [facility] HB ABO GROUPING 2024-04-25 03:04:00 Jen Choudhary [facility] N-TERMINAL PRO-BNP 2024-04-25 03:04:00 Jen Choudhary ae [facility] CBC WITHOUT DIFF 2024-01-22 14:34:00 [facility] (NA, K, CL, CO2, GLUCOSE, BUN, CREATININE, CA) 2024-01-18 10:06:00 Augie [facility] CBC WITHOUT DIFF 2024-01-18 10:06:00 Richmond Gonsalves [facility] BASIC METABOLIC PANEL (NA, K, CL, CO2, GLUCOSE, BUN, CREATININE, CA) 2024-01-17 08:44:00 Melissa [facility] CBC WITHOUT DIFF 2024-01-17 08:44:00 Major [facility] BASIC METABOLIC PANEL (NA, K, CL, CO2, GLUCOSE, BUN, CREATININE, CA) 2024-01-16 17:56:00 Major [facility] BASIC METABOLIC PANEL (NA, K, CL, CO2, GLUCOSE, BUN, CREATININE, CA) 2024-01-16 09:30:00 Major [facility] CBC WITHOUT DIFF 2024-01-16 09:30:00 Major [facility] SODIUM, URINE RANDOM 2024-01-15 15:21:00 Melissa [facility] PROTEIN CREAT RATIO URINE RANDOM 2024-01-15 15:20:00 [facility] BASIC METABOLIC PANEL (NA, K, CL, CO2, GLUCOSE, BUN, CREATININE, CA) 2024-01-15 09:34:00 Augie [facility] CBC WITHOUT DIFF 2024-01-15 09:34:00 [facility] C4 COMPLEMENT 2024-01-14 19:07:00 Cheriegavin [facility] CBC WITH DIFF 2024-01-14 19:07:00 [facility] COMPLEMENT CH50, TOTAL 2024-01-14 19:07:[facility] ANTI-NUCLEAR ANTIBODY SCREEN 2024-01-14 19:07:00 Augie Twin [facility] ANTI-NUCLEAR ANTIBODY TITER 2024-01-14 19:07:00 Augie Twin [facility] PROTEINASE 3 ANTIBODY PR3 2024-01-14 19:07:00 Augie Twin [facility] BASIC METABOLIC PANEL (NA, K, CL, CO2, GLUCOSE, BUN, CREATININE, CA) 2024-01-14 17:38:00 Richmond Gonsalves [facility] CBC WITHOUT DIFF 2024-01-14 17:38:00 Charly Jacob [facility] BASIC METABOLIC PANEL (NA, K, CL, CO2, GLUCOSE, BUN, CREATININE, CA) 2024-01-14 10:09:00 Charly Jacob [facility] CBC WITH DIFF 2024-01-14 10:09:00 Charly Jacob [facility] CBC WITH DIFF 2024-01-14 03:59:00 Coretta Marsh [facility] CBC WITHOUT DIFF 2024-01-13 18:16:00 Monica Bethea [facility] PREPARE PACKED RBC 2024-01-13 17:57:46 Reema Bethea [facility] TYPE AND SCREEN 2024-01-13 16:50:00 Jose [facility] TYPE AND SCREEN 2024-01-13 16:50:00 Monica Bethea [facility] ANGIOGRAM ABDOMEN/PELVIS 2024-01-13 15:54:00 Monica Bethea [facility] COMP. METABOLIC PANEL (92712) 2024-01-13 13:19:00 Monica Bethea [facility] CBC WITH DIFF 2024-01-13 13:19:00 Monica Bethea [facility] PROTHROMBIN TIME / INR 2024-01-13 13:19:00 Dimitry Bethea [facility] CT ABDOMEN PELVIS WO CONTRAST 2023-09-13 02:35:22 Aisha Morales [facility] TROPONIN I 2023-09-12 23:39:00 [facility] COMP. METABOLIC PANEL (11123) 2023-09-12 23:39:00 Aisha Morales [facility] CBC WITH DIFF 2023-09-12 23:39:00 Aisha Morales [facility] URINALYSIS 2023-09-12 23:39:00 [facility] INFLUENZA A/B RSV COVID NAAT 2023-09-12 23:39:00 Aisha Morales [facility] N-TERMINAL PRO-BNP 2023-09-12 23:39:00 Aisha Morales [facility] LACTIC ACID WHOLE BLOOD 2023-09-12 23:39:00 Do peter Morales [facility] XR CHEST 1 VW 2023-09-12 23:31:42 Aisha Morales [facility] DEXA AXIAL (HIP AND SPINE) 2022-02-28 17:18:41 Rajan Guerra [facility] Encounters Start Date/Time End Date/Time Encounter Type Admission Type Attending [facility] Care Department Encounter ID Source 2024-04-30 10:59:00 [facility] [id number] [facility] 2024-04-07 11:32:00 [facility] [id number] [facility] 2023-10-03 16:19:00 [facility] [id number] [facility] 2023-09-05 11:15:00 [facility] [id number] [facility] 2022-07-30 09:37:00 [facility] [id number] [facility] 2022-05-18 11:00:00 Inpatient RAJAN RODRIGUEZ [facility] [id number] [facility] 2022-05-07 09:27:00 Outpatient Guerra, Rajan [facility] [id number] [facility] 2021-04-19 14:37:58 Outpatient Guerra, Rajan [facility] [id number] [facility] 2021-04-19 12:58:12 Outpatient Guerra, Rajan [facility] [id number] [facility] 2021-04-19 12:25:52 Outpatient Guerra, Rajan [facility] [id number] [facility] 2021-04-19 12:25:30 Outpatient Guerra, Rajan [facility] ST[facility] [id number] [facility] 2021-04-19 11:59:48 [facility] [id number] [facility] 2021-04-19 11:59:35 [facility] [id number] [facility] 2021-04-19 11:49:05 [facility] [id number] [facility] 2021-04-19 11:32:13 [facility] [id number] [facility] 2021-04-19 11:31:48 [facility] [id number] [facility] 2021-04-19 11:17:25 Out[facility] [id number] [facility] 2021-04-19 10:59:19 Outpatient [facility] [id number] [facility] 2024-06-29 00:00:00 2024-06-29 00:00:00 (TEL) [facility] [id number] [facility] 2024-06-10 00:00:00 2024-06-10 00:00:00 (TEL) [facility] [id number] [facility] 2024-06-04 00:00:00 2024-06-04 00:00:00 (TEL) STLMLC STLC [id number] [facility] 2024-05-27 00:00:00 2024-05-27 00:00:00 (TEL) [facility] [id number] [facility] 2024-05-21 11:15:00 2024-05-21 12:34:31 Office Visit Malik Weinberg [facility] [id number] [facility] 2024-05-21 11:15:00 2024-05-21 12:34:31 Outpatient R MALIK WEINBERG [facility] [id number] [facility] 2024-05-12 00:00:00 2024-05-13 02:04:01 Orders Only Doctor Unassigned, [place] Doctor Unassigned, [place] [facility] [id number] [id number] [facility] 2024-05-12 00:00:00 2024-05-13 02:03:42 Orders Only Doctor Unassigned, [place] Doctor Unassigned, [place] [facility] [id number] [id number] 4.2.7.2.686 [id number] [facility] 2024-05-04 00:00:00 2024-05-04 00:00:00 (EST. VIDEO) [facility] [id number] 2024-04-30 00:00:00 2024-04-30 16:21:29 Telephone Ingrid [facility] [id number] 350.1.13.10 4.2.7.2.686 [id number] [facility] 2024-04-30 08:00:00 2024-04-30 09:42:55 Outpatient R SELENE [facility] [id number] [facility] 2024-04-30 08:00:00 2024-04-30 09:42:55 Office Visit In[facility] LUIS DANIEL[facility] [id number] 350.1.13.10 4.2.7.2.686 [id number] [facility] 2024-04-28 00:00:00 2024-04-28 14:37:26 Transition of Care Ewa Escobar Christine [address] [id number] 350.1.13.10 4.2.7.2.686 [id number] [facility] 2024-04-28 00:00:00 2024-04-28 00:00:00 (TEL) STLMLC STLMLC [id number] [facility] 2024-04-24 18:48:00 2024-04-27 19:53:00 Inpatient U KALPANA [facility]EN[facility] [id number] [facility] 2024-04-24 18:48:00 2024-04-27 19:53:00 Hospital Encounter Kalpana Renee Kian [facility] 1.2.840.114 350.1.13.10 4.2.7.2.686 [id number] [facility] 2024-04-23 00:00:00 2024-04-23 13:09:44 Telephone Mik[facility]la [facility] [id number] 350.1.13.10 4.2.7.2.686 [id number] [facility] [facility] 2024-04-15 00:00:00 2024-04-15 00:00:00 (TEL) STLMLC STLMLC [id number] [facility] 2024-04-02 00:00:00 2024-04-02 00:00:00 (TEL) STLMLC STLMLC [id number] [facility] 2024-01-31 00:00:00 2024-01-31 00:00:00 (HOSP F/U) Hospital Follow Up STLMLC STLMLC [id number] [facility] 2024-01-29 00:00:00 2024-01-29 00:00:00 (TEL) STLMLC STLMLC [id number] [facility] 2024-01-22 08:00:00 2024-01-22 10:34:02 Outpatient R MONICA BETHEA [facility] [id number] [facility] 2024-01-22 08:00:00 2024-01-22 10:34:02 Office Visit Monica Bethea [facility] 1.2.840.114 350.1.13.10 4.2.7.2.686 [id number] [facility] 2024-01-22 09:30:00 2024-01-22 10:01:22 Termite Helper Visit 2, Adc Lab Monica Bethea 2, Adc Lab [facility] 1.2.840.114 350.1.13.10 4.2.7.2.686 [id number] [facility] 2024-01-21 00:00:00 2024-01-21 00:00:00 (TEL) STLMLC STLMLC [id number] [facility] 2024-01-20 00:00:00 2024-01-20 12:13:05 Transition of Care Alyssa Matt Miatha R SHEARN POLO LIRA 1.2.840.114 350.1.13.10 4.2.7.2.686 [id number] [facility] 2024-01-20 00:00:00 2024-01-20 00:00:00 (TEL) [facility] [id number] [facility] 2024-01-13 17:36:00 2024-01-18 13:32:00 Hospital Encounter Jose Wesley Rachel Armstrong, Robin Ezzeldin, Obadah Magnus, Leah Herrera, Sierra [facility] 1.2.840.114 350.1.13.10 4.2.7.2.686 [id number] [facility] 2024-01-13 07:40:53 2024-01-18 13:32:00 Inpatient R MADDY MARTIN [facility] [id number] [facility] 2024-01-14 00:00:00 2024-01-14 11:21:55 Case Management Monica Bethea [facility] 1.2.840.114 350.1.13.10 4.2.7.2.686 [id number] [facility] 2024-01-13 11:38:50 2024-01-13 17:35:00 Hospital Encounter Monica Bethea Leah Laird, Rachel [facility] 1.2.840.114 350.1.13.10 4.2.7.2.686 [id number] [facility] 2024-01-13 10:30:00 2024-01-13 11:37:00 Hospital Encounter Monica Bethea Rachel [facility] 1.2.840.114 350.1.13.10 4.2.7.2.686 [id number] [facility] 2023-12-04 00:00:00 2023-12-04 00:00:00 OFFICE VISIT ESTAB PT LEVEL 4 STLMLC STLMLC [id number] [facility] 2023-12-04 00:00:00 2023-12-04 00:00:00 SUB ANNUAL [facility] VISIT STLMLC STLMLC [id number] [facility] 2023-09-12 16:52:00 2023-09-12 22:44:00 Emergency X AISHA MORALES [facility] ERT [id number] [facility] 2023-09-12 16:52:00 2023-09-12 22:44:00 Emergency Aisha Morales [facility] 1.2.840.114 350.1.13.10 4.2.7.2.686 [id number] [facility] 2023-09-05 00:00:00 2023-09-05 00:00:00 (TEL) STLMLC STLMLC [id number] [facility] 2023-09-04 00:00:00 2023-09-04 00:00:00 OFFICE VISIT ESTAB PT LEVEL 4 STLMLC STLMLC [id number] [facility] 2023-08-21 00:00:00 2023-08-21 00:00:00 (TEL) STLMLC STLMLC [id number] [facility] 2023-08-14 00:00:00 2023-08-14 00:00:00 (TEL) STLMLC STLMLC [id number] [facility] 2023-08-09 00:00:00 2023-08-09 00:00:00 (TEL) STLMLC STLMLC [id number] [facility] 2023-05-30 00:00:00 2023-05-30 00:00:00 OFFICE VISIT ESTAB PT LEVEL 4 STLMLC STLMLC [id number] [facility] 2023-01-28 00:00:00 2023-01-28 00:00:00 (TEL) STLMLC STLMLC [id number] [facility] 2023-01-14 00:00:00 2023-01-14 00:00:00 OFFICE VISIT ESTAB PT LEVEL 4 STLMLC STLMLC [id number] [facility] 2022-12-18 00:00:00 2022-12-18 00:00:00 (TEL) STLMLC STLMLC [id number] [facility] 2022-10-05 00:00:00 2022-10-05 00:00:00 (TEL) STLMLC STLMLC [id number] [facility] 2022-10-03 00:00:00 2022-10-03 00:00:00 OFFICE VISIT ESTAB PT LEVEL 4 STLMLC STLMLC [id number] [facility] 2022-10-03 00:00:00 2022-10-03 00:00:00 (TEL) STLMLC STLMLC [id number] [facility] 2022-10-03 00:00:00 2022-10-03 00:00:00 SUB ANNUAL [facility]NESS VISIT STLMLC STLMLC [id number] [facility] 2022-07-30 00:00:00 2022-07-30 00:00:00 OFFICE VISIT ESTAB PT LEVEL 4 STLMLC STLMLC [id number] [facility] 2022-05-22 08:51:00 2022-05-22 00:01:00 Outpatient [facility] [id number] [facility] 2022-05-07 00:00:00 2022-05-07 00:00:00 OFFICE VISIT ESTAB PT LEVEL 4 STLMLC STLMLC [id number] [facility] 2022-05-07 00:00:00 2022-05-07 00:00:00 (TEL) STLMLC STLMLC [id number] [facility] 2022-02-28 10:31:27 2022-02-28 23:59:00 Outpatient R RADIOLOGY [facility] [id number] [facility] 2022-02-28 10:31:27 2022-02-28 23:59:00 Hospital Encounter Radiology [facility] 1.2.840.114 350.1.13.10 4.2.7.2.686 [id number] [facility] 2022-02-20 00:00:00 2022-02-20 00:00:00 (TEL) STLMLC STLMLC [id number] [facility] 2022-01-16 00:00:00 2022-01-16 00:00:00 (TEL) STLMLC STLMLC [id number] [facility] 2022-01-02 00:00:00 2022-01-02 00:00:00 OFFICE VISIT ESTAB PT LEVEL 4 STLMLC STLMLC [id number] [facility] 2022-01-02 00:00:00 2022-01-02 00:00:00 (TEL) STLMLC STLMLC [id number] [facility] 2021-11-09 00:00:00 2021-11-09 00:00:00 OFFICE VISIT ESTAB PT LEVEL 4 STLMLC STLMLC [id number] [facility] 2021-11-09 00:00:00 2021-11-09 00:00:00 (TEL) STLMLC STLMLC [id number] [facility] 2021-10-25 00:00:00 2021-10-25 00:00:00 (TEL) STLMLC STLMLC [id number] [facility] 2021-10-04 00:00:00 2021-10-04 00:00:00 OFFICE VISIT ESTAB PT LEVEL 4 STLMLC STLMLC [id number] [facility] 2021-10-04 00:00:00 2021-10-04 00:00:00 SUB ANNUAL [facility] WELLNESS VISIT STLMLC STLMLC [id number] [facility] 2021-08-14 00:00:00 2021-08-14 00:00:00 (HOSP F/U) Hospital Follow Up STLMLC STLMLC [id number] [facility] 2021-08-10 00:00:00 2021-08-10 00:00:00 (TEL) STLMLC STLMLC [id number] [facility] 2021-08-09 00:00:00 2021-08-09 00:00:00 (TEL) STLMLC STLMLC [id number] [facility] 2021-07-12 00:00:00 2021-07-12 00:00:00 OFFICE VISIT ESTAB PT LEVEL 4 STLMLC STLMLC [id number] [facility] 2021-04-13 00:00:00 2021-04-13 00:00:00 OFFICE VISIT ESTAB PT LEVEL 4 STLMLC STLMLC [id number] [facility] 2021-03-06 00:00:00 2021-03-06 00:00:00 (TEL) STLMLC STLMLC [id number] [facility] 2021-01-11 00:00:00 2021-01-11 00:00:00 OFFICE VISIT ESTAB PT LEVEL 4 STLMLC STLMLC [id number] [facility] 2020-10-11 00:00:00 2020-10-11 00:00:00 Outpatient STLMLC STLMLC [id number] [facility] 2020-10-11 00:00:00 2020-10-11 00:00:00 Outpatient STLMLC STLMLC [id number] [facility] 2020-10-05 00:00:00 2020-10-05 00:00:00 Outpatient STLMLC STLMLC [id number] [facility] 2020-07-20 00:00:00 2020-07-20 00:00:00 Outpatient STLMLC STLMLC [id number] [facility] 2020-04-21 00:00:00 2020-04-21 00:00:00 Outpatient STLMLC STLMLC [id number] [facility] 2020-01-20 00:00:00 2020-01-20 00:00:00 Outpatient STLMLC STLMLC [id number] [facility] 2019-12-21 00:00:00 2019-12-21 00:00:00 Outpatient STLMLC STLMLC [id number] [facility] 2019-12-18 00:00:00 2019-12-18 00:00:00 Outpatient STLMLC STLMLC [id number] [facility] 2019-10-20 11:00:00 2019-10-20 11:00:00 [facility] [id number] [facility] 2019-10-20 11:00:00 2019-10-20 11:00:00 [facility] [facility] [id number] [facility] 2019-10-12 15:00:00 2019-10-12 15:00:00 [facility] [facility] [id number] [facility] 2019-10-11 21:54:00 2019-10-11 21:54:[address] [facility] [id number] [facility] 2019-10-05 08:30:00 2019-10-05 08:30:[address] [facility] [id number] [facility] 2019-09-30 13:20:00 2019-09-30 13:20:[address] [facility] [address] [facility] [id number] [facility] 2019-09-28 16:39:00 2019-09-28 16:39:00 [facility] [id number] [facility] 2019-09-21 16:12:00 2019-09-21 16:12:00 [facility] [id number] [facility] 2019-09-16 08:20:00 2019-09-16 08:20:00 [facility] [id number] [facility] 2019-09-15 13:09:00 2019-09-15 13:09:00 [facility] [id number] [facility] 2019-06-23 11:30:00 2019-06-23 11:30:00 [facility] [facility] [id number] [facility] 2019-04-02 11:00:00 2019-04-02 11:00:00 [facility] [id number] [facility] 2019-03-26 08:00:00 2019-03-26 08:00:00 [facility] [facility] [id number] [facility] 2018-12-18 10:45:00 2018-12-18 10:45:00 [facility] [id number] [facility] 2018-09-18 10:30:00 2018-09-18 10:30:00 [facility] [id number] [facility] 2018-07-09 13:59:00 2018-07-09 13:59:00 [facility] [facility] [id number] [facility] 2017-11-07 10:30:00 2017-11-07 10:30:00 [facility] [facility] [id number] [facility] Results Test Description Test Time Test Comments Results Resul t Comments Source RADIOLOGY DOCUMENTATION 2024-04-25 8 20:20:19 Ordered by an unspecified provider. [facility] RADIOLOGY DOCUMENTATION 2024-04-25 8 20:19:48 [facility] (NA, K, CL, CO2, GLUCOSE, BUN, CREATININE, CA)2024-04-27 12:03:36* Test Item Value Reference Range Interpretation Comme nts NA (test code = 4555071274) 130 mmol/L 135-145 L K (test code = 8404825590) 4.9 mmol/L 3.5-5.0 CL (test code = 9222381322) 105 mmol/L 98-108 CO2 TOTAL (test code = 2505226040) 22 mmol/L 23-31 L AGAP (test code = 0529767164) 3 2-16 BUN (test code = 8095935797) 91 mg/dL 7-23 H GLUCOSE (test code = 4145233663) 82 mg/dL 70-110 CREATININE (test code = 2160-0) 1.57 mg/dL 0.50-1.04 H CALCIUM (test code = 1688335763) 8.1 mg/dL 8.6-10.6 L eGFR (test code = 67919-9) 33.0 mL/min/1.73m2 CKD-EPI eGFR (2020). Assuming creatinine has been stable day-to-day for at least three months, the eGFR indicates Category G3b (30 - 44 mL/min/1.73 m2) Lab Interpretation (test code = 19357-5) [facility] 12:03:36* Test Item Value Reference Range Interpretation Comme nts MAGNESIUM (test code = 9302580376) 1.9 mg/dL 1.7-2.4 Lab Interpretation (test cod e = 57302-8) Normal [facility] [id number] 04:14:58* Test Item Value Reference Range Interpretation [...] 34.0 g/dL 31.6-35.1 RDW-SD (test code = 17827-4) 49.8 fL 39.0-49.9 RDW-CV (test code = 788-0) 15.6 % 12.0-15.5 H PLT (test code = 777-3) 262 166-358 MPV (test code = 04003-9) 9.9 fL 9.5-12.9 NRBC/100 WBC (test code = 8194803342) 0.0 0.0-10.0 NRBC x10^3 (test code = 2726799781) See_Comment [Automated messa ge] The system which generated this result transmitted reference range: 10*3/?L. The reference range was not used to interpret this result as normal/abnormal. GRAN MAT (NEUT) % (test code = 770-8) 77.6 % IMM GRAN % (test code = 1214510126) 7.20 % LYMPH % (test code = 736-9) 5.8 % MONO % (test code = 5905-5) 9.1 % EOS % (test code = 713-8) 0.1 % BASO % (test code = 706-2) 0.2 % GRAN MAT x10^3(ANC) (test code = 8512211075) 6.47 10*3/uL 1.88-7.09 IMM GRAN x10^3 (test code = 3260049065) 0.60 10*3/uL 0.00-0.06 H LYMPH x10^3 (test code = 731-0) 0.48 10*3/uL 1.32-3.29 L MONO x10^3 (test code = 742-7) 0.76 10*3/uL 0.33-0.92 EOS x10^3 (test code = 711-2) 0.03-0.39 L BASO x10^3 (test code = 704-7) 0.01-0.07 Lab Interpretation (test code = 62361-0) Abnormal [facility] with Otif8434-88-79 10:42:45* Test Item Value Reference Range Interpretation [...] 34.4 g/dL 31.6-35.1 RDW-SD (test code = 67649-1) 48.1 fL 39.0-49.9 RDW-CV (test code = 788-0) 15.4 % 12.0-15.5 PLT (test code = 777-3) 270 166-358 MPV (test code = 81083-2) 10.2 fL 9.5-12.9 NRBC/100 WBC (test code = 8741367330) 0.0 0.0-10.0 NRBC x10^3 (test code = 2550645317) See_Comment [Automated messa ge] The system which generated this result transmitted reference range: 10*3/?L. The reference range was not used to interpret this result as normal/abnormal. GRAN MAT (NEUT) % (test code = 770-8) 80.8 % IMM GRAN % (test code = 5651471136) 5.50 % LYMPH % (test code = 736-9) 4.7 % MONO % (test code = 5905-5) 8.4 % EOS % (test code = 713-8) 0.0 % BASO % (test code = 706-2) 0.6 % GRAN MAT x10^3(ANC) (test code = 4644441615) 7.65 10*3/uL 1.88-7.09 H IMM GRAN x10^3 (test code = 8547052834) 0.52 10*3/uL 0.00-0.06 H LYMPH x10^3 (test [...] as normal/abnormal. Lab Interpretation (test code = 52821-8) Abnormal [facility] Metabolic Panel (NA, K, CL, CO2, GLUCOSE, BUN, CREATININE, CA)2024-04-26 10:21:49* Test Item Value Reference Range Interpretation Comme nts NA (test code = 1361094363) 130 mmol/L 135-145 L K (test code = 2453507214) 5.3 mmol/L 3.5-5.0 H CL (test code = 4280806574) 104 mmol/L 98-108 CO2 TOTAL (test code = 6019013639) 22 mmol/L 23-31 L AGAP (test code = 0309476164) 4 2-16 BUN (test code = 1519768675) 105 mg/dL 7-23 H GLUCOSE (test code = 3921527550) 98 mg/dL 70-110 CREATININE (test code = 2160-0) 1.89 mg/dL 0.50-1.04 H CALCIUM (test code = 5211890594) 8.1 mg/dL 8.6-10.6 L eGFR (test code = 63759-9) 26.4 mL/min/1.73m2 CKD-EPI eGFR (2020). Assuming creatinine has been stable day-to-day for at least three months, the eGFR indicates Category G4 (15 - 29 mL/min/1.73 m2) Lab Interpretation (test code = 62475-5) [facility] 10:21:49* Test Item Value Reference Range Interpretation Comme nts MAGNESIUM (test code = 8724599411) 2.0 mg/dL 1.7-2.4 Lab Interpretation (test cod e = 47153-9) Normal [facility] 1 [id number] 02:50:41CHEST SINGLE VIEW CLINICAL HISTORY: CF pneumonitis versus pneumonia. ORDERING PHYSICIAN: ?KALPANA PADILLA TECHNIQUE: Frontal view of chest COMPARISON: 09/20/2023 FINDINGS: The heart size is within normal limits. The pulmonary vascularity does notappear congested. Mild opacities in the right lung base are observed.Calcific density which may represent a granuloma is seen in the medial leftlung apex. There is no convincing pleural effusion or pneumothorax. Noacute osseous process is observedUnThe [facility] CampusFerritin Pvuao7435-42-60 21:14:37* Test Item Value Reference Range Interpretation Comme nts FERRITIN (test code = 8337111960) 464.0 ng/mL 11.0-264.0 H THOMAS (test code = THOMAS) Biotin has been reported to cause a negative bias, interpret results relative to patient's use of biotin. Lab Interpretation (test code = 27429-9) Abnormal [facility] SouthOsmolality, Serum or Jkadft3089-21-81 16:04:19 * Test Item Value Reference Range Interpretation Comme nts OSMOLALITY (test code = 2692-2) 321 278-305 HH Lab Interpretation (test cod e = 02817-7) Abnormal [facility] Packed RBC (in units), 2 Units 2024-04-25 15:05:38* Test Item Value Reference Range Interpretation Comme nts Cross Match Result (test code = 4409) Compatible ISBT Blood Type Code (test code = 424932) 6200 Unit Blood Type (test code = 4410) A Pos Unit Number (test code = 4411) [id number] Blood Expiration Date & Time (test code = 614799) [id number] Status Information (test code = 4412) Issued Product Identification (test code = 4413) Red Blood Cells Product Code (test code = 4414) [id number] Performed at [facility] B Laboratory Services - [facility] Blood [address] [place], [place] [address]Toll Free: [phone] No. [id number] [facility] H[facility] 2 vw orteh8913-59-84 13:35:19EXAM: XR HIPS 2 VW RIGHT HISTORY: [...] fixation is seen with amedialized lesser trochanter fragment.[facility] Basic Metabolic Panel (NA, K, CL, CO2, GLUCOSE, BUN, CREATININE, CA)2024-04-25 10:40:59* Test Item Value Reference Range Interpretation Comme nts NA (test code = 4185144825) 126 mmol/L 135-145 L K (test code = 4828847014) 5.0 mmol/L 3.5-5.0 CL (test code = 1295741441) 99 mmol/L 98-108 CO2 TOTAL (test code = 1670186683) 24 mmol/L 23-31 AGAP (test code = 0826319137) 3 2-16 BUN (test code = 9924412036) 127 mg/dL 7-23 H GLUCOSE (test code = 1529864601) 99 mg/dL 70-110 CREATININE (test code = 2160-0) 2.09 mg/dL 0.50-1.04 H CALCIUM (test code = 4484117165) 7.8 mg/dL 8.6-10.6 L eGFR (test code = 38219-8) 23.4 mL/min/1.73m2 CKD-EPI eGFR (2020). Assuming creatinine has been stable day-to-day for at least three months, the eGFR indicates Category G4 (15 - 29 mL/min/1.73 m2) Lab Interpretation (test code = 49083-2) Abnormal [facility] with Gdpc5236-37-94 10:32:04* Test Item Value Reference Range Interpretation [...] 32.4 g/dL 31.6-35.1 RDW-SD (test code = 76759-8) 51.0 fL 39.0-49.9 H RDW-CV (test code = 788-0) 16.2 % 12.0-15.5 H PLT (test code = 777-3) 310 166-358 MPV (test code = 72462-0) 10.7 fL 9.5-12.9 NRBC/100 WBC (test code = 0647645736) 0.0 0.0-10.0 NRBC x10^3 (test code = 9700765499) See_Comment [Automated message] The system which generated this result transmitted reference range: 10*3/?L. The reference range was not used to interpret this result as normal/abnormal. GRAN MAT (NEUT) % (test code = 770-8) 85.3 % IMM GRAN % (test code = 0256125628) 2.40 % LYMPH % (test code = 736-9) 5.8 % MONO % (test code = 5905-5) 6.3 % EOS % (test code = 713-8) 0.1 % BASO % (test code = 706-2) 0.1 % GRAN MAT x10^3(ANC) (test code = 0614152386) 10.48 10*3/uL 1.88-7.09 H IMM GRAN x10^3 (test code = 1689981891) 0.30 10*3/uL 0.00-0.06 H LYMPH x10^3 (test [...] as normal/abnormal. Lab Interpretation (test code = 75471-6) [facility]normal [facility]2025-02-01 10:25:33* Test Item Value Reference Range Interpretation Comme nts MAGNESIUM (test code = 8227606505) 1.9 mg/dL 1.7-2.4 Lab Interpretation (test cod e = 04154-0) Normal [facility] SouthPhosphorus2025-02-01 10:25:33* Test Item Value Reference Range Interpretation Comme nts PHOSPHORUS (test code = 6960791220) 5.1 mg/dL 2.5-5.0 H Lab Interpretation (test cod e = 30840-4) Abnormal [facility] SouthGlycosylated Hemoglobin (A1C)2024-04-25 10:11:36* Test Item Value Reference Range Interpretation Comme nts HGB A1C (test code = 4548-4) 4.5 % 4.0-5.7 THOMAS (test code = THOMAS) Reference RangesNormal: <5.7%Prediabetes: 5.7 - 6.4%Diabetes: > 6.5% Lab Interpretation (test code = 04590-3) Normal [facility]ibr[facility]ogen2025-02-01 10:00:30* Test Item Value Reference Range Interpretation Comme nts Fibrinogen (test code = 1901776469) 558 mg/dL 167-453 H Lab Interpretation (test cod e = 22023-1) Abnormal [facility] with Mbpd8870-79-18 03:46:01* Test Item Value Reference Range Interpretation [...] 33.0 g/dL 31.6-35.1 RDW-SD (test code = 26481-6) 51.1 fL 39.0-49.9 H RDW-CV (test code = 788-0) 16.0 % 12.0-15.5 H PLT (test code = 777-3) 366 166-358 H MPV (test code = 31020-1) 10.2 fL 9.5-12.9 NRBC/100 WBC (test code = 2407503118) 0.1 0.0-10.0 NRBC x10^3 (test code = 7564399341) 0.02 See_Comment [Automated message] The system which generated this result transmitted reference range: 10*3/?L. The reference range was not used to interpret this result as normal/abnormal. GRAN MAT (NEUT) % (test code = 770-8) 90.8 % IMM GRAN % (test code = 2434159488) 2.10 % LYMPH % (test code = 736-9) 2.2 % MONO % (test code = 5905-5) 4.8 % EOS % (test code = 713-8) 0.0 % BASO % (test code = 706-2) 0.1 % GRAN MAT x10^3(ANC) (test code = 0587276069) 13.81 10*3/uL 1.88-7.09 H IMM GRAN x10^3 (test code = 1067157809) 0.32 10*3/uL 0.00-0.06 H LYMPH x10^3 (test code = 731-0) 0.34 10*3/uL 1.32-3.29 L MONO x10^3 (test code = 742-7) 0.73 10*3/uL 0.33-0.92 EOS x10^3 (test code = 711-2) 0.03-0.39 L BASO x10^3 (test code = 704-7) 0.01-0.07 Lab Interpretation (test code = 49742-3) Abnormal [facility] Metabolic Panel (NA, K, CL, CO2, GLUCOSE, BUN, CREATININE, CA)2024-04-25 03:37:24* Test Item Value Reference Range Interpretation Comme nts NA (test code = 6316210004) 127 mmol/L 135-145 L K (test code = 5621602104) 5.2 mmol/L 3.5-5.0 H CL (test code = 8030797912) 98 mmol/L 98-108 CO2 TOTAL (test code = 2153362388) 24 mmol/L 23-31 AGAP (test code = 6310551051) 5 2-16 BUN (test code = 5957961991) 130 mg/dL 7-23 H GLUCOSE (test code = 9467562668) 133 mg/dL 70-110 H CREATININE (test code = 2160-0) 2.29 mg/dL 0.50-1.04 H CALCIUM (test code = 6704564088) 8.0 mg/dL 8.6-10.6 L eGFR (test code = 67400-7) 21.0 mL/min/1.73m2 CKD-EPI eGFR (2020). Assuming creatinine has been stable day-to-day for at least three months, the eGFR indicates Category G4 (15 - 29 mL/min/1.73 m2) Lab Interpretation (test code = 71037-1) [id number] 03:34:18* Test Item Value Reference Range Interpretation Comme nts NT-proBNP (test code = 77875-8) 1520 pg/mL <=125 THOMAS (test code = THOMAS) Result Indeterminate-Consid er causes of NT-proBNP elevation other than Heart failure such as acute coronary syndrome, pulmonary embolism, pulmonary hypertension, sepsis, stroke, and renal dysfunction. Lab Interpretation (test code = 67110-0) [facility]normal [facility] SouthProthrombin Time / [id number] 03:26:35* Test Item Value Reference Range Interpretation Comme nts PROTIME PATIENT (test code = 5964-2) 10.2 10.1-12.6 INR (test code = 6301-6) 0.9 Normal INR <1.1; Warfarin Therapeutic range 2.0 to 3.0 or 2.5 to 3.5, depending upon the indications. Lab Interpretation (test code = 58866-4) Normal [facility] SouthActivated Partial Thrmplas [id number] 03:26:35* Test Item Value Reference Range Interpretation Comme nts APTT Patient (test code = 3173-2) 24 26-36 L Lab Interpretation (test cod e = 42341-2) [facility]normal [facility] SouthHepatic Function Panel (61470) (ALB,T.PRO,BILI T,BU/BC,ALT,AST,ALK PHOS)2024-04-25 03:26:15* Test Item Value Reference Range Interpretation Comme nts TOTAL BILI (test code = 4295293985) 0.9 mg/dL 0.1-1.1 BILI UNCON (test code = 9873610098) 0.4 mg/dL 0.1-1.1 BILI CONJ (test code = 7849991172) 0.0 mg/dL 0.0-0.3 T PROTEIN (test code = 6674575281) 5.8 g/dL 6.3-8.2 L ALBUMIN (test code = 4603320716) 3.1 g/dL 3.5-5.0 L ALK PHOS (test code = 1877416418) 92 U/L 34-122 ALTv (test code = 1742-6) 9 U/L 5-35 AST(SGOT) (test code = 8370662317) 22 U/L 13-40 Lab Interpretation (test cod e = 77246-7) [facility]normal [facility] SouthMagnesium2025-02-01 03:26:15* Test Item Value Reference Range Interpretation Comme nts MAGNESIUM (test code = 0465372887) 2.0 mg/dL 1.7-2.4 Lab Interpretation (test cod e = 64350-4) Normal [facility] SouthPhosphorus2025-02-01 03:26:15* Test Item Value Reference Range Interpretation Comme nts PHOSPHORUS (test code = 7844151195) 5.0 mg/dL 2.5-5.0 Lab Interpretation (test cod e = 18366-9) Normal [facility] SouthType and Screen - ONCE [id number] 03:14:00* Test Item Value Reference Range Interpretation Comme nts ABO & RH (test code = 20) A POSITIVE IAT (test code = 1185) Negative [facility] SouthLactic Acid Whole [id number] 03:13:39* Test Item Value Reference Range Interpretation Comme nts LACTIC ACID (test code = 3511300715) 1.55 mmol/L 0.50-2.20 Lab Interpretation (test cod e = 44668-2) Normal [facility] Metabolic Panel (NA, K, CL, CO2, GLUCOSE, BUN, CREATININE, CA)2024-01-16 18:27:03* Test Item Value Reference Range Interpretation Comme nts NA (test code = 8307436696) 132 mmol/L 135-145 L K (test code = 7564303482) 4.3 mmol/L 3.5-5.0 CL (test code = 0446801599) 102 mmol/L 98-108 CO2 TOTAL (test code = 2480040546) 25 mmol/L 23-31 AGAP (test code = 9146007107) 5 2-16 BUN (test code = 9674603225) 56 mg/dL 7-23 H GLUCOSE (test code = 1925911215) 134 mg/dL 70-110 H CREATININE (test code = 2160-0) 2.57 mg/dL 0.50-1.04 H CALCIUM (test code = 0537469648) 6.6 mg/dL 8.6-10.6 L eGFR (test code = 68282-2) 18.3 mL/min/1.73m2 CKD-EPI eGFR (2020). Assuming creatinine has been stable day-to-day for at least three months, the eGFR indicates Category G4 (15 - 29 mL/min/1.73 m2) Lab Interpretation (test code = 70946-6) Abnormal [facility] without [id number] 18:59:31* Test Item Value Reference Range Interpretation [...] 777-3) 353 166-358 MPV (test code = 73393-9) 11.0 fL 9.5-12.9 RDW-CV (test code = 788-0) 14.9 % 12.0-15.5 RDW-SD (test code = 63745-4) 48.8 fL 39.0-49.9 NRBC x10^3 (test code = 2918487613) See_Comment [Automated messa ge] The system which generated this result transmitted reference range: 10*3/?L. The reference range was not used to interpret this result as normal/abnormal. NRBC/100 WBC (test code = 2881704967) 0.0 0.0-10.0 IPF % (test code = 6854046533) Lab Interpretation (test code = 36538-3) Abnormal [facility] SouthType and Screen - STAT [id number] 18:09:14* Test Item Value Reference Range Interpretation Comme nts ABO & RH (test code = 20) A POSITIVE IAT (test code = 1185) Negative [facility] SouthType and Screen - [id number] 17:56:42* Test Item Value Reference Range Interpretation Comme nts IAT (test code = 1185) Negative Performed at [facility] Laboratory Services - [facility] Blood [address] [place] [id number] Free: [phone] No. [id number] ABO & RH (test code = 20) A POSITIVE Performed at [facility] Laboratory Services - [facility] Blood [address] [place] [id number] Free: [phone] No. [id number] [facility] SouthCom. Metabolic Panel (39503)2024-01-13 13:53:13* Test Item Value Reference Range Interpretation Comme nts NA (test code = 5853247113) 137 mmol/L 135-145 K (test code = 3211729611) 5.0 mmol/L 3.5-5.0 CL (test code = 9159552473) 108 mmol/L 98-108 CO2 TOTAL (test code = 2408006476) 20 mmol/L 23-31 L AGAP (test code = 7340001691) 9 2-16 BUN (test code = 9678548871) 35 mg/dL 7-23 H GLUCOSE (test code = 7216129867) 100 mg/dL 70-110 CREATININE (test code = 2160-0) 1.90 mg/dL 0.50-1.04 H TOTAL BILI (test code = 7494836303) 0.5 mg/dL 0.1-1.1 CALCIUM (test code = 2555552419) 8.4 mg/dL 8.6-10.6 L T PROTEIN (test code = 2220914944) 7.1 g/dL 6.3-8.2 ALBUMIN (test code = 7709575354) 3.9 g/dL 3.5-5.0 ALK PHOS (test code = 4348123960) 132 U/L 34-122 H ALTv (test code = 1742-6) 8 U/L 5-35 AST(SGOT) (test code = 6111614516) 19 U/L 13-40 eGFR (test code = 49962-0) 26.3 mL/min/1.73m2 CKD-EPI eGFR (2020). Assuming creatinine has been stable day-to-day for at least three months, the eGFR indicates Category G4 (15 - 29 mL/min/1.73 m2) Lab Interpretation (test code = 13623-2) Abnormal [facility] SouthProthrombin Time / [id number] 13:41:27* Test Item Value Reference Range Interpretation Comme nts PROTIME PATIENT (test code = 5964-2) 11.2 10.1-12.6 INR (test code = 6301-6) 1.0 Normal INR <1.1; Warfarin Therapeutic range 2.0 to 3.0 or 2.5 to 3.5, depending upon the indications. Lab Interpretation (test code = 08562-2) Normal [facility] with Gpwk2827-46-69 13:34:51* Test Item Value Reference Range Interpretation [...] g/dL 31.6-35.1 L RDW-SD (test code = 20694-4) 47.8 fL 39.0-49.9 RDW-CV (test code = 788-0) 14.9 % 12.0-15.5 PLT (test code = 777-3) 363 166-358 H MPV (test code = 11004-8) 10.6 fL 9.5-12.9 NRBC/100 WBC (test code = 8229696223) 0.0 0.0-10.0 NRBC x10^3 (test code = 5184254451) See_Comment [Automated [employer]!a ge] The system which generated this result transmitted reference range: 10*3/?L. The reference range was not used to interpret this result as normal/abnormal. GRAN MAT (NEUT) % (test code = 770-8) 74.3 % IMM GRAN % (test code = 5125186776) 0.30 % LYMPH % (test code = 736-9) 14.1 % MONO % (test code = 5905-5) 8.2 % EOS % (test code = 713-8) 2.2 % BASO % (test code = 706-2) 0.9 % GRAN MAT x10^3(ANC) (test code = 4331626164) 4.80 10*3/uL 1.88-7.09 IMM GRAN x10^3 (test code = 1281960661) 0.00-0.06 LYMPH x10^3 (test code = 731-0) 0.91 10*3/uL 1.32-3.29 L MONO x10^3 (test code = 742-7) 0.53 10*3/uL 0.33-0.92 EOS x10^3 (test code = 711-2) 0.14 10*3/uL 0.03-0.39 BASO x10^3 (test code = 704-7) 0.06 10*3/uL 0.01-0.07 Lab Interpretation (test code = 80073-1) Abnormal [facility] SouthCOMPREHENSIVE METABOLIC [id number] 00:00:00* Test Item Value Reference Range Interpretation Comme nts TSH REFLEX TO FREE T4 (test code = 96392-0) 2.400 UIU/ML See_Comment [Automated message] The system which generated this result transmitted reference range: 0.400-4.100 UIU/ML. The reference range was not used to interpret this result as normal/abnormal. CALC LDL CHOL (test code = 70063-6) 129 MG/DL See_Comment H [Automated [employer]] The system which generated this result transmitted reference range: <100 MG/DL. The reference range was not used to interpret this result as normal/abnormal. CHOLESTEROL (test code = 2093-3) 211 MG/DL See_Comment H [Automated [employer]] The system which generated this result transmitted reference range: <200 MG/DL. The reference range was not used to interpret this result as normal/abnormal. HDL CHOLESTEROL (test code = 5-9) 58 MG/DL See_Comment [Automated [employer]] The system which generated this result transmitted reference range: >39 MG/DL. The reference range was not used to interpret this result as normal/abnormal. RISK RATIO LDL/HDL (test code = 53889-7) 2.22 RATIO See_Comment [Automated message] The system [...] result as normal/abnormal. BASOPHILS (test code = 39782-8) 1.7 % DIAGNOSIS: (test code = 96430-1) (NOTE) COMMENTS (test code = 43691-8) (NOTE) EOSINOPHILS (test code = 86762-4) 1.7 % HEMATOCRIT (test code = 98935-0) 28.1 % See_Comment L [Automated messa ge] [...] result as normal/abnormal. LYMPHOCYTES (test code = 08933-6) 20.5 % MCH (test code = 93646-1) 27.0 PG See_Comment [Automated messa ge] The system which generated this result transmitted reference range: 25.0-33.0 PG. The reference range was not used to interpret this result as normal/abnormal. MCHC (test code = 92170-9) 31.0 G/DL See_Comment [Automated messa ge] The system which generated this result transmitted reference range: 31.0-36.0 G/DL. The reference range was not used to interpret this result as normal/abnormal. MCV (test code = 82483-4) 87.3 fL See_Comment [Automated messa ge] The system which generated this result transmitted reference range: 80.0-99.0 fL. The reference range was not used to interpret this result as normal/abnormal. MICROSCOPIC DESCRIPTION: (test code = 67113-4) (NOTE) MONOCYTES (test code = 32115-7) 7.7 % NEUTROPHILS (test code = 85819-1) 68.4 % PATHOLOGIST: (test code = 16924-8) (NOTE) PLATELET COUNT (test code = 27898-7) 407 K/UL See_Comment H [Automated messa ge] The system which generated this result transmitted reference range: 130-400 K/UL. The reference range was not used to interpret this result as normal/abnormal. RBC (test code = 80784-9) 3.22 M/UL See_Comment L [Automated messa ge] The system which generated this result transmitted reference range: 3.80-5.40 M/UL. The reference range was not used to interpret this result as normal/abnormal. RDW (test code = 90326-9) 13.9 % See_Comment [Automated messa ge] The system which generated this result transmitted reference range: 11.5-15.0 %. The reference range was not used to interpret this result as normal/abnormal. WBC (test code = 34769-7) 6.0 K/UL See_Comment [Automated messa ge] The [...] result as normal/abnormal. CALCIUM (test code = 99794-9) 8.7 MG/DL See_Comment [Automated messa ge] The [...] as normal/abnormal. CALC GLOBULIN (test code = 83121-6) 2.5 G/DL See_Comment [Automated messa ge] The [...] normal/abnormal. eGFR (2020 CKD-EPI) (test code = 51198-2) 29 ML/MIN/1.73 See_Comment L [Automated message] The [...] result as normal/abnormal. CT ABDOMEN PELVIS WO [id number] 03:11:51Ordering Physician: AISHA MORALES Clinical indication: Nausea [...] areapparent, suggesting these fractures are likely chronic. [facility]XR CHEST 1 [id number] 00:27:48Ordering physician: AISHA MORALES Clinical indication: Pneumonia [...] and spine. No acute bony abnormalities are evident.[facility] WITH DIFF 2023-09-13 00:21:11* Test Item Value [...] g/dL 31.6-35.1 L RDW-SD (test code = 36028-1) 54.0 fL 39.0-49.9 H RDW-CV (test code = 788-0) 17.0 % 12.0-15.5 H PLT (test code = 777-3) 393 166-358 H MPV (test code = 24853-7) 10.8 fL 9.5-12.9 NRBC/100 WBC (test code = 3630053762) 0.0 0.0-10.0 NRBC x10^3 (test code = 5784181732) See_Comment [Automated messa ge] The system which generated this result transmitted reference range: 10*3/?L. The reference range was not used to interpret this result as normal/abnormal. GRAN MAT (NEUT) % (test code = 770-8) 72.5 % IMM GRAN % (test code = 8898999835) 0.70 % LYMPH % (test code = 736-9) 14.8 % MONO % (test code = 5905-5) 9.6 % EOS % (test code = 713-8) 1.9 % BASO % (test code = 706-2) 0.5 % GRAN MAT x10^3(ANC) (test code = 1889738255) 5.43 10*3/uL 1.88-7.09 IMM GRAN x10^3 (test code = 3736315881) 0.05 10*3/uL 0.00-0.06 LYMPH x10^3 (test code = 731-0) 1.11 10*3/uL 1.32-3.29 L MONO x10^3 (test code = 742-7) 0.72 10*3/uL 0.33-0.92 EOS x10^3 (test code = 711-2) 0.14 10*3/uL 0.03-0.39 BASO x10^3 (test code = 704-7) 0.04 10*3/uL 0.01-0.07 Lab Interpretation (test code = 93037-9) Abnormal [facility] SouthCOLLINPRISMA HEALTH BAPTIST EASLEY HOSPITALLARON [id number] 00:21:11* Test Item Value Reference Range Interpretation Comme nts TROPONIN I (test code = 6678747914) 0.018 ng/mL <=0.034 THOMAS (test code = [...] of biotin. Lab Interpretation (test code = 11042-4) Normal [facility] SouthN-TERMINAL [id number] 00:18:29* Test Item Value Reference Range Interpretation Comme nts NT-proBNP (test code = 20074-3) 6030 pg/mL <=125 H THOMAS (test code = THOMAS) Positive: Heart Failure Likely Lab Interpretation (test code = 19976-4) Abnormal [facility]. METABOLIC PANEL (50628)2023-09-13 00:09:47* Test Item Value Reference Range Interpretation Comme nts NA (test code = 0372905267) 137 mmol/L 135-145 K (test code = 5034593170) 4.1 mmol/L 3.5-5.0 CL (test code = 0442326967) 105 mmol/L 98-108 CO2 TOTAL (test code = 8554954822) 19 mmol/L 23-31 L AGAP (test code = 0499716584) 13 2-16 BUN (test code = 9296880873) 36 mg/dL 7-23 H GLUCOSE (test code = 4196509964) 124 mg/dL 70-110 H CREATININE (test code = 2160-0) 1.54 mg/dL 0.50-1.04 H TOTAL BILI (test code = 7317383944) 0.6 mg/dL 0.1-1.1 CALCIUM (test code = 7363724519) 8.6 mg/dL 8.6-10.6 T PROTEIN (test code = 4628788381) 7.7 g/dL 6.3-8.2 ALBUMIN (test code = 0017008546) 4.0 g/dL 3.5-5.0 ALK PHOS (test code = 6784963979) 117 U/L 34-122 ALTv (test code = 1742-6) 11 U/L 5-35 AST(SGOT) (test code = 3079304469) 20 U/L 13-40 eGFR (test code = 15304-7) 33.8 mL/min/1.73m2 CKD-EPI eGFR (2020). Assuming creatinine has been stable day-to-day for at least three months, the eGFR indicates Category G3b (30 - 44 mL/min/1.73 m2) Lab Interpretation (test code = 77839-3) Abnormal [facility] SouthLactic Acid Whole [id number] 23:49:13* Test Item Value Reference Range Interpretation Comme nts LACTIC ACID (test code = 8056351808) 1.62 mmol/L 0.50-2.20 Lab Interpretation (test cod e = 34668-4) Normal [facility] REFLEX TO FREE [id number] 00:00:00* Test Item Value Reference Range Interpretation Comme nts TSH REFLEX TO FREE T4 (test code = 69111-3) 2.010 UIU/ML See_Comment [Automated [employer]!a ge] The system which generated this result [...] 12 hours) PT Functional Outcomes 5 X Unj-rr-Gtsmq Test: 0 (Unable) After session, patient supine [...] son whom has down syndromes and 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 Stairs with bilateral hand [...] -Pain Management: Nursing Notified COMMUNICATION Primary Language: Comoran Able to Verbalize needs: Yes Vision:good; no [...] DPT, MS Department of Rehabilitation Services [facility] A physical therapy evaluation of high complexity [...] clinical presentation with unstable and unpredictable characteristics SPECIALIST Pablo Botello PT [facility] 2024-04-25 09:16:05 Associated Order(s): CONSULT GASTROENTEROLOGY Department [...] Dashawn Rivas, Gastroenterology & Hepatology PGY 6 SPECIALIST Associated attestation - Luís Castañeda MD - 04/26/2024 10:23 AM QI SPECIALIST I personally interviewed/examined the patient on 04/25/[address] Rivas's resident/fellow note as written . I actively participated in the decision-making process. Please see the resident's note for additional details. [facility] 2024-01-14 09:46:38 Associated Order(s): CONSULT NEPHROLOGY [facility] Nephrology Consult Note 01/14/2024 9:46 AM Subjective Admission Date: 01/13/2024 Consult Date: 01/14/24 Reason for Consult JEB on CKD Requesting Provider Maddy Martin MD Chief Complaint Right renal hematoma after renal biopsy History of Present Illness Mahnaz Osborne is a 83 year old female with PMH of HTN, Hypercholesteremia , arthritis who present to [facility] CLC with JEB for kidney workup and renal [...] patient with you. Twin Ghosh MD FACP [facility] Adjunct animal killer [facility] Associated attestation - Twin Ghosh MD [...] anti proteinase 3 and anti myeloperoxidase antibodies. [employer] MANUFACTURER-NURSE PRACTITIONER MIDLEVEL PROVIDER [facility] - Health History and Physical Notes Date/Time Note Provider Source 2024-04-24 19:13:35 MEDICINE [facility] IT H&P PCP: Rajan Guerra Date of Service: [...] in setting of UGIB. Patient presented to [facility] on 04/23 in the afternoon via EMS [...] a rate of 72, normal axis, normal UT and QRS intervals, nonspecific ST-T wave changes. [...] transfused. On my encounter, patient speaks in Comoran; senior statistical programmer used. Patient appears slightly confused, but converses [...] she has a GI bleed. She and pvucheli-yn-lit deny any recent NSAID use, but report pt has been taking Pierpont every 4-6 hours for her recent hip fracture. Patient fell 2 weeks ago on 04/09, hitting her hip and shoulder. She was seen in [facility] where she had R hip surgery which included "pablo placement." Patient reports she lives alone; son and eactmxnf-zf-rgl are in same town and help her get her groceries, transport to medical appointments, etc. CHART REVIEW: pertinent information as below: CLC Admission (01/12-01/17) Mahnaz Osborne is a 83 year old female with PMH significant for HTN, high cholesterol, and arthritis, who presents to [facility] with acute kidney injury for possible [...] rectal exam which noted melena, which patient's ebgafmgr-io-mbl confirmed. Prior to this, no bloody bowel [...] lumbar fractures. Spoke briefly with ortho resident occupational therapy manager who said patient likely does not require log-rolling, but may be beneficial to get hip imaging to verify what procedure patient had and where fracture is. 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 Patient [...] good social support with her son and gunkdtrg-sk-bdl. Suspect she will not be safe for home discharge and require placement at SNF. Pain ppx: Pierpont 5, tylenol prn DVT ppx: SCDs GI ppx: Protonix Code Status: DNR/DNI Jen Choudhary MD Internal Medicine, PGY-2 SPECIALIST Associated attestation - Dino Grider DO - 04/27/2024 3:43 AM QI SPECIALIST I personally examined the patient on the date of service and agree with Dr. Choudhary's resident note as written. I actively participated in the decision-making process. Please see the resident's note for additional details. Dino Grider DO [employer] | Department of Internal Medicine [facility] 2024-01-13 21:06:55 AMG History & Physical DATE: 01/13/2024 SERVICE: Internal Medicine CHIEF COMPLAINT: No chief complaint on file. Acute Kidney Injury and renal hematoma HISTORY OF PRESENT ILLNESS Mahnaz Osborne is a 83 year old female with PMH significant for HTN, high cholesterol, and arthritis, who presents to [facility] with acute kidney injury for possible [...] 650 mg, 650 mg, Oral, Q6HPRN, Charly Jacob L., AGACNP [START ON 01/14/2024] docusate (COLACE) capsule 100 mg, 100 mg, Oral, DAILY, LuaniGenieCharly L., AGACNP ondansetron (ZOFRAN (PF)) injection 4 mg, 4 mg, Slow IV Push, Q6HPRN, Luani, Charly L., AGACNP traMADoL (ULTRAM) tablet 50 mg, 50 mg, Oral, Q8HPRN, Genie Jacobace L., AGACNP Current Discharge Medication List STOP taking [...] 0.01 - 0.07 10*3/uL Comp. Metabolic Panel (00135) Collection Time: 01/13/24 8:19 AM Result Value [...] Unit Blood Type A Pos Unit Number [id number] Blood Expiration Date & Time [id number] Status Information Ready Product Identification Red Blood Cells Product Code [id number] Cbc without Diff Collection Time: 01/13/24 1:16 [...] but did not see or examine patient. WO[employer]ODUCTS MANUFACTURER-GERONTOLOGY MIDLEVEL PROVIDER [facility] 2024-01-13 08:00:00 VASCULAR AND INTERVENTIONAL RADIOLOGY [...] services. Monica Bethea MD Staff Interventional Radiology [facility] Procedure Notes Date/Time Note Provider Source [...] Full dictated note to follow in PACS. T RAD-VASCULAR & INTERVENTIONAL RADIOLOGY STAFF [facility] 2024-01-13 08:00:00 VASCULAR AND INTERVENTIONAL RADIOLOGY PROCEDURE NOTE Pre-procedure diagnosis: Elevated creatinine Post-procedure diagnosis: Same. Procedure: US guided [place] renal biopsy. Anesthesia: Local 1% lidocaine, IV [...] Full dictated note to follow in PACS. [facility] Notes Date/Time Note Provider Source 2024-04-27 11:15:23 [...] Effective communication Outcome: Progressing as expected IN Monroy RN [facility] 2024-04-27 06:40:13 Problem: Falls, Risk of Goal: [...] Outcome: Progressing as expected IN Sky RN [facility] 2024-04-26 07:08:13 Problem: Falls, Risk of Goal: [...] Goal: Effective communication Outcome: Progressing as expected [facility] Areli Osborne RN [facility] 2024-04-25 21:26:36 Problem: Falls, Risk of Goal: [...] Goal: Effective communication Outcome: Progressing as expected [facility] 2024-04-25 11:31:56 Problem: Falls, Risk of Goal: [...] Adequate for discharge Outcome: Progressing as expected [facility] 2024-04-24 22:05:14 Problem: Falls, Risk of Goal: [...] new skin breakdown Outcome: Progressing as expected [facility] 2024-04-23 13:05:20 Dr. Weinberg, he stated to reinforce dressing. Nurse scheduled patient to come in for post op 04/30/24. IN Brenner RN [facility] 2024-04-23 11:47:06 Nurse spoke with nurse Lo. Lo states that patient had surgery at [facility] on 04/09/24. Patient is not on blood thinners. Nurse states patient has a follow up appointment on 05/12/24. Nurse states bandage has not been removed since surgery, red blood is coming out of the top of the dressing and on the tape. Dressing has been reinforced. [facility] 2024-04-23 10:39:15 Lo from [facility] called reporting some bleeding at the top of her bandage, she it has been re enforced , no bandage has been removed. Please review and advise , her call back is [phone] Did not I've body part [facility] Trish Slade MA [facility] 2024-01-22 09:30:00 Images from the original note were not included. Venipuncture collection performed by clean technique on the left anticubitus. Total of 1 attempts were made. Slight pressure and a bandage/dressing were applied to the site(s). The patient experienced no complications. The following specimens were processed according to instructions and sent to [facility] laboratories per lab order on 01/22/2024 : LT BLUE SST RED LAV 1 PPT DK GREEN (LiHep) DK GREEN (SodH) TENORIO DK BLUE (K2) DK BLUE (S) ACD Blood Culture NIPT/NTD [facility] 2024-01-20 12:12:29 TRANSITIONAL CARE MANAGEMENT ASSESSMENT 01/20/2024 Mahnaz Osborne [id number] Mahnaz Osborne is a 83 year old /White female was admitted on 01/13/24 to [facility]. She was discharged on 01/18/24 with discharge disposition of HR- Routine Discharge. Admitting Physician: Luis Albrecht Discharge Diagnosis: R renal hematoma/ acute blood loss anemia, JEB on CKD No linked episodes TCM Fqy-uqmo-aw-face outreach documentation: Discharge Assessment Chart Assessed: 01/20/24 TCM Outreach Completed: 01/20/24 Do you have a few minutes to speak with me about how you are doing at home?: Yes Discharge Instructions Do you understand your at-home instructions?: Yes Medications Have you filled your prescriptions and do you have them in your home? : No Medication Interventions?: Contacted physician (per DIL, "the pharmacy doesn't have the Avocopan cause [...] Phone 01/22/2024 8:00 AM Monica Bethea MD [facility]. [facility], [facility] [phone] [facility] 2024-01-18 12:50:36 Problem: Falls, Risk of Goal: [...] Tamara Sosa RN Outcome: Progressing as expected [facility] 2024-01-18 10:53:25 Patient's fall score is elevated. Patent is alert and oriented x4, call light is within reach. Bed alarm is on. Patient is instructed to call before getting out of bed or if assistance is required. ORT Tamara Sosa RN [facility] 2024-01-17 20:44:44 Problem: Falls, Risk of Goal: Absence of falls Outcome: Progressing as expected Problem: Pain Goal: Control of pain at or below patient's documented comfort goal Outcome: Progressing as expected Problem: Discharge Planning Goal: Adequate for discharge Outcome: Progressing as expected Goal: Effective communication Outcome: Progressing as expected [facility] 2024-01-17 07:34:44 Problem: Falls, Risk of Goal: Absence of falls Outcome: Progressing as expected Problem: Pain Goal: Control of pain at or below patient's documented comfort goal Outcome: Progressing as expected Problem: Discharge Planning Goal: Adequate for discharge Outcome: Progressing as expected Goal: Effective communication Outcome: Progressing as expected [facility] 2024-01-16 22:08:37 Problem: Falls, Risk of Goal: Absence of falls Outcome: Progressing as expected Problem: Pain Goal: Control of pain at or below patient's documented comfort goal Outcome: Progressing as expected Problem: Discharge Planning Goal: Adequate for discharge Outcome: Progressing as expected Goal: Effective communication Outcome: Progressing as expected [facility] 2024-01-16 07:52:42 Problem: Falls, Risk of Goal: Absence of falls Outcome: Progressing as expected Problem: Pain Goal: Control of pain at or below patient's documented comfort goal Outcome: Progressing as expected Problem: Discharge Planning Goal: Adequate for discharge Outcome: Progressing as expected Goal: Effective communication Outcome: Progressing as expected [facility] 2024-01-15 21:53:20 Problem: Falls, Risk of Goal: Absence of falls Outcome: Progressing as expected Problem: Pain Goal: Control of pain at or below patient's documented comfort goal Outcome: Progressing as expected Problem: Discharge Planning Goal: Adequate for discharge Outcome: Progressing as expected Goal: Effective communication Outcome: Progressing as expected [facility] 2024-01-15 20:10:58 High fall Risk Score identified. Patient is AOX4 able to follow commands, He knows how to call for help, Kept bed in low position Bed alarm in place and call lights within reach. Instructed to call for any assistance and do not get up unaided, lights within reach. Relatives at bedside. Naa Higginbotham RN [facility] 2024-01-15 08:00:00 Problem: Falls, Risk of Goal: Absence of falls Outcome: Progressing as expected Problem: Pain Goal: Control of pain at or below patient's documented comfort goal Outcome: Progressing as expected ORT Jefe Avina RN [facility] 2024-01-15 05:00:00 Problem: Falls, Risk of Goal: Absence of falls Outcome: Progressing as expected Problem: Pain Goal: Control of pain at or below patient's documented comfort goal Outcome: Progressing as expected Gilbert Longoria RN [facility] 2024-01-14 07:38:00 Introduced myself to patient and her son. I offered language line to interpret. The son decline services and stated that he would interpret. LAN Raza Ry Tobar RN [facility] 2024-01-14 05:19:23 Problem: Falls, Risk of Goal: Absence of falls 01/[id number] by Gilbert Longoria RN Outcome: Progressing as expected 01/14/2024 0118 by Gilbert Longoria RN Outcome: Progressing as expected Problem: Pain Goal: Control of pain at or below patient's documented comfort goal Outcome: Progressing as expected T [facility] 2024-01-13 10:37:00 Please review patient's pre-procedure charting that was completed under the patient's first procedure, right real biopsy, on 01/13/2024, at 1036. T [facility] 2023-09-12 22:42:15 Pt given printed and verbal [...] with steady gait, in no apparent distress, T Jacques Brenner RN [facility] 2023-09-12 16:48:06 Pt presents with c/o abd pain, nausea, high blood pressure and concern for fever. Pt is afebrile during triage. Pt has appt with kidney doctor tomorrow. Symptoms began yesterday. T [facility]
--- NOTE | 2024-07-13 12:33 | RAD REPORT ---
EXAMINATION: Pelvis VIEWS: Two views CLINICAL INDICATION: Female, 84 years old. BLUNT TRAUMA COMPARISON: 05/19/2024 IMPRESSION: No acute fracture. Osteopenia limits evaluation. If there is persistent clinical concern for a pelvic fracture, recommend CT given the limitations.. Bilateral hip ORIF. Healing right femoral neck fracture. No new acute fractures identified. Peripheral vascular calcifications.
[2024-07-13 12:35] LABS: Absolute Basophils 0.1 K/uL (0-0.5); Absolute Lymphocytes (CBC) 0.4 K/uL (0.7-4.9); Absolute Monocytes 0.3 K/uL (0.1-1.3); Absolute Neutrophil 12.2 K/uL (1.8-8.0); Basophils % 0.5 % (0-1.3); Eosinophils % 0.2 % (0-4.4); Hematocrit 30.7 % (36.0-45.0); Lymphocytes % 3.4 % (15.3-44.8); MCH 29.7 pg (27.0-35.0); MCHC 32.5 g/dL (32.0-36.0); MCV 91.3 fL (80-100); Monocytes % 2.2 % (3.3-12.3); Neutrophils % 93.7 % (41.7-73.7); Platelets 351 thou/uL (152-406); RBC Red Blood Cell Count 3.36 M/uL (3.86-4.86); Red Cell Distribution Width 17.4 % (12.1-15.2)
--- NOTE | 2024-07-13 12:40 | RAD REPORT ---
EXAM: Chest Single View HISTORY: 84 years Female BLUNT CHEST TRAUMA COMPARISON: 08/07/2023 FINDINGS: LUNGS/PLEURA: Diffuse prominence of the pulmonary interstitium. CARDIAC/MEDIASTINUM: Mild cardiomegaly UPPER ABDOMEN: No significant abnormality. BONES: No acute abnormality. Remote right medial clavicle fracture. LINES/TUBES/OTHER: N/A IMPRESSION: Question mild pulmonary edema. No focal consolidation. No pneumothorax.
[2024-07-13 12:55] LABS: ALT/SGPT 15 U/L (13-56); Albumin 2.9 g/dL (3.4-5.0); Albumin/Globulin Ratio 0.7 (1.1-1.8); Alkaline Phosphatase 119 U/L (45-117); Anion Gap 9.7 mEq/L (5.0-15.0); BUN Blood Urea Nitrogen 53 mg/dL (7-18); Bicarbonate 26 mEq/L (21-32); Bilirubin Total 0.4 mg/dL (0.2-1.0); Globulin 4.2 g/dL (2.3-3.5); Glomerular Filtration Rate 29 ml/min (=/>90); Glucose Level 136 mg/dL (74-106); Lipase 39 U/L (13-75); Potassium 4.7 mEq/L (3.5-5.1); Protein, Total 7.1 g/dL (6.4-8.2); Sodium Level 137 mEq/L (136-145)
[2024-07-13 13:00] LABS: AST/SGOT < 10 U/L (15-37)
[2024-07-13 13:05] LABS: Specific Gravity 1.007 (1.005-1.030); Sqamous Epithelial None Seen /HPF (None Seen); Urine Bacteria None Seen /HPF (<20); Urine Bilirubin NEGATIVE (Negative); Urine Blood Trace (Negative); Urine Clarity Clear (Clear); Urine Color Colorless (Yellow); Urine Culture Reflex Order NOT NEEDED; Urine Glucose NEGATIVE (Negative); Urine Ketones NEGATIVE (Negative); Urine Microscopic Reflex YN ORDER UMIC; Urine Mucus Slight /HPF (None Seen); Urine Nitrite NEGATIVE (Negative); Urine Protein NEGATIVE (Negative); Urine Urobilinogen Normal (Normal); Urine WBC None Seen /HPF (<5)
[2024-07-13 13:33] LABS: Anisocytosis 1+; Blood Morphology Comment NOTED (NOT SEEN); Ovalocytes SLIGHT; Platelet Estimate ADEQ; White Blood Cell Scan OK (OK)
[2024-07-13 13:44] LABS: Troponin High Sensitivity 30.7 pg/mL (<58.9)
--- NOTE | 2024-07-13 14:22 | ER ---
Nurse's Notes [facility] Name: Mahnaz Osborne Age: 84 yrs Sex: Female : 1940 Arrival Date: 07/13/2024 Time: 11:36 Bed 3 Private MD: Diagnosis: Chronic fatigue, unspecified;Chronic kidney disease, unspecified Presentation: 07/13 11:39 Chief complaint: Patient states: LUQ pain radiating to left flank and left hip that aa5 began 4 days ago. EMS reports 203/85 BP. 11:39 Coronavirus screen: At this time, the client does not indicate any symptoms associated aa5 with coronavirus-19. Ebola Screen: Patient denies travel to an Ebola-affected area in the 21 days before illness onset. Initial Sepsis Screen: Does the patient meet any 2 criteria? No. Patient's initial sepsis screen is negative. Does the patient have a suspected source of infection? No. Patient's initial sepsis screen is negative. Risk Assessment: Do you want to hurt yourself or someone else? Patient reports no desire to harm self or others. Onset of symptoms was June 2024. 11:39 Acuity: REENA 3 aa5 11:39 Method Of Arrival: EMS: [facility] aa5 Historical: - Allergies: 11:39 No Known Allergies; aa5 - PMHx: 11:39 Arthritis; CVA; High Cholesterol; Hypertension; Osteoporosis; Anemia; aa5 - PSHx: 11:39 Jean Marie Knee replacement; Cholecystectomy; Right hip replacement (Left hip replacement ); aa5 - Immunization history:: Adult Immunizations unknown. - Infectious Disease History:: Denies. - Social history:: Smoking status: Patient denies any tobacco usage or history of. Screenin:45 [facility] ED Fall Risk Assessment (Adult) History of falling in the last 3 months, aa5 including since admission No falls in past 3 months (0 pts) Confusion or Disorientation No (0 pts) Intoxicated or Sedated No (0 pts) Impaired Gait Yes (1 pt) Mobility Assist Device Used Yes (1 pt) Altered Elimination Yes (1 pt) Score/Fall Risk Level 3 or more points = High Risk Oriented to surroundings, Maintained a safe environment, Educated pt \T\ family on fall prevention, incl call for assistance when getting out of bed, Assessed \T\ reinforced patient's understanding of fall precautions. Abuse screen: Denies threats or abuse. Nutritional screening: No deficits noted. Tuberculosis screening: No symptoms or risk factors identified. Assessment: 11:39 General: Appears comfortable, Behavior is calm, cooperative. Pain: Complains of pain in aa5 left upper quadrant Pain radiates to left flank and left hip. Neuro: Level of Consciousness is awake, alert, obeys commands, Oriented to person, place, situation. Cardiovascular: Patient's skin is warm and dry. Respiratory: Airway is patent Respiratory effort is even, unlabored, Respiratory pattern is regular, symmetrical. GI: Abdomen is round non-distended, Bowel sounds present X 4 quads. Abd is soft and non tender X 4 quads. : Brief noted. EENT: No signs and/or symptoms were reported regarding the EENT system. Derm: Skin is pink, warm \T\ dry. Musculoskeletal: Pt reports she is currently doing physical therapy using walker post right hip sx approximately 4 months ago. Denies any falls x 4 months. 14:34 Reassessment: EMS at bedside to transport pt. Pt's family member reports pt is able jl7 to transfer herself from wheelchair to chair but it too weak to transfer self from wheelchair to car or car to wheelchair. Pt's family informed that the pt will be responsible for the bill incurred for transportation by ambulance, family and pt understand and are in agreement with being responsible for bill. Vital Signs: 11:39 BP 178 / 70; Pulse 87; Resp 19 S; Temp 97.8(TE); Pulse Ox 100% on R/A; aa5 11:45 BP 164 / 67; Pulse 85; Resp 21; Pulse Ox 100% ; cm10 12:30 BP 155 / 68; Pulse 77; Resp 21; Pulse Ox 99% ; cm10 13:15 BP 148 / 59; Pulse 72; Resp 15; Pulse Ox 100% on R/A; cm10 14:00 BP 168 / 72; Pulse 80; Resp 17; Pulse Ox 100% on R/A; cm10 ED Course: 11:39 Patient arrived in ED. em1 11:39 Arm band placed on Patient placed in an exam room, on a stretcher. aa5 11:39 Patient has correct armband on for positive identification. Placed in gown. Bed in low aa5 position. Call light in reach. Side rails up X2. Pulse ox on. NIBP on. 11:42 Valeri Chambers MD is Attending Physician. gb1 11:45 Elizabeth Mishra, RN is Primary Nurse. aa5 11:49 Triage completed. aa5 12:15 Initial lab(s) drawn, by me, sent to lab. Inserted saline lock: 22 gauge in left aa5 forearm, using aseptic technique. Blood collected. Flushed with 10 mL NS. 12:24 Pelvis XRAY In Process Unspecified. EDMS 12:24 Chest Single View XRAY In Process Unspecified. EDMS 12:49 Straight cath inserted, using sterile technique, 18 Fr. Specimen obtained. Returned aa5 clear yellow urine. Patient tolerated well. 14:40 No provider procedures requiring assistance completed. IV discontinued, intact, aa5 bleeding controlled, No redness/swelling at site. Pressure dressing applied. Administered Medications: No medications were administered Medication: 14:40 VIS not applicable for this client. aa5 Outcome: 14:21 Discharge ordered by . gb1 14:40 Discharged to home via ambulance, [facility] aa5 14:40 Condition: stable 14:40 Discharge instructions given to family, Instructed on discharge instructions, follow up and referral plans. Demonstrated understanding of instructions, follow-up care, 14:41 Patient left the ED. aa5 Signatures: Dispatcher [employer] Layton Mcdonald em1 Elizabeth Mishra, RN RN aa5 Velia Ryan RN RN jl7 Cindy Thorne RN RN cm10 Valeri Chambers MD MD gb1 Corrections: (The following items were deleted from the chart) 11:47 11:39 PSHx: Left hip replacement; aa5 aa5
--- NOTE | 2024-07-13 14:22 | EDPHYS ---
Physician Documentation [facility] Name: Mahnaz Osborne Age: 84 yrs Sex: Female : 1940 Arrival Date: 07/13/2024 Time: 11:36 Bed 3 Private MD: ED Physician Valeri Chambers HPI: 07/13 12:55 This 84 yrs old Female presents to ER via EMS with complaints of Hip Pain - gb1 Left, LUQ and left flank pain. 12:55 Ms. Osborne is an 84-year-old Syriac-speaking only female that presents with gb1 left upper quadrant pain and left flank pain. She did have a fall a few months ago and had a right hip fracture subsequently repaired. She did not have any fall today. She has history of arthritis, CVA, hyperlipidemia, hypertension, osteoporosis and anemia. She is here with her [id number]-sc-yty at the bedside who does speak British and relays most of today's history of the patient to me. She denies that her [id number]-[id number]'s been having any fever chills any nausea vomiting or diarrhea and she adamantly denies that she has fallen either from sitting, standing or from weight wheelchair.. Historical: - Allergies: 11:39 No Known Allergies; aa5 - PMHx: 11:39 Arthritis; CVA; High Cholesterol; Hypertension; Osteoporosis; Anemia; aa5 - PSHx: 11:39 Jean Marie Knee replacement; Cholecystectomy; Right hip replacement (Left hip replacement ); aa5 - Immunization history:: Adult Immunizations unknown. - Infectious Disease History:: Denies. - Social history:: Smoking status: Patient denies any tobacco usage or history of. Exam: 12:55 Constitutional: This is a well developed, well nourished patient who is awake, alert, gb1 and in no acute distress. Head/Face: Normocephalic, atraumatic. Eyes: Pupils equal round and reactive to light, extra-ocular motions intact. Lids and lashes normal. Conjunctiva and sclera are non-icteric and not injected. Cornea within normal limits. Periorbital areas with no swelling, redness, or edema. ENT: Nares patent. No nasal discharge, no septal abnormalities noted. Tympanic membranes are normal and external auditory canals are clear. Oropharynx with no redness, swelling, or masses, exudates, or evidence of obstruction, uvula midline. Mucous membranes moist. Neck: Trachea midline, no thyromegaly or masses palpated, and no cervical lymphadenopathy. Supple, full range of motion without nuchal rigidity, or vertebral point tenderness. No Meningismus. Chest/axilla: Normal chest wall appearance and motion. Nontender with no deformity. No lesions are appreciated. Cardiovascular: Regular rate and rhythm with a normal S1 and S2. No gallops, murmurs, or rubs. Normal PMI, no JVD. No pulse deficits. Respiratory: Lungs have equal breath sounds bilaterally, clear to auscultation and percussion. No rales, rhonchi or wheezes noted. No increased work of breathing, no retractions or nasal flaring. Abdomen/GI: Soft, non-tender, with normal bowel sounds. No distension or tympany. No guarding or rebound. No evidence of tenderness throughout. Back: No spinal tenderness. No costovertebral tenderness. Full range of motion. Skin: Warm, dry with normal turgor. Normal color with no rashes, no lesions, and no evidence of cellulitis. MS/ Extremity: Pulses equal, no cyanosis. Neurovascular intact. Full, normal range of motion. Neuro: Awake and alert, GCS 15, oriented to person, place, time, and situation. Cranial nerves II-XII grossly intact. Motor strength 5/5 in all extremities. Sensory grossly intact. Cerebellar exam normal. Normal gait. Vital Signs: 11:39 BP 178 / 70; Pulse 87; Resp 19 S; Temp 97.8(TE); Pulse Ox 100% on R/A; aa5 11:45 BP 164 / 67; Pulse 85; Resp 21; Pulse Ox 100% ; cm10 12:30 BP 155 / 68; Pulse 77; Resp 21; Pulse Ox 99% ; cm10 13:15 BP 148 / 59; Pulse 72; Resp 15; Pulse Ox 100% on R/A; cm10 14:00 BP 168 / 72; Pulse 80; Resp 17; Pulse Ox 100% on R/A; cm10 MDM: 11:43 Medical Screening Exam initiated gb1 14:17 Data reviewed: vital signs, nurses notes. ED course: Ms. Osborne is a 84-year-old gb1 female that presented with left hip pain left upper quadrant pain left flank pain. She denies any fever or chills, she denies any fall. Patient has a history of CKD however her creatinine appears to be at a better range today versus her last ER visit. She does not have a urinary tract infection her troponin is normal BNP is mildly elevated but that comes with an increase creatinine. Her chest x-ray does not appear to be frankly fluid overloaded and she has no respiratory symptoms. She is not labored to breathe she is not tachypneic or tachycardic. She appears restful in bed. We did speak about her chronic pain and the fact that she is an opiate which may cause constipation. Patient is being discharged home with her family at the bedside currently.. 07/13 11:46 Order name: CBC with Diff; Complete Time: 13:50 gb1 07/13 11:46 Order name: CMP; Complete Time: 13:10 gb1 07/13 11:46 Order name: Lipase; Complete Time: 13:10 gb1 07/13 11:46 Order name: Urinalysis w/ reflexes; Complete Time: 13:10 gb1 07/13 13:11 Order name: NT PRO-BNP; Complete Time: 13:50 gb1 07/13 13:11 Order name: Troponin HS; Complete Time: 13:50 gb1 07/13 13:33 Order name: CBC Smear Scan; Complete Time: 13:50 EDMS 07/13 11:47 Order name: Pelvis XRAY; Complete Time: 12:49 gb1 07/13 11:47 Order name: Chest Single View XRAY; Complete Time: 12:49 gb1 07/13 11:46 Order name: IV Saline Lock; Complete Time: 13:16 gb1 07/13 11:46 Order name: Labs collected and sent; Complete Time: 13:16 gb1 07/13 13:16 Order name: Straight Cath - Urine; Complete Time: 13:16 aa5 Administered Medications: No medications were administered Disposition Summary: 07/13/24 14:21 Discharge Ordered Notes: Location: Home gb1 Condition: Stable gb1 Problem: an ongoing problem gb1 Symptoms: have improved gb1 Diagnosis - Chronic fatigue, unspecified gb1 - Chronic kidney disease, unspecified gb1 Followup: gb1 - With: Private Physician - When: - Reason: Recheck today's complaints Discharge Instructions: - Discharge Summary Sheet gb1 - Chronic Fatigue Syndrome gb1 - Chronic Kidney Disease, Adult, Wkyw-lg-[id number] gb1 Forms: - Medication Reconciliation Form gb1 - Antibiotic Education gb1 - Prescription Opioid Use gb1 - Patient Portal Instructions gb1 - Leadership Thank You Letter gb1 Signatures: Dispatcher [employer] Elizabeth Shook, RN RN aa5 Valeri Chambers MD MD gb1 Corrections: (The following items were deleted from the chart) 11:47 11:47 CBC+H.LAB.BRZ ordered. EDMS EDMS 11:47 11:47 COMPREHENSIVE METABOLIC PANEL+C.LAB.BRZ ordered. EDMS EDMS 11:47 11:47 LIPASE+C.LAB.BRZ ordered. EDMS EDMS 11:47 11:47 Urinalysis+U.LAB.BRZ ordered. EDMS EDMS 11:47 11:39 PSHx: Left hip replacement; aa5 aa5
[2024-07-13 15:22] VITALS: O2SAT 100
[2024-07-13 15:24] VITALS: BP 168/72
== END 2024-07-13 14:41 | disposition home or self-care (01) ==
LOC: ER 11:36
DX: I12.9 Hypertensive chronic kidney disease with stage 1 through stage 4 chronic kidney disease, or unspecified chronic kidney disease (principal); N18.9 Chronic kidney disease, unspecified; G93.32 Myalgic encephalomyelitis/chronic fatigue syndrome; Z96.653 Presence of artificial knee joint, bilateral; Z96.643 Presence of artificial hip joint, bilateral
CPT/HCPCS: 36415; 51702; 71045; 72170; 80053; 81001; 83690; 83880; 84484; 85025; 99284